=== PATIENT | female | born 1950 | race Caucasian/White ===

== ENCOUNTER → 2018-08-02 13:04 | Outpatient (BNVA) | payer MEDICARE, MEDICAID, SELFPAY | PROVIDERS: Visit Provider Urology | DX: N39.41 Urge incontinence (principal); I10 Essential (primary) hypertension | CPT/HCPCS: 99213 ==

== ENCOUNTER 2018-12-21 00:23 | Outpatient (CLI) | payer MEDICARE, MEDICAID, SELFPAY ==
--- NOTE | 2018-12-21 10:11 | DI.RAD_ITS ---
SYMPTOM/DIAGNOSIS: CHRONIC COUGH PA AND LATERAL CHEST: Comparison is made with 03/03/17. The heart is normal in size. The lungs are clear. The mediastinal structures and pleura appear intact. CONCLUSION: Normal chest.
== END 2018-12-21 00:43 ==
PROVIDERS: PCP Nurse Practitioner Family; Visit Provider Nurse Practitioner Family
DX: R05 Cough (principal)
CPT/HCPCS: 71046

== ENCOUNTER 2019-02-01 00:39 | Outpatient (CLI) | payer MEDICARE, MEDICAID, SELFPAY ==
[2019-02-01 09:50] LABS: CREATININE 1.79 mg/dL (0.55-1.02); Estimated GFR 28.25 (mL/min/1.73m2)
--- NOTE | 2019-02-01 10:03 | DI.MRI_ITS ---
SYMPTOMS/DIAGNOSIS: RIGHT RENAL MASS, F/U ABNORMAL MRI, N28.89, R93.5 RENAL MRI: Routine noncontrast MRI of the kidneys was performed. Contrast was not administered due to the patient's impaired renal function. Comparison examination is 05/10/18. There is again seen a well-circumscribed mass in the upper pole of the right kidney. It measures 3.8 cm transverse x 4 cm AP x 3.3 cm craniocaudally. Using similar techniques on the prior examination, it measured 3.9 cm transverse x 3.9 cm AP x 3.3 cm craniocaudad on 05/10/18. There are again seen thin internal septations and a question of nodularity along the wall posteriorly. The findings and size of this cystic lesion are unchanged compared to 05/10/18. No new renal masses are appreciated. There is again seen mild renal cortical atrophy bilaterally. No abdominal adenopathy is seen on the images provided. The visualized portions of the liver, spleen, pancreas and adrenal glands are unremarkable. The patient is status post cholecystectomy. IMPRESSION: Stable right renal mass since 05/10/18.
== END 2019-02-01 00:59 ==
PROVIDERS: PCP Nurse Practitioner Family; Visit Provider Urology
DX: N28.89 Other specified disorders of kidney and ureter (principal); N26.1 Atrophy of kidney (terminal); R93.5 Abnormal findings on diagnostic imaging of other abdominal regions, including retroperitoneum
CPT/HCPCS: 74181; 82565

== ENCOUNTER → 2019-02-06 14:06 | Outpatient (BNVA) | payer MEDICARE, MEDICAID, SELFPAY | PROVIDERS: PCP Nurse Practitioner Family; Visit Provider Urology | DX: N28.89 Other specified disorders of kidney and ureter (principal); I10 Essential (primary) hypertension; N39.41 Urge incontinence | CPT/HCPCS: 99213 ==

== ENCOUNTER 2019-02-14 01:08 | Outpatient (CLI) | payer MEDICARE, MEDICAID, SELFPAY ==
--- NOTE | 2019-02-14 08:48 | DI.MAMMO_ITS ---
SYMPTOM/DIAGNOSIS: SCREENING, Z12.31, [facility],Z00.00 MAMMOGRAMS: Mammograms were interpreted according to the usual protocol including computer analysis with CAD system, tomosynthesis and C view imaging. Comparison is made with exams from [id number]. The breasts are composed of scattered fibroglandular densities, breast density, Category B. No suspicious masses or suspicious microcalcifications are seen. There has been no significant change. IMPRESSION: Category 1, negative mammogram. Yearly screening mammography is recommended. [facility] ASSESSMENT OF FINDINGS: Negative. Category 1. Patient will receive a letter notifying them of these results. BI-RADS category B. There are scattered areas of fibroglandular density.
== END 2019-02-14 01:28 ==
PROVIDERS: PCP Nurse Practitioner Family; Visit Provider Nurse Practitioner Family
DX: Z12.31 Encounter for screening mammogram for malignant neoplasm of breast (principal)
CPT/HCPCS: 77063; 77067

== ENCOUNTER 2019-03-30 12:05 | Outpatient (REF) | payer MEDICARE, MEDICAID, SELFPAY ==
[2019-03-30 18:44] LABS: C-Reactive Protein 2.07 mg/dL (0.0-0.3)
[2019-03-30 19:08] LABS: ESR 45 MM/HR (0-30)
[2019-04-01 14:10] LABS: Myeloperoxidase Ab IgG 3.4 U; Proteinase 3 Ab (PR3) <0.2 U
== END 2019-03-30 12:25 ==
LOC: NCHCN 12:05
PROVIDERS: PCP Nurse Practitioner Family; Visit Provider Nurse Practitioner Family
DX: I77.6 Arteritis, unspecified (principal)
CPT/HCPCS: 85652; 83516; 86140

== ENCOUNTER 2019-04-07 14:57 | Outpatient (CLI) | payer MEDICARE, MEDICAID, SELFPAY ==
--- NOTE | 2019-04-07 15:18 | DI.CT_ITS ---
SYMPTOMS/DIAGNOSIS: UMBILICAL MASS X 3 WEEKS, R19.05, RED AND SWOLLEN AT SITE OF UMBILICUS, S/P HERNIA REPAIR YEARS AGO CT SCAN OF THE ABDOMEN: Noncontrast CT scan of the abdomen was performed. Comparison CT is 03/03/17. Comparison MRI is 05/10/18. The lack of contrast does limit evaluation of the abdominal organs. There is scarring in the lung bases bilaterally. The unenhanced liver appears grossly unremarkable. The patient is status post cholecystectomy. No biliary ductal dilatation is seen. The pancreas and peripancreatic soft tissues are unremarkable, as are the spleen and adrenal glands. There is renal cortical atrophy at the left kidney, which is otherwise unremarkable. There is again seen a 4.3 cm hypodense lesion in the right kidney superior pole. This has been evaluated on prior MRIs and CT scans. The most recent MRI examination was 02/01/19, which showed a complex, predominantly cystic renal mass that has been stable. The aorta is of normal caliber. No significant abdominal ascites, adenopathy or pneumoperitoneum is seen. There is diverticulosis of the colon, but no evidence of acute diverticulitis. The bowel is unremarkable. Since the prior examination, there has developed a lesion at the level of the umbilicus. It involves the anterior abdominal wall to the skin surface and measures 5.1 cm AP x 5.9 cm transverse x 5.3 cm craniocaudad. It appears of low density. There is some mild skin thickening in the region. It does not communicate with the underlying bowel. Degenerative changes are seen in the spine. There is resultant moderately severe central spinal canal stenosis at L3-4 and L4-L5. IMPRESSION: 1. A 5.3 x 5.9 x 5.1 cm hypodense soft tissue lesion involving the anterior abdominal wall at the level of the umbilicus. An abscess cannot be excluded. A soft tissue mass cannot be excluded. Aspiration or biopsy is recommended for further evaluation. The lesion does not appear consistent with a hernia. There is no bowel involved with the mass. 2. Stable right renal lesion on this noncontrast examination.
== END 2019-04-07 15:17 ==
PROVIDERS: PCP Nurse Practitioner Family; Visit Provider Nurse Practitioner Family
DX: R19.05 Periumbilic swelling, mass or lump (principal); N28.89 Other specified disorders of kidney and ureter
CPT/HCPCS: 74150

== ENCOUNTER 2019-05-02 14:26 | Outpatient (CLI) | payer MEDICARE, MEDICAID, SELFPAY ==
[2019-05-02 14:52] LABS: Abs Immature Grans 0.01 k/cumm (0.0-0.09); Absolute Basophil Count 0.05 k/cumm (0.0-0.2); Absolute Eosinophil Count 0.18 k/cumm (0.0-0.7); Absolute Neutrophil Count 5.06 k/cumm (1.2-6.7); Basophils % 0.6; Eosinophils % 2.3; HCT 30.6 % (36.0-46.0); HGB 9.9 g/dL (12.0-15.5); Immature Grans % 0.1; Lymphocytes % 28.8; Mean Corp. HGB Concentration 32.4 g/dL (32.0-36.0); Mean Corpuscular Hemoglobin 28.6 pg (27.0-33.0); Mean Corpuscular Volume 88.4 fL (80-95); Mean Platelet Volume 9.5 fL (8.0-11.0); Neutrophils % 63.2; Platelet Count 229 x1000/uL (130-400); RBC 3.46 m/cumm (4.00-5.20); Reticulocyte 1.4 % (0.5-2.4)
[2019-05-02 15:16] LABS: Anisocytosis 1+; Diff Comment RBC Morph Reviewed; Hypochromasia 1+
[2019-05-02 16:30] LABS: Iron 47 ug/dL (50-175); Total Iron Binding Capacity 259 ug/dL (250-450); Transferrin Sat 18 % (15-50)
[2019-05-02 17:02] LABS: ALT 26 U/L (12-78); AST 16 U/L (15-37); Albumin 3.7 g/dL (3.4-5.0); Alkaline Phosphatase 103 U/L (46-116); Anion Gap 12.1 mmol/L (3-11); BUN 49 mg/dL (7-18); Bilirubin, Total 0.2 mg/dL (0.2-1.0); CO2 20.9 mmol/L (21.0-32.0); Calcium 9.3 mg/dL (8.5-10.1); Chloride 108 mmol/L (98-107); Estimated GFR 26.37 (mL/min/1.73m2); Ferritin 337 ng/mL (8-388); Folate 11.8 ng/mL (8.6-20.0); Glucose 151 mg/dL (70-100); Potassium 4.9 mmol/L (3.5-5.1); Sodium 141 mmol/L (136-145); TSH 0.55 uIU/mL (0.358-3.74); Vitamin B12 433 pg/mL (193-986)
[2019-05-02 17:36] LABS: LDH 197 U/L (81-234)
[2019-05-04 09:28] LABS: Haptoglobin 189 mg/dL (32-197)
[2019-05-04 14:26] LABS: Erythropoietin 7.7 mIU/mL (2.6 - 18.5)
== END 2019-05-02 14:46 ==
PROVIDERS: PCP Nurse Practitioner Family; Visit Provider Internal Medicine Hematology & Oncology
DX: D64.9 Anemia, unspecified (principal); Z51.81 Encounter for therapeutic drug level monitoring
CPT/HCPCS: 36415; 80053; 82668; 82607; 82728; 82746; 83010; 83540; 83550; 83615; 84443; 85025; 85045

== ENCOUNTER 2019-07-14 12:25 | Outpatient (REF) | payer MEDICARE, MEDICAID, SELFPAY ==
[2019-07-14 15:18] LABS: ALT 22 U/L (14-59); AST 12 U/L (15-37); Albumin 3.7 g/dL (3.4-5.0); Alkaline Phosphatase 92 U/L (46-116); Anion Gap 9.9 mmol/L (3-11); BUN 45 mg/dL (7-18); Bilirubin, Total 0.2 mg/dL (0.2-1.0); CO2 23.1 mmol/L (21.0-32.0); CREATININE 1.97 mg/dL (0.55-1.02); Calcium 8.9 mg/dL (8.5-10.1); Calculated LDL 103 mg/dL; Chloride 108 mmol/L (98-107); Cholesterol 156 mg/dL (50-200); Estimated GFR 25.29 (mL/min/1.73m2); Glucose 148 mg/dL (70-100); HDL Cholesterol 39 mg/dL (40-60); Potassium 5.8 mmol/L (3.5-5.1); Sodium 141 mmol/L (136-145); Total Protein 7.5 g/dL (6.4-8.2); Triglyceride 71 mg/dL (30-150)
[2019-07-14 15:19] LABS: HCT 32.2 % (36.0-46.0); Mean Corp. HGB Concentration 31.1 g/dL (32.0-36.0); Mean Corpuscular Hemoglobin 28.2 pg (27.0-33.0); Mean Corpuscular Volume 90.7 fL (80-95); Mean Platelet Volume 10.2 fL (8.0-11.0); Platelet Count 272 x1000/uL (130-400); RBC 3.55 m/cumm (4.00-5.20); RBC Distribution Width 14.7 % (11.7-14.6); White Blood Cell Count 6.97 k/cumm (4.4-10.8)
== END 2019-07-14 12:45 ==
LOC: NCHCN 12:25
PROVIDERS: PCP Nurse Practitioner Family; Visit Provider Nurse Practitioner Family
DX: D63.8 Anemia in other chronic diseases classified elsewhere (principal); I10 Essential (primary) hypertension; N18.3 Chronic kidney disease, stage 3 (moderate)
CPT/HCPCS: 80053; 80061; 85027

== ENCOUNTER 2019-11-20 12:15 | Outpatient (CLI) | payer MEDICARE, MEDICAID, SELFPAY ==
[2019-11-20 12:36] LABS: Abs Immature Grans 0.02 k/cumm (0.0-0.09); Absolute Basophil Count 0.06 k/cumm (0.0-0.2); Absolute Eosinophil Count 0.19 k/cumm (0.0-0.7); Absolute Lymphocyte Count 1.96 k/cumm (1.2-3.4); Absolute Monocyte Count 0.49 k/cumm (0.11-0.7); Absolute Neutrophil Count 4.21 k/cumm (1.2-6.7); Basophils % 0.9; Eosinophils % 2.7; HCT 33.8 % (36.0-46.0); Immature Grans % 0.3 %; Lymphocytes % 28.3; Mean Corp. HGB Concentration 32.5 g/dL (32.0-36.0); Mean Corpuscular Hemoglobin 28.4 pg (27.0-33.0); Mean Corpuscular Volume 87.1 fL (80-95); Mean Platelet Volume 9.5 fL (8.0-11.0); Monocytes % 7.1; Neutrophils % 60.7; Platelet Count 250 x1000/uL (130-400); RBC 3.88 m/cumm (4.00-5.20); RBC Distribution Width 14.2 % (11.7-14.6); White Blood Cell Count 6.93 k/cumm (4.4-10.8)
[2019-11-20 12:49] LABS: ALT 20 U/L (14-59); AST 15 U/L (15-37); Albumin 3.8 g/dL (3.4-5.0); Alkaline Phosphatase 91 U/L (46-116); Anion Gap 9.1 mmol/L (3-11); BUN 38 mg/dL (7-18); Bilirubin, Total 0.3 mg/dL (0.2-1.0); CO2 24.9 mmol/L (21.0-32.0); CREATININE 1.85 mg/dL (0.55-1.02); Calcium 8.6 mg/dL (8.5-10.1); Chloride 106 mmol/L (98-107); Estimated GFR 27.11 (mL/min/1.73m2); Glucose 137 mg/dL (74-106); Potassium 4.9 mmol/L (3.5-5.1); Sodium 140 mmol/L (136-145); Total Protein 7.8 g/dL (6.4-8.2)
== END 2019-11-20 12:35 ==
PROVIDERS: PCP Nurse Practitioner Family; Visit Provider Internal Medicine Hematology & Oncology
DX: D64.9 Anemia, unspecified (principal)
CPT/HCPCS: 36415; 80053; 85025

== ENCOUNTER 2019-12-07 11:53 | Outpatient (REF) | payer MEDICARE, MEDICAID, SELFPAY ==
[2019-12-07 13:21] LABS: PROTEIN 10.3 mg/dL
[2019-12-07 13:22] LABS: COMMENT (LAB VIEW ONLY) 138.63 mg/dL; Prot/Crea Ur Ratio 0.07
[2019-12-07 13:23] LABS: COMMENT (LAB VIEW ONLY) 138.88 mg/dL; Microalb ug/mg Crea 5.1 ug/mg Cr
== END 2019-12-07 12:13 ==
LOC: NCHCO 11:53
PROVIDERS: PCP Nurse Practitioner Family; Visit Provider Nurse Practitioner Family
DX: E11.9 Type 2 diabetes mellitus without complications (principal); I10 Essential (primary) hypertension
CPT/HCPCS: 82043; 82565; 82570; 84156

== ENCOUNTER 2020-04-16 01:01 | Outpatient (CLI) | payer MEDICARE, MEDICAID, SELFPAY ==
[2020-04-16 11:31] LABS: Abs Immature Grans 0.02 k/cumm (0.0-0.09); Absolute Basophil Count 0.05 k/cumm (0.0-0.2); Absolute Eosinophil Count 0.23 k/cumm (0.0-0.7); Absolute Lymphocyte Count 2.44 k/cumm (1.2-3.4); Absolute Monocyte Count 0.61 k/cumm (0.11-0.7); Absolute Neutrophil Count 4.96 k/cumm (1.2-6.7); Basophils % 0.6; Eosinophils % 2.8; HGB 10.5 g/dL (12.0-15.5); Immature Grans % 0.2 %; Lymphocytes % 29.4; Mean Corp. HGB Concentration 32.8 g/dL (32.0-36.0); Mean Corpuscular Hemoglobin 28.6 pg (27.0-33.0); Mean Corpuscular Volume 87.2 fL (80-95); Mean Platelet Volume 9.6 fL (8.0-11.0); Monocytes % 7.3; Neutrophils % 59.7; Platelet Count 257 x1000/uL (130-400); RBC 3.67 m/cumm (4.00-5.20); RBC Distribution Width 14.9 % (11.7-14.6); White Blood Cell Count 8.31 k/cumm (4.4-10.8)
[2020-04-16 12:08] LABS: ALT 24 U/L (14-59); AST 16 U/L (15-37); Albumin 4.2 g/dL (3.4-5.0); Alkaline Phosphatase 86 U/L (46-116); Anion Gap 13.5 mmol/L (3-11); BUN 60 mg/dL (7-18); Bilirubin, Total 0.3 mg/dL (0.2-1.0); C-Reactive Protein 1.09 mg/dL (0.0-0.3); CO2 18.5 mmol/L (21.0-32.0); CREATININE 2.35 mg/dL (0.55-1.02); Calcium 9.5 mg/dL (8.5-10.1); Chloride 105 mmol/L (98-107); Estimated GFR 20.57 (mL/min/1.73m2); Glucose 135 mg/dL (74-106); Potassium 5.4 mmol/L (3.5-5.1); Sodium 137 mmol/L (136-145); Total Protein 7.7 g/dL (6.4-8.2)
[2020-04-16 12:17] LABS: ESR 36 mm/hr (0-30)
[2020-04-17 14:53] LABS: ANCA Interpretation Positive (Negative)
[2020-04-18 10:03] LABS: Myeloperoxidase Ab IgG 3.6 U; Proteinase 3 Ab (PR3) <0.2 U
== END 2020-04-16 01:21 ==
PROVIDERS: PCP Nurse Practitioner Family; Visit Provider Nurse Practitioner Family
DX: D64.9 Anemia, unspecified (principal); I77.6 Arteritis, unspecified
CPT/HCPCS: 36415; 80053; 85652; 86255; 83516; 85025; 86140

== ENCOUNTER 2020-07-16 01:34 | Outpatient (CLI) | payer MEDICARE, MEDICAID, SELFPAY ==
[2020-07-16 10:51] LABS: Abs Immature Grans 0.03 10^3/uL (0.0-0.06); Absolute Basophil Count 0.06 10^3/uL (0.0-0.2); Absolute Eosinophil Count 0.26 10^3/uL (0.0-0.7); Absolute Lymphocyte Count 2.61 10^3/uL (1.2-3.4); Absolute Monocyte Count 0.59 10^3/uL (0.1-0.8); Absolute Neutrophil Count 5.26 10^3/uL (1.2-6.7); Basophils % 0.7; HGB 10.4 g/dL (11.2-15.7); Immature Grans % 0.3; Lymphocytes % 29.6; MCH 28.3 pg (27.0-33.0); MCHC 31.5 % (32.0-36.0); MCV 89.7 fL (80-95); MPV 9.6 fL (8.0-11.0); Monocytes % 6.7; Neutrophils % 59.7; Nucleated RBC 0 %; Platelet Count 246 10^3/uL (130-400); RBC 3.68 10^6/uL (3.93-5.22); RDW 13.3 % (11.7-14.6); RDW-SD 44.1 fL; WBC 8.81 10^3/uL (4.4-10.8)
[2020-07-16 11:41] LABS: ESR 41 mm/hr (0-30)
[2020-07-16 11:53] LABS: ALT 21 U/L (14-59); AST 14 U/L (15-37); Alkaline Phosphatase 88 U/L (46-116); Anion Gap 9.6 mmol/L (3-11); BUN 51 mg/dL (7-18); Bilirubin, Total 0.3 mg/dL (0.2-1.0); CO2 23.4 mmol/L (21.0-32.0); CREATININE 2.13 mg/dL (0.55-1.02); Calcium 9.6 mg/dL (8.5-10.1); Chloride 104 mmol/L (98-107); Estimated GFR 23.04 (mL/min/1.73m2); Glucose 170 mg/dL (74-106); Potassium 5.9 mmol/L (3.5-5.1); Sodium 137 mmol/L (136-145); Total Protein 7.7 g/dL (6.4-8.2)
[2020-07-17 15:36] LABS: ANCA Interpretation Positive (Negative)
[2020-07-17 17:30] LABS: Myeloperoxidase Ab IgG 3.7 U; Proteinase 3 Ab (PR3) <0.2 U
== END 2020-07-16 01:54 ==
PROVIDERS: Nurse Practitioner Family; PCP Nurse Practitioner Family; Visit Provider Internal Medicine Nephrology
DX: I77.6 Arteritis, unspecified (principal)
CPT/HCPCS: 36415; 80053; 85652; 86255; 83516; 85025; 86140

== ENCOUNTER 2020-08-26 20:48 | Outpatient (REF) | payer MEDICARE, MEDICAID, SELFPAY ==
[2020-08-26 19:14] LABS: Iron 62 ug/dL (50-170); Total Iron Binding Capacity 306 ug/dL (250-450); Transferrin Sat 20 % (15-50)
[2020-08-26 19:26] LABS: Ferritin 361 ng/mL (8-252)
== END 2020-08-26 21:08 ==
LOC: NCHCN 20:48
PROVIDERS: PCP Nurse Practitioner Family; Visit Provider Nurse Practitioner Family
DX: D63.8 Anemia in other chronic diseases classified elsewhere (principal)
CPT/HCPCS: 82728; 83540; 83550

== ENCOUNTER 2020-08-29 13:25 | Outpatient (REF) | payer MEDICARE, MEDICAID, SELFPAY ==
[2020-08-29 18:07] LABS: HGB 10.7 g/dL (11.2-15.7); MCH 28.1 pg (27.0-33.0); MCHC 31.5 % (32.0-36.0); MCV 89.2 fL (80-95); MPV 10.4 fL (8.0-11.0); Platelet Count 245 10^3/uL (130-400); RBC 3.81 10^6/uL (3.93-5.22); RDW 13.6 % (11.7-14.6); RDW-SD 44.4 fL; WBC 7.84 10^3/uL (4.4-10.8)
[2020-08-29 18:33] LABS: ALT 20 U/L (14-59); AST 15 U/L (15-37); Albumin 4.2 g/dL (3.4-5.0); Alkaline Phosphatase 86 U/L (46-116); Anion Gap 10.3 mmol/L (3-11); BUN 54 mg/dL (7-18); Bilirubin, Total 0.3 mg/dL (0.2-1.0); CO2 21.7 mmol/L (21.0-32.0); CREATININE 2.15 mg/dL (0.55-1.02); Calcium 9.6 mg/dL (8.5-10.1); Chloride 106 mmol/L (98-107); Estimated GFR 22.79 (mL/min/1.73m2); Glucose 172 mg/dL (74-106); Potassium 5.4 mmol/L (3.5-5.1); Sodium 138 mmol/L (136-145); Total Protein 7.8 g/dL (6.4-8.2)
== END 2020-08-29 13:45 ==
LOC: NCHCN 13:25
PROVIDERS: PCP Nurse Practitioner Family; Visit Provider Nurse Practitioner Family
DX: N18.4 Chronic kidney disease, stage 4 (severe) (principal)
CPT/HCPCS: 80053; 85027

== ENCOUNTER 2021-03-14 03:15 | Outpatient (CLI) | payer MEDICARE, MEDICAID, SELFPAY ==
[2021-03-14 10:40] LABS: Source Nasal/Nares
[2021-03-14 15:04] LABS: COVID-19 PCR Negative (Negative)
== END 2021-03-14 03:16 | disposition home or self-care (01) ==
LOC: LBO 03:15
PROVIDERS: PCP Nurse Practitioner Family; Visit Provider Surgery
DX: Z20.822 Contact with and (suspected) exposure to COVID-19 (principal); Z01.818 Encounter for other preprocedural examination
CPT/HCPCS: 87635

== ENCOUNTER 2021-03-17 02:19 | Outpatient (CLI) | payer MEDICARE, MEDICAID, SELFPAY ==
[2021-03-17 11:48] LABS: Anion Gap 13.7 mmol/L (3-11); CO2 19.3 mmol/L (21.0-32.0); Chloride 106 mmol/L (98-107); Potassium 5.6 mmol/L (3.5-5.1); Sodium 139 mmol/L (136-145)
== END 2021-03-17 02:20 | disposition home or self-care (01) ==
PROVIDERS: PCP Nurse Practitioner Family; Visit Provider Surgery
DX: Z01.818 Encounter for other preprocedural examination (principal)
CPT/HCPCS: 36415; 80051

== ENCOUNTER → 2021-04-01 15:40 | Outpatient (BNVA) | payer MEDICARE, MEDICAID, SELFPAY | PROVIDERS: PCP Nurse Practitioner Family; Referring Provider Nurse Practitioner Family; Visit Provider Nurse Practitioner Gerontology | DX: N28.89 Other specified disorders of kidney and ureter (principal); N39.46 Mixed incontinence | CPT/HCPCS: 99214 ==

== ENCOUNTER 2021-05-12 01:30 | Outpatient (CLI) | payer MEDICARE, MEDICAID, SELFPAY ==
--- NOTE | 2021-05-12 07:00 | DI.US_ITS ---
Exam(s) US RENAL EXAM: US RENAL CLINICAL HISTORY: monitoring mass to right kidney,URINARY INCONTINENCE,MIXED INCONTINENCE TECHNIQUE: Ultrasound of both kidneys performed using standard protocol. COMPARISON: No exams were available for comparison FINDINGS: RIGHT KIDNEY: Measures 10.6 cm in length. In superior pole there is a cystic mass measuring 3.9 x 3.6 x 4 cm. This is predominantly cystic but with thick internal septae therein. Also decreased cortical thickness i n the right kidney noted and decreased corticomedullary differentiation. No intrarenal calculi nor hydronephrosis. LEFT KIDNEY: Measures 8.9 cm in length. No cysts evident. Also decreased cortical thickness and corticomedullary differentiation. No intrarenal calculi nor hydonephrosis. URINARY BLADDER: Prevoid volume is 127 cc Postvoid volume is 117 cc No evidence of bladder mass nor diverticuli. Ureterovesical jets: Not visualized IMPRESSION: 1. Both kidneys exhibit decreased cortical thickness and corticomedullary differentiation consistent with chronic medical renal disease. 2. In addition, there is a 3.9 x 3.6 x 4 cm septated lesion in the superior pole region of the right kidney. This is not a simple cyst but contains solid septated therein. Recommend follow-up CT scan . Patient is apparently incontinent was not able voluntarily empty her urinary bladder DATA REPOSITORY:
== END 2021-05-12 01:50 ==
PROVIDERS: PCP Nurse Practitioner Family; Visit Provider Nurse Practitioner Gerontology
DX: N28.89 Other specified disorders of kidney and ureter (principal); N39.41 Urge incontinence; N39.46 Mixed incontinence
CPT/HCPCS: 76770

== ENCOUNTER → 2021-05-14 10:31 | Outpatient (BNVA) | payer MEDICARE, MEDICAID, SELFPAY | PROVIDERS: PCP Nurse Practitioner Family; Referring Provider Nurse Practitioner Family; Visit Provider Nurse Practitioner Gerontology | DX: N28.89 Other specified disorders of kidney and ureter (principal); N39.46 Mixed incontinence | CPT/HCPCS: 99213 ==

== ENCOUNTER 2021-05-20 16:58 | Outpatient (REF) | payer MEDICARE, MEDICAID, SELFPAY ==
[2021-05-20 21:32] LABS: Anion Gap 10.9 mmol/L (3-11); BUN 41 mg/dL (7-18); CO2 23.1 mmol/L (21.0-32.0); CREATININE 1.9 mg/dL (0.55-1.02); Calcium 9.3 mg/dL (8.5-10.1); Chloride 108 mmol/L (98-107); Estimated GFR 26.21 (mL/min/1.73m2); Glucose 138 mg/dL (74-106); Magnesium 1.9 mg/dL (1.8-2.4); Potassium 4.9 mmol/L (3.5-5.1); Sodium 142 mmol/L (136-145)
[2021-05-20 22:48] LABS: Vitamin D 25 Total 32.5 ng/mL (30-100)
[2021-05-22 10:42] LABS: Parathyroid Hormone,Intact 26 pg/mL (19-88)
== END 2021-05-20 16:59 | disposition home or self-care (01) ==
LOC: NCHCN 16:58
PROVIDERS: Physician Assistant; PCP Nurse Practitioner Family; Visit Provider Nurse Practitioner Family
DX: E11.22 Type 2 diabetes mellitus with diabetic chronic kidney disease (principal); N18.4 Chronic kidney disease, stage 4 (severe)
CPT/HCPCS: 80048; 82306; 85027; 83735; 83970

== ENCOUNTER 2021-06-04 13:14 | Outpatient (REF) | payer MEDICARE, MEDICAID, SELFPAY ==
[2021-06-04 14:01] LABS: HCT 33.9 % (36.0-46.0); HGB 10.6 g/dL (11.2-15.7); MCH 27.3 pg (27.0-33.0); MCHC 31.3 % (32.0-36.0); MCV 87.4 fL (80-95); MPV 10.1 fL (8.0-11.0); Platelet Count 242 10^3/uL (130-400); RBC 3.88 10^6/uL (3.93-5.22); RDW 13.9 % (11.7-14.6); RDW-SD 43.9 fL
== END 2021-06-04 13:15 | disposition home or self-care (01) ==
LOC: NCHCN 13:14
PROVIDERS: PCP Nurse Practitioner Family; Visit Provider Physician Assistant
DX: N18.4 Chronic kidney disease, stage 4 (severe) (principal); E11.9 Type 2 diabetes mellitus without complications
CPT/HCPCS: 85027

== ENCOUNTER 2021-07-09 03:03 | Outpatient (CLI) | payer MEDICARE, MEDICAID, SELFPAY ==
[2021-07-09 10:25] LABS: Abs Immature Grans 0.03 10^3/uL (0.0-0.06); Absolute Basophil Count 0.08 10^3/uL (0.0-0.2); Absolute Eosinophil Count 0.21 10^3/uL (0.0-0.7); Absolute Lymphocyte Count 2.26 10^3/uL (1.2-3.4); Absolute Monocyte Count 0.57 10^3/uL (0.1-0.8); Eosinophils % 2.7; HCT 33.4 % (36.0-46.0); HGB 10.5 g/dL (11.2-15.7); Immature Grans % 0.4; Lymphocytes % 28.8; MCH 27.6 pg (27.0-33.0); MCHC 31.4 % (32.0-36.0); MCV 87.9 fL (80-95); MPV 9.5 fL (8.0-11.0); Monocytes % 7.3; Neutrophils % 59.8; Nucleated RBC 0 %; Platelet Count 230 10^3/uL (130-400); RDW 13.8 % (11.7-14.6); RDW-SD 44.4 fL; WBC 7.85 10^3/uL (4.4-10.8)
[2021-07-09 10:45] LABS: Iron 55 ug/dL (50-170); Total Iron Binding Capacity 301 ug/dL (250-450); Transferrin Sat 18 % (15-50)
[2021-07-09 10:59] LABS: ALT 24 U/L (14-59); AST 14 U/L (15-37); Albumin 3.8 g/dL (3.4-5.0); Alkaline Phosphatase 98 U/L (46-116); Anion Gap 9.3 mmol/L (3-11); BUN 45 mg/dL (7-18); Bilirubin, Total 0.3 mg/dL (0.2-1.0); CO2 22.7 mmol/L (21.0-32.0); CREATININE 2.2 mg/dL (0.55-1.02); Calcium 9.4 mg/dL (8.5-10.1); Chloride 107 mmol/L (98-107); Estimated GFR 22.13 (mL/min/1.73m2); Ferritin 337 ng/mL (8-252); Glucose 265 mg/dL (74-106); Potassium 5.1 mmol/L (3.5-5.1); Sodium 139 mmol/L (136-145); Total Protein 8.1 g/dL (6.4-8.2)
== END 2021-07-09 03:04 | disposition home or self-care (01) ==
LOC: LBO 03:03
PROVIDERS: PCP Nurse Practitioner Family; Visit Provider Internal Medicine Hematology & Oncology
DX: D64.9 Anemia, unspecified (principal)
CPT/HCPCS: 36415; 80053; 82728; 83540; 83550; 85025

== ENCOUNTER 2021-10-09 01:38 | Outpatient (CLI) | payer MEDICARE, MEDICAID, SELFPAY ==
--- NOTE | 2021-10-09 11:47 | DI.MAMMO_ITS ---
Exam(s) MAMMO SCREENING EXAM: MAMMO SCREENING CLINICAL HISTORY: SCREENING, Z12.31. TECHNIQUE: Bilateral full field digital CC and MLO mammographic images were obtained with 3D tomosyn thesis and utilizing computer aided detection (CAD). COMPARISON: Prior mammograms dating back to 2011, the most recent being January 2019.. FINDINGS: There has been no significant change in the appearance and distribution of the fibroglandular tissue. Asymmetric tissue in the anterior right breast is unchanged from prior studies. There are no new spiculated masses nor malignant appearing microcalcification groups. There is no significant architectural distortion nor skin thickening-retraction. IMPRESSION: No radiographic evidence of malignancy. BI-RADS Category 1 - Negative Breast Density - Category B - Scattered areas of fibroglandular density Breast density Category C or D implies that the patient has dense breast tissue. Dense breast tissue can make it harder to find cancer on a mammogram. Dense breast tissue is also associated with an incr eased risk of breast cancer. This information about the result of the mammogram report was provided to the patient to raise their awareness. Use this report when you speak with the patient about their risks for breast cancer, which includes their family history. At that time, you may recommend additional screening tests (Ultrasoun d or MRI) as these tests may add significant information. A negative radiographic report should not delay biopsy if a dominant or clinically suspicious mass is present. Up to ten percent of cancers are not identified on mammography. A negative report may reinforce clinical impression. Adenosis and dense breasts may obscure an underlying neoplasm. False positive reports average 6 to 10%. Patient will receive a letter notifying them of these results.
== END 2021-10-09 01:58 ==
PROVIDERS: PCP Nurse Practitioner Family; Visit Provider Physician Assistant
DX: Z12.31 Encounter for screening mammogram for malignant neoplasm of breast (principal)
CPT/HCPCS: 77063; 77067

== ENCOUNTER 2021-12-12 00:21 | Outpatient (CLI) | payer OTHER, MEDICAID, SELFPAY ==
--- NOTE | 2021-12-12 | DI.DEXA_ITS ---
Exam(s) XR DEXA BONE DENSITY W/WO DEBORAH EXAM: XR DEXA BONE DENSITY W/WO DEBORAH CLINICAL HISTORY: POSTMENOPAUSAL Z78.0 TECHNIQUE: COMPARISON: Comparison 10/29/2014. FINDINGS: Lateral Spine Image: Unremarkable. No compression deformities identified. Left hip: Total T-Score: 0.2. This compares to -0.1 on the prior examination. Total Z-Score: 1.7 T- and Z-scores: Within normal limits. Lumbar Spine: Total T-Score: 1.0. This compares to 0.6 on the prior examination. Total Z-Score: 3.1 T- and Z-scores: Within normal limits. IMPRESSION: No evidence of osteoporosis.
== END 2021-12-12 00:41 ==
PROVIDERS: PCP Nurse Practitioner Family; Visit Provider Physician Assistant
DX: Z78.0 Asymptomatic menopausal state (principal); Z13.820 Encounter for screening for osteoporosis
CPT/HCPCS: 77080

== ENCOUNTER → 2022-05-07 01:32 | Outpatient (CLI) | payer OTHER, MEDICAID, SELFPAY ==
--- NOTE | 2022-05-07 07:45 | DI.US_ITS ---
Exam(s) US RENAL EXAM: US RENAL CLINICAL HISTORY: monitoring right renal mass/cyst,N28.89. TECHNIQUE: Waller scale, color and spectral Doppler were used. COMPARISON: US US RENAL from 05/12/2021 FINDINGS: Renal size in cm: Right: 10.4. Left: 11.1. Echogenicity: There is loss of the cortical medullary differentiation in both kidneys. Both renal co rtices appear thin. Hydronephrosis: No. Cyst or mass: The complex mass in the upper pole of the right kidney measures 4.2 x 3.9 x 4.4 cm. Us ing similar measuring techniques on the prior examination from 05/12/2021, there has been no significa nt change. Nephrolithiasis: No. Other findings: None. Bladder:The urinary bladder cannot be adequately evaluated due to decreased volume. Ureteral jets: Right: The right ureteral jet was not visualized on this examination. Left: The left ureteral jet was not visualized on this examination. Prevoid vol:The left cc Renal color flow: Symmetric and within normal limits. IMPRESSION: 1. No significant change in size of the right complex septated renal mass since 05/12/2021. 2. Stable bilateral medical renal disease. DATA REPOSITORY:
== END ==
PROVIDERS: PCP Nurse Practitioner Family; Visit Provider Nurse Practitioner Gerontology
DX: N28.89 Other specified disorders of kidney and ureter (principal); N39.46 Mixed incontinence
CPT/HCPCS: 76770

== ENCOUNTER → 2022-05-13 10:37 | Outpatient (BNVA) | payer OTHER, MEDICAID, SELFPAY | PROVIDERS: PCP Physician Assistant; Referring Provider Physician Assistant; Visit Provider Nurse Practitioner Gerontology | DX: N28.89 Other specified disorders of kidney and ureter (principal); N39.46 Mixed incontinence | CPT/HCPCS: 99214 ==

== ENCOUNTER 2022-06-16 09:08 | Outpatient (REF) | payer OTHER, MEDICAID, SELFPAY ==
[2022-06-16 16:48] LABS: HCT 34.9 % (36.0-46.0); HGB 11.3 g/dL (11.2-15.7); MCH 27.7 pg (27.0-33.0); MCHC 32.4 % (32.0-36.0); MCV 86 fL (80-95); MPV 10.5 fL (8.0-11.0); Platelet Count 248 10^3/uL (130-400); RBC 4.08 10^6/uL (3.93-5.22); RDW 14.1 % (11.7-14.6); RDW-SD 43.7 fL
[2022-06-16 16:58] LABS: ALT 25 U/L (14-59); AST 18 U/L (15-37); Albumin 3.7 g/dL (3.4-5.0); Alkaline Phosphatase 80 U/L (46-116); Anion Gap 11.4 mmol/L (3-11); BUN 44 mg/dL (7-18); Bilirubin, Total 0.3 mg/dL (0.2-1.0); CO2 23.6 mmol/L (21.0-32.0); CREATININE 2.1 mg/dL (0.55-1.02); Calcium 9.5 mg/dL (8.5-10.1); Calculated LDL 105 mg/dL (<100); Chloride 102 mmol/L (98-107); Cholesterol 177 mg/dL (<200); Estimated GFR 23.28 (mL/min/1.73m2); Glucose 182 mg/dL (74-106); HDL Cholesterol 41 mg/dL (40-60); Potassium 5.2 mmol/L (3.5-5.1); Sodium 137 mmol/L (136-145); Triglyceride 156 mg/dL (<150)
[2022-06-16 17:19] LABS: Hemoglobin A1C 7.5 % (<5.7)
[2022-06-18 09:43] LABS: Parathyroid Hormone,Intact 23 pg/mL (19-88)
== END 2022-06-16 09:09 | disposition home or self-care (01) ==
LOC: NCHCN 09:08
PROVIDERS: PCP Physician Assistant; Visit Provider Physician Assistant
DX: E11.9 Type 2 diabetes mellitus without complications (principal); N18.4 Chronic kidney disease, stage 4 (severe); D63.8 Anemia in other chronic diseases classified elsewhere
CPT/HCPCS: 80053; 80061; 85027; 83036; 83970

== ENCOUNTER 2022-06-24 15:20 | Outpatient (CLI) | payer OTHER, MEDICAID, SELFPAY ==
[2022-06-24 15:47] LABS: Abs Immature Grans 0.03 10^3/uL (0.0-0.06); Absolute Basophil Count 0.05 10^3/uL (0.0-0.2); Absolute Eosinophil Count 0.19 10^3/uL (0.0-0.7); Absolute Lymphocyte Count 2.73 10^3/uL (1.2-3.4); Absolute Monocyte Count 0.57 10^3/uL (0.1-0.8); Absolute Neutrophil Count 4.75 10^3/uL (1.2-6.7); Basophils % 0.6; Eosinophils % 2.3; HCT 33.4 % (36.0-46.0); Immature Grans % 0.4; Lymphocytes % 32.8; MCH 28.1 pg (27.0-33.0); MCHC 32.9 % (32.0-36.0); MCV 85 fL (80-95); MPV 9.6 fL (8.0-11.0); Monocytes % 6.9; Platelet Count 255 10^3/uL (130-400); RBC 3.91 10^6/uL (3.93-5.22); RDW-SD 43.4 fL; WBC 8.32 10^3/uL (4.4-10.8)
[2022-06-24 15:51] LABS: ALT 26 U/L (14-59); AST 17 U/L (15-37); Albumin 3.5 g/dL (3.4-5.0); Alkaline Phosphatase 86 U/L (46-116); Anion Gap 8.6 mmol/L (3-11); BUN 32 mg/dL (7-18); Bilirubin, Total 0.2 mg/dL (0.2-1.0); CO2 21.4 mmol/L (21.0-32.0); CREATININE 2.1 mg/dL (0.55-1.02); Calcium 9.1 mg/dL (8.5-10.1); Chloride 104 mmol/L (98-107); Estimated GFR 24.88 (mL/min/1.73m2); Glucose 265 mg/dL (74-106); Sodium 134 mmol/L (136-145); Total Protein 7.6 g/dL (6.4-8.2)
== END 2022-06-24 15:21 | disposition home or self-care (01) ==
LOC: LBO 15:21
PROVIDERS: PCP Physician Assistant; Visit Provider Nurse Practitioner Adult Health
DX: D64.9 Anemia, unspecified (principal)
CPT/HCPCS: 36415; 80053; 85025

== ENCOUNTER 2022-06-26 18:46 | Outpatient (REF) | payer OTHER, MEDICAID, SELFPAY ==
[2022-06-29 09:30] LABS: Hepatitis C Ab w Rflx HCV PCR Negative (Negative)
[2022-06-29 09:45] LABS: HIV-1/2 Ag & Ab Screen Negative (Negative)
== END 2022-06-26 18:47 | disposition home or self-care (01) ==
LOC: NCHCN 18:46
PROVIDERS: PCP Physician Assistant; Visit Provider Physician Assistant
DX: Z11.4 Encounter for screening for human immunodeficiency virus [HIV] (principal); Z11.59 Encounter for screening for other viral diseases
CPT/HCPCS: 86803; 87389

== ENCOUNTER → 2022-10-12 01:28 | Outpatient (CLI) | payer OTHER, MEDICAID, SELFPAY ==
--- NOTE | 2022-10-12 11:12 | DI.MAMMO_ITS ---
Exam(s) MAMMO SCREENING EXAM: MAMMO SCREENING CLINICAL HISTORY: SCREENING FOR BREAST CANCER Z12.39 TECHNIQUE: Mammograms were interpreted according to the usual protocol including computer analysis w [employer] CAD system, tomosynthesis and C-view imaging. COMPARISON: 2012 through 2020 FINDINGS: The breasts are composed of scattered fibroglandular densities, Breast Density category B. No suspicious masses or suspicious microcalcifications are seen. No skin thickening or abnormal axillary lymph nodes are seen. There has been no significant change from prior exams. IMPRESSION: BI-RADS Category 1, Negative mammogram Yearly screening mammography is recommended. Breast Density - Category B, scattered fibroglandular densities. A negative radiographic report should not delay biopsy if a dominant or clinically suspicious mass is present. Up to ten percent of cancers are not identified on mammography. A negative report may reinforce clinical impression. Adenosis and dense breasts may obscure an underlying neoplasm. False positive reports average 6 to 10%. Patient will receive a letter notifying them of these results.
== END ==
PROVIDERS: PCP Physician Assistant; Visit Provider Physician Assistant
DX: Z12.31 Encounter for screening mammogram for malignant neoplasm of breast (principal)
CPT/HCPCS: 77063; 77067

== ENCOUNTER 2023-01-25 11:39 | Outpatient (REF) | payer OTHER, MEDICAID, SELFPAY ==
[2023-01-25 15:22] LABS: HCT 34.8 % (36.0-46.0); HGB 11.3 g/dL (11.2-15.7); MCH 27.8 pg (27.0-33.0); MCHC 32.5 % (32.0-36.0); MCV 86 fL (80-95); Platelet Count 260 10^3/uL (130-400); RBC 4.06 10^6/uL (3.93-5.22); RDW 13.9 % (11.7-14.6); RDW-SD 43.5 fL; WBC 8.06 10^3/uL (4.4-10.8)
[2023-01-25 15:37] LABS: Anion Gap 10.8 mmol/L (3-11); BUN 47 mg/dL (7-18); CO2 24.2 mmol/L (21.0-32.0); Calcium 9.9 mg/dL (8.5-10.1); Chloride 105 mmol/L (98-107); Estimated GFR 26.22 (mL/min/1.73m2); Glucose 235 mg/dL (74-106); Potassium 5.3 mmol/L (3.5-5.1); Sodium 140 mmol/L (136-145)
[2023-01-25 16:01] LABS: Hemoglobin A1C 7.8 % (<5.7)
== END 2023-01-25 11:40 | disposition home or self-care (01) ==
LOC: NCHCN 11:39
PROVIDERS: PCP Physician Assistant; Visit Provider Physician Assistant
DX: E11.9 Type 2 diabetes mellitus without complications (principal); N18.4 Chronic kidney disease, stage 4 (severe)
CPT/HCPCS: 80048; 85027; 83036

== ENCOUNTER 2023-05-07 00:05 | Outpatient (CLI) | payer OTHER, MEDICAID, SELFPAY ==
--- NOTE | 2023-05-07 07:40 | DI.US_ITS ---
Exam(s) US RENAL EXAM: US RENAL CLINICAL HISTORY: monitoring size change to right renal mass,n28.89 TECHNIQUE: Ultrasound of both kidneys performed using standard protocol. COMPARISON: MR MR ABDOMEN WO/W from 02/01/[address] ABDOMEN WO from 04/07/2019 US US RENAL from 05/07/2022 FINDINGS: RIGHT KIDNEY: Measures 10.8 cm in length. Again noted is a previously described partially solid partially cystic n oncalcified mass in the superior pole region of the right kidney, measuring approximately 4.1 x 3.8 c m, stable size. No additional masses in the right kidney noted. Cortical thickness is approximately 1 cm and there is slightly decreased corticomedullary differentiation again noted. LEFT KIDNEY: Measures 10.9 cm in length. No focal lesions but there is significant cortical thinning and decrease d corticomedullary differentiation again noted. No calculi nor hydronephrosis. URINARY BLADDER: Prevoid volume is 85 cc Postvoid volume is cc No evidence of obvious bladder mass on these images. IMPRESSION: 1. Relatively stable appearance of the partially solid partially cystic 4 cm mass in the superior po le the right kidney, as evident on prior imaging studies dating back to at least 2018. No additional renal masses noted. No calculi nor hydronephrosis. 2. Bilateral medical renal disease, again noted be more prominent on the left side. DATA REPOSITORY:
== END 2023-05-07 00:25 ==
LOC: DI 00:06
PROVIDERS: PCP Physician Assistant; Visit Provider Nurse Practitioner Gerontology
DX: N28.89 Other specified disorders of kidney and ureter (principal)
CPT/HCPCS: 76770

== ENCOUNTER → 2023-05-12 10:47 | Outpatient (BNVA) | payer OTHER, MEDICAID, SELFPAY | PROVIDERS: PCP Physician Assistant; Visit Provider Nurse Practitioner Gerontology | DX: N28.89 Other specified disorders of kidney and ureter (principal); N39.46 Mixed incontinence; N18.9 Chronic kidney disease, unspecified | CPT/HCPCS: 99213 ==

== ENCOUNTER 2023-05-16 10:52 | Emergency (ER) | payer OTHER, MEDICAID, SELFPAY ==
[2023-05-16 11:04] VITALS: BP 136/88; PULSE 90; RESP 18; TEMP 36.8
--- NOTE | 2023-05-16 13:26 | W.ED.GENAD ---
Discharge Plan Disposition Patient Disposition: Home Condition: Stable Discharge Details Clinical Impression: Acute pain of right foot Primary Care Provider: Shiraz Dotson ED Provider: David Carty Home Meds and New Rx's Prescriptions: New prednisone 20 mg tablet 60 mg PO DAILY 6 Days Qty: 18 0RF Continued Trulicity 0.75 mg/0.5 mL pen injector 0.75 mg subcut QWEEK rosuvastatin 5 mg tablet 5 mg PO DAILY pioglitazone 15 mg tablet 15 mg PO DAILY triamterene-hydrochlorothiazid 1 EACH tablet 1 tab-cap PO DAILY Iron 325 mg PO DAILY multivitamin [Daily Value] 1 EACH tablet 1 ea PO DAILY allopurinol 100 MG tablet 100 mg PO DAILY docusate sodium [DOK] 100 MG capsule 100 mg PO DAILY PRN albuterol sulfate [ProAir HFA] 8.5 GM HFA aerosol inhaler 1 - 2 puff Inhalation Q4H PRN (DME) Poise Pads Pad 1 ea Miscellaneous eight times daily Qty: 240 3RF Rx Instructions: change pad as directed lisinopril 10 MG tablet 10 mg PO DAILY citalopram [Celexa] 20 mg tablet 30 mg PO DAILY Discharge Instructions Instructions: Gout (ED) Additional Instructions: follow up as scheduled with your primary care provider within a week if you develop fevers, chills, or severe worsening pain return to the emergency department Medical Decision Making 72 yo male with hx of gout that usually effects her feet when she has a flare comes in with chief complaint of right foot pain similar to her prior gout flares. She denies falls or trauma, no fevers, no chills, no rashes. Her localizes the pain to the medial right foot, no swelling or erythema or warmth noted, full rom of the ankle, normal senasation and pulses. Given lack of trauma do not feel xrays indicated. No findings to suggest infectious etiology. Will start on prednisone for likely gout flare, advised to f/u with her pcp and return precautions given Differential Diagnosis Differential Diagnosis: gout, strain HPI General Date/Time Provider Initiated Documentation: 05/16/23 13:13. Limitations to Documentation: no limitations. Information obtained by: patient. History of Present Illness 72 year old F presents to the emergency department with the chief complaint of right foot pain, described as moderate, and it has been constant. No relieving factors improve symptom(s), No exacerbating factors reported . Patient notes no other symptoms.; denies chest pain and fever/chills. Patient did receive the following treatments prior to arrival, NSAID Related Data Home Medications Medication Instructions Recorded Confirmed lisinopril 10 mg tablet 10 mg PO DAILY 07/28/13 05/16/23 Iron 325 mg PO DAILY 02/11/15 05/16/23 triamterene 37.5 1 tab-cap PO DAILY 02/11/15 05/16/23 mg-hydrochlorothiazide 25 mg tablet albuterol sulfate 90 mcg/actuation 1 - 2 puff inhalation Q4H PRN 02/10/16 05/16/23 aerosol inhaler (ProAir HFA) allopurinol 100 mg tablet 100 mg PO DAILY 02/10/16 05/16/23 docusate sodium 100 mg capsule 100 mg PO DAILY PRN 02/10/16 05/16/23 (DOK) multivitamin (Daily Value tablet) 1 ea PO DAILY 02/10/16 05/16/23 citalopram 20 mg tablet (Celexa) 30 mg PO DAILY 08/02/18 05/16/23 incontinence pad, liner, disp #240 ea 11/17/21 05/16/23 (Poise Pads) dulaglutide 0.75 mg/0.5 mL 0.75 mg subcut QWEEK 05/13/22 05/16/23 subcutaneous pen injector (Trulicity) pioglitazone 15 mg tablet 15 mg PO DAILY 05/12/23 05/16/23 rosuvastatin 5 mg tablet 5 mg PO DAILY 05/12/23 05/16/23 prednisone 20 mg tablet 60 mg PO DAILY 6 days #18 tabs 05/16/23 Previous Rx's Medication Instructions Recorded incontinence pad, liner, disp #240 ea 11/17/21 (Poise Pads) prednisone 20 mg tablet 60 mg PO DAILY 6 days #18 tabs 05/16/23 Allergies Allergy/AdvReac Type Severity Reaction Status Date / Time indomethacin Allergy Intermediate hives, SOB Unverified 05/14/21 10:37 diphenhydramine HCl Allergy Mild Hives Unverified 05/14/21 10:37 [From Benadryl] Penicillins Allergy Mild Hives Unverified 05/14/21 10:37 Sulfa (Sulfonamide Allergy Mild Hives Unverified 05/14/21 10:37 Antibiotics) nifedipine [From Procardia] AdvReac Severe chest pain Unverified 05/14/21 10:37 codeine AdvReac Intermediate Nausea, Unverified 05/14/21 10:37 heart palpitations morphine AdvReac Intermediate Nausea, Unverified 05/14/21 10:37 heart palpitations oxybutynin AdvReac Intermediate blurred Unverified 05/14/21 10:37 vision General Stated Complaint: Orthopedic LASHAUN: 4 Review of Systems All systems reviewed & are unremarkable except as noted in HPI and below Constitutional Constitutional: Denies chills, Denies fever(s) and Denies weakness Cardiovascular Cardiovascular: Denies chest pain and Denies dyspnea Respiratory Respiratory: Denies cough and Denies dyspnea Gastrointestinal Gastrointestinal: Denies abdominal pain, Denies nausea and Denies vomiting Integumentary/Breasts Skin/Breast: Denies rash Neurologic Neurologic: Denies weakness Psychiatric Psychiatric: Denies depression PFSH All Active Problems (Updated 05/16/23 @ 13:30 by David Carty MD) Acute pain of right foot (Acute) Chronic kidney disease, unspecified (Acute 10/09/16) elevated BUN/Cr; no NSAIDs Cystocele with uterine prolapse (Acute 03/27/14) Mixed incontinence (Acute 08/28/16) Right renal mass (Acute 03/25/18) Urgency incontinence (Acute 06/22/17) Urgency incontinence (Acute) Medical History (Updated 05/16/23 @ 13:30 by David Craty MD) Anemia of chronic disease Chronic renal insufficiency Constipation Depression Fatigue Hyperkalemia Hypertension Surgical History (Updated 08/10/18 @ 14:33 by [facility]) Cholecystectomy (03/03/17) Social History Smoking/Tobacco Use Status: Never Smoking risk assessment performed?: Yes Alcohol Intake: current Alcohol Intake frequency: holidays/special occasions only Drug use: Never Substance use type: does not use Housing: house Do you feel safe in your relationship?: Yes Exam Const General: no acute distress Orientation: alert [facility] Head: normal to inspection Ears: external ears normal General nose exam: external nose normal Mouth: moist mucous membranes Eyes General: appearance normal, both eyes and all related structures Neck Neck: normal visual inspection Resp Effort & Inspection: normal respiratory effort and able to speak in complete sentences Cardio Rate: regular rate Skin General skin exam: no rashes or lesions noted Neuro General: patient alert and patient oriented x3 Extrem General: normal to inspection, full ROM and capillary refill normal Psych Mental Status: mental status grossly normal Course Vital Signs Vital signs: Vital Signs Temperature 36.8 C 05/16/23 11:04 Pulse 90 05/16/23 11:04 Respiratory Rate 18 05/16/23 11:04 Blood Pressure 136/88 05/16/23 11:04 Temperature 36.8 C 05/16/23 11:04 Pulse 90 05/16/23 11:04 Respiratory Rate 18 05/16/23 11:04 Respiratory Effort Normal, Non-Labored 05/16/23 12:38 Blood Pressure 136/88 05/16/23 11:04 Blood Pressure Position Sitting 05/16/23 11:04
[2023-05-16] MEDS: predniSONE 20 MG TAB 60 MG PO (13:30)
== END 2023-05-16 14:49 | disposition home or self-care (01) ==
PROVIDERS: Emergency Provider Emergency Medicine; PCP Physician Assistant
DX: M10.9 Gout, unspecified (principal); I12.9 Hypertensive chronic kidney disease with stage 1 through stage 4 chronic kidney disease, or unspecified chronic kidney disease; N18.9 Chronic kidney disease, unspecified
CPT/HCPCS: 99283; J7512

== ENCOUNTER 2023-05-24 12:30 | Outpatient (REF) | payer OTHER, MEDICAID, SELFPAY ==
[2023-05-24 16:58] LABS: COMMENT (LAB VIEW ONLY) 165.99 mg/dL; Microalb ug/mg Crea 7.7 ug/mg Cr
== END 2023-05-24 12:31 | disposition home or self-care (01) ==
LOC: NCHCN 12:30
PROVIDERS: PCP Physician Assistant; Visit Provider Physician Assistant
DX: E11.9 Type 2 diabetes mellitus without complications (principal)
CPT/HCPCS: 82043; 82570

== ENCOUNTER 2023-07-07 15:19 | Outpatient (CLI) | payer OTHER, MEDICAID, SELFPAY ==
[2023-07-07 13:10] LABS: Abs Immature Grans 0.02 10^3/uL (0.0-0.06); Absolute Basophil Count 0.06 10^3/uL (0.0-0.2); Absolute Eosinophil Count 0.18 10^3/uL (0.0-0.7); Absolute Lymphocyte Count 2.24 10^3/uL (1.2-3.4); Absolute Neutrophil Count 3.93 10^3/uL (1.2-6.7); Basophils % 0.9; Eosinophils % 2.6; HCT 33.3 % (36.0-46.0); Immature Grans % 0.3; Lymphocytes % 32.3; MCH 28.9 pg (27.0-33.0); MCV 88 fL (80-95); MPV 9.5 fL (8.0-11.0); Monocytes % 7.2; Neutrophils % 56.7; Platelet Count 201 10^3/uL (130-400); RDW 14.6 % (11.7-14.6); RDW-SD 46.5 fL; WBC 6.93 10^3/uL (4.4-10.8)
[2023-07-07 13:54] LABS: ALT 19 U/L (14-59); AST 16 U/L (15-37); Albumin 3.8 g/dL (3.4-5.0); Alkaline Phosphatase 75 U/L (46-116); Anion Gap 10.3 mmol/L (3-11); BUN 42 mg/dL (7-18); Bilirubin, Total 0.4 mg/dL (0.2-1.0); CO2 22.7 mmol/L (21.0-32.0); CREATININE 2.9 mg/dL (0.55-1.02); Calcium 9.8 mg/dL (8.5-10.1); Chloride 105 mmol/L (98-107); Estimated GFR 16.79 (mL/min/1.73m2); Glucose 150 mg/dL (74-106); Potassium 5.1 mmol/L (3.5-5.1); Sodium 138 mmol/L (136-145); Total Protein 7.6 g/dL (6.4-8.2)
== END 2023-07-07 15:20 | disposition home or self-care (01) ==
LOC: LBO 15:19
PROVIDERS: PCP Physician Assistant; Visit Provider Nurse Practitioner Adult Health
DX: D63.8 Anemia in other chronic diseases classified elsewhere (principal)
CPT/HCPCS: 36415; 80053; 85025

== ENCOUNTER 2023-09-21 16:06 | Outpatient (REF) | payer OTHER, MEDICAID, SELFPAY ==
[2023-09-21 15:17] LABS: Anion Gap 10.7 mmol/L (3-11); BUN 32 mg/dL (7-18); CO2 24.3 mmol/L (21.0-32.0); Calcium 9.7 mg/dL (8.5-10.1); Chloride 107 mmol/L (98-107); Estimated GFR 26.05 (mL/min/1.73m2); Glucose 180 mg/dL (74-106); Potassium 4.7 mmol/L (3.5-5.1); Sodium 142 mmol/L (136-145)
[2023-09-21 15:22] LABS: Hemoglobin A1C 6.1 % (<5.7)
== END 2023-09-21 16:07 | disposition home or self-care (01) ==
LOC: NCHCN 16:06
PROVIDERS: PCP Physician Assistant; Visit Provider Physician Assistant
DX: E11.9 Type 2 diabetes mellitus without complications (principal)
CPT/HCPCS: 80048; 83036

== ENCOUNTER 2024-01-04 17:53 | Outpatient (REF) | payer OTHER, MEDICAID, SELFPAY ==
[2024-01-04 15:31] LABS: Abs Immature Grans 0.04 10^3/uL (0.0-0.06); Absolute Basophil Count 0.07 10^3/uL (0.0-0.2); Absolute Eosinophil Count 0.23 10^3/uL (0.0-0.7); Absolute Lymphocyte Count 2.14 10^3/uL (1.2-3.4); Absolute Monocyte Count 0.46 10^3/uL (0.1-0.8); Absolute Neutrophil Count 4.45 10^3/uL (1.2-6.7); Basophils % 0.9; Eosinophils % 3.1; HCT 34.7 % (36.0-46.0); HGB 11.1 g/dL (11.2-15.7); Immature Grans % 0.5; MCH 28.1 pg (27.0-33.0); MCV 88 fL (80-95); MPV 9.9 fL (8.0-11.0); Monocytes % 6.2; Neutrophils % 60.3; Platelet Count 268 10^3/uL (130-400); RBC 3.95 10^6/uL (3.93-5.22); RDW 14.2 % (11.7-14.6); RDW-SD 44.7 fL; WBC 7.39 10^3/uL (4.4-10.8)
[2024-01-04 16:01] LABS: Iron 54 ug/dL (50-170); Total Iron Binding Capacity 351 ug/dL (250-450); Transferrin Sat 15 % (15-50)
[2024-01-04 16:25] LABS: ALT 22 U/L (14-59); AST 19 U/L (15-37); Alkaline Phosphatase 91 U/L (46-116); Anion Gap 12.5 mmol/L (3-11); BUN 48 mg/dL (7-18); Bilirubin, Total 0.3 mg/dL (0.2-1.0); CO2 20.5 mmol/L (21.0-32.0); CREATININE 2.2 mg/dL (0.55-1.02); Calcium 9.9 mg/dL (8.5-10.1); Calculated LDL 120 mg/dL (<100); Chloride 108 mmol/L (98-107); Cholesterol 186 mg/dL (<200); Estimated GFR 23.24 (mL/min/1.73m2); Ferritin 408 ng/mL (8-252); Glucose 129 mg/dL (74-106); HDL Cholesterol 49 mg/dL (40-60); Potassium 5.3 mmol/L (3.5-5.1); Sodium 141 mmol/L (136-145); Total Protein 7.4 g/dL (6.4-8.2); Triglyceride 86 mg/dL (<150)
[2024-01-04 17:02] LABS: Hemoglobin A1C 6.1 % (<5.7)
== END 2024-01-04 17:54 | disposition home or self-care (01) ==
LOC: NCHCN 17:53
PROVIDERS: PCP Physician Assistant; Visit Provider Physician Assistant
DX: D63.8 Anemia in other chronic diseases classified elsewhere (principal); E11.9 Type 2 diabetes mellitus without complications
CPT/HCPCS: 80053; 80061; 82728; 83036; 83540; 83550; 85025

== ENCOUNTER → 2024-01-10 03:34 | Outpatient (CLI) | payer OTHER, MEDICAID, SELFPAY ==
--- NOTE | 2024-01-10 | DI.MAMMO_ITS ---
Exam(s) MAMMO SCREENING EXAM: MAMMO SCREENING CLINICAL HISTORY: SCREENING,Z12.31,FAMILY H/O BREAST CA. TECHNIQUE: Bilateral full field digital CC and MLO mammographic images were obtained with 3D tomosyn thesis and utilizing computer aided detection (CAD). COMPARISON: Prior mammograms were reviewed. FINDINGS: There has been no significant change in the appearance and distribution of the fibroglandular tissue. There are no new spiculated masses nor malignant appearing microcalcification groups. There is no significant architectural distortion nor skin thickening-retraction. IMPRESSION: No radiographic evidence of malignancy. BI-RADS Category 1 - Negative Breast Density - Category B - Scattered areas of fibroglandular density Breast density Category C or D implies that the patient has dense breast tissue. Dense breast tissue can make it harder to find cancer on a mammogram. Dense breast tissue is also associated with an incr eased risk of breast cancer. This information about the result of the mammogram report was provided to the patient to raise their awareness. Use this report when you speak with the patient about their risks for breast cancer, which includes their family history. At that time, you may recommend additional screening tests (Ultrasoun d or MRI) as these tests may add significant information. A negative radiographic report should not delay biopsy if a dominant or clinically suspicious mass is present. Up to ten percent of cancers are not identified on mammography. A negative report may reinforce clinical impression. Adenosis and dense breasts may obscure an underlying neoplasm. False positive reports average 6 to 10%. Patient will receive a letter notifying them of these results.
== END ==
PROVIDERS: PCP Physician Assistant; Visit Provider Physician Assistant
DX: Z12.31 Encounter for screening mammogram for malignant neoplasm of breast (principal)
CPT/HCPCS: 77063; 77067

== ENCOUNTER → 2024-05-01 02:38 | Outpatient (CLI) | payer OTHER, MEDICAID, SELFPAY ==
--- NOTE | 2024-05-01 06:15 | DI.US_ITS ---
Exam(s) US RENAL EXAM: US RENAL CLINICAL HISTORY: monitoring RT renal mass,MIXED INCONTINENCE. TECHNIQUE: Waller scale, color and spectral Doppler were used. COMPARISON: CT ABD PELVIS WO CONTRAST from 03/03/[address] ABDOMEN WO from 04/07/2019 US US RENAL from 05/07/2023 FINDINGS: Right kidney: 10.7cm Echogenicity: Mildly increased echogenicity could indicate medical renal disease. Hydronephrosis: No Cyst or mass: Mixed solid cystic mass again noted at the upper pole of the right kidney, measuring 4. 3 cm maximal dimension. No appreciable vascularity. Nephrolithiasis: No Left kidney: 11.0cm Echogenicity: Mildly increased echogenicity could indicate medical renal disease. Hydronephrosis: No Cyst or mass: No Nephrolithiasis: No Bladder:Normal. Prevoid vol:63 cc Postvoid vol:0 cc IMPRESSION: Stable right renal mass. DATA REPOSITORY:
== END ==
PROVIDERS: PCP Physician Assistant; Visit Provider Nurse Practitioner Gerontology
DX: N28.89 Other specified disorders of kidney and ureter (principal); N39.46 Mixed incontinence
CPT/HCPCS: 76770

== ENCOUNTER → 2024-05-10 10:01 | Outpatient (BNVA) | payer OTHER, MEDICAID, SELFPAY | PROVIDERS: PCP Physician Assistant; Visit Provider Nurse Practitioner Gerontology | DX: N39.41 Urge incontinence (principal); N28.89 Other specified disorders of kidney and ureter | CPT/HCPCS: 99213 ==

== ENCOUNTER 2024-11-27 14:09 | Outpatient (REF) | payer MEDICARE, MEDICAID, SELFPAY ==
--- OUTSIDE RECORDS SUMMARY | 2024-11-27 14:12 | XMS_ITS | Encounter Summary ---
Author Organization [facility]ha [facility] [place] [address] Care Team Providers Care Senior Linux Systems Administrator Name Role Phone Shiraz Dotson Primary Care Provider [phone] Encounter Details Date Type Department Care Team (Late st Contact Info) Description 05/02/2024 4:00 PM EDT Office Visit [place] [address] Candy Ross APRN [facility] [place] [address] CKD (chronic kidney disease), stage IV; Type 2 diabetes mellitus with stage 4 chronic kidney disease, with long-term current use of insulin; Hypertension, unspecified type; Anemia due to stage 4 chronic kidney disease; Metabolic acidosis Social History Tobacco Use Types Packs/Day Years Used Date Smoking Tobacco: Never Smokeless Tobacco: Never Alcohol Use Standard Drinks/Week Comments Yes 0 (1 standard drink = 0.6 oz pur e alcohol) rare Sex and Gender Information Value Date Recorded Sex Assigned at Not on file Gender Identity Not on file Sexual Orientation Not on file documented as of this encounter Last Filed Vital Signs Vital Sign Reading Time Taken Comments Blood Pressure 117/64 05/02/2024 3:34 PM EDT Pulse 87 05/02/2024 3:34 PM EDT Temperature - - Respiratory Rate - - Oxygen Saturation 97% 05/02/2024 3:34 PM EDT Inhaled Oxygen Concentration - - Weight 93.9 kg (207 lb) 05/02/2024 3:34 PM EDT Height 157.5 cm (5' 2) 05/02/2024 3:34 PM EDT Body Mass Index 37.86 05/02/2024 3:34 PM EDT documented in this encounter Progress Notes * Laura Rossberly Carol, [employer] - 05/02/2024 4:00 PM EDTSummary: CKD progress note Images from the original note were not included. Nephrology/Hypertension Clinic Follow-up Note [id number] ID: 73 y.o.year-old female being seen for follow up of CKD 3B. S: Interim history - Patient was last seen by nephrology on 02/22/[address] Hawk with an eGFR of 26. No hospitalizations, surgeries, or new diagnoses since last visit. Gout flare R foot in the spring- resolved. Lamar reports: Energy level- tired. Sleep- not sleeping well-. Napping-not usually. Lightheadednessor dizziness-has hx of vertigo. Headaches-not really. SOB-no, but CURRIE with stairs and walking. Chest pain/pressure- no. Appetite- too good. Hydration- tries to drink plenty. N/V/D-nausea on Trulicity. No changes in urination. Voiding several times a day- . Nocturia- every couple of hours with urinary incontinence. Bloody or foamy urine- no. Dysuria- in the morning, it is sometimes painful. Able to empty bladder- yes, no recent UTIs- extensive urology procedures including botox. Muscle/joint pain- everywhere- chronic OP, RA, OA, and vasculitis. Muscle cramps or restless legs- sometimes cramps in the legs. Unusual bleeding or bruising- no. Swelling- legs swell and wrists at times- better since restarting Trulicity. Mood and memory- nothing unusual. Thinking clearly. Use of NSAIDs- uses rarely, if needed. Tylenol not helpful. Home BP- varies- usually around 120s SBP. 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 Trulicity 3 mg/0.5 mL Pen Injector INJECT 3MG UNDER THE SKIN ONCE A WEEK lisinopriL (Zestril) 5 mg tablet Take 1 tablet by mouth Daily at Noon. bisacodyl EC (Dulcolax) 5 mg Tablet, Delayed Release (E.C.) Every 12 hours. Calcium 500 With D 500 mg-10 mcg (400 unit) Tablet TAKE 2 TABLET BY MOUTH ONCE A DAY hydrocortisone 2.5 % Cream hydrocortisone 2.5 % topical cream APPLY A THIN LAYER TO THE AFFECTED AREA(S) BY TOPICAL ROUTE 2 TIMES PER DAY nystatin (MYCOSTATIN) 100,000 unit/gram Powder nystatin 100,000 unit/gram topical powder APPLY TO THE AFFECTED AREA(S) BY TOPICAL ROUTE 3 TIMES PER DAY pioglitazone (Actos) 15 mg tablet Take 15 mg by mouth daily. polyethylene glycoL (Miralax) 17 gram oral powder packet Miralax 17 gram/dose oral powder Take as directed per prep directions rosuvastatin (Crestor) 5 mg tablet Take 5 mg by mouth daily. atorvastatin (Lipitor) 20 mg Tablet Take 20 mg by mouth daily. ibuprofen (Advil;Motrin) 200 mg Tablet Take 200 mg by mouth every 6 hours as needed for Pain. RARELY USES vit A/vit C/vit E/zinc/copper (PRESERVISION AREDS ORAL) Take 1 capsule by mouth daily. albuterol 90 mcg/actuation HFA Aerosol Inhaler Inhale 2 puffs into the lungs every 4 hours as needed for Wheezing. Use with spacer propylene glycoL 0.6 % Drops Apply to eye 3 times daily as needed. ketoconazole (NIZORAL) 2 % Cream Apply topically as needed. meclizine (ANTIVERT) 25 mg Tablet Take 25 mg by mouth 3 times daily as needed. allopurinol (ZYLOPRIM) 100 mg Tablet 2 times daily. citalopram (CELEXA) 20 mg tablet Take 30 mg by mouth daily. sodium bicarbonate 650 mg tablet Take 1 tablet by mouth 2 times daily. 180 tablet 3 [DISCONTINUED] Trulicity 1.5 mg/0.5 mL Pen Injector Inject 3 mg subcutaneously once a week. [DISCONTINUED] ferrous gluconate 324 mg (37.5 mg iron) Tablet Take 324 mg by mouth daily. [DISCONTINUED] triamterene-hydrochlorothiazide (MAXZIDE-25) 37.5-25 mg Tablet Take 1 tablet by mouth daily. [DISCONTINUED] lisinopril (PRINIVIL;ZESTRIL) 10 mg tablet Take 5 mg by mouth daily. No facility-administered encounter medications on file as of 05/02/2024. Allergies Allergen Reactions Codeine Phosphate CIS - N/V, palpitations Diphenhydramine Hcl CIS - Hives Sulfa (Sulfonamide Antibiotics) CIS - hives, SOB Procardia [Nifedipine] Palpitations Bacitracin Penicillins CIS - Unknown O: Vitals: 05/02/24 1534 BP: 117/64 Pulse: 87 SpO2: 97% Weight: 93.9 kg (207 lb) Height: 157.5 cm (5' 2) General: Arrived ambulatory. Alert, comfortable. Cooperative with exam. HEENT: Sclera white. Mucous membranes moist. CV: S1 and S2. HR regular. JVP not elevated. Resp: Lungs clear with no crackles or wheezes. Respirations non labored. Abd: Soft. + BS. No bruit. Non tender. : No CVA tenderness. Ext: Warm. No cyanosis. Trace edema. Skin: No rash. Neuro: Intact. Psych: Mood appropriate. Pleasant. Labs: Recent Results (from the past 72 hour(s)) U Albumin/Cre Ratio Result Value Ref Range Alb/Cr Ratio, Random 4 0 - 29 mcg/mg Cr U Albumin Conc, Random 6.7 mg/L U Creatinine 156 mg/dL Protein/Creatinine Ratio, urine Result Value Ref Range U Creatinine 156 mg/dL U Protein Ran <6 0 - 12 mg/dL Prot/Cre Ratio <0.1 ratio Urinalysis with reflex Culture Specimen: Clean Catch Urine Result Value Ref Range Glucose UA Negative Negative mg/dL Protein UA Negative Negative mg/dL Bilirubin UA Negative Negative mg/dL Urobilinogen UA 0.2 Normal mg/dL pH UA 5.0 5.0 - 8.0 Blood UA Negative Negative mg/dL Ketones UA Negative Negative mg/dL Nitrite UA Positive (A) Negative Leukocytes UA Moderate (A) Negative mcL Appearance UA Clear Clear Spec Marshall UA 1.016 1.005 - 1.030 Color UA Yellow Culture Reflexed Yes Urinalysis Microscopic Exam Result Value Ref Range RBC UA 1 0 - 4 /HPF WBC UA 48 (H) 0 - 5 /HPF Bacteria UA Moderate (A) None /HPF Squam Epith UA 4 <=4 /HPF Hyaline Cast UA 6 (H) 0 - 2 /LPF Urine culture Specimen: Clean Catch Urine Result Value Ref Range Urine Culture Greater than 100,000 cfu/ml Escherichia coli (A) Organism Escherichia coli (A) Susceptibility Escherichia coli - VITEK 2 METHOD Amikacin Sensitive Ampicillin Sensitive Ampicillin + Sulbactam Sensitive Cefazolin (Urine) Sensitive Cefepime Sensitive Ceftriaxone Sensitive Ciprofloxacin Sensitive Ertapenem Sensitive Gentamicin Sensitive Levofloxacin* Sensitive * Levofloxacin and Ciprofloxacin may not adequately treat infections in critically ill patients even when isolates test susceptible in the laboratory. Contact Infectious Disease before using in critically ill patients. Meropenem Sensitive Nitrofurantoin Sensitive Piperacillin/Tazobactam Sensitive Trimethoprim/Sulfa Sensitive A/P: 73 y.o.year-old female seen for follow up for CKD4. CKD Stage 4. eGFR of 22 today with a slow but stable decline. Risk factors for worsening renal function reviewed. Discussed importance of good blood pressure control, good blood sugar control, adequate hydration, and avoidance of NSAIDs. No clinical indication for RECYCLING MANAGER. Pt has no clinical symptoms of UTI at this time. HTN - BP appears to be adequately controlled based on both clinic and home readings. Continue current management. Diabetes - Pt reports recent A1C was < 6. DM appears to be well-controlled at this time. Will defer management to PCP. Anemia - HGB 10.9 with anemia related to chronic disease. Iron stores adequate. No MANISH is indicatedat this time. KDIGO Hgb goal in CKD is 10.0-11.5g/dL. Ferritin >100ng/dl, TSAT >20% Bone and mineral - Calcium, phosphorus and PTH are within goal. Vit D levels insufficient. Currently taking Calcium/Vit D supplements. No changes today. KDIGO PTH goals in CKD: PTH < 150pg/ml Acid-base - CO2 of 19. Will start sodium bicarb 650mg BID at this time. Electrolytes - Potassium and sodium are in range. Nutrition - Normal albumin suggests adequate protein intake. Transplant/access referral - Not indicated at this time. Return to clinic - Will return in approximately 1 year for follow-up. Patient encouraged to reach out with any questions or concerns. >the total time spent [id number] AND total time the provider spent counseling was 30 minutes. Candy Ross APRN Nephrology-Hypertension [phone] Pager # [phone] CC: JUAN Herzog [email or web address] documented in this encounter Plan of Treatment Upcoming Encounters Date Type Department Care Team (Late st Contact Info) Description 07/18/2025 1:00 PM EDT Office Visit Hematology/Oncology at [address] [phone] Ronna Green MD [facility] DR HEMATOLOGY [place] [address] Melissa Dahl APRN [facility] [place]ATOLOGY [place] [address] documented as of this encounter Results * U Albumin/Cre Ratio (05/02/2024 4:19 PM EDT) Albumin / Creatinin Ratio, Urine 4 0 - 29 mcg/mg Cr [facility] Comment: Reference Ranges: <30 mcg/mg: Normal 30-300 mcg/mg: Moderately increased albuminuria.* >300 mcg/mg: Severely increased albuminuria. * ACEI or ARB recommended if diabetic; suggested if BP>130/80 without diabetes ACEI or ARB strongly recommended if diabetic; recommended if BP>130/80 without diabetes Two of three specimens collected within a 3 to 6 month period should be abnormal before considering a patient to have albuminuria. Transient causes: exercise, fever, infection, CHF, marked hyperglycemia or hypertension. Persistent albuminuria indicates CKD and is an independent risk factor for ASCVD. ADA Standards of Medical Care in Diabetes-2016; KDIGO: Kidney International Supplements (2012) 2, 357? 362 Albumin, Urine 6.7 mg/L [facility] Creatinine, Urine 156 mg/dL [facility] Urine 05/02/2024 4:19 PM EDT 05/02/2024 4:19 PM EDT Narrative Resulting Agency Comment Spec In Lab Candy Ross APRN URINE ORDERABLE S Performing Organization Address City/[facility]/ZIP Co de Phone Number [facility] [place] [address] * Protein/Creatinine Ratio, urine (05/02/2024 4:19 PM EDT) Creatinine, Urine 156 mg/dL [facility] Protein, Urine <6 0 - 12 mg/dL [facility] Protein / Creatinine Ratio, Urine <0.1 ratio [facility] Urine 05/02/2024 4:19 PM EDT 05/02/2024 4:19 PM EDT Narrative Resulting Agency Comment Spec In Lab Candy Ross APRN URINE ORDERABLE S [facility] [place] [address] * Vitamin D, 25-Hydroxy (05/02/2024 2:13 PM EDT) Vitamin D Total 25 OH 26 21 - 100 ng/mL [facility] Vit D Interp Insufficient [facility] Blood 05/02/2024 2:13 PM EDT 05/02/2024 2:51 PM EDT Narrative Resulting Agency Comment Spec In Lab Candy Leazella [employer] [place] [address] * Uric acid (05/02/2024 2:13 PM EDT) Uric Acid 6.5 2.5 - 6.5 mg/dL [facility] Blood 05/02/2024 2:13 PM EDT 05/02/2024 2:51 PM EDT Narrative Resulting Agency Comment Spec In Lab Candy Leazella [employer] CHEMISTRY ORDER DORI Performing Organization Address City/[facility]/[place] [address] * PTH (05/02/2024 2:13 PM EDT) Parathyroid Hormone 50 15 - 65 pg/mL [facility] Blood 05/02/2024 2:13 PM EDT 05/02/2024 2:51 PM EDT Narrative Resulting Agency Comment Spec In Lab Candy J Vandana ROJASN CHEMISTRY ORDER DORI [facility] [place] [place] [address] * Phosphorus (05/02/2024 2:13 PM EDT) Phosphorus 3.5 2.5 - 4.5 mg/dL [facility] Blood 05/02/2024 2:13 PM EDT 05/02/2024 2:51 PM EDT Narrative Resulting Agency Comment Spec In Lab Candy Medina Vandana ROJASN CHEMISTRY ORDER DORI [facility] [place] [place] [address] * Magnesium (05/02/2024 2:13 PM EDT) Magnesium 0.79 0.69 - 1.07 mmol/L [facility] Blood 05/02/2024 2:13 PM EDT 05/02/2024 2:51 PM EDT Narrative Resulting Agency Comment Spec In Lab Candy Ross APRN CHEMISTRY ORDER DORI [facility] [place] [address] * Iron and TIBC (05/02/2024 2:13 PM EDT) Iron 71 30 - 150 mcg/dL [facility] TIBC 313 250 - 450 mcg/dL [facility] Iron Saturation 23 20 - 50 % [facility] Blood 05/02/2024 2:13 PM EDT 05/02/2024 2:51 PM EDT Narrative Resulting Agency Comment Spec In Lab Candy Ross APRN CHEMISTRY ORDER DORI [facility] [place] [place] [address] * (ABNORMAL) Ferritin (05/02/2024 2:13 PM EDT) Pathologist [facility] Ferritin 509(H) 11 - 328 ng/mL [facility] Comment: Please note that as of 09/29/2023, the reference intervals for Ferritin have been updated. Blood 05/02/2024 2:13 PM EDT 05/02/2024 2:51 PM EDT Narrative Resulting Agency Comment Spec In Lab Candy Ross APRN CHEMISTRY ORDER DORI [facility] [place] [place] [address] * (ABNORMAL) Basic Metabolic Panel (non-fasting) (05/02/2024 2:13 PM EDT) Glucose 84 65 - 199 mg/dL [facility] Comment:Diabetes: >=200 mg/d L plus symptoms Blood Urea Nitrogen 52(H) 8 - 18 mg/dL [facility] Creatinine 2.31(H) 0.70 - 1.20 mg/dL [facility] Sodium 140 135 - 145 mmol/L [facility] Potassium 4.9 3.5 - 5.0 mmol/L [facility] Comment: Please note: ??Patients with WBC >100,000 may have falsely elevated Potassium levels. ??For accurate Potassium quantification in these patients send serum separator tube (gold top) for subsequent determinations. ??Contact the Clinical Chemistry Laboratory if there are any questions. Chloride 107 98 - 107 mmol/L [facility] Carbon Dioxide 19(L) 22 - 31 mmol/L [facility] Anion Gap 14 5 - 15 mmol/L [facility] Calcium 10.2 8.5 - 10.5 mg/dL [facility] Est Glomerular Filtration Rate 22(L) >=60 mL/min/1. 73 m?? [facility] Comment: This patient's estimated GFR was calculated using the 2020 CKD-EPI equation. The estimated GFR can vary from the measured GFR by up to 30% in the absence of rapidly changing kidney function. Assessment of the estimated GFR is not appropriate when creatinine concentrations are rapidly changing. For clinical situations in which a more precise estimate of GFR is necessary, consider alternative methods of GFR estimation such as a 24-hour urine creatinine clearance. Assignment of CKD stage 1-5 for patients with an eGFR near the transition point between stages may be based on clinical assessment of muscle mass and symptoms in addition to eGFR. Blood 05/02/2024 2:13 PM EDT 05/02/2024 2:51 PM EDT Narrative Resulting Agency Comment Spec In Lab Candy Ross APRN CHEMISTRY ORDER DORI Performing Organization Address City/[facility]/ZIP Co de Phone Number [facility] [place] [address] * Albumin Level (05/02/2024 2:13 PM EDT) Albumin 4.3 3.2 - 5.2 g/dL [facility] Blood 05/02/2024 2:13 PM EDT 05/02/2024 2:51 PM EDT Narrative Resulting Agency Comment Spec In Lab Candy Ross [employer] CHEMISTRY ORDER DORI Performing Organization Address City/[facility] Co de Phone Number [facility] [place] [place] [address] documented in this encounter Visit Diagnoses Diagnosis CKD (chronic kidney disease), stage IV Chronic kidney disease, Stage IV (severe) Type 2 diabetes mellitus with stage 4 chronic kidney disease, with long-term current use of insulin Hypertension, unspecified type Anemia due to stage 4 chronic kidney disease Metabolic acidosis Acidosis documented in this encounter Care Teams Senior Linux Systems Administrator Relationship Specialty Start Date End Date Shiraz Dotson PA [address] [place] [address] PCP - General Internal Medicine 07/09/21 documented as of this encounter
--- OUTSIDE RECORDS SUMMARY | 2024-11-27 14:12 | XMS_ITS | Encounter Summary ---
Author Organization [facility] Address [facility] [place] [address] Care Team Providers Care Portable Power Tool Repairer Name Role Phone Shiraz Dotson Primary Care Provider Encounter Details Date Type Department Care Team (Latest Contact Info) Description 02/22/2023 Travel Social History Tobacco Use Types Packs/Day Years Used Date Smoking Tobacco: Never Smokeless Tobacco: Never Alcohol Use Standard Drinks/Week Comments Yes 0 (1 standard drink = 0.6 oz pur e alcohol) rare Sex and Gender Information Value Date Recorded Sex Assigned at Not on file Gender Identity Not on file Sexual Orientation Not on file documented as of this encounter Plan of Treatment Upcoming Encounters Date Type Department Care Team (Late st Contact Info) Description 07/18/2025 1:00 PM EDT Office Visit Hematology/Oncology at [address] [phone] Ronna Green MD [facility] [place] [address] Melissa Dahl APRN [facility] [place] [address] documented as of this encounter Visit Diagnoses Not on filedocumented in this encounter Care Teams Portable Power Tool Repairer Relationship Specialty Start Date End Date Shiraz Dotson PA Carm[address] YU [address] [place] [phone] PCP - General Internal Medicine 07/09/21 documented as of this encounter
--- OUTSIDE RECORDS SUMMARY | 2024-11-27 14:12 | XMS_ITS | Encounter Summary ---
Author Organization [facility] Address [facility] [place] [address] Care Team Providers Care Greeting Card Maker Name Role Phone Shiraz Dotson Primary Care Provider [phone] Encounter Details Date Type Department Care Team (Late st Contact Info) Description 06/29/2024 Orders Only [place]ph[place] [address] Aide Galvez, RN Social History Tobacco Use Types Packs/Day Years [...] 1:00 PM EDT Office Visit Hematology/Oncology at [address] [phone] [facility] [address] HEMATOLOGY [place] [address] [facility] [place]EMATOLOGY [place] [address] documented as of this encounter Visit Diagnoses Not on filedocumented in this encounter Care Teams Greeting Card Maker Relationship Specialty Start Date End Date Shiraz Dotson PA Carmelo YU [address] [place] [phone] PCP - General Internal Medicine 07/09/21 documented as of this encounter
--- OUTSIDE RECORDS SUMMARY | 2024-11-27 14:12 | XMS_ITS | Encounter Summary ---
Author Organization [facility] [place] [address] Care Team Providers Care Drug Abuse Resistance Education Officer Name Role Phone Shiraz Dotson Primary Care Provider [phone] Encounter Details Date Type Department Care Team (Late Contact Info) Description 05/28/2023 Orders Only Hematology [place] [address] Melissa Dahl [facility] [place] [address] Social History Tobacco Use Types Packs/Day Years [...] 1:00 PM EDT Office Visit Hematology/Oncology at [address] [phone] Ronna Green MD [facility] [place] [address] Melissa Dahl ENAMEL BUFFER [facility] [place] [address] documented as of this encounter Visit Diagnoses Not on filedocumented in this encounter Care Teams Drug Abuse Resistance Education Officer Relationship Specialty Start Date End Date Shiraz Dotson PA [address] [place] [address] PCP - General Internal Medicine 07/09/21 documented as of this encounter
--- OUTSIDE RECORDS SUMMARY | 2024-11-27 14:12 | XMS_ITS | Encounter Summary ---
Author Organization [facility] Address [facility] [place] [address] Care Team Providers Care Ladle Puller Name Role Phone Shiraz Dotson Primary Care Provider Encounter Details Date Type Department Care Team (Late st Contact Info) Description 07/21/2023 12:00 PM EDT Office Visit Hematology/Oncology at [address] [phone] Ronna Green MD [facility] [address] [place] [address] Melissa Dahl APRN [facility] [address] [place] [address] Anemia of chronic disease Social History Tobacco Use Types Packs/Day Years [...] Sign Reading Time Taken Comments Blood Pressure 146/64 07/21/2023 12:10 PM EDT Pulse 89 07/21/2023 12:10 PM EDT Temperature 36.2 ??C (97.1 ??F) 07/21/2023 1 2:10 PM EDT Respiratory Rate 18 07/21/2023 12:1 0 PM EDT Oxygen Saturation 99% 07/21/2023 12: 10 PM EDT Inhaled Oxygen Concentration - - Weight 93.8 kg (206 lb 12.8 oz) 023 12:10 PM EDT Height 157.5 cm (5' 2.01) 07/21/2023 1 2:10 PM EDT Body Mass Index 37.81 07/21/2023 12:10 PM EDT documented in this encounter Progress Notes * Melissa Dahl, [employer] - 07/21/2023 12:00 PM EDT Subjective: Patient ID: Lamar Hinds is a 72 y.o. female here for f/u of multifactorial anemia Patient Active Problem List Diagnosis Abdominal hernia Bilateral hearing loss Chronic progressive renal failure Constipation Fatigue History of osteopenia Osteoarthrosis Seborrheic dermatitis Hypertensive disorder Transient ischemic attack Type 2 diabetes mellitus Urinary incontinence Vertigo CKD (chronic kidney disease), stage IV P-ANCA and MPO antibodies positive S/P total knee arthroplasty Aftercare following knee joint replacement surgery Depression Anemia - - ?chronic disease. - oral iron replacement --04/03 - neg SPEP, Neg Donald, Haptoglobin 226 (H), Flow cytometry for PNH is negative. R/O - multiple myeloma, PNH, hemolysis. -- 06/2012 - hgb 10.3. Normo/normo. Iron % sat 14%. Ferritin 148. Epo 12. CIS - Osteoarthritis Left TKR April 2010 Right TKR April 2012. Vasculitis Vasculitis - w/tissue damage - attributed to Brown Recluse Spider bite - 16 yrs ago - wound healing complications, involving bone on left leg and tissue damage on R JUSTIN as well. Interim HPI Lamar returns to clinic today in routine follow-up. It has been ~ 1 year since her last visit. Since last seen, Lamar reports feeling well and denies changes to her baseline health. No fevers, chills, recurrent infections or intercurrent illnesses. No drenching sweats, unintentional weight loss, abnormal bleeding or excessive bruising. No black tarry stool. Her energy is reasonable and she remains active and independent in ADLs. She was started on trulicity for glucose control which she is tolerating well with the exception of gaseousness and intermittent diarrhea. Also started on Actos and crestor as well. No new health- related concerns. Review of Systems Constitutional: Positive for fatigue. HENT: Negative. Eyes: Negative. Respiratory: Positive for shortness of breath. Negative for cough. CURRIE especially with elevation [unchanged] Cardiovascular: Negative. Negative for chest pain, palpitations and leg swelling. Gastrointestinal: Negative. Negative for constipation, diarrhea, nausea and vomiting. Occasional GERD at night which she relates to overeating or eating too late in the evening Genitourinary: Negative. Chronic urinary incontinence [unchanged] Musculoskeletal: Positive for chronic arthralgias and myalgias [neck, back, left shoulder] Skin: Negative. Neurological: Negative. Negative for weakness and numbness. Vertigo in the morning- moves slowly and uses Meclizine as needed. PN bilateral feet [numbness without pain] Hematological: Negative. Psychiatric/Behavioral: Negative. Objective: Vitals: BP 146/64 (Patient Position: Sitting) Pulse 89 Temp 36.2 ??C (97.1 ??F) (Temporal) Resp 18 Ht 157.5 cm (5' 2.01) Wt 93.8 kg (206 lb 12.8 oz) SpO2 99% BMI 37.81 kg/m?? Physical Exam Constitutional: General: She is not in acute distress. Appearance: She is well-developed, well-nourished, well-appearing HENT: Mouth/Throat: Pharynx: No oropharyngeal exudate. Eyes: Conjunctiva/sclera: Conjunctivae normal. Pupils: Pupils are equal, round, and reactive to light. Cardiovascular: Rate and Rhythm: RRR without S3,S4 Heart sounds: Normal heart sounds. No murmur heard. Pulmonary: Effort: Pulmonary effort is normal. Breath sounds: Normal breath sounds. No wheezing or rales. Abdominal: General: Bowel sounds are normal. Palpations: Abdomen is soft. There is no palpable mass or HSM Tenderness: There is no guarding or rebound. Musculoskeletal: General: Normal range of motion. Cervical back: Normal range of motion and neck supple. Comments: Trace bilateral LE edema [baseline] Lymphadenopathy: Cervical: No cervical adenopathy. Upper Body: Right upper body: No supraclavicular adenopathy. Left upper body: No supraclavicular adenopathy. Skin: General: Skin is warm and dry. No suspicious rashes or lesions on exposed skin. Full skin exam not perfromed Neurological: Mental Status: She is alert and oriented to person, place, and time. Laboratory: Obtained at [facility] on 07/07/23 in anticipation of today's visit. WBC: 6.93 ANC: 3930 Hgb: 11.0 MCV: 88 plt count: 201,000 Lytes: normal BUN/creatinine: 42/2.9 LFTs: normal Radiology: No new images reviewed today Assessment and Plan: Very pleasant 72 y.o. with numerous co-morbidities and anemia of chronic disease with a component of chronic renal insufficiency. Her hemoglobin has actually been quite stable for the past 8 years inthe 10+ range. Should her Hgb drop consistently below 10, then she would be a candidate to start erythropoietin supplementation. Erythropoietin cannot be initiated until the hemoglobin is less than 10, once initiated it is given on a regular basis but held for hemoglobin over 10 (new medicare guidelines). She continues to be followed by Nephrology. --Continue prospective monitoring --Lamar will return to clinic in 1 year with labs and a visit though was reminded that we remain available in the interim should questions/concerns arise. --General medical care and age appropriate health screening remains under the direction of JUAN Herzog. She was encouraged to maximize glucose control to minimize end organ damage including renal. Melissa Dahl, MSN, [employer] Nurse Practitioner Section of Hematology [facility] Cc: JUAN Herzog documented in this encounter Plan of Treatment Upcoming Encounters Date Type Department Care Team (Late st Contact Info) Description 07/18/2025 1:00 PM EDT Office Visit Hematology/Oncology at [address] [phone] Ronna Green MD [facility] [address] [place] [address] Melissa Dahl APRN [facility] [place] [address] Scheduled Orders Name Type Priority Associated Diagnoses Orde r Schedule CBC (with Diff) Lab STAT Anemia of chronic disease Expected: 07/23/2024 (Approximate), Expires: 01/22/2025 Comprehensive metabolic panel (non-fasting) Lab STAT Anemia of chronic disease Expected: 07/23/2024 (Approximate), Expires: 01/22/2025 Ferritin Lab STAT Anemia of chronic disease Expected: 07/23/2024 (Approximate), Expires: 01/22/2025 Iron and TIBC Lab STAT Anemia of chronic disease Expected: 07/23/2024 (Approximate), Expires: 01/22/2025 documented as of this encounter Procedures Procedure Name Priority Date/Time Associated Diagnosis Comments CBC (WITH DIFF) Routine 07/07/2023 COMPREHENSIVE METABOLIC PANEL Routine 07/07/2023 documented in this encounter Results * (ABNORMAL) CBC (with Diff) (07/07/2023) White Blood Cell 6.93 Red Blood Cell 3.80(L) Hemoglobin 11.0(L) Hematocrit 33.3(L) Platelet 201 Neutrophil Absolute (ANC) - Automated 3.93 Blood 07/07/2023 Historical Provider HEMATOLOGY ORDERA BLES * (ABNORMAL) Comprehensive metabolic panel (non-fasting) (07/07/2023) Glucose 150(H) Blood Urea Nitrogen 42(H) Creatinine 2.9(H) Sodium 138 Potassium 5.1 Calcium 9.8 Protein, Total 7.6 Albumin 3.8 Bilirubin, Total 0.4 Alkaline Phosphatase 75 Aspartate Aminotransferase 16 Alanine Aminotransferase 19 Blood 07/07/2023 Historical Provider CHEMISTRY ORDERAB LES documented in this encounter Visit Diagnoses Diagnosis Anemia of chronic disease Anemia of other chronic disease documented in this encounter Care Teams Ladle Puller Relationship Specialty Start Date End Date Shiraz Dotson PA [address] [place] [address] PCP - General Internal Medicine 07/09/21 documented as of this encounter
--- OUTSIDE RECORDS SUMMARY | 2024-11-27 14:12 | XMS_ITS | Encounter Summary ---
Author Organization [facility] Address [facility] [place] [address] Care Team Providers Care Endoscopy Specialty Technician Name Role Phone Mauri Shiraz MARTINEZ Primary Care Provider [phone] Reason for Visit * Reason Onset Date Comments Follow-up 07/19/2024 Encounter Details Date Type Department Care Team (Late Contact Info) Description 07/19/2024 Telephone Hematology/Oncology at [address] [phone] Lala Aguero RN Follow-up Social History Tobacco Use Types Packs/Day Years Used Date Smoking Tobacco: Never Smokeless Tobacco: Never Alcohol Use Standard Drinks/Week Comments Yes 0 (1 standard drink = 0.6 oz pur e alcohol) rare Sex and Gender Information Value Date Recorded Sex Assigned at Not on file Gender Identity Not on file Sexual Orientation Not on file documented as of this encounter Miscellaneous Notes * Telephone Encounter - Lala Aguero RN - 07/19/2024 2:16 PM EDT Pt missed her appointment today. Called her she felt bad for missing it. Let her know Dr. Green reviewed her labs and was pleased with them and she stated she can see her in the spring, pt agrees with plan. Let her know we will mail her her next appointment. documented in this encounter Plan of Treatment Upcoming Encounters Date Type Department Care Team (Late Contact Info) Description 07/18/2025 1:00 PM EDT Office Visit Hematology/Oncology at [address] [phone] Ronna Green MD [facility] HEMATOLOGY [place] [address] Melissa Dahl APRN [facility] [place] [address] documented as of this encounter Visit Diagnoses Not on filedocumented in this encounter Care Teams Endoscopy Specialty Technician Relationship Specialty Start Date End Date Shiraz Dotson PA [address] [place] [address] PCP - General Internal Medicine 07/09/21 documented as of this encounter
--- OUTSIDE RECORDS SUMMARY | 2024-11-27 14:12 | XMS_ITS | Encounter Summary ---
Author Organization [facility] Address [facility] [place] [address] Care Team Providers Care Housecleaner Floor Name Role Phone Shiraz Dotson Primary Care Provider Encounter Details Date Type Department Care Team (Latest Contact Info) Description 07/21/2023 Travel Social History Tobacco Use Types Packs/Day [...] 1:00 PM EDT Office Visit Hematology/Oncology at [address] [phone] Ronna Green MD [facility] [address] [place] [address] Melissa Dahl APRN [facility] [address] [place] [address] documented as of this encounter Visit Diagnoses Not on filedocumented in this encounter Care Teams Housecleaner Floor Relationship Specialty Start Date End Date Shiraz Dotson PA [address] [place] [phone] PCP - General Internal Medicine 07/09/21 documented as of this encounter
--- OUTSIDE RECORDS SUMMARY | 2024-11-27 14:12 | XMS_ITS | Encounter Summary ---
Author Organization [facility] Address [facility] [place] [address] Care Team Providers Care J2Ee Consultant Name Role Phone Shiraz Dotson Primary Care Provider [phone] Encounter Details Date Type Department Care Team (Latest Contact Info) Description 05/02/2024 Travel Social History Tobacco Use Types Packs/Day [...] 1:00 PM EDT Office Visit Hematology/Oncology at [address] [phone] Ronna Green MD [facility] DR [place]ATOLOG[place] [address] Melissa Dahl APRN [facility] DR [place] [address] documented as of this encounter Visit Diagnoses Not on filedocumented in this encounter Care Teams J2Ee Consultant Relationship Specialty Start Date End Date Shiraz Dotson PA [address] [place] [phone] PCP - General Internal Medicine 07/09/21 documented as of this encounter
--- OUTSIDE RECORDS SUMMARY | 2024-11-27 14:12 | XMS_ITS | Clinical Summary ---
Author Organization [facility] [place] [address] Care Team Providers Care Electrical & Instrumentation Supervisor Name Role Phone Shiraz Dotson Primary Care Provider [phone] Allergies Active Allergy Reactions Criticality Noted Date Comments Bacitracin 10/01/2017 Codeine Phosphate High CIS - N/V, palpitations Diphenhydramine Hcl High CIS - Hives Penicillins CIS - Unknown Nifedipine Palpitations Medium 04/20/2016 Sulfa (Sulfonamide Antibiotics) High CIS - hives, SOB Medications Medication Sig Dispensed Refills Start Date End Date Status citalopram (CELEXA) 20 mg tablet Take 30 mg by mouth daily. Active allopurinol (ZYLOPRIM) 100 mg Tablet 2 times daily. 03/04/2016 Active ketoconazole (NIZORAL) 2 % CreamIndications: Vasculitis,CKD (chronic kidney disease) stage 3, GFR 30-59 ml/min,Anemia of chronic renal failure, stage 3 (moderate) Apply topically as needed. 08/30/2017 Active meclizine (ANTIVERT) 25 mg TabletIndications :Vasculitis,CKD (chronic kidney disease) stage 3, GFR 30-59 ml/min,Anemia of chronic renal failure, stage 3 (moderate) Take 25 mg by mouth 3 times daily as needed. 04/12/2017 Active albuterol 90 mcg/actuation HFA Aerosol Inhaler Inhale 2 puffs into the lungs every 4 hours as needed for Wheezing. Use with spacer Active propylene glycoL 0.6 % Drops Apply to eye 3 times daily as needed. Active vit A/vit C/vit E/zinc/copper (PRESERVISION AREDS ORAL) Take 1 capsule by mouth daily. Active ibuprofen (Advil;Motrin) 200 mg Tablet Take 200 mg by mouth every 6 hours as needed for Pain. RARELY USES Active atorvastatin (Lipitor) 20 mg Tablet Take 20 mg by mouth daily. 06/26/2022 Active bisacodyl EC (Dulcolax) 5 mg Tablet, Delayed Release (E.C.) Every 12 hours. Activ e Calcium 500 With D 500 mg-10 mcg (400 unit) Tablet TAKE 2 TABLET BY MOUTH ONCE A DAY 01/25/2023 Active hydrocortisone 2.5 % Cream hydrocortisone 2.5 % topical cream APPLY A THIN LAYER TO THE AFFECTED AREA(S) BY TOPICAL ROUTE 2 TIMES PER DAY Active nystatin (MYCOSTATIN) 100,000 unit/gram Powder nystatin 100,000 unit/gram topical powder APPLY TO THE AFFECTED AREA(S) BY TOPICAL ROUTE 3 TIMES PER DAY Active pioglitazone (Actos) 15 mg tablet Take 15 mg by mouth daily. 01/25/2023 Active polyethylene glycoL (Miralax) 17 gram oral powder packet Miralax 17 gram/dose oral powder Take as directed per prep directions Active rosuvastatin (Crestor) 5 mg tablet Take 5 mg by mouth daily. 02/02/2023 Active hydroCHLOROthiazi de (HydroDiuril) 25 mg tablet Take 25 mg by mouth daily. 05/01/2024 Active Trulicity 3 mg/0.5 mL Pen Injector INJECT 3MG UNDER THE SKIN ONCE A WEEK 04/25/2024 Active lisinopriL (Zestril) 5 mg tablet Take 1 tablet by mouth Daily at Noon. 04/02/2024 Active sodium bicarbonate 650 mg tablet Take 1 tablet by mouth 2 times daily. 180 tablet 3 06/29/2024 Active Active Problems Problem Noted Date Diagnosed Date Metabolic acidosis 05/05/2024 Abdominal hernia 02/22/2023 Bilateral hearing loss 02/22/2023 Chronic progressive renal failure 02/22/2023 Constipation 02/22/2023 Fatigue 02/22/2023 History of osteopenia 02/22/2023 Osteoarthrosis 02/22/2023 Seborrheic dermatitis 02/22/2023 Hypertensive disorder 02/22/2023 Transient ischemic attack 02/22/2023 Type 2 diabetes mellitus 02/22/2023 Urinary incontinence 02/22/2023 Vertigo 02/22/2023 CKD (chronic kidney disease), stage IV 0 P-ANCA and MPO antibodies positive 09/26/2020 S/P total knee arthroplasty 04/20/2016 Aftercare following knee joint replacement surge ry 04/20/2016 Depression 07/06/2012 Vasculitis 10/25/1993 Overview (07/24/2012): Vasculitis - w/tissue damage - attributed to Brown Recluse Spider bite - 16 yrs ago - wound healing complications, involving bone on left leg and tissue damage on R JUSTIN as well. Anemia Overview (07/06/2012): - - ?chronic disease. - oral iron replacement --04/03 - neg SPEP, Neg Donald, Haptoglobin 226 (H), Flow cytometry for PNH is negative. R/O - multiple myeloma, PNH, hemolysis. -- 06/2012 - hgb 10.3. Normo/normo. Iron % sat 14%. Ferritin 148. Epo 12. CIS - Osteoarthritis Overview (07/06/2012): Left TKR April 2010 Right TKR April 2012. Immunizations Name Administration Dates Next Due Influenza Quadrivalent (FluAd) Adjuvanted 2019 Influenza Quadrivalent with Preservative 017 Tdap (Adacel, Boostrix) 09/10/2016 Zoster Recombinant (ShingRix) 11/16/2019, 019 Family History Medical History Relation Comments Diabetes Brother Relation Status Comments Brother Social History Tobacco Use Types Packs/Day Years Used Date Smoking Tobacco: Never Smokeless Tobacco: Never Alcohol Use Standard Drinks/Week Comments Yes 0 (1 standard drink = 0.6 oz pur e alcohol) rare Sex and Gender Information Value Date Recorded Sex Assigned at Not on file Gender Identity Not on file Sexual Orientation Not on file Last Filed Vital Signs Vital Sign Reading Time Taken Comments Blood Pressure 117/64 05/02/2024 3:34 PM EDT Pulse 87 05/02/2024 3:34 PM EDT Temperature 36.2 ??C (97.1 ??F) 07/21/2023 12:10 PM E DT Respiratory Rate 18 07/21/2023 12:10 PM EDT Oxygen Saturation 97% 05/02/2024 3:34 PM EDT Inhaled Oxygen Concentration - - Weight 93.9 kg (207 lb) 05/02/2024 3:34 PM EDT Height 157.5 cm (5' 2) 05/02/2024 3:34 PM EDT Body Mass Index 37.86 05/02/2024 3:34 PM EDT Plan of Treatment Upcoming Encounters Date Type Department Care Team (Late st Contact Info) Description 07/18/2025 1:00 PM EDT Office Visit Hematology/Oncology at [address] [phone] Ronna Green MD [facility] DR HEMATOLOGY [place] [address] Melissa Dahl APRN [facility] HEMATOLOGY [place] [address] Health Maintenance Due Date Last Done Comments CT Colonography 1951 Colonoscopy 1951 Colorectal Cancer Screening 1951 FIT DNA 1951 FIT 1951 Sigmoidoscopy (10 year) with FIT yearly 1951 Sigmoidoscopy 1951 DM Hemoglobin A1c 1961 DM Opthalmology Exam 1961 Hepatitis C Screening 1969 Pneumoccocal Vaccine: 50+ (1 of 2 - PCV) 1970 Breast Cancer Share Decision Needed 1991 Breast Cancer screening 1991 Advance Directive 2006 Bone Density Scan 2016 Covid-19 Vaccine (1 - 2023-2 5 season) 2024 Influenza (Flu) vaccine (1 o f 1 - Influenza standard series) 06/25/2024 08/07/2020, 2017 DM Creatinine yearly 05/02/2025 05/02/2024, 07/07/2023, 02/22/2023, Additional history exists Tetanus/Diphtheria/Pertussis Vaccines (2 - Td or Tdap) 09/10/2026 09/10/2016 Zoster vaccine Completed 11/16/2019, 09/04/2019 Diabetes Screening (HgbA1C o r Glucose) Discontinued 05/02/2024, 07/07/2023, 02/22/2023, Additional history exists Procedures Procedure Name Priority Date/Time Associated Diagnosis Comments BASIC METABOLIC PANEL Routine 05/02/2024 2:13 PM EDT CKD (chronic kidney disease), stage IV from Last 3 Months or Most Recently Relevant to Health Maintenance Results * (ABNORMAL) Basic Metabolic Panel (non-fasting) (05/02/2024 2:13 PM EDT) Glucose 84 65 - 199 mg/dL [facility] Comment:Diabetes: >=200 mg/d L plus symptoms Blood Urea Nitrogen 52(H) 8 - 18 mg/dL [facility] Creatinine 2.31(H) 0.70 - 1.20 mg/dL [facility] Sodium 140 135 - 145 mmol/L [facility] Potassium 4.9 3.5 - 5.0 mmol/L [facility] Comment: Please note: ??Patients with WBC >100,000 may have falsely elevated Potassium levels. ??For accurate Potassium quantification in these patients send serum separator tube (gold top) for subsequent determinations. ??Contact the Clinical Chemistry Laboratory if there are any questions. Chloride 107 98 - 107 mmol/L [facility] Carbon Dioxide 19(L) 22 - 31 mmol/L [facility] Anion Gap 14 5 - 15 mmol/L [facility] Calcium 10.2 8.5 - 10.5 mg/dL [facility] Est Glomerular Filtration Rate 22(L) >=60 mL/min/1. 73 m?? [facility] Comment: This patient's estimated [...] Resulting Agency Comment Spec In Lab Candy Carol [facility] THERAPIST CHEMISTRY ORDER DORI [facility] [place] [address] from Last 3 Months or Most Recently Relevant to Health Maintenance Care Teams Electrical & Instrumentation Supervisor Relationship Specialty Start Date End Date Shiraz Dotson PA [address] [place], [place] [phone] PCP - General Internal Medicine 07/09/21
--- OUTSIDE RECORDS SUMMARY | 2024-11-27 14:12 | XMS_ITS | Encounter Summary ---
Author Organization [facility] [place] [address] Care Team Providers Care Clerk Supervisor Name Role Phone Shiraz Dotson Primary Care Provider [phone] Encounter Details Date Type Department Care Team (Latest Contact Info) Description 02/22/2023 1:00 PM EDT Laboratory Appointment Lab [address] [place] [id number] CKD (chronic kidney disease), stage IV; P-ANCA and MPO antibodies positive; Type 2 diabetes mellitus without complication, with long-term current use of insulin Social History Tobacco Use Types Packs/Day Years [...] 1:00 PM EDT Office Visit Hematology/Oncology at [address] [phone] Ronna Green MD [facility] [place] [address] [facility] [place] [address] documented as of this encounter Procedures Procedure Name Priority Date/Time Associated Diagnosis Comments HC PARATHYROID HORMONE(PTH INTACT Routine 02/22/2023 1:00 PM EDT CKD (chronic kidney disease), stage IV P-ANCA and MPO antibodies positive Type 2 diabetes mellitus without complication, with long-term current use of insulin HEMOGRAM Routine 02/22/2023 1:00 PM EDT CKD (chronic kidney disease), stage IV P-ANCA and MPO antibodies positive Type 2 diabetes mellitus without complication, with long-term current use of insulin DIFFERENTIAL, AUTOMATED Routine 02/22/2023 1:00 PM EDT CKD (chronic kidney disease), stage IV P-ANCA and MPO antibodies positive Type 2 diabetes mellitus without complication, with long-term current use of insulin HC CBC,PLT & AUTO DIFF Routine 02/22/2023 1:00 PM EDT CKD (chronic kidney disease), stage IV P-ANCA and MPO antibodies positive Type 2 diabetes mellitus without complication, with long-term current use of insulin HC URIC ACID, SERUM Routine 02/22/2023 1 :00 PM EDT CKD (chronic kidney disease), stage IV P-ANCA and MPO antibodies positive Type 2 diabetes mellitus without complication, with long-term current use of insulin HC PHOSPHORUS, SERUM Routine 02/22/2023 1:00 PM EDT CKD (chronic kidney disease), stage IV P-ANCA and MPO antibodies positive Type 2 diabetes mellitus without complication, with long-term current use of insulin ALBUMIN LEVEL Routine 02/22/2023 1:00 PM EDT CKD (chronic kidney disease), stage IV P-ANCA and MPO antibodies positive Type 2 diabetes mellitus without complication, with long-term current use of insulin BASIC METABOLIC PANEL Routine 02/22/2023 1:00 PM EDT CKD (chronic kidney disease), stage IV P-ANCA and MPO antibodies positive Type 2 diabetes mellitus without complication, with long-term current use of insulin URINE CULTURE Routine 02/22/2023 12:54 PM EDT CKD (chronic kidney disease), stage IV documented in this encounter Results * (ABNORMAL) Differential, Automated (02/22/2023 1:00 PM EDT) Pathologist [facility] Neutrophil % 56.5 % [facility] Neutrophil Absolute 5.37 1.70 - 6.10 x10(3)/[facility] Lymph % 34.3 % [facility] Lymphocytes Abs 3.3(H) 0.9 - 3.2 x10(3)/[facility] Monocyte % 6.3 % [facility] Monocyte Abs 0.6 0.3 - 0.9 x10(3)/[facility] Eos % 1.7 % [facility] Eosinophils Abs 0.2 0.0 - 0.4 x10(3)/[facility] Basophil % 0.9 % [facility] Baso Absolute 0.1 0.0 - 0.1 x10(3)/[facility] Immature Gran % 0.30 % [facility] Comment: Immature granulocytes(IG's)percentage and absolute count will include metamyelocytes, myelocytes, and promyelocytes. Blood smears from CBCs yielding IG's will be scanned manually for concordance. If this scan disagrees with the automated IG or if promyelocytes are noted, a manual differential will be performed. Immature Gran Absolute 0.03 0.00 - 0.04 x10(3)/[facility] Blood 02/22/2023 1:00 PM EDT 02/22/2023 1:10 PM EDT Narrative Resulting Agency Comment Spec In Lab Sara Hawk MD HEMATOLOGY ORDERABLE S [facility] [place] [address] * (ABNORMAL) Hemogram (02/22/2023 1:00 PM EDT) Pathologist [facility] White Blood Cell 9.5 4.0 - 9.5 x10(3)/[facility] Red Blood Cell 4.15 4.00 - 5.21 x10(6)/[facility] Hemoglobin 11.6(L) 11.7 - 15.5 g/dL [facility] Hematocrit 34.9(L) 35.7 - 45.8 % [facility] Mean Cell Volume 84.1 82.6 - 94.4 fL [facility] Mean Cell Hemoglobin 28.0 27.1 - 32.0 pg [facility] Mean Cell Hemoglobin Concentration 33.2 31.7 - 35.0 g/dL [facility] Platelet 268 145 - 357 x10(3)/mc L [facility] RDW Standard Deviation 41.8 37.0 - 46.0 fL [facility] RDW coefficient of variation 13.5 11.5 - 14.1 % [facility] Mean Platelet Volume 9.6 7.6 - 12.9 fL [facility] NRBC% auto 0.0 % [facility] NRBC Absolute 0.000 0.000 - 0.000 x10(3)/mc L [facility] Blood 02/22/2023 1:00 PM EDT 02/22/2023 1:10 PM EDT Narrative Resulting Agency Comment Spec In Lab Sara Hawk MD HEMATOLOGY ORDERABLE S [facility] [place] [address] * (ABNORMAL) Basic Metabolic Panel (non-fasting) (02/22/2023 1:00 PM EDT) Glucose 119 65 - 199 mg/dL [facility] Comment:Diabetes: >=200 mg/d L plus symptoms Blood Urea Nitrogen 39(H) 8 - 18 mg/dL [facility] Creatinine 1.99(H) 0.70 - 1.20 mg/dL [facility] Sodium 137 135 - 145 mmol/L [facility] Potassium 4.9 3.5 - 5.0 mmol/L [facility] Comment: Please note: ??Patients with WBC >100,000 may have falsely elevated Potassium levels. ??For accurate Potassium quantification in these patients send serum separator tube (gold top) for subsequent determinations. ??Contact the Clinical Chemistry Laboratory if there are any questions. Chloride 104 98 - 107 mmol/L [facility] Carbon Dioxide 20(L) 22 - 31 mmol/L [facility] Anion Gap 13 5 - 15 mmol/L [facility] Calcium 10.3 8.5 - 10.5 mg/dL [facility] Est Glomerular Filtration Rate 26(L) >=60 mL/min/1. 73 m?? [facility] Comment: This patient's estimated GFR was [...] and symptoms in addition to eGFR. Blood 02/22/2023 1:00 PM EDT 02/22/2023 1:10 PM EDT Narrative Resulting Agency Comment Spec In Lab aSra Hawk MD CHEMISTRY ORDERABLES Performing Organization Address City/[facility] Co de Phone Number [facility] [place] [address] * PTH (02/22/2023 1:00 PM EDT) Parathyroid Hormone 31 15 - 65 pg/mL [facility] Blood 02/22/2023 1:00 PM EDT 02/22/2023 1:10 PM EDT Narrative Resulting Agency Comment Spec In Lab Sara Hawk MD CHEMISTRY ORDERABLES Performing Organization Address [facility]/ZIP Co de Phone Number [facility] [place] [address] * Albumin Level (02/22/2023 1:00 PM EDT) Albumin 4.5 3.2 - 5.2 g/dL [facility] Blood 02/22/2023 1:00 PM EDT 02/22/2023 1:10 PM EDT Narrative Resulting Agency Comment Spec In Lab Sara Hawk MD CHEMISTRY ORDERABLES [facility] [place] [address] * (ABNORMAL) Uric acid (02/22/2023 1:00 PM EDT) Uric Acid 8.1(H) 2.5 - 6.5 mg/dL [facility] Blood 02/22/2023 1:00 PM EDT 02/22/2023 1:10 PM EDT Narrative Resulting Agency Comment Spec In Lab Sara Hawk MD CHEMISTRY ORDERABLES Performing Organization Address City/[facility]/ZIP Co de Phone Number [facility] [place] [address] * Phosphorus (02/22/2023 1:00 PM EDT) Phosphorus 2.8 2.5 - 4.5 mg/dL [facility] Blood 02/22/2023 1:00 PM EDT 02/22/2023 1:10 PM EDT Narrative Resulting Agency Comment Spec In Lab Sara Hawk MD CHEMISTRY ORDERABLES Performing Organization Address [facility] Co de Phone Number [facility] [place] [address] * (ABNORMAL) Urine culture Clean Catch Urine (02/22/2023 12:54 PM EDT) Urine Culture Greater than 100,000 cfu/ml Escherichia coli two morphologies(A) [facility] Organism Escherichia coli(A) [facility] Clean Catch Urine 02/22/2023 12:54 PM EDT 02/22/2023 3:05 PM EDT Narrative Resulting Agency Comment Spec In Lab Organism Antibiotic Method Susceptibility Escherichia coli Amikacin VITEK 2 METHOD Sensitive Escherichia coli Ampicillin + Sulbactam VITEK 2 METHOD Sensitive Escherichia coli Aztreonam VITEK 2 METHOD Sensitive Escherichia coli Cefazolin VITEK 2 METHOD Sensitive Escherichia coli Cefepime VITEK 2 METHOD <=1: Sensitive Escherichia coli Ceftazidime VITEK 2 METHOD <=1: Sensitive Escherichia coli Ceftriaxone VITEK 2 METHOD Sensitive Escherichia coli Ertapenem VITEK 2 METHOD Sensitive Escherichia coli Gentamicin VITEK 2 METHOD Sensitive Escherichia coli Levofloxacin VITEK 2 METHOD Sensitive Comment: Levofloxacin and Ciprofloxacin may not adequately treat infections in critically ill patients even when isolates test susceptible in the laboratory. Contact Infectious Disease before using in critically ill patients. Escherichia coli Meropenem VITEK 2 METHOD <=0.25: Sensitive Escherichia coli Nitrofurantoin VITEK 2 METHOD Sensitive Escherichia coli Piperacillin/Tazobactam VITEK 2 METHO D <=4: Sensitive Escherichia coli Tetracycline VITEK 2 METHOD Sensitive Escherichia coli Tobramycin VITEK 2 METHOD Sensitive Escherichia coli Trimethoprim/Sulfa VITEK 2 METHOD Sensitive Sara Hawk MD MICROBIOLOGY - [place] [address] documented in this encounter Visit Diagnoses Diagnosis CKD (chronic kidney disease), stage IV Chronic kidney disease, Stage IV (severe) P-ANCA and MPO antibodies positive Other and unspecified nonspecific immunological findings Type 2 diabetes mellitus without complication, with long-term current use of insulin documented in this encounter Care Teams Clerk Supervisor Relationship Specialty Start Date End Date Shiraz Dotson PA [address] [place] [address] PCP - General Internal Medicine 07/09/21 documented as of this encounter
--- OUTSIDE RECORDS SUMMARY | 2024-11-27 14:12 | XMS_ITS | Encounter Summary ---
Author Organization [facility] [place] [address] Care Team Providers Care Mechanic Marine Engine Name Role Phone Shiraz Dotson Primary Care Provider [phone] Encounter Details Date Type Department Care Team (Latest Contact Info) Description 05/02/2024 2:30 PM EDT Laboratory Appointment Lab [address] [place] [phone] CKD (chronic kidney disease), stage IV Social History Tobacco Use Types Packs/Day Years [...] PM EDT Office Visit Hematology/Oncology at [address] [phone] Ronna Green MD [facility] HEMATOLOGY [place] [address] Melissa Dahl APRN [facility] HEMATOLOGY [place] [address] documented as of this encounter Procedures Procedure Name Priority Date/Time Associated Diagnosis Comments URINALYSIS MICROSCOPIC EXAM Routine 05/02/2024 4:19 PM EDT PROTEIN/CREATININE RATIO, URINE Routine 05/02/2024 4:19 PM EDT CKD (chronic kidney disease), stage IV U ALBUMIN/CRE RATIO Routine 05/02/2024 4 :19 PM EDT CKD (chronic kidney disease), stage IV URINALYSIS WITH REFLEX CULTURE Routine 05/02/2024 4:19 PM EDT URINE CULTURE Routine 05/02/2024 4:19 PM EDT PTH Routine 05/02/2024 2:13 PM EDT CKD (chronic kidney disease), stage IV HEMOGRAM Routine 05/02/2024 2:13 PM EDT CKD (chronic kidney disease), stage IV DIFFERENTIAL, AUTOMATED Routine 05/02/2024 2:13 PM EDT CKD (chronic kidney disease), stage IV IRON AND TIBC Routine 05/02/2024 2:13 PM EDT CKD (chronic kidney disease), stage IV VITAMIN D, 25-HYDROXY Routine 05/02/2024 2:13 PM EDT CKD (chronic kidney disease), stage IV CBC (WITH DIFF) Routine 05/02/2024 2:13 PM EDT CKD (chronic kidney disease), stage IV URIC ACID Routine 05/02/2024 2:13 PM EDT CKD (chronic kidney disease), stage IV PHOSPHORUS Routine 05/02/2024 2:13 PM EDT CKD (chronic kidney disease), stage IV MAGNESIUM Routine 05/02/2024 2:13 PM EDT CKD (chronic kidney disease), stage IV FERRITIN Routine 05/02/2024 2:13 PM EDT CKD (chronic kidney disease), stage IV ALBUMIN LEVEL Routine 05/02/2024 2:13 PM EDT CKD (chronic kidney disease), stage IV BASIC METABOLIC PANEL Routine 05/02/2024 2:13 PM EDT CKD (chronic kidney disease), stage IV documented in this encounter Results * (ABNORMAL) Urine culture (05/02/2024 4:19 PM EDT) Urine Culture Greater than 100,000 cfu/ml Escherichia coli(A) [facility] Organism Escherichia coli(A) [facility] Clean Catch Urine 05/02/2024 4:19 PM EDT 05/02/2024 7:41 PM EDT Narrative Resulting Agency Comment Spec In Lab Organism Antibiotic Method Susceptibility Escherichia coli Amikacin VITEK 2 METHOD Sensitive Escherichia coli Ampicillin VITEK 2 METHOD Sensitive Escherichia coli Ampicillin + Sulbactam VITEK 2 METHOD Sensitive Escherichia coli Cefazolin (Urine) VITEK 2 METHOD Sensitive Escherichia coli Cefepime VITEK 2 METHOD <=0.12: Sensitive Escherichia coli Ceftriaxone VITEK 2 METHOD Sensitive Escherichia coli Ciprofloxacin VITEK 2 METHOD Sensitive Escherichia coli Ertapenem [...] 2 METHO D <=4: Sensitive Escherichia coli Trimethoprim/Sulfa VITEK 2 METHOD Sensitive Candy Ross APRN MICROBIOLOGY - GENERAL ORDERABLES [facility] [place] [address] * (ABNORMAL) Urinalysis Microscopic Exam (05/02/2024 4:19 PM EDT) RBC, Urine 1 0 - 4 /HPF [facility] WBC, Urine 48(H) 0 - 5 /HPF [facility] Bacteria, Urine Moderate(A ) None /HPF [facility] Squamous Epithelial Cells Raw Data, Urine 4 <=4 /HPF [facility] Hyaline Casts, Urine 6(H) 0 - 2 /LPF [facility] Comment:Confirmed on microsc opic. Clean Catch Urine Urine / Unknown 05/02/2024 4:19 PM EDT 05/02/2024 4:54 PM EDT Narrative Resulting Agency Comment Spec In Lab Candy Ross SUPPLY CHAIN COORDINATOR URINE ORDERABLE S [facility] [place] [address] * (ABNORMAL) Urinalysis with reflex Culture (05/02/2024 4:19 PM EDT) Glucose, Urine Dipstick Negative Negative mg/dL [facility] Protein, Urine Dipstick Negative Negative mg/dL [facility] Bilirubin, Urine Dipstick Negative Negative mg/dL [facility] Comment: Clinical correlation required for positive Urine Bilirubin results as false positive may occur with some drugs and drug related products. If a false positive is suspected a serum total bilirubin should be considered if clinically indicated. Urobilinogen, Urine Dipstick 0.2 Normal mg/dL [facility] pH, Urn (dipstick) 5.0 5.0 - 8.0 [facility] Blood, Urine Dipstick Negative Negative mg/dL [facility] Ketone, Urine Dipstick Negative Negative mg/dL [facility] Nitrite, Urine Dipstick Positive(A) Negative [facility] Leukocytes, Urine Dipstick Moderate(A) Negative [facility] Appearance, Urine Dipstick Clear Clear [facility] Specific Kelly Urine Automated 1.016 1.005 - 1.030 [facility] Color, Urine Dipstick Yellow [facility] Reflex to Culture Yes [facility] Clean Catch Urine Urine / Unknown 05/02/2024 4:19 PM EDT 05/02/2024 4:54 PM EDT Narrative Resulting Agency Comment Spec In Lab Candy Ross APRN URINE ORDERABLE S Performing Organization Address City/[facility]/ZIP Co de Phone Number [facility] [place] [address] * Protein/Creatinine Ratio, urine (05/02/2024 4:19 PM EDT) Creatinine, Urine 156 mg/dL [facility] Protein, Urine <6 0 - 12 mg/dL [facility] Protein / Creatinine Ratio, Urine <0.1 ratio [facility] Urine 05/02/2024 4:19 PM EDT 05/02/2024 4:19 PM EDT Narrative Resulting Agency Comment Spec In Lab Candy Ross APRN URINE ORDERABLE S Performing Organization Address City/[facility]/ZIP Co de Phone Number [facility] [place] [place] [address] * U Albumin/Cre Ratio (05/02/2024 4:19 PM EDT) Albumin / Creatinin Ratio, Urine 4 0 - 29 mcg/mg Cr [facility] Comment: Reference Ranges: <30 [...] 2, 357? 362 Albumin, Urine 6.7 mg/L [facility] Creatinine, Urine 156 mg/dL MA RY [facility] Urine 05/02/2024 4:19 PM EDT 05/02/2024 4:19 PM EDT Narrative Resulting Agency Comment Spec In Lab Candy Ross SUPPLY CHAIN COORDINATOR URINE ORDERABLE S [facility] [place] [address] * Differential, Automated (05/02/2024 2:13 PM EDT) Neutrophil % 54.0 % [facility] Neutrophil Absolute 4.24 1.70 - 6.10 x10(3)/[facility] Lymph % 33.3 % [facility] Lymphocytes Abs 2.6 0.9 - 3.2 x10(3)/[facility] Monocyte % 8.8 % [facility] Monocyte Abs 0.7 0.3 - 0.9 x10(3)/[facility] Eos % 2.6 % [facility] Eosinophils Abs 0.2 0.0 - 0.4 x10(3)/[facility] Basophil % 1.0 % [facility] Baso Absolute 0.1 0.0 - 0.1 x10(3)/[facility] Immature Gran % 0.30 % [facility] Comment: Immature granulocytes(IG's)percentage and absolute count will include metamyelocytes, myelocytes, and promyelocytes. Blood smears from CBCs yielding IG's will be scanned manually for concordance. If this scan disagrees with the automated IG or if promyelocytes are noted, a manual differential will be performed. Immature Gran Absolute 0.02 0.00 - 0.04 x10(3)/[facility] Blood 05/02/2024 2:13 PM EDT 05/02/2024 2:51 PM EDT Narrative Resulting Agency Comment Spec In Lab Candy Carol Vandana ANDERSON HEMATOLOGY ORDChidi TAYLOR [facility] [place] [address] * (ABNORMAL) Hemogram (05/02/2024 2:13 PM EDT) White Blood Cell 7.8 4.0 - 9.5 x10(3)/mc L [facility] Red Blood Cell 3.75(L) 4.00 - 5.21 x10(6)/mc L [facility] Hemoglobin 10.9(L) 11.7 - 15.5 g/dL [facility] Hematocrit 32.5(L) 35.7 - 45.8 % [facility] Mean Cell Volume 86.7 82.6 - 94.4 fL [facility] Mean Cell Hemoglobin 29.1 27.1 - 32.0 pg [facility] Mean Cell Hemoglobin Concentration 33.5 31.7 - 35.0 g/dL [facility] Platelet 247 145 - 357 x10(3)/mc L [facility] RDW Standard Deviation 43.3 37.0 - 46.0 [facility] RDW coefficient of variation 13.9 11.5 - 14.1 % [facility] Mean Platelet Volume 9.7 7.6 - 12.9 [facility] NRBC% auto 0.0 % [facility] NRBC Absolute 0.000 0.000 - 0.000 x10(3)/mc L [facility] Blood 05/02/2024 2:13 PM EDT 05/02/2024 2:51 PM EDT Narrative Resulting Agency Comment Spec In Lab Candy Ross APRN HEMATOLOGY AMAURIChidi BRANDON [facility] [place] [address] * Albumin Level (05/02/2024 2:13 PM EDT) Albumin 4.3 3.2 - 5.2 g/dL [facility] Blood 05/02/2024 2:13 PM EDT 05/02/2024 2:51 PM EDT Narrative Resulting Agency Comment Spec In Lab Candy Ross APRN CHEMISTRY ORDER DORI [facility] [place] [address] * (ABNORMAL) Basic Metabolic Panel (non-fasting) (05/02/2024 2:13 PM EDT) Glucose 84 65 - 199 mg/dL [facility] Comment:Diabetes: >=200 mg/d L plus symptoms Blood Urea Nitrogen 52(H) 8 - 18 mg/dL [facility] Creatinine 2.31(H) 0.70 - 1.20 mg/dL [facility] Sodium 140 135 - 145 mmol/L [facility] Potassium 4.9 3.5 - 5.0 mmol/L [facility] Comment: Please note: ??Patients with WBC >100,000 may have falsely elevated Potassium levels. ??For accurate Potassium quantification in these patients send serum separator tube (gold top) for subsequent determinations. ??Contact the Clinical Chemistry Laboratory if there are any questions. Chloride 107 98 - 107 mmol/L [facility] Carbon Dioxide 19(L) 22 - 31 mmol/L [facility] Anion Gap 14 5 - 15 mmol/L [facility] Calcium 10.2 8.5 - 10.5 mg/dL [facility] Est Glomerular Filtration Rate 22(L) >=60 mL/min/1. 73 m?? [facility] Comment: This patient's estimated [...] Agency Comment Spec In Lab Candy J Vandanashukri ANDERSON CHEMISTRY ORDER DORI Performing Organization Address [facility]/ZIP Co de Phone Number [facility] [place] [address] * (ABNORMAL) Ferritin (05/02/2024 2:13 PM EDT) Ferritin 509(H) 11 - 328 ng/mL [facility] Comment: Please note that as of 09/29/2023, the reference intervals for Ferritin have been updated. Blood 05/02/2024 2:13 PM EDT 05/02/2024 2:51 PM EDT Narrative Resulting Agency Comment Spec In Lab Candy J Vandanashukri ANDERSON CHEMISTRY ORDER DORI Performing Organization Address [facility]/ZIP Co de Phone Number [facility] [place] [address] * Iron and TIBC (05/02/2024 2:13 PM EDT) Iron 71 30 - 150 mcg/dL [facility] TIBC 313 250 - 450 mcg/dL [facility] Iron Saturation 23 20 - 50 % [facility] Blood 05/02/2024 2:13 PM EDT 05/02/2024 2:51 PM EDT Narrative Resulting Agency Comment Spec In Lab Candy Carol Vandanashukri ANDERSON CHEMISTRY ORDER DORI [facility] [place] [place] [address] * Magnesium (05/02/2024 2:13 PM EDT) Magnesium 0.79 0.69 - 1.07 mmol/L [facility] Blood 05/02/2024 2:13 PM EDT 05/02/2024 2:51 PM EDT Narrative Resulting Agency Comment Spec In Lab Candy Leashukri ANDERSON CHEMISTRY ORDER DORI [facility] [place] [address] * Phosphorus (05/02/2024 2:13 PM EDT) Phosphorus 3.5 2.5 - 4.5 mg/dL [facility] Blood 05/02/2024 2:13 PM EDT 05/02/2024 2:51 PM EDT Narrative Resulting Agency Comment Spec In Lab Candy J Vandanashukri ANDERSON CHEMISTRY ORDER DORI [facility] [place] [address] * PTH (05/02/2024 2:13 PM EDT) Parathyroid Hormone 50 15 - 65 pg/mL [facility] Blood 05/02/2024 2:13 PM EDT 05/02/2024 2:51 PM EDT Narrative Resulting Agency Comment Spec In Lab Candy Leashukri ANDERSON CHEMISTRY ORDER DORI [facility] [place] [address] * Uric acid (05/02/2024 2:13 PM EDT) Uric Acid 6.5 2.5 - 6.5 mg/dL [facility] Blood 05/02/2024 2:13 PM EDT 05/02/2024 2:51 PM EDT Narrative Resulting Agency Comment Spec In Lab Candy J Vandanashukri ANDERSON CHEMISTRY ORDER DORI [facility] [place] [place] [address] * Vitamin D, 25-Hydroxy (05/02/2024 2:13 PM EDT) Vitamin D Total 25 OH 26 21 - 100 ng/mL [facility] Vit D Interp Insufficient [facility] Blood 05/02/2024 2:13 PM EDT 05/02/2024 2:51 PM EDT Narrative Resulting Agency Comment Spec In Lab Candy J Vandanashukri ANDERSON CHEMISTRY ORDER DORI Performing Organization Address City/[facility]/ZIP Co de Phone Number [facility] [place] [address] documented in this encounter Visit Diagnoses Diagnosis CKD (chronic kidney disease), stage IV Chronic kidney disease, Stage IV (severe) documented in this encounter Care Teams Mechanic Marine Engine Relationship Specialty Start Date End Date Shiraz Dotson PA [address] [place] [address] PCP - General Internal Medicine 07/09/21 documented as of this encounter
--- OUTSIDE RECORDS SUMMARY | 2024-11-27 14:13 | XMS_ITS | Encounter Summary ---
Author Organization [facility] Address [facility] [address] Care Team Providers Care Sugar Reprocess Operator Head Name Role Phone Long Castaneda DNP Primary Care Provider [phone] Encounter Details Date Type Department Care Team (Late Contact Info) Description 07/16/2020 Telephone [place] [phone] Peter Bowser Social History Tobacco Use Types Packs/Day Years [...] encounter Miscellaneous Notes * Telephone Encounter - Peter Bowser - 07/16/2020 3:51 PM EDT Lamar calls saying that she has returned a call from [phone] (number was left on her VM). I have queried all the rheum secretaries and no one has called her. Will continue to attempt to figure out who called as our number was left. documented in this encounter Plan of Treatment Upcoming Encounters Date Type Department Care Team (Late Contact Info) Description 07/18/2025 1:00 PM EDT Office Visit Hematology/Oncology at [address] [phone] Ronna Green MD [facility] HEMATOLOGY [place] [address] Melissa Dahl, [facility] HEMATOLOGY [place] [address] documented as of this encounter Visit Diagnoses Not on filedocumented in this encounter Care Teams Sugar Reprocess Operator Head Relationship Specialty Start Date End Date Long Castaneda DNP [facility] [address] [facility] [address] [place] [address] PCP - General Family Medicine 02/21/19 06/15/21 documented as of this encounter
--- OUTSIDE RECORDS SUMMARY | 2024-11-27 14:13 | XMS_ITS | Encounter Summary ---
Author Organization [facility] Address [facility] [place] [address] Care Team Providers Care Patient Access Manager Name Role Phone Long Castaneda DNP Primary Care Provider [phone] Encounter Details Date Type Department Care Team (Late st Contact Info) Description 11/29/2019 10:30 AM EST Office Visit Hematology/Oncology at [address] [phone] Ronna Green MD [facility] DR HEMATOLOGY [place] [address] Karin Eid, CHILD CARE NURSE Anemia, unspecified type Social History Tobacco Use Types Packs/Day Years [...] Sign Reading Time Taken Comments Blood Pressure 158/67 11/29/2019 10:34 AM EST Pulse 97 11/29/2019 10:34 AM EST Temperature 36.7 ??C (98 ??F) 11/29/2019 10:34 AM EST Respiratory Rate 16 11/29/2019 10:34 AM EST Oxygen Saturation 98% 11/29/2019 10:34 AM EST Inhaled Oxygen Concentration - - Weight 96.2 kg (212 lb) 11/29/2019 10:34 AM EST Height 158.8 cm (5' 2.52) 11/29/2019 10:[address] Body Mass Index 38.13 11/29/2019 10:34 AM EST documented in this encounter Progress Notes * Ronna Green MD - 11/29/2019 10:30 AM EST Hematology Clinic [facility] [place] [address] HEMATOLOGY PATIENT EVALUATION Patient Active Problem List Diagnosis ??? S/P total knee arthroplasty ??? Aftercare following knee joint replacement surgery ??? Depression ??? Anemia - - ?chronic disease. - oral iron replacement --04/03 - neg SPEP, Neg Donald, Haptoglobin 226 (H), Flow cytometry for PNH is negative. R/O - multiple myeloma, PNH, hemolysis. -- 06/2012 - hgb 10.3. Normo/normo. Iron % sat 14%. Ferritin 148. Epo 12. ??? CIS - Osteoarthritis Left TKR April 2010 Right TKR April 2012. ??? Vasculitis Vasculitis - w/tissue damage - attributed to Brown Recluse Spider bite - 16 yrs ago - wound healing complications, involving bone on left leg and tissue damage on R JUSTIN as well. HISTORY OF PRESENT ILLNESS: Patient prefers to be called: Lamar Support person(s) : daughters X 2 Bell and Eileen. Lamar Hinds is a 69 y.o. year old female being seen for evaluation of anemia. she is referred in consultaion from her primary care physician. She is followed by urology, Dr. Lino, at [facility] for a right renal mass. She was seen in January and this was stable. She is now being followed with imaging every 6 months. I had followed Lamar several years ago. She was seen in the early [id number] range. At that time I thought she most likely had anemia of chronic disease combined with renal insufficiency. She was referred back in April 2019 by her primary care physician. Her repeat labs done after her last appt confirm ACD and low erythropoietin levels related to her CKD. She reports feeling more tired which she attributes to her weight. She is diabetic now and her PCP has referred her for nutrition education. I am depressed Financial issues, lost her furnace in August. Had bronchitis, and symptoms have persisted for a month. She still does not feel like her energy isback yet. After a year, she developed a reaction to her mesh that was put in for her abdominal hernia. Dr. Kinney had to remove it. She is seen today for 6 month f/u. PMHX: Anemia of chronic disease Chronic renal insufficiency -CKD stage III (GFR 30-59). Followed by nephrology Constipation Depression Fatigue Hyperkalemia Hypertension Right renal mass followed by urology, Dr. Lino. Stable. presently followed with imaging every 6 months. History of ANCA positive vasculitis. Followed both by Dr. Hawk of nephrology and also evaluated in rheumatology as well. Pre-diabetic Hypertension arthritis PSHX: Cholecystectomy Partial hysterectomy Hernia repair with mesh Bladder suspension Laser surgery for tear ducts. ROS Energy level: tired Pain: No Appetite:good Fevers/chills/sweats: occasional NS; but she thinks it is her covers. Bruising/bleeding/melena:No Recent infections:No Headaches:neg Vision:neg Hearing:neg Sinus: neg Seasonal Allergies: neg Mouth sores:neg Dentition: Good Swallowing: neg GERD : neg Nausea/vomiting: neg Diarrhea/constipation: occ constipation SOB/CURRIE/pulmonary sx: no chest pain:No sx: urinary incontinence/ nocturis q 2 hours Change in adenopathy or other masses: she notes some parotid fullness Unexpected weight loss or gain: gained weight; pt reports poor eating habits. Skin rashes or petechiae:No Musculoskeletal complaints:No Extremities: Negative upper and lower bilaterally Neurologic symptoms:No Mental Status changes: neg Mood: Normal Sleep: + difficulty sleeping MEDS: Outpatient Medications Marked as Taking for the 11/29/19 encounter (Office Visit) with Ronna Green MD Medication Sig Dispense Refill ??? vit A/vit C/vit E/zinc/copper (PRESERVISION AREDS ORAL) Take 1 capsule by mouth daily. ??? ferrous gluconate 324 mg (37.5 mg iron) Tablet Take 324 mg by mouth daily. ??? propylene glycol (SYSTANE COMPLETE) 0.6 % Drops Apply to eye 3 times daily as needed. ??? CALCIUM CARBONATE (CALCIUM 600 ORAL) Take by mouth daily. ??? hydrocortisone 2.5 % Cream Apply topically 2 times daily. ??? allopurinol (ZYLOPRIM) 100 mg Tablet 2 times daily. ??? triamterene-hydrochlorothiazide (MAXZIDE-25) 37.5-25 mg Tablet Take 1 tablet by mouth daily. ??? multivitamin with minerals Tablet Take 1 tablet by mouth daily. ??? citalopram (CELEXA) 20 mg tablet Take 30 mg by mouth daily. ??? lisinopril (PRINIVIL;ZESTRIL) 10 mg tablet Take 10 mg by mouth daily. Allergies: Allergies Allergen Reactions ??? Codeine Phosphate CIS - N/V, palpitations ??? Diphenhydramine Hcl CIS - Hives ??? Sulfa (Sulfonamide Antibiotics) CIS - hives, SOB ??? Procardia [Nifedipine] Palpitations ??? Bacitracin ??? Penicillins CIS - Unknown FAMILY HISTORY: Mother: Multiple med problems (DC, CVA), Father: COPD,parkinson, Sibs: diabetes, DC, Children: 2 daughters thyroidectomy Other: negative SOCIAL HISTORY Personal: ; 2 daughters ; No partner at this time; and recent partner both were unfaithful which is still painful for her. Work history: retired from a [employer] company ETOH: less than one drink per week Smoking: never Marijuana or illicit drug use: never HIPPA Contact Permission: Daughter Bell Pena OK to leave message on home or cell phone: cell OK to leave medical information on home or cell phone: cell PHYSICAL EXAM BP 158/67 (Patient Position: Sitting) Pulse 97 Temp 36.7 ??C (98 ??F) (Oral) Resp 16 Ht 158.8 cm (5' 2.52) Wt 96.2 kg (212 lb) SpO2 98% BMI 38.13 kg/m?? Body surface area is 2.06 meters squared. GENERAL: Lamar Hinds appears well and is in no acute distress. ENT: Oral pharynx clear. EYES: KALI NECK: Supple without adenopathy. AXILLARY: no adenopathy INGUINAL LN: no adenopathy OTHER LYMPH: no adenopathy CARDIAC: Regular rate and rhythm without S3,S4 or murmurs. LUNGS: Clear to auscultation./percussion ABDOMEN: Soft and non-tender without hepatosplenomegaly or masses. EXTREMITIES: No cyanosis, clubbing, edema or calf tenderness. SKIN: No bruises or petechiae. NEUROLOGICAL: Alert and oriented to person, place and time. MUSCULOSKELETAL: No spinal or chest wall tenderness. LABORATORY STUDIES No results found for this or any previous visit (from the past 72 hour(s)). Labs at [facility] [place]. Patient has normal white count and platelet count. She does have normochromic normocytic anemia, consistent with anemia of chronic disease. No iron studies are noted. Chronic renal insufficiency with baseline creatinine between 1.8 and 2.2 at baseline. Date 02/19/1106/2012 ??06/2018 ??01/2019 ??05/02/19 ??11/20/19 ? WBC 6.66 7 6.3 ??8.2 8.1 ??8 ??6.9 ? ANC ? 3.7 ??4.6 4.7 ??5 ??4.2 ? Hgb 11.3 10.3 11.6 ??10.5 10.6 ??9.9 ??11 ? MCV ?? 84.7 86.3 ??89.8 ??92.6 ??88 ??87 ? HCT ?32.7 34.8 ? PLT 244k 228 258 ??243 242 ??229 ??250 ? Creat 1.3 ?? 1.5 ??1.6 1.7 ??1.9 ??1.85 ? LFT ? LDH ?none ? ferritin 146 149 220 ?337 ? iron 59 50 61 ??47 ?47 ? tibc 341 346 313 ??278 ?259 ? %sat 17% 14% 19% ??17% ?18% ? epo 12 ?? 8.3 ?7.7 ?+P-ANCA ?? LDH 197 B12 433 Folate 11.8 TSH 0.55 ? Labs copied from CIS: 06/201208/11/10 06/24/1004/03 WBC: 7.0 7.37 7.53 9.5 HGB: 10.3 9.9 9.5 11.0 MCV: 84.7 82.7 85 82.5 PLT: 228 266k 292k 269 ANC: 4.3 3.99 4.84 EPO: 12.0 9.0 1 1 RETIC: 1.3 Ferritin: 149 188 340 209 Iron 50 42 41 (40) TIBC 346 314 346 (312) TF Sat: 14 13 12 13 Lytes: nml nml BUN/Crea: 39/1.7 35/1.9 1.4 AP 124 137 AST/ALT 10/22 ?? RADIOLOGY STUDIES REVIEWED: None ASSESSMENT/PLAN: Very pleasant 69 y.o. female who is referred in consultation for evaluation of anemia. The patient has several medical problems which are listed above. The most significant of these is her chronic renal insufficiency. Looking at her notes, she initially had a grade 3 CKD, but more recently qualifies for grade 4. She has a normochromic normocytic anemia most likely secondary to decreased erythropoietin production. I had [place] her [place] until [place] [facility] At that time I thought she most likely had acombination of anemia of chronic disease and renal insufficiency. Her anemia has progressed mildly since that time. She is referred back at this time for re-evaluation. Just to be complete, and be sure we are not missing any other causes of anemia, these are listed above. I repeated an anemia w/u which is consistent with ACD and possibly renal insuff. If her Hgb remains below 10 then she would be a candidate to start erythropoietin supplementation. Erythropoietin cannot be initiated until the hemoglobin is less than 10, once initiated it is given on a regular basis but held for hemoglobin over 10 (new medicare guidelines). Given that Lamar's hemoglobin has been in the 10 range for the last year, and just recently droppedto 9.9, I do not think she is quite ready to start the erythropoietin injections. I explained Medicare is change the guidelines to only authorize it for hemoglobin less than 10. Therefore she is likely to get an injection, and then followed by multiple blood counts until she qualifies for another injection. It is likely that it will be much more hassle for her, than benefit. If her hemoglobin drops to be in the steady 9.5 or lower range, then I think erythropoietin supplementation would benefither more. We will plan to see her back in October 2019 and recheck labs. If at that time, her hemoglobin is dropped further we can revisit the erythropoietin supplementation. Plan: ?? Hold erythropoietin supplementation at this time ?? Return to clinic in July 2020 with CBC and CMP I discussed all of the above with the patient and all of her questions were answered. Support and counseling given as appropriate. This note was written or modified using [employer] MD voice recognition software. The final note was screened for mistakes. Please excuse any remaining errors. total time: time in counselling: Copy Long Castaneda APRN . documented in this encounter Plan of Treatment Upcoming Encounters Date Type Department Care Team (Late st Contact Info) Description 07/18/2025 1:00 PM EDT Office Visit Hematology/Oncology at [address] [phone] Ronna Green MD [facility] DR HEMATOLOGY [place] [address] Melissa Dahl APRN [facility] DR HEMATOLOGY [place] [address] documented as of this encounter Procedures Procedure Name Priority Date/Time Associated Diagnosis Comments CBC (WITH DIFF) Routine 11/20/2019 documented in this encounter Results * CBC (with Diff) (11/20/2019) White Blood Cell 6.93 Hemoglobin 11.0 Hematocrit 33.8 Platelet 250 Neutrophil Absolute (ANC) - Automated 4.21 Creatinine 1.85 Blood Urea Nitrogen 38 Blood specimen (specimen) 11/20/2019 Historical Provider HEMATOLOGY ORDERA BLES documented in this encounter Visit Diagnoses Diagnosis Anemia, unspecified type documented in this encounter Care Teams Patient Access Manager Relationship Specialty Start Date End Date Long Castaneda DNP [address] [place] [address] PCP - General Family Medicine 02/21/19 06/15/21 documented as of this encounter
--- OUTSIDE RECORDS SUMMARY | 2024-11-27 14:13 | XMS_ITS | Encounter Summary ---
Author Organization [facility] Address [facility] [place] [address] Care Team Providers Care Dockworker Name Role Phone Mauri Shiraz JUAN Primary Care Provider [phone] Encounter Details Date Type Department Care Team (Late st Contact Info) Description 07/09/2021 11:00 AM EDT Office Visit Hematology/Oncology at [address] [phone] Ronna Green MD [facility] DR HEMATOLOGY [place] [address] Karin Eid, STEELSCOPE OPERATOR Anemia, unspecified type Social History Tobacco Use [...] Sign Reading Time Taken Comments Blood Pressure 124/92 07/09/2021 11:14 AM EDT Pulse 72 07/09/2021 11:14 AM EDT Temperature 36.5 ??C (97.7 ??F) 07/09/2021 11:14 AM E DT Respiratory Rate 20 07/09/2021 11:14 AM EDT Oxygen Saturation 97% 07/09/2021 11:14 AM EDT Inhaled Oxygen Concentration - - Weight 100.2 kg (221 lb) 07/09/2021 11:14 AM EDT Height 157.2 cm (5' 1.89) 07/09/2021 11:14 AM E DT Body Mass Index 40.57 07/09/2021 11:14 AM EDT documented in this encounter Progress Notes * Karin Eid, STEELSCOPE OPERATOR - 07/09/2021 11:00 AM EDT Subjective: Patient ID: Lamar Hinds is a 70 y.o. female here for f/u of multifactorial anemia Patient Active Problem List Diagnosis ??? CKD (chronic kidney disease), stage IV ??? P-ANCA and MPO antibodies positive ??? S/P total knee arthroplasty ??? Aftercare [...] tissue damage on R JUSTIN as well. HPI Lamar is doing OK - she is in her usual state of health - she gets tired. She has not been out walking as much as she would like. Her incontinence is a limiting factor in how much she can walk. She denies any bleeding or unusual bruising. She denies any blood or black tarry stools. She has her usual aches and pains - left shoulder more bothersome recently - it did improve when she was doing PT but has not been doing her exercises recently. Review of Systems Constitutional: Positive for fatigue. HENT: Negative. Eyes: Negative. Respiratory: Positive for shortness of breath. Negative for cough. CURRIE especially with elevation Cardiovascular: Negative. Negative for chest pain, palpitations and leg swelling. Gastrointestinal: Negative. Negative for constipation, diarrhea, nausea and vomiting. Genitourinary: Negative. Chronic incontinence Musculoskeletal: Positive for arthralgias and myalgias. Skin: Negative. Neurological: Negative. Negative for weakness and numbness. Hematological: Negative. Psychiatric/Behavioral: Negative. Objective: Physical Exam Constitutional: General: She is not in acute distress. Appearance: She is well-developed. HENT: Mouth/Throat: Pharynx: No oropharyngeal exudate. Eyes: Conjunctiva/sclera: Conjunctivae normal. Pupils: Pupils are equal, round, and reactive to light. Cardiovascular: Rate and Rhythm: Normal rate and regular rhythm. Heart sounds: Normal heart sounds. No murmur heard. Pulmonary: Effort: Pulmonary effort is normal. Breath sounds: Normal breath sounds. No wheezing or rales. Abdominal: General: Bowel sounds are normal. Palpations: Abdomen is soft. There is no mass. Tenderness: There is no guarding or rebound. Musculoskeletal: General: Swelling present. Normal range of motion. Cervical back: Normal range of motion and neck supple. Comments: Trace bilat LE edema Lymphadenopathy: Cervical: No cervical adenopathy. Upper Body: Right upper body: No supraclavicular adenopathy. Left upper body: No supraclavicular adenopathy. Skin: General: Skin is warm and dry. Neurological: Mental Status: She is alert and oriented to person, place, and time. Recent Results (from the past 72 hour(s)) CBC (with Diff) Result Value Ref Range WBC 7.85 Hemoglobin 10.5 Hematocrit 33.4 Platelets 230 Neutr Abs (ANC) 4.7 Creatinine Result Value Ref Range Creatinine 2.5 Iron 55 TIBC 301 Transferrin 18 Ferritin 337 BUN 45 BP (!) 124/92 (Patient Position: Sitting) Pulse 72 Temp 36.5 ??C (97.7 ??F) (Temporal) Resp 20 Ht 157.2 cm (5' 1.89) Wt 100.2 kg (221 lb) SpO2 97% BMI 40.57 kg/m?? Assessment and Plan: Very pleasant 69 y.o. with numerous comorbidities and anemia of chronic disease with a componanat of chronic renal insufficiency. Her hemoglobin has actually been quite stable for the past 8 years in the 10+ range. Should her Hgb drop consistently below 10 then she would be a candidate to start erythropoietin supplementation. Erythropoietin cannot be initiated until the hemoglobin is less than 10, once initiated it is given on a regular basis but held for hemoglobin over 10 (new medicare guidelines). ?? We reviewed Medicare's change the guidelines to only authorize it for hemoglobin less than 10. If her hemoglobin drops consistently to 9.5 or lower range, then we would consider erythropoietin supplementation. For now we will continue to monitor. I did encourage her to continue to work on her chronic diseases - manage her blood sugar and increase exercises, make good diet changes to minimize her comorbidiies that can contribute to her ACD. Lamar Hinds will return to clinic in 1 year. she will call before then if any concerns or changes in status. documented in this encounter Plan of Treatment Upcoming Encounters Date Type Department Care Team (Late st Contact Info) Description 07/18/2025 1:00 PM EDT Office Visit Hematology/Oncology at [address] [phone] Ronna Green MD [facility] HEMATOLOGY [place] [address] Melissa Dahl APRN [facility] HEMATOLOGY [place] [address] documented as of this encounter Procedures Procedure Name Priority Date/Time Associated Diagnosis Comments CREATININE Routine 07/09/2021 CBC (WITH DIFF) Routine 07/09/2021 documented in this encounter Results * Creatinine (07/09/2021) Pathologist [facility] Creatinine 2.5 Iron 55 TIBC 301 Transferrin 18 Ferritin 337 Blood Urea Nitrogen 45 Blood 07/09/2021 Historical Provider CHEMISTRY ORDERAB LES * CBC (with Diff) (07/09/2021) White Blood Cell 7.85 Hemoglobin 10.5 Hematocrit 33.4 Platelet 230 Neutrophil Absolute (ANC) - Automated 4.7 Blood 07/09/2021 Historical Provider HEMATOLOGY ORDERA BLES documented in this encounter Visit Diagnoses Diagnosis Anemia, unspecified type documented in this encounter Care Teams Dockworker Relationship Specialty Start Date End Date Shiraz Dotson PA [address] [place] [address] PCP - General Internal Medicine 07/09/21 documented as of this encounter
--- OUTSIDE RECORDS SUMMARY | 2024-11-27 14:13 | XMS_ITS | Encounter Summary ---
Author Organization [facility] Address [facility] [place] [address] Care Team Providers Care Custom Frame Assembler Name Role Phone Long Castaneda DNP Primary Care Provider [phone] Encounter Details Date Type Department Care Team (Late Contact Info) Description 11/15/2019 Telephone Hematology/Oncology at [address] [phone] Shakira Waller Social History Tobacco Use Types Packs/Day Years [...] encounter Miscellaneous Notes * Telephone Encounter - Shakira Waller - 11/15/2019 2:24 PM EST I called and left a message for Lamar to let her know that her appointment on November [address] Green has been rescheduled for the following WednesdayNovember 29 at 1030 am. I asked Lamar to please call and confirm the change when available. A reminder letter has been sent today with her new appt and lab slips. documented in this encounter Plan of Treatment Upcoming Encounters Date Type Department Care Team (Late Contact Info) Description 07/18/2025 1:00 PM EDT Office Visit Hematology/Oncology at [address] [phone] Ronna Green MD [facility] [place]ATOLOGY [place] [address] Melissa Dahl, [facility] [place]OLOGY [place] [address] documented as of this encounter Visit Diagnoses Not on filedocumented in this encounter Care Teams Custom Frame Assembler Relationship Specialty Start Date End Date Long Castaneda DNP [address] [place] [address] PCP - General Family Medicine 02/21/19 06/15/21 documented as of this encounter
--- OUTSIDE RECORDS SUMMARY | 2024-11-27 14:13 | XMS_ITS | Encounter Summary ---
Author Organization [facility] Address [facility] [place] [address] Care Team Providers Care Parking Manager Name Role Phone Long Castaneda DNP Primary Care Provider [phone] Reason for Visit * Consultation (Routine) - Closed Specialty Diagnoses / Procedures Referred By Mae king Referred To Contact Nephrology Diagnoses Second opinion for vasculitis per Procedures Eval and Treat Sara Hawk MD [facility] [address] [place] [phone] Ronna Winters MD [facility] [place] [address] Referral ID Status Reason Start Date Expiration Date Visits Re quested Visits Authorized [id number] Closed 08/05/2020 08/05/2021 1 1 Encounter Details Date Type Department Care Team (Late st Contact Info) Description 09/26/2020 9:30 AM EST Office Visit Nephrology Hypertension at [place] [phone] Ronna Winters MD [facility] [place] [address] Vasculitis; CKD (chronic kidney disease), stage IV; P-ANCA and MPO antibodies positive Social History Tobacco Use Types Packs/Day Years [...] Sign Reading Time Taken Comments Blood Pressure 137/70 09/26/2020 9:19 AM EST Pulse 82 09/26/2020 9:19 AM EST Temperature - - Respiratory Rate - - Oxygen Saturation - - Inhaled Oxygen Concentration - - Weight 98.9 kg (218 lb) 09/26/2020 9:19 AM EST Height 157.5 cm (5' 2) 09/26/2020 9:19 AM EST Body Mass Index 39.87 09/26/2020 9:19 AM EST documented in this encounter Progress Notes * Ronna Winters MD - 09/26/2020 9:30 AM EST [facility] 09/26/2020 PRIMARY CARE PROVIDER: Long Castaneda APRN TAPER/FINISHER/REFERRING PHYSICIAN: REASON FOR CONSULT: Second opinion regarding persistently positive ANCA titer. HISTORY OF PRESENT ILLNESS: Lamar Hinds is a 70 y.o. woman with a history of vasculitis in the setting of presumed spider bite (1993). She has had positive MPO ANCA titers. She is seen in consultation regarding persistently positive ANCA titer. To briefly review the remote history: Lamar thought she was bitten by a brown recluse spider (not confirmed), after which she developed painful, ulcerated lesions on her lower extremities (left first, then right). She was treated with ?antibiotics, but didn't improve. She ultimately had 16 very painfyul leg ulcers per her report. She followed with Dr. Starks, music cataloguer, for a long time. She was treated with multiple agents (thalidomide, azathioprine, ?cyclophosphamide). She was on prednisone for 10 years, which seemed to prevent the ulcerations from going deeper. However, they still took years to heal. The primary lesion on her left leg was almost to the bone. She now has very little feeling in that area of her leg. Only went to about mid-part of lower leg. Had lesion on ankle that was extremely painful. Was treated long-term with prednisone. Was treated with thalidomide, azathioprine, and cyclophosphamide. She was also seen by a Development Advisor, she thinks at [facility], but can't recall for sure. She has had no further problems with lesions once they finally resolved, even that took years. She thinks she may have evaluated for other organ involvement, but she can't recall for sure. As far as she can recall, the only issue was with her skin. It is not immediately clear when ANCA titers were first checked. The first documented in Epic/CIS are from 09/2017; the paper chart has been requested. Lamar reports that she is doing okay. She is tired, but attributes that to weight. She doesn't get everything done that she plans. She is seeing a counselor about a bad breakup 3 years ago. [place], she has been depressed and thinks that's why she can't get things done. Her appetite is way too good. She says she eats out of habit, not because she is hungry or particularly wants to eat. She is not on medication for diabetes, but is approaching that. No fevers, chills. She has night sweats once in a while, but she goes to bed with lots of blankets and wakes up hot during the night. If she gets up quickly in the morning she is dizzy, but she thinks it's vertigo; it doesn't last long. She denies headaches. She has to use drops for her eyes. She has cataracts, but she's been told it's too early for surgery. She talks about being treated for pressure in her eyes. This was attributed to prednisone; she was told it wasn't glaucoma. Her eyesight is getting worse. No sinus congestion, runny nose, nosebleeds, or nasal crusting. Her ears sometimes feel scratchy in the morning; she has had them flushed in the past. She has some tinnitus. No mouth sores. No chest pain. She has shortness of breath somewhat, but not every day. She reports a history of chronic bronchitis. She denies hemoptysis. She sometimes has abdominal pain. This may be related to history of abdominal hernia.A mesh was placed, but afterwards was draining and didn't heal properly. The mesh was removed aftera year because of persistent problems, so the hernia has recurred. She denies nausea or vomiting. She takes suppositories a lot for bowel movements. She is going to schedule a colonoscopy; she has an appointment with a provider ?next month to initiate that process. She has not had blood in her stools. Lamar also has a history of CKD III. More recently she appears to have progressed to CKD IV. She was first seen here by Dr. Hawk here in nephrology in 09/2017. She doesn't think she had ever seen anephrologist prior to that. Home BP: Checks sometimes. She doesn't recall the last reading, but thinks it was probably 130-something over 60, 70, something like that. NSAIDs: She takes ibuprofen for pain. Uses 1 tablet about once every 2 months. There was a period along time ago when she was taking a lot of ibuprofen. This was when she had the leg ulcers. Shewas also taking Aleve. 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 CKD III/IV HTN Anemia Obesity Benign positional vertigo Depression TIA Frequent UTIs, s/p bladder sling; urinary incontinence. 10-year prednisone exposure (~[id number]) Gallstones PAST SURGICAL HISTORY: Past Surgical History: Procedure Laterality Date ??? CREATED BY INTERFACE Entered not Verified Procedure Date: 08/26/2010 ??? CREATED BY INTERFACE TKR left Procedure Date: 05/21/2010 Hysterectomy Cholecystectomy MEDICATIONS: Current Outpatient Medications Medication Sig Dispense Refill ??? ibuprofen (Advil;Motrin) 200 mg Tablet Take 200 mg by mouth every 6 hours as needed for Pain. RARELY USES ??? vit A/vit C/vit E/zinc/copper (PRESERVISION AREDS ORAL) Take 1 capsule by mouth daily. ??? ferrous gluconate 324 mg (37.5 mg iron) Tablet Take 324 mg by mouth daily. ??? albuterol 90 mcg/actuation HFA Aerosol Inhaler Inhale 2 puffs into the lungs every 4 hours as needed for Wheezing. Use with spacer ??? propylene glycol (SYSTANE COMPLETE) 0.6 % Drops Apply to eye 3 times daily as needed. ??? ketoconazole (NIZORAL) 2 % Cream Apply topically as needed. ??? meclizine (ANTIVERT) 25 mg Tablet Take 25 mg by mouth 3 times daily as needed. ??? CALCIUM CARBONATE (CALCIUM 600 ORAL) Take by mouth daily. ??? allopurinol (ZYLOPRIM) 100 mg Tablet 2 times daily. ??? triamterene-hydrochlorothiazide (MAXZIDE-25) 37.5-25 mg Tablet Take 1 tablet by mouth daily. ??? multivitamin with minerals Tablet Take 1 tablet by mouth daily. ??? citalopram (CELEXA) 20 mg tablet Take 30 mg by mouth daily. ??? lisinopril (PRINIVIL;ZESTRIL) 10 mg tablet Take 10 mg by mouth daily. No current facility-administered medications for this visit. ALLERGIES/ADVERSE REACTIONS: Allergies Allergen Reactions ??? Codeine Phosphate CIS - N/V, palpitations ??? Diphenhydramine Hcl CIS - Hives ??? Sulfa (Sulfonamide Antibiotics) CIS - hives, SOB ??? Procardia [Nifedipine] Palpitations ??? Bacitracin ??? Penicillins CIS - Unknown FAMILY HISTORY: Family History Relation Problem Age of Onset ??? Brother Diabetes Mother - at 81yo, [place], stroke, Parkinson, colon cancer, thyroid cancer. Father - at 72yo, Parkinson disease. Sister - at . Sister - Hyperthyroidism. MGM - Thyroidectomy, unclear reason. 4 brothers - 2 w/atherosclerotic CV disease, stroke. Daughter - PE post-surgery. 2 brothers had Guillain-[place]. One brother's symptoms lasted about a week, the other about 6 months. Brother - Follicular lymphoma; is one of the brothers who had Guillain-[place]. All 4 brothers have/had hypertension. Brother - of alcoholism. 3 brothers (except one with alcoholism) - Diabetes. SOCIAL HISTORY: Retired. Lives alone. No tobacco. Rare EtOH. No recreational drugs. REVIEW OF SYSTEMS: Ten systems reviewed and negative except as noted in the HPI and PMHx. PHYSICAL EXAMINATION: Vitals: 09/26/20 0919 BP: 137/70 Pulse: 82 Weight: 98.9 kg (218 lb) Height: 157.5 cm (5' 2) Body mass index is 39.87 kg/m??. General - Obese but otherwise well-appearing woman. Appears her stated age. Neatly and appropriately groomed. Very pleasant and cooperative. Seated comfortably in a chair. HEENT - No icterus or conjunctival injection. Moist mucous membranes. No oropharyngeal lesions or exudates. Upper dentures; edentulous on the bottom. Neck - Supple. No lymphadenopathy. Respiratory - Lungs are clear to auscultation bilaterally. Cardiovascular - S1 and S2 are present. Regular rate and rhythm. No murmurs, rubs, or gallops. Abdomen - Benign. Skin/Integument - Scarring on left leg from below mid-calf to ankle. Significant tissue loss in that area. Right lower extremity has similar scarring, but smaller area. Small, circular hyperpigmentedlesions on both legs, ?scarring from prior ulcerations. Scattered 1-2mm erythematous, raised, slightly scaled lesions on lower extremities. Extremities - Mild edema of RLE above the area of scarring. Musculoskeletal - No gross joint deformities. Psychiatric - Appropriate mood and affect. Neurological - No focal deficits. LABORATORY STUDIES: Urine sediment - Innumerable squamous epithelial cells, moderate WBCs; poor specimen. Urinalysis - SG 1.020, pH 5, 1+ leukocytes, otherwise negative. No results found for this or any previous visit (from the past 170 hour(s)). ANCA MPO Ab (unit(s)) Date Value 07/16/2020 3.7 (pos. >/= 1) 07/07/2018 10.7 (neg. </= 20) 10/01/2017 26.1 (H) (neg. </= 20) PR3 Ab (unit(s)) Date Value 07/07/2018 3.3 10/01/2017 5.7 Creatinine Date Value 08/29/2020 2.15 07/16/2020 2.13 04/16/2020 2.35 11/20/2019 1.85 02/21/2019 1.72 mg/dL (H) 07/07/2018 1.61 mg/dL (H) 10/01/2017 1.72 mg/dL (H) 04/10/2010 1.45 10/07/2006 1.0 ASSESSMENT AND PLAN: 70 y.o. woman positive MPO ANCA titers presenting for evaluation. 1) Positive MPO ANCA titers - She has no evidence of clinically active vasculitis. Therefore, treatment is not warranted at this time. Note that different assays have been used to check the titers, so results are hard to compare. There is significant discordance between different assays. Related to this, literature review revealed that there are many case reports/series of patients developing vasculitis after spider bite, particularly brown recluse spider. This can range from the type of deep ulcerative skin lesions this patient experienced, to full-blown systemic vasculitis with diffuse alveolar hemorrhage. I don't know that there are any data suggesting the risk of relapse of vasculitis in this setting, but I would think it is low, much like drug- induced vasculitis. Additionally, both small-vessel vasculitis (e.g., ANCA- associated) and medium-vessel vasculitis (HASSAN) have been described. This may explain the skin biopsy having features of both. I suspect the CKD is unrelated to vasculitis, as her creatinine was 1.0 (eGFR 61) as recently as 2005, long after the acute episode of vasculitis. The next creatinine isn't for another 4 years and is elevated at that time. She does have a history of significant NSAID use, and she also has HTN, so these may be implicated. Additionally, she has a long history of urological issues, which may be the culprit. She has no evidence of vasculitis-related kidney disease on today's examination. 2) Return to clinic - We did not schedule a follow-up appointment, but I am happy to see her again any time if helpful. Ronna Winters MD [facility] [place] [address] E-mail: [email or web address] documented in this encounter Plan of Treatment Upcoming Encounters Date Type Department Care Team (Late st Contact Info) Description 07/18/2025 1:00 PM EDT Office Visit Hematology/Oncology at [address] [phone] Ronna Green MD [facility] [place] [address] Melissa Dahl APRN [facility] [place] [address] documented as of this encounter Visit Diagnoses Diagnosis Vasculitis Arteritis, unspecified CKD (chronic kidney disease), stage IV Chronic kidney disease, Stage IV (severe) P-ANCA and MPO antibodies positive Other and unspecified nonspecific immunological findings documented in this encounter Care Teams Parking Manager Relationship Specialty Start Date End Date Long Castaneda DNP [address] [place] [address] PCP - General Family Medicine 02/21/19 06/15/21 documented as of this encounter
--- OUTSIDE RECORDS SUMMARY | 2024-11-27 14:13 | XMS_ITS | Encounter Summary ---
Author Organization [facility] [place] [address] Care Team Providers Care Production Hardener Name Role Phone Mauri Shiraz MARTINEZ Primary Care Provider [phone] Encounter Details Date Type Department Care Team (Latest Contact Info) Description 01/12/2022 2:00 PM EDT Office Visit [place] [address] Sara Hawk MD CKD (chronic kidney disease), stage IV; P-ANCA [...] Sign Reading Time Taken Comments Blood Pressure 130/71 01/12/2022 1:58 PM EDT Pulse 99 01/12/2022 1:58 PM EDT Temperature - - Respiratory Rate - - Oxygen Saturation - - Inhaled Oxygen Concentration - - Weight 100 kg (220 lb 6.4 oz) 01/12/2022 1:58 PM EDT Height 157.5 cm (5' 2) 01/12/2022 1:58 PM EDT Body Mass Index 40.31 01/12/2022 1:58 PM EDT documented in this encounter Progress Notes * Sara Hawk MD - 01/12/2022 2:00 PM EDT Images from the original note were not included. Renal and Hypertension Visit 01/12/2022 71 y.o. year old female referred by JUAN Herzog Ms Hinds reports that she has been generally well. She has a recent diagnosis of type II diabetes and has started dulaglutide with improving diabetic control. She has noted some change in her vision consistent with changes in the shape of the lens as blood glucose decreases. NO current rash, a rthropathy, hematuria, fever, unexplained weight loss.. Gout no recent episode, continues allopurinol. Mrs. Hinds has longstanding bladder issues, followed by urologist Dr Earl Lino at [facility]. Underwent bladder sling and hysterectomy, and botox injections without improvement in incontinence to date. She currently does not measure her blood pressure at home Reports recent vertigo improved with physical therapy PMH ?? Stable CKD stage IIIB without proteinuria likely secondary to prior ANCA vasculitis ?? 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 Treated with PO and IV prednisone, Cytoxan, and briefly with azathioprine (Dr Starks, [facility]) Persistent pANCA MPO positive serology without evidence of systemic disease ?? Type II diabetes on dulaglutide ?? Hypertension for the past 20 years. Well controlled ?? Anemia, iron deficiency/anemia of chronic disease. Followed by hematology, Dr. Acevedo ?? Truncal obesity ?? Bilateral total knee replacements 2001, 2004 ?? Abdominal hernia with mesh 2020 - mesh removed for infection ?? 3 para 2 T1. First complicated by hypertension at term, possible toxemia/preeclampsia Additional Past Medical History ?? Benign positional vertigo ?? Depression ?? 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 Use with spacer ??? propylene glycoL 0.6 % Drops Apply to eye 3 times daily as needed. ??? ketoconazole (NIZORAL) 2 % Cream Apply topically as needed. ??? meclizine (ANTIVERT) 25 mg Tablet Take 25 mg by mouth 3 times daily as needed. ??? CALCIUM CARBONATE (CALCIUM 600 ORAL) Take by mouth as needed. ??? allopurinol (ZYLOPRIM) 100 mg Tablet 2 times daily. ??? triamterene-hydrochlorothiazide (MAXZIDE-25) 37.5-25 mg Tablet Take 1 tablet by mouth daily. ??? multivitamin with minerals Tablet Take 1 tablet by mouth daily. ??? citalopram (CELEXA) 20 mg tablet Take 30 mg by mouth daily. ??? lisinopril (PRINIVIL;ZESTRIL) 10 mg tablet Take 10 mg by mouth daily. No current facility-administered medications for this visit. Patient reports that she takes ibuprofen occasionally for headache and occasional naproxen.. No additional OTCs or supplements Review of Systems Main complaint is urinary incontinence as above. Patient denies current edema/rash, arthropathy. Denies hematuria, foamy urine. Complete review of systems is negative apart from relevant positives and negatives listed above On examination Well-appearing 71 y.o. female in no acute distress Blood pressure 130/71, pulse 99, height 157.5 cm (5' 2), weight 100 kg (220 lb 6.4 oz). Body mass index is 40.31 kg/m??. There is no uremic fetor and no asterixis The head is normal There is no conjunctival pallor The hands and nails are unremarkable There is no jugular venous distention There is no peripheral edema and no sacral edema The heart sounds are S1 + S2 with no rubs, murmurs or gallops The Breath sounds are vesicular throughout with no added sounds The abdomen is obese, soft and nontender. There is no costovertebral angle tenderness. No masses ororgans are palpated Lower legs remarkable for patchy superficial tissue loss with scarring Skin of trunk, limbs and head is intact Gait is normal. Facies symmetrical. LAURENT, Mentation and speech are normal Labs: Serum creatinine Latest Reference Range & Units 08/29/20 00:00 07/09/21 00:00 01/12/22 13:09 Sodium 135 - 145 mmol/L 139 Potassium 3.5 - 5.0 mmol/L 5.4 (E) 5.4 (H) [1] Chloride 98 - 107 mmol/L 105 CO2 22 - 31 mmol/L 21 (L) Anion Gap 5 - 15 mmol/L 13 BUN 8 - 18 mg/dL 54 (E) 45 (E) 36 (H) Creatinine 0.70 - 1.20 mg/dL 2.15 (E) 2.5 (E) 1.90 (H) Estimated GFR >=60 mL/min/1.73 m?? 26 (L) [2] Calcium 8.5 - 10.5 mg/dL 10.0 08/29/20 00:00 07/09/21 00:00 WBC 7.84 (E) 7.85 (E) Hemoglobin 10.7 (E) 10.5 (E) Hematocrit 34.0 (E) 33.4 (E) Platelets 245 (E) 230 (E) Neutr Abs (ANC) 4.7 (E) (E): External lab result Urinalysis and microscopy: Renal clinic laboratory - no sample today, prior visit Urine dipstick: negative for blood, trace protein, trace leucocytes Urine microscopy: Low and High power monique Negative for cells,casts, crystals Imaging Bilateral cortical thinning - my read Assessment and Recommendations ?? 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 Bilateral cortical thinning on ultrasound. History of ANCA-positive vasculitis. Persistent pANCA MPO-positive serology without evidence of systemic disease. ?? Recent onset DMII with possible hyperfiltration. ?? Hypertension for the past 20 years, well controlled. Recommend she monitor this at home. Recommend increase lisinopril to 15 - 30 mg daily if systolic blood pressure is consistently greater than 130 mmHg. No renal contraindication to ACEI or ARB ?? Renal clinic follow up 1 year with labs. ordered Thank you for referring this interesting patient documented in this encounter Plan of Treatment Upcoming Encounters Date Type Department Care Team (Late st Contact Info) Description 07/18/2025 1:00 PM EDT Office Visit Hematology/Oncology at [address] [phone] Ronna Green MD [facility] [address] [place] [address] Melissa Dahl APRN [facility] [place] [address] documented as of this encounter Procedures Procedure Name Priority Date/Time Associated Diagnosis Comments URINE CULTURE Routine 01/12/2022 3:30 PM EDT documented in this encounter Results * Phosphorus (02/22/2023 1:00 PM EDT) Phosphorus 2.8 2.5 - 4.5 mg/dL [facility] Blood 02/22/2023 1:00 PM EDT 02/22/2023 1:10 PM EDT Narrative Resulting Agency Comment Spec In Lab Sara Hawk MD CHEMISTRY ORDERABLES Performing Organization Address City/[facility]/ZIP Co de Phone Number [facility] [place] [address] * (ABNORMAL) Uric acid (02/22/2023 1:00 PM EDT) Uric Acid 8.1(H) 2.5 - 6.5 mg/dL [facility] Blood 02/22/2023 1:00 PM EDT 02/22/2023 1:10 PM EDT Narrative Resulting Agency Comment Spec In Lab Sara Hawk MD CHEMISTRY ORDERABLES Performing Organization Address City/[facility]/ZIP Co de Phone Number [facility] [place] [address] * Albumin Level (02/22/2023 1:00 PM EDT) Albumin 4.5 3.2 - 5.2 g/dL [facility] Blood 02/22/2023 1:00 PM EDT 02/22/2023 1:10 PM EDT Narrative Resulting Agency Comment Spec In Lab Sara Hawk MD CHEMISTRY ORDERABLES Performing Organization Address [facility] Co de Phone Number [facility] [place] [address] * PTH (02/22/2023 1:00 PM EDT) Parathyroid Hormone 31 15 - 65 pg/mL [facility] Blood 02/22/2023 1:00 PM EDT 02/22/2023 1:10 PM EDT Narrative Resulting Agency Comment Spec In Lab Sara Hawk MD CHEMISTRY ORDERABLES Performing Organization Address [facility] de Phone Number [facility] [place] [address] * (ABNORMAL) Basic Metabolic Panel (non-fasting) (02/22/2023 1:00 PM EDT) Glucose 119 65 - 199 mg/dL [facility] Comment:Diabetes: >=200 mg/d L plus symptoms Blood Urea Nitrogen 39(H) 8 - 18 mg/dL [facility] Creatinine 1.99(H) 0.70 - 1.20 mg/dL [facility] Sodium 137 135 - 145 mmol/L [facility] Potassium 4.9 3.5 - 5.0 mmol/L [facility] Comment: Please note: ??Patients with WBC >100,000 may have falsely elevated Potassium levels. ??For accurate Potassium quantification in these patients send serum separator tube (gold top) for subsequent determinations. ??Contact the Clinical Chemistry Laboratory if there are any questions. Chloride 104 98 - 107 mmol/L [facility] Carbon Dioxide 20(L) 22 - 31 mmol/L [facility] Anion Gap 13 5 - 15 mmol/L [facility] Calcium 10.3 8.5 - 10.5 mg/dL [facility] Est Glomerular Filtration Rate 26(L) >=60 mL/min/1. 73 m?? [facility] Comment: This patient's estimated GFR [...] In Lab Sara Hawk MD CHEMISTRY ORDERABLES [facility] [place] [address] * (ABNORMAL) Urine culture Clean Catch Urine (02/22/2023 12:54 PM EDT) Urine Culture Greater than 100,000 cfu/ml Escherichia coli two morphologies(A) [facility] Organism Escherichia coli(A) [facility] Clean Catch Urine 02/22/2023 [...] Hawk MD MICROBIOLOGY - GENER AL ORDERABLES Performing Organization Address [facility] Co de Phone Number [facility] [place] [address] * (ABNORMAL) Urine culture (01/12/2022 3:30 PM EDT) Urine Culture 50,000-99,000 cfu/ml Escherichia coli(A) [facility] Organism Escherichia coli(A) [facility] Clean Catch Urine 01/12/2022 3:30 PM EDT 01/12/2022 6:48 PM EDT Narrative Resulting Agency Comment Spec In Lab Organism Antibiotic Method Susceptibility Escherichia coli Amikacin VITEK 2 METHOD Sensitive Escherichia coli Ampicillin + Sulbactam VITEK 2 METHOD Sensitive Escherichia coli Aztreonam VITEK 2 METHOD Sensitive Escherichia coli Cefazolin VITEK 2 METHOD Sensitive Escherichia coli Ceftazidime VITEK 2 METHOD [...] Hawk MD MICROBIOLOGY - GENER AL ORDERABLES Performing Organization Address [facility]/ZIP Co de Phone Number [facility] [place] [address] documented in this encounter Visit Diagnoses Diagnosis CKD (chronic kidney disease), stage IV Chronic kidney disease, Stage IV (severe) P-ANCA and MPO antibodies positive Other and unspecified nonspecific immunological findings Type 2 diabetes mellitus without complication, with long-term current use of insulin documented in this encounter Care Teams Production Hardener Relationship Specialty Start Date End Date Shiraz Dotson PA [address] [place] [address] PCP - General Internal Medicine 07/09/21 documented as of this encounter
--- OUTSIDE RECORDS SUMMARY | 2024-11-27 14:13 | XMS_ITS | Encounter Summary ---
Author Organization [facility] [place] [address] Care Team Providers Care Claims Attorney Name Role Phone MauriShiraz JUAN Primary Care Provider [phone] Encounter Details Date Type Department Care Team (Late Contact Info) Description 10/23/2021 Telephone Neph[place] [phone] Radha Reyes Social History Tobacco Use Types Packs/Day Years [...] encounter Miscellaneous Notes * Telephone Encounter - Radha Reyes - 10/23/2021 10:02 AM EST LM for patient to call and schedule follow up appointment with documented in this encounter Plan of Treatment Upcoming Encounters Date Type Department Care Team (Late Contact Info) Description 07/18/2025 1:00 PM EDT Office Visit Hematology/Oncology at [address] [phone] Ronna Green MD [facility] [place] [address] Melissa Dahl, LEATHER CRAFTER [facility] [place] [address] documented as of this encounter Visit Diagnoses Not on filedocumented in this encounter Care Teams Claims Attorney Relationship Specialty Start Date End Date Shiraz Dotson PA [address] [place] [address] PCP - General Internal Medicine 07/09/21 documented as of this encounter
--- OUTSIDE RECORDS SUMMARY | 2024-11-27 14:13 | XMS_ITS | Encounter Summary ---
Author Organization [facility] [place] [address] Care Team Providers Care Automatic Serging Machine Operator Name Role Phone Tonya, Long Rodriguez DNP Primary Care Provider [phone] Encounter Details Date Type Department Care Team (Late Contact Info) Description 06/24/2020 Orders Only Nephrology [place] [address] Sara Hawk MD Chronic kidney disease, unspecified CKD stage; ANCA-associated vasculitis Social History Tobacco Use Types Packs/Day Years [...] 1:00 PM EDT Office Visit Hematology/Oncology at [address] [phone] Ronna Green MD [facility] [address] HEMATOLOGY [place] [address] Melissa Dahl APRN [facility] [address] HEMATOLOGY [place] [address] documented as of this encounter Visit Diagnoses Diagnosis Chronic kidney disease, unspecified CKD stage ANCA-associated vasculitis Other specified disorders of arteries and arterioles documented in this encounter Care Teams Automatic Serging Machine Operator Relationship Specialty Start Date End Date Long Castaneda DNP [address] [place] [address] PCP - General Family Medicine 02/21/19 06/15/21 documented as of this encounter
--- OUTSIDE RECORDS SUMMARY | 2024-11-27 14:13 | XMS_ITS | Encounter Summary ---
Author Organization [facility] Address [facility] [place] [address] Care Team Providers Care Brick Paver Name Role Phone Tonya, Long Jennifer ANJALI Primary Care Provider Encounter Details Date Type Department Care Team (Late st Contact Info) Description 11/16/2019 Telephone Radiation Oncology at [address] [phone] Fredy Huber Social History Tobacco Use Types Packs/Day Years [...] PM EDT Office Visit Hematology/Oncology at [address] [phone] Ronna Green MD [facility] [address] HEMATOLOGY [place] [address] Melissa Dahl APRN [facility] HEMATOLOGY [place] [address] documented as of this encounter Visit Diagnoses Not on filedocumented in this encounter Care Teams Brick Paver Relationship Specialty Start Date End Date Long Castaneda DNP [address] [place] [address] PCP - General Family Medicine 02/21/19 06/15/21 documented as of this encounter
--- OUTSIDE RECORDS SUMMARY | 2024-11-27 14:13 | XMS_ITS | Encounter Summary ---
Author Organization [facility] [place] [address] Care Team Providers Care Clinical Mental Health Counselor Name Role Phone MauriShiraz JUAN Primary Care Provider [phone] Encounter Details Date Type Department Care Team (Late Contact Info) Description 12/21/2022 Telephone [place] [phone] Radha Reyes Social History Tobacco Use Types [...] * Telephone Encounter - Radha Reyes - 12/21/2022 2:14 PM EST LM for patient to call and schedule a follow up appointment with documented in this encounter Plan of Treatment Upcoming Encounters Date Type Department Care Team (Late Contact Info) Description 07/18/2025 1:00 PM EDT Office Visit Hematology/Oncology at [address] [phone] Ronna Green MD [facility] [place] [address] Melissa Dahl, CUSTOMER MANAGER [facility] [place] [address] documented as of this encounter Visit Diagnoses Not on filedocumented in this encounter Care Teams Clinical Mental Health Counselor Relationship Specialty Start Date End Date Shiraz Dotson PA [address] [place] [address] PCP - General Internal Medicine 07/09/21 documented as of this encounter
--- OUTSIDE RECORDS SUMMARY | 2024-11-27 14:13 | XMS_ITS | Encounter Summary ---
Author Organization [facility] Address [facility] [place] [address] Care Team Providers Care Cargo Worker Name Role Phone Long Castaneda DNP Primary Care Provider [phone] Encounter Details Date Type Department Care Team (Latest Contact Info) Description 01/24/2020 4:00 PM EDT TH Visit (TeleHealth) [place] [address] Lyly Elaine, ELECTRONICS HARDWARE DESIGN ENGINEER [facility] [place] [address] ANCA-positive vasculitis Social History Tobacco Use Types Packs/Day Years Used Date Smoking Tobacco: Never Smokeless Tobacco: Never Alcohol Use Standard Drinks/Week Comments Yes 0 (1 standard drink = 0.6 oz pur e alcohol) rare Sex and Gender Information Value Date Recorded Sex Assigned at Not on file Gender Identity Not on file Sexual Orientation Not on file documented as of this encounter Progress Notes * Lyly Elaine APRN - 01/24/2020 4:00 PM EDT Outpatient Rheumatology Consult CC: Asked by Long Castaneda /PCP to evaluate this patient with ANCA vasculitis. HPI: Reports had a cold that started 3 wls ago, now with residual bronchitis Bronchitis-using albuterol. Has not been evaluted. Granddaughter had a cold, and now she is better 102 fever with cold, after 3 days went back down. Now afebrile. She feels short of breath but she is at baseline and has gained more weight. She took pred 5mg daily for the past 3 days, not sure if that helped Coughing phlegm up, mucousy, clear, nose is stuffed up in the am Had infected hernia mesh, which was removed last year; has been out of energy since then Reports dult acne, oval on leg Ibu as needed bc apap doesn't work for her Hasn't had gout in 20 years Vasculitis is okay, Dr. Starks 04/09; oval on leg is couple inches long and an inch wide Sometimes brighter red than others, it's weird she's had it for a year or so It's tender if you push on it Thinks it has gotten a little bigger When she pushes on it, it blanches A purplish red Underneath her chin and 2 creases at rib will break out; once a month will break out in clear fluid. Was told adult acne They're sore Then she puts cream on it, but that doesn't help She has never had shingles that she is aware of Tick bite 2 yrs ago Was tested for stis after broke up with last bf Has to go to classes for her sugars Will get labs Last OV 03/23/19 Ms. 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 Chronic kidney disease without proteinuria likely secondary to prior vasculitis and/or reflux nephropathy, Follows with nephrology. Treated with p.o. and IV prednisone, Cytoxan and briefly with azathioprine (Dr. Starks, [facility]), referred by PCP to establish care at . Main complaint is urinary incontinence. Denies any rash, arthralgias, paresthesias Initially thought to have spider bite. She woke up with small red lesions in LLE. Was started on antibiotics, hadreaction to PCN, sulfa. Started on prednisone. Had been on steroids for at least 10 years. Last took prednisone in 2003. Renal function stable. Follows with Nephrology. B/l shoulder pain on lifting for years, unchanged. No significant stiffness in joints. For 1 week noticed rash in the umbilical area, right nipple soreness. Has bunny at home wondering if it scartched. Recent mammogram WNL. Thinks the soreness is improving in the right nipple. Plans evaluation by PCP next week. Follows with hematology for anemia. 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 CKD Hypertension Anemia iron deficiency/anemia of chronic disease follows with hematology, BPV Depression TIA Bilateral total knee replacements 2001, 2004 Status post his hysterectomy, bladder sling, Botox injections for urinary incontinence with no relief Medications, reviewed Social Hx: per patient history form Never smoker. On disability since 2010. Never smoker. Rarely alcohol. 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 Family Hx: per patient history form No known autoimmune disease in the family Twin brother and older brother had GBS. ROS: Gen: per HPI Skin: Per HPI Mouth: denies dry mouth, no oral ulcers Eyes: no erythema or pain. No dry eyes Vascular: per HPI Heart: no chest pain, palpitations Lungs: Per HPI Abd: no pain, GERD, diarrhea, constipation : no dysuria, no flank pain Musculoskeletal: no arthralgia Physical Exam: Gen: Patient is awake, alert and oriented x 3, in no distress Resp: Cough heard over phone, no increased work of breathing Labs/studies: 02/01/2019 Creatinine 1.79 GFR 28.25 04/12/2018 CBC H/H 10.8/33.3, RBC 3.75, WBC 7.83 Platelets 289, normal differential 03/30/2018 HSV 1/2, RPR, HIV, chlamydia, GC negative Hepatitis B surface antibody (quantitative less than 3.1 mIU/mL), hepatitis C antibody, hepatitis Be antigen, hepatitis A IgM negative 03/23/2018 BUN 38/creatinine 2.11, GFR 23.43, albumin 4, alkaline phosphatase 102, AST 24, ALT 26 02/22/2019 WBC 8.1, H/H 10.6/34.8, platelets 342 07/07/2018 uric acid 6.7, BUN 35/creatinine 1.61 p-ANCA positive, normal MPO 02/21/2019 BUN 43/creatinine 1.72 02/20/2019 MRI abdomen wo contrast of the kidneys compared to 05/10/2018 given right renal mass, follow-up abnormal MRI Impression: Stable right renal mass since 05/10/2018. No abdominal adenopathy seen on the images provided. Status post cholecystectomy. Well-circumscribed mass in the upper pole of the right kidney. It measures 3.8 cm transversely to 4 cm AP and 2 3.3 cm craniocaudally. Assessment and Plan: Ms. 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 CKD without proteinuria likely secondary to prior vasculitis and/or reflux nephropathy, Follows with nephrology. Treated with p.o. and IV prednisone, Cytoxan and briefly with azathioprine (Dr. Starks, [facility]), referred by PCP to establish care at . ANCA vasculitis (p-ANCA MPO), possibly after spider bite, Diagnosed in 1993. Off prednisone since 2003 with no recurrence in symptoms. However, today reports to me that she has had an ovoid violaceous lesion on LE for about a year that is slightly tender to touch and perhaps growing. I asked her to press on the lesion and it sounds like it does ramirez. She is seeing Dr. Starks at [facility] in March for this, as suggested by her PCP. For gout on allopurinol 200mg daily without flare. Continue. Get med and disease monitoring labs at [place] on day of visit with Dr. Starks. I will send now. Check ANCA panel, ESR, CRP, CMP, CBC Her suspected viral illness seems to be on the upswing, but I told her to closely monitor sxs and if any worsening seek immediate medical attention. I asked her to let PCP know she has acute illness.Recommended humidifier and frequent hydration to help with chest congestion. Sent labs to [place] in 4 months Patient verbally consents to this telephone visit and understands that this visit may be billed, similar to a clinic office visit. I provided care to the patient today via telephone call, 23 minutes telephone visit was spent in discussion with patient on above. documented in this encounter Plan of Treatment Upcoming Encounters Date Type Department Care Team (Late st Contact Info) Description 07/18/2025 1:00 PM EDT Office Visit Hematology/Oncology at [address] [phone] Ronna Green MD [facility] HEMATOLOGY AND [place] [address] Melissa Dahl APRN [facility] DR HEMATOLOGY [place] [address] documented as of this encounter Visit Diagnoses Diagnosis ANCA-positive vasculitis Other specified disorders of arteries and arterioles documented in this encounter Care Teams Cargo Worker Relationship Specialty Start Date End Date Long Castaneda DNP [facility] [address] [place] [address] PCP - General Family Medicine 02/21/19 06/15/21 documented as of this encounter
--- OUTSIDE RECORDS SUMMARY | 2024-11-27 14:13 | XMS_ITS | Encounter Summary ---
[place] [address] Care Team Providers Care Customer Accounts Advisor Name Role Phone Mauri Shiraz MARTINEZ Primary Care Provider [phone] Encounter Details Date Type Department Care Team (Latest Contact Info) Description 02/22/2023 2:00 PM EDT Office Visit [place] [address] Sara Hawk MD Type 2 diabetes mellitus without complication, with long-term current use of insulin; CKD (chronic kidney disease), stage IV; Hypertension secondary to other renal disorders Social History Tobacco Use Types Packs/Day Years [...] Sign Reading Time Taken Comments Blood Pressure 121/66 02/22/2023 1:40 PM EDT Pulse 88 02/22/2023 1:40 PM EDT Temperature - - Respiratory Rate - - Oxygen Saturation 98% 02/22/2023 1:40 PM EDT Inhaled Oxygen Concentration - - Weight 95.6 kg (210 lb 12.8 oz) 02/22/2023 1:40 PM EDT Height - - Body Mass Index 38.55 07/01/2022 12:02 PM EDT documented in this encounter Progress Notes * Sara Hawk MD - 02/22/2023 2:00 PM EDT Images from the original note were not included. Renal and Hypertension Visit 02/22/2023 72 y.o. year old female with stable stage IIIb chronic kidney disease without proteinuria secondaryto ANCA positive vasculitis in 1993. Referred by JUAN Herzog Lamar reports that she has been generally well. She has a recent diagnosis of type II diabetes. Diabetic control is suboptimal. She reports random blood sugar 225 mg/dl with some higher readings at home.. Home systolic blood pressures are in the range 120 mmHg. Lamar has stable urinary incontinence. She has had several urologic interventions including surgery and Botox without improvement. She denies current rash, arthropathy, hematuria, fever, unexplained weight loss.. Gout no recent episode, continues allopurinol. PMH ?? Stable CKD stage IIIB without proteinuria likely secondary to prior ANCA vasculitis ?? 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 bisacodyl EC (Dulcolax) 5 mg Tablet, Delayed Release (E.C.) Every 12 hours. ??? Calcium 500 With D 500 mg-10 mcg (400 unit) Tablet TAKE 2 TABLET BY MOUTH ONCE A DAY ??? hydrocortisone 2.5 % Cream hydrocortisone 2.5 % topical cream APPLY A THIN LAYER TO THE AFFECTED AREA(S) BY TOPICAL ROUTE 2 TIMES PER DAY ??? nystatin (MYCOSTATIN) 100,000 unit/gram Powder nystatin 100,000 unit/gram topical powder APPLY TO THE AFFECTED AREA(S) BY TOPICAL ROUTE 3 TIMES PER DAY ??? pioglitazone (Actos) 15 mg tablet Take 15 mg by mouth daily. ??? polyethylene glycoL (Miralax) 17 gram oral powder packet Miralax 17 gram/dose oral powder Take as directed per prep directions ??? rosuvastatin (Crestor) 5 mg tablet Take 5 mg by mouth daily. ??? Trulicity 1.5 mg/0.5 mL Pen Injector Inject 1.5 mg subcutaneously once a week. ??? atorvastatin (Lipitor) 20 mg Tablet Take 20 mg by mouth daily. ??? ibuprofen (Advil;Motrin) 200 mg Tablet Take 200 mg by mouth every 6 hours as needed for Pain. RARELY USES ??? ferrous gluconate 324 mg (37.5 mg [...] mouth 3 times daily as needed. ??? allopurinol (ZYLOPRIM) 100 mg Tablet 2 times daily. ??? triamterene-hydrochlorothiazide (MAXZIDE-25) 37.5-25 mg Tablet Take 1 tablet by mouth daily. ??? citalopram (CELEXA) 20 mg tablet Take 30 mg by mouth daily. ??? lisinopril (PRINIVIL;ZESTRIL) 10 mg tablet Take 5 mg by mouth daily. ??? vit A/vit C/vit E/zinc/copper (PRESERVISION AREDS ORAL) Take 1 capsule by mouth daily. No current facility-administered medications for this visit. Patient reports that she takes ibuprofen occasionally for headache and occasional naproxen.. No additional OTCs or supplements On examination Well-appearing 72 y.o. female in no acute distress Blood pressure 121/66, pulse 88, weight 95.6 kg (210 lb 12.8 oz), SpO2 98 %. Body mass index is 38.55 kg/m??. There is no uremic fetor and no asterixis The head is normal There is no conjunctival pallor The hands and nails are unremarkable There is no jugular venous distention There is very trace peripheral edema at the ankles and no sacral edema The heart sounds are S1 + S2 with no rubs, murmurs or gallops The Breath sounds are vesicular throughout with no added sounds The abdomen is obese, soft and nontender. There is no costovertebral angle tenderness. No masses ororgans are palpated Lower legs remarkable for patchy superficial tissue loss with scarring secondary to spider bite/vasculitis Skin of trunk, limbs and head is intact Gait is normal. Facies symmetrical. LAURENT, Mentation and speech are normal Labs: Serum creatinine Latest Reference Range & Units Most Recent 07/09/21 00:00 01/12/22 13:09 02/22/23 13:00 Sodium 135 - 145 mmol/L 137 02/22/23 13:00 139 137 Potassium 3.5 - 5.0 mmol/L 4.9 02/22/23 13:00 5.4 (H) 4.9 Chloride 98 - 107 mmol/L 104 02/22/23 13:00 105 104 CO2 22 - 31 mmol/L 20 (L) 02/22/23 13:00 21 (L) 20 (L) Anion Gap 5 - 15 mmol/L 13 02/22/23 13:00 13 13 BUN 8 - 18 mg/dL 39 (H) 02/22/23 13:00 45 (E) 36 (H) 39 (H) Creatinine 0.70 - 1.20 mg/dL 1.99 (H) 02/22/23 13:00 2.5 (E) 1.90 (H) 1.99 (H) Estimated GFR >=60 mL/min/1.73 m?? 26 (L) 02/22/23 13:00 26 (L) 26 (L) eGFR >=60 mL/min/1.73 m?? 35 (L) 02/21/19 11:03 Calcium 8.5 - 10.5 mg/dL 10.3 02/22/23 13:00 10.0 10.3 Phosphorus 2.5 - 4.5 mg/dL 2.8 02/22/23 13:00 2.8 Uric Acid 2.5 - 6.5 mg/dL 8.1 (H) 02/22/23 13:00 8.1 (H) Glucose Lvl 65 - 199 mg/dL 119 02/22/23 13:00 136 119 Total Protein 6.1 - 8.0 g/dL 8.0 01/12/22 13:09 8.0 Albumin 3.2 - 5.2 g/dL 4.5 02/22/23 13:00 4.7 4.5 Total Bilirubin 0.2 - 1.3 mg/dL 0.2 01/12/22 13:09 0.2 Alk Phos 35 - 105 unit/L 100 01/12/22 13:09 100 AST 0 - 30 Not Perf 01/12/22 13:09 Not Perf ALT 0 - 30 unit/L 18 01/12/22 13:09 18 U Protein Ran 0 - 12 mg/dL <6 07/07/18 13:30 Iron 55 (E) 07/09/21 00:00 55 (E) TIBC 301 (E) 07/09/21 00:00 301 (E) Iron Saturation 20 - 50 % 17 (L) 07/07/18 12:26 Ferritin 337 (E) 07/09/21 00:00 337 (E) Transferrin 18 (E) 07/09/21 00:00 18 (E) (H): Data is abnormally high (L): Data is abnormally low (E): External lab result Latest Reference Range & Units Most Recent 07/07/18 13:30 02/21/19 13:30 02/22/23 15:29 Alb/Cr Ratio, Random 0 - 29 mcg/mg Cr 7 02/22/23 15:29 Not Calculated 7 Prot/Cre Ratio ratio <0.1 07/07/18 13:30 <0.1 U Albumin Conc, Random mg/L 7.0 02/22/23 15:29 <3.0 7.0 U Protein Ran 0 - 12 mg/dL <6 07/07/18 13:30 <6 U Creatinine mg/dL 99 02/22/23 15:29 85 104 99 Latest Reference Range & Units Most Recent 02/22/23 13:00 WBC 4.0 - 9.5 x10(3)/mcL 9.5 02/22/23 13:00 9.5 RBC 4.00 - 5.21 x10(6)/mcL 4.15 02/22/23 13:00 4.15 Hemoglobin 11.7 - 15.5 g/dL 11.6 (L) 02/22/23 13:00 11.6 (L) Hematocrit 35.7 - 45.8 % 34.9 (L) 02/22/23 13:00 34.9 (L) MCV 82.6 - 94.4 fL 84.1 02/22/23 13:00 84.1 MCH 27.1 - 32.0 pg 28.0 02/22/23 13:00 28.0 MCHC 31.7 - 35.0 g/dL 33.2 02/22/23 13:00 33.2 RDWSD 37.0 - 46.0 fL 41.8 02/22/23 13:00 41.8 RDWCV 11.5 - 14.1 % 13.5 02/22/23 13:00 13.5 Platelets 145 - 357 x10(3)/mcL 268 02/22/23 13:00 268 (L): Data is abnormally low Latest Reference Range & Units 08/29/20 00:00 [...] Urine microscopy: Low and High power monique negative for cells,casts, crystals Imaging Bilateral cortical thinning - my read Assessment and Recommendations ?? Stable chronic kidney disease stage IIIB without proteinuria likely secondary to prior ANCA vasculitis . Bilateral cortical thinning on ultrasound. History of ANCA-positive vasculitis. Persistent pANCA MPO-positive serology without evidence of systemic disease. ?? Recent onset DMII. Glycemic control suboptimal with dulaglutide and pioglitizone. Recommend consider addition of glipizide ?? Hypertension for the past 20 years, well controlled on current medications. ?? Renal clinic follow up 1 year with labs. ordered Thank you for referring this interesting patient documented in this encounter Plan of Treatment Upcoming Encounters Date Type Department Care Team (Late st Contact Info) Description 07/18/2025 1:00 PM EDT Office Visit Hematology/Oncology at [address] [phone] Ronna Green MD [facility] DR [place] [address] Melissa Dahl APRN [facility] [address] [place]EM[place]Y [place] [address] documented as of this encounter Procedures Procedure Name Priority Date/Time Associated Diagnosis Comments U ALBUMIN/CRE RATIO Routine 02/22/2023 3 :29 PM EDT Type 2 diabetes mellitus without complication, with long-term current use of insulin CKD (chronic kidney disease), stage IV documented in this encounter Results * U Albumin/Cre Ratio (02/22/2023 3:29 PM EDT) Albumin / Creatinin Ratio, Urine 7 0 - 29 mcg/mg Cr [facility] Comment: Reference Ranges: <30 mcg/mg: Normal [...] Supplements (2012) 2, 357? 362 Albumin, Urine 7.0 mg/L [facility] Creatinine, Urine 99 mg/dL [facility] Urine 02/22/2023 3:29 PM EDT 02/22/2023 3:29 PM EDT Narrative Resulting Agency Comment Spec In Lab Sara Hawk MD URINE ORDERABLES [facility] [place] [address] documented in this encounter Visit Diagnoses Diagnosis Type 2 diabetes mellitus without complication, with long-term current use of insulin CKD (chronic kidney disease), stage IV Chronic kidney disease, Stage IV (severe) Hypertension secondary to other renal disorders documented in this encounter Care Teams Customer Accounts Advisor Relationship Specialty Start Date End Date Shiraz Dotson PA [address] [place] [address] PCP - General Internal Medicine 07/09/21 documented as of this encounter
--- OUTSIDE RECORDS SUMMARY | 2024-11-27 14:13 | XMS_ITS | Encounter Summary ---
Author Organization [facility] [place] [address] Care Team Providers Care Pulverizer Tender Name Role Phone Long Castaneda DNP Primary Care Provider [phone] Reason for Visit * Reason Comments Follow-up Encounter Details Date Type Department Care Team (Late st Contact Info) Description 04/09/2020 1:30 PM EDT Office Visit Dermatology at [address] [phone] Jefferson Starks MD [address] [facility] [place] [address] Granuloma annulare; Tinea unguium Social History Tobacco Use Types Packs/Day Years Used Date Smoking Tobacco: Never Smokeless Tobacco: Never Alcohol Use Standard Drinks/Week Comments Yes 0 (1 standard drink = 0.6 oz pur e alcohol) rare Sex and Gender Information Value Date Recorded Sex Assigned at Not on file Gender Identity Not on file Sexual Orientation Not on file documented as of this encounter Progress Notes * Jefferson Starks MD - 04/09/2020 1:30 PM EDT Problem: 1. Bilateral angle of mouth irritation 2. Rash left upper inner thigh 3. History of polyarteritis nodosa Lamar follows up today after last being seen some 14 years ago in my practice. While she has no further vasculitis she has for the last year been having problems with inflammation that extends down and away from the angle of either mouth. She now has lower dentures to wear but unfortunately the feet is poor and they keep popping up so she does not wear them. Also for the last 2 years she has had a spreading rash on the left upper inner thigh. It is essentially asymptomatic. She is noted some tinea unguium also her right hallux. Physical examination reveals a pleasant 69-year-old woman who has today no activity of angular chelitis, but points exactly to the fissure extending down from the end of her mouth out laterally bilaterally as the site where this rash seems to come and go on a regular basis. This fissure is pronounced because of her lower jaw being edentulous, and she not being able to wear her lower dentures. On the left upper inner thigh she has an erythematous serpiginous raised marginated patch with central clearing. 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 She has tinea unguium of the right subungual nail plate. Assessment and plan: Angular chelitis 1. Discussed the use of Clortrimazole 1% cream on a daily twice daily basis as needed to control and prevent this. Obtain [id number] 2. Discussed etiology. 3. Patient reassured by its benign nature Granuloma annulare 1. Discussed diagnosis 2. Discussed the option of corticosteroid treatment, but the results from this are usually only partial 3. As it is asymptomatic the patient, she is simply reassured to know that it is not skin cancer, and opts not for treatment Tinea unguium right hallux 1. Discussed the option of thymol 3% in ethyl alcohol which we have used before, but patient defersfor the moment History of polyarteritis nodosa of bilateral lower extremities 1. Fortunately today this is quiescent and has been for many years. CC: Long Castaneda APRN documented in this encounter Plan of Treatment Upcoming Encounters Date Type Department Care Team (Late st Contact Info) Description 07/18/2025 1:00 PM EDT Office Visit Hematology/Oncology at [address] [phone] Ronna Green MD [facility] [address] [place] [address] Melissa Dahl APRN [facility] [place] [address] documented as of this encounter Visit Diagnoses Diagnosis Granuloma annulare Other specified erythematous condition Tinea unguium Dermatophytosis of nail documented in this encounter Care Teams Pulverizer Tender Relationship Specialty Start Date End Date Long Castaneda DNP [address] [place] [address] PCP - General Family Medicine 02/21/19 06/15/21 documented as of this encounter
--- OUTSIDE RECORDS SUMMARY | 2024-11-27 14:13 | XMS_ITS | Encounter Summary ---
Author Organization [facility] Address [facility] [place] [address] Care Team Providers Care Nursing Technician Name Role Phone MauriShiraz JUAN Primary Care Provider [phone] Encounter Details Date Type Department Care Team (Late st Contact Info) Description 11/17/2022 Telephone [place] [phone] Radha Reyes Social History Tobacco Use Types [...] * Telephone Encounter - Radha Reyes - 11/17/2022 3:40 PM EST Called patient to schedule a follow up appointment, offered Nov but patient would like to wait until December. Did let pt know our December calendar isn't out yet and if she didn't hear from us the middle to end of next week to call our office to schedule an appointment. documented in this encounter Plan of Treatment Upcoming Encounters Date Type Department Care Team (Late st Contact Info) Description 07/18/2025 1:00 PM EDT Office Visit Hematology/Oncology at [address] [phone] Ronna Green MD [facility] DR HEMATOLOGY [place] [address] Melissa Dahl APRN [facility] DR HEMATOLOGY [place] [address] documented as of this encounter Visit Diagnoses Not on filedocumented in this encounter Care Teams Nursing Technician Relationship Specialty Start Date End Date Shiraz Dotson PA [address] [facility] [address] [place] [address] PCP - General Internal Medicine 07/09/21 documented as of this encounter
--- OUTSIDE RECORDS SUMMARY | 2024-11-27 14:13 | XMS_ITS | Encounter Summary ---
Author Organization Formerly [facility] Address [facility] [place] [address] Care Team Providers Care Health Services Administrator Name Role Phone Shiraz Dotson Primary Care Provider [phone] Reason for Visit * Reason Comments Follow-up Encounter Details Date Type Department Care Team (Late st Contact Info) Description 07/01/2022 12:00 PM EDT Office Visit Hematology/Oncology at [address] [phone] Melissa Dahl APRN [facility] [address] HEMATOLOGY [place] [address] Anemia, unspecified type; Anemia of chronic disease Social History Tobacco [...] Sign Reading Time Taken Comments Blood Pressure 132/78 07/01/2022 12:02 PM EDT Pulse 110 07/01/2022 12:02 PM EDT Temperature 36.4 ??C (97.5 ??F) 07/01/2022 12:02 PM E DT Respiratory Rate 18 07/01/2022 12:02 PM EDT Oxygen Saturation 98% 07/01/2022 12:02 PM EDT Inhaled Oxygen Concentration - - Weight 97.3 kg (214 lb 9.6 oz) 07/01/2022 12:02 PM EDT Height 157.5 cm (5' 2.01) 07/01/2022 12:02 PM E DT Body Mass Index 39.24 07/01/2022 12:02 PM EDT documented in this encounter Progress Notes * Melissa Dahl, AREA CLEANER - 07/01/2022 12:00 PM EDT Subjective: Patient ID: Lamar Hinds is a 71 y.o. female here for f/u of multifactorial [...] last seen, Lamar reports feeling well and in her usual state of health. She denies fevers, chills,recurrent infections. She shares that she developed COVID in which felt like a cold. She was in bed x 1 day. She still has some fatigue. No drenching sweats, unintentional weight loss, abnormal bleeding or excessive bruising. No black tarry stool. Review of Systems Constitutional: Positive for fatigue. HENT: Negative. Eyes: Negative. Respiratory: Positive for shortness of breath. Negative for cough. CURRIE especially with elevation [unchanged] Cardiovascular: Negative. Negative for chest pain, palpitations and leg swelling. Gastrointestinal: Negative. Negative for constipation, diarrhea, nausea and vomiting. Genitourinary: Negative. Chronic incontinence Musculoskeletal: Positive for arthralgias and myalgias. neck, back, left shoulder Skin: Negative. Neurological: Negative. Negative for weakness and numbness. Vertigo in the morning- uses Meclizine Hematological: Negative. Psychiatric/Behavioral: Negative. Objective: Vitals: BP 132/78 (Patient Position: Sitting) Pulse (!) 110 Temp 36.4 ??C (97.5 ??F) (Temporal) Resp 18 Ht 157.5 cm (5' 2.01) Wt 97.3 kg (214 lb 9.6 oz) SpO2 98% BMI 39.24 kg/m?? Physical Exam Constitutional: General: She is not in acute distress. Appearance: She is well-developed. HENT: Mouth/Throat: Pharynx: No oropharyngeal exudate. Eyes: Conjunctiva/sclera: Conjunctivae normal. Pupils: Pupils are equal, round, and reactive to light. Cardiovascular: Rate and Rhythm: Sinus tachycardia without S3,S4 Heart sounds: Normal heart sounds. [...] neck supple. Comments: Trace bilateral LE edema [unchanged] Lymphadenopathy: Cervical: No cervical adenopathy. Upper Body: Right upper body: No supraclavicular adenopathy. Left upper body: No supraclavicular adenopathy. Skin: General: Skin is warm and dry. No suspicious rashes or lesions on exposed skin. Full skin exam not perfromed Neurological: Mental Status: She is alert and oriented to person, place, and time. Laboratory: Obtained at [facility] on 06/24/22 in anticipation of today's visit. WBC: 8.3 ANC: 4750 Hgb: 11.0 MCV: 85 plt count: 255,000 Lytes: normal BUN/creatinine: 32/2.1 LFTs: normal Radiology: No new images reviewed today Assessment and Plan: Very pleasant 71 y.o. with numerous co-morbidities and anemia of [...] for hemoglobin over 10 (new medicare guidelines). --Continue prospective monitoring --Lamar will return to clinic in 1 year with labs and a visit though was reminded that we remain available in the interim should questions/concerns arise. --General medical care and age appropriate health screening remains under the direction of JUAN Herzog, MSN, AREA CLEANER Nurse Practitioner Section of Hematology [facility] Cc: JUAN Herzog documented in this encounter Plan of Treatment Upcoming Encounters Date Type Department Care Team (Late st Contact Info) Description 07/18/2025 1:00 PM EDT Office Visit Hematology/Oncology at [address] [phone] Ronna Green MD [facility] [address] HEMATOLOGY [place] [address] Melissa Dahl APRN [facility] HEMATOLOGY [place] [address] documented as of this encounter Visit Diagnoses Diagnosis Anemia, unspecified type Anemia of chronic disease Anemia of other chronic disease documented in this encounter Care Teams Health Services Administrator Relationship Specialty Start Date End Date Shiraz Dotson PA [address] [place] [address] PCP - General Internal Medicine 07/09/21 documented as of this encounter
--- OUTSIDE RECORDS SUMMARY | 2024-11-27 14:13 | XMS_ITS | Encounter Summary ---
Author Organization [facility] [place] [address] Care Team Providers Care Interline Clerk Name Role Phone Shiraz Dotson Primary Care Provider [phone] Encounter Details Date Type Department Care Team (Latest Contact Info) Description 01/12/2022 1:30 PM EDT Laboratory Appointment Lab [address] [place] [address] Chronic kidney disease, unspecified CKD stage; ANCA-associated [...] 1:00 PM EDT Office Visit Hematology/Oncology at [address] [phone] Ronna Green MD [facility] [address] [place] [address] Melissa Dahl APRN [facility] [place] [address] documented as of this encounter Procedures Procedure Name Priority Date/Time Associated Diagnosis Comments HC VENIPUNCTURE Routine 01/12/2022 1:09 PM EDT Chronic kidney disease, unspecified CKD stage ANCA-associated vasculitis documented in this encounter Results * (ABNORMAL) Comprehensive metabolic panel (non-fasting) (01/12/2022 1:09 PM EDT) Glucose 136 65 - 199 mg/dL [facility] Comment:Diabetes: >=200 mg/d L plus symptoms Blood Urea Nitrogen 36(H) 8 - 18 mg/dL [facility] Creatinine 1.90(H) 0.70 - 1.20 mg/dL [facility] Sodium 139 135 - 145 mmol/L [facility] Potassium 5.4(H) 3.5 - 5.0 mmol/L [facility] Comment: Please note: ??Patients with WBC >100,000 may have falsely elevated Potassium levels. ??For accurate Potassium quantification in these patients send serum separator tube (gold top) for subsequent determinations. ??Contact the Clinical Chemistry Laboratory if there are any questions. Chloride 105 98 - 107 mmol/L [facility] Carbon Dioxide 21(L) 22 - 31 mmol/L [facility] Anion Gap 13 5 - 15 mmol/L [facility] Calcium 10.0 8.5 - 10.5 mg/dL [facility] Protein, Total 8.0 6.1 - 8.0 g/dL [facility] Albumin 4.7 3.2 - 5.2 g/dL [facility] Aspartate Aminotransferase Not Perf 0 - 30 [facility] Comment:Unable to quantitate due to sample hemolysis. Sample redraw suggested. Alanine Aminotransferase 18 0 - 30 unit/L [facility] Alkaline Phosphatase 100 35 - 105 unit/L [facility] Bilirubin, Total 0.2 0.2 - 1.3 mg/dL [facility] Est Glomerular Filtration Rate 26(L) >=60 mL/min/1. 73 m?? [facility] Comment: This patient? s estimated glomerular filtration rate (eGFR) is between 26 mL/min/1.73 m2 (patients with less muscle mass) and 30 mL/min/1.73 m2 (patients with more muscle mass) as determined by the CKD-EPI equation. Assessment of eGFR is not appropriate when creatinine concentrations are rapidly changing. For clinical decisions where creatinine clearance will affect therapy, a 24-hour urine creatinine clearance may be advised. Assignment of CKD stage 1 - 5 for patients with an eGFR near the transition point between stages may be based on clinical assessment of muscle mass and symptoms in addition to eGFR. Blood 01/12/2022 1:09 PM EDT 01/12/2022 1:43 PM EDT Narrative Resulting Agency Comment Spec In Lab Sara Hawk MD CHEMISTRY ORDERABLES [facility] [place] [address] documented in this encounter Visit Diagnoses Diagnosis Chronic kidney disease, unspecified CKD stage ANCA-associated vasculitis Other specified disorders of arteries and arterioles documented in this encounter Care Teams Interline Clerk Relationship Specialty Start Date End Date Shiraz Dotson PA [address] [place] [address] PCP - General Internal Medicine 07/09/21 documented as of this encounter
--- OUTSIDE RECORDS SUMMARY | 2024-11-27 14:13 | XMS_ITS | Encounter Summary ---
Author Organization [facility] Address [facility] [place] [address] Care Team Providers Care Enamel Applier Name Role Phone Long Castaneda DNP Primary Care Provider [phone] Encounter Details Date Type Department Care Team (Late st Contact Info) Description 09/04/2020 10:30 AM EST Office Visit Hematology/Oncology at [address] [phone] Ronna Green MD [facility] [address] [place] [address] Karin Eid, OIL AND GAS EXPLORATION TECHNICIAN Anemia, unspecified type Social History Tobacco Use [...] Sign Reading Time Taken Comments Blood Pressure 142/64 09/04/2020 10:44 AM EST Pulse 91 09/04/2020 10:44 AM EST Temperature 36.3 ??C (97.4 ??F) 09/04/2020 10:[address] Respiratory Rate 16 09/04/2020 10:44 AM EST Oxygen Saturation 98% 09/04/2020 10:44 AM EST Inhaled Oxygen Concentration - - Weight 99.8 kg (220 lb) 09/04/2020 10:44 AM EST Height 157.5 cm (5' 2.01) 09/04/2020 10:[address] Body Mass Index 40.23 09/04/2020 10:44 AM EST documented in this encounter Progress Notes * Ronna Green MD - 09/04/2020 10:30 AM EST Hematology Clinic [facility] [place] [address] HEMATOLOGY PATIENT EVALUATION Patient Active Problem List [...] is followed by urology, Dr. Lino, at [facility] for a right renal mass. She was seen in January and this was stable. She is now being followed with imaging every 6 months. I had followed Lamar several years ago. She was seen in the early 6811-6720 range. At that time I thought she most likely had anemia of chronic disease combined with renal insufficiency. She was referred back in April 2019 by her primary care physician. Her repeat labs 2018 Confirmed ACD and low erythropoietin levels related to her CKD. She reports feeling more tired which she attributes to her weight. She is diabetic now and her PCP has referred her for nutrition education. I encouraged her in weight loss to avoid diabetic treatment. I am depressed Financial issues, lost her furnace in August. Had bronchitis, and symptoms have persisted for a month. She still does not feel like her energy isback yet. After a year, she developed a reaction to her mesh that was put in for her abdominal hernia. Dr. Kinney had to remove it. She is seen today for 6 month f/u. I reviewd her labs which have been drawn frequently and there islittle to no change. PMHX: Anemia of chronic disease Chronic renal insufficiency -CKD stage III (GFR 30-59). Followed by nephrology Constipation Depression Fatigue Hyperkalemia Hypertension Right renal mass followed by urology, Dr. Lino. Stable. presently followed with imaging every 6 months. History of ANCA positive vasculitis. Followed both by Dr. Hawk of nephrology and also evaluated in rheumatology as well. Pre-diabetic - hgb A1c = 7 Hypertension arthritis PSHX: Cholecystectomy Partial hysterectomy Hernia repair with mesh Bladder suspension Laser surgery for tear ducts. ROS Energy level: tired Pain: No Appetite:good Fevers/chills/sweats: occasional NS; but she thinks it is her covers. Bruising/bleeding/melena:No Recent infections:No Headaches:neg Vision:neg Hearing:neg Sinus: neg Seasonal Allergies: neg Mouth sores:neg Dentition: Good Swallowing: neg GERD : neg Nausea/vomiting: neg Diarrhea/constipation: occ constipation SOB/CURRIE/pulmonary sx: CURRIE presumably due to wt gain. chest pain:No sx: urinary incontinence/ nocturis q [...] Outpatient Medications Marked as Taking for the 09/04/20 encounter (Office Visit) with Ronna Green MD Medication Sig Dispense Refill ??? vit A/vit C/vit E/zinc/copper (PRESERVISION AREDS ORAL) Take 1 capsule by mouth daily. ??? ferrous gluconate 324 mg (37.5 mg iron) Tablet Take 324 mg by mouth daily. ??? propylene glycol (SYSTANE COMPLETE) 0.6 % Drops Apply to eye 3 times daily as needed. ??? meclizine (ANTIVERT) 25 mg [...] Unknown FAMILY HISTORY: Mother: Multiple med problems (ID, CVA), Father: COPD,parkinson, Sibs: diabetes, ID, Children: 2 daughters thyroidectomy Other: negative SOCIAL HISTORY Personal: ; 2 daughters ; No partner at this time; and recent partner both were unfaithful which is still painful for her. Work history: retired from a [employer] company ETOH: less than one drink per week Smoking: never Marijuana or illicit drug use: never HIPPA Contact Permission: Ryan Pena OK to leave message on home or cell phone: cell OK to leave medical information on home or cell phone: cell PHYSICAL EXAM BP 142/64 (Patient Position: Sitting) Pulse 91 Temp 36.3 ??C (97.4 ??F) (Temporal) Resp 16 Ht 157.5 cm (5' 2.01) Wt 99.8 kg (220 lb) SpO2 98% BMI 40.23 kg/m?? Body surface area is 2.09 meters squared. GENERAL: Lamar Hinds appears well [...] (from the past 72 hour(s)). Labs at [facility] and [facility] were reviewed. Patient has normal white count and platelet count. She does have normochromic normocytic anemia, consistent with anemia of chronic disease. No iron studies are noted. Chronic renal insufficiency with baseline creatinine between 1.8 and 2.2 at baseline. Date 02/19/1106/2012 ??06/2018 ??01/2019 ??05/02/19 ??11/20/19 ??08/29/20 ?? WBC 6.66 7 6.3 ??8.2 8.1 ??8 ??6.9 ??7.8 ?? ANC ? 3.7 ??4.6 4.7 ??5 ??4.2 ? Hgb 11.3 10.3 11.6 ??10.5 10.6 ??9.9 ??11 ??10.7 ?? MCV ?? 84.7 86.3 ??89.8 ??92.6 ??88 ??87 ? HCT ?32.7 34.8 ? PLT 244k 228 258 ??243 242 ??229 ??250 ??245 ?? Creat 1.3 ?? 1.5 ??1.6 1.7 ??1.9 ??1.85 ??2.15 ?? LFT ? LDH ?none ? ferritin 146 149 220 ?337 ? iron 59 50 61 ??47 ?47 ? tibc 341 346 313 ??278 ?259 ? %sat 17% 14% 19% ??17% ?18% ? epo 12 ?? 8.3 ?7.7 ?+P-ANCA ?? LDH 197 B12 433 Folate 11.8 TSH 0.55 ? RADIOLOGY STUDIES REVIEWED: None ASSESSMENT/PLAN: Very pleasant [...] had seen her up until 2013 at [facility]. At that time I thought she most likely had acombination of anemia of chronic disease and renal insufficiency. Her anemia has progressed mildly since that time. She is referred back at this time for re-evaluation. Just to be complete, and be sure we are not missing any other causes of anemia, I repeated an anemia w/u which is consistent with ACD and possiblyrenal insuff. If her Hgb remains below 10 then she would be a candidate to start erythropoietin supplementation. Erythropoietin cannot be initiated until the hemoglobin is less than 10, once initiated it is given on a regular basis but held for hemoglobin over 10 (new medicare guidelines). Given that Lamar's hemoglobin has been in the 10 range for the last year, and just once dropped to 9.9, I do not think she is quite ready to start the erythropoietin injections. I explained Medicare's change the guidelines to only authorize it for hemoglobin less than 10. Therefore she is likely toget an injection, and then followed by multiple blood counts until she qualifies for another injection. It is likely that it will be much more hassle for her, than benefit. If her hemoglobin drops alfred in the steady 9.5 or lower range, then I think erythropoietin supplementation would benefit her more. We will plan to see her back in 8 -10 months and recheck labs. If at that time, her hemoglobinis dropped further we can revisit the erythropoietin supplementation. Plan: ?? Hold erythropoietin supplementation at this time ?? Return to clinic in 8-10 months with CBC and CMP and iron studies I discussed all of the above with the patient and all of her questions were answered. Support and counseling given as appropriate. This note was written or modified using Nival voice recognition software. The final note was screened for mistakes. Please excuse any remaining errors. total time: time in counselling: Copy Long Castaneda APRN . documented in this encounter Plan of Treatment Upcoming Encounters Date Type Department Care Team (Late st Contact Info) Description 07/18/2025 1:00 PM EDT Office Visit Hematology/Oncology at [address] [phone] Ronna Green MD [facility] [place] [address] Melissa Dahl APRN [facility] [place] [address] documented as of this encounter Procedures Procedure Name Priority Date/Time Associated Diagnosis Comments CBC (WITH DIFF) Routine 08/29/2020 FERRITIN Routine 08/26/2020 SEDIMENTATION RATE Routine 07/16/2020 documented in this encounter Results * CBC (with Diff) (08/29/2020) Pathologist [facility] White Blood Cell 7.84 Hemoglobin 10.7 Hematocrit 34.0 Platelet 245 Potassium 5.4 Creatinine 2.15 Blood Urea Nitrogen 54 Blood specimen (specimen) 08/29/2020 Historical Provider HEMATOLOGY ORDERA BLES * Ferritin (08/26/2020) Pathologist [facility] Ferritin 361 Iron 62 TIBC 306 Transferrin 20 Blood specimen (specimen) 08/26/2020 Historical Provider CHEMISTRY ORDERAB LES * Sedimentation rate (07/16/2020) Pathologist [facility] Sedimentation Rate Automated 41 Blood specimen (specimen) 07/16/2020 Historical Provider HEMATOLOGY ORDERA BLES documented in this encounter Visit Diagnoses Diagnosis Anemia, unspecified type documented in this encounter Care Teams Enamel Applier Relationship Specialty Start Date End Date Long Castaneda DNP [address] [place] [address] PCP - General Family Medicine 02/21/19 06/15/21 documented as of this encounter
--- OUTSIDE RECORDS SUMMARY | 2024-11-27 14:13 | XMS_ITS | Encounter Summary ---
Author Organization [facility] [place] [address] Care Team Providers Care Manager Data Name Role Phone MauriShiraz JUAN Primary Care Provider [phone] Encounter Details Date Type Department Care Team (Late Contact Info) Description 04/10/2022 Orders Only Hematology [place] [address] Melissa Dahl [facility] HEMATOLOGY [place] [address] Anemia, unspecified type Social History Tobacco Use [...] Upcoming Encounters Date Type Department Care Team ([facility] Contact Info) Description 07/18/2025 1:00 PM EDT Office Visit Hematology/Oncology at [address] [phone] Ronna Green MD [facility] HEMATOLOGY [place] [address] Melissa Dahl DIRECTOR OF [facility] HEMATOLOGY [place] [address] documented as of this encounter Visit Diagnoses Diagnosis Anemia, unspecified type documented in this encounter Care Teams Manager Data Relationship Specialty Start Date End Date Shiraz Dotson PA [address] [place] [address] PCP - General Internal Medicine 07/09/21 documented as of this encounter
--- OUTSIDE RECORDS SUMMARY | 2024-11-27 14:13 | XMS_ITS | Encounter Summary ---
Author Organization Formerly [facility] [place] [address] Care Team Providers Care Awake Overnight Counselor Name Role Phone Long Castaneda DNP Primary Care Provider [phone] Encounter Details Date Type Department Care Team (Latest Contact Info) Description 07/24/2020 4:00 PM EDT Office Visit [place] [address] Sara Hawk MD Chronic kidney disease, unspecified [...] Sign Reading Time Taken Comments Blood Pressure 134/65 07/24/2020 3:29 PM EDT Pulse 78 07/24/2020 3:29 PM EDT Temperature - - Respiratory Rate - - Oxygen Saturation - - Inhaled Oxygen Concentration - - Weight 99.3 kg (219 lb) 07/24/2020 3:29 PM EDT Height 157.5 cm (5' 2) 07/24/2020 3:29 PM EDT Body Mass Index 40.06 07/24/2020 3:29 PM EDT documented in this encounter Progress Notes * Sara Hawk MD - 07/24/2020 4:00 PM EDT Images from the original note were not included. Renal and Hypertension Visit 07/24/2020 69 y.o. year old female referred by MONICA Mack Ms reports recent abdominal hernia repair with mesh at [facility] , mesh subsequently removed for infection. Persistent drainage from umbilicus. Surgery following. Generally well. Only current symptom is L ulnar pain. Denies rash, arthropathy, hematuria, fever, unexplained weight loss. Mrs. Koch has longstanding bladder issues, followed by urologist Dr Earl Lino at [facility]. Underwent bladder sling and hysterectomy, and botox injections without improvement in incontinence to date. Gout no recent episode, continues allopurinol. She reports her blood pressure at home with a wrist cuff is approximately 138/55 mmHg PMH ?? 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 Treated with PO and IV prednisone, Cytoxan, and briefly with azathioprine (Dr Starks, [facility]) Persistent pANCA MPO positive serology without evidence of systemic disease ?? Hypertension for the past 20 years. Well controlled ?? Anemia, iron deficiency/anemia of chronic disease. Followed by hematology, Dr. Acevedo ?? Truncal obesity ?? Bilateral total knee replacements 2001 2004 ?? 3 para 2 T1. 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 vit A/vit [...] positives and negatives listed above On examination This is a very pleasant obese 69 y.o. female in no acute distress Blood pressure 134/65, pulse 78, height 157.5 cm (5' 2), weight 99.3 kg (219 lb). Body mass index is 40.06 kg/m??. There is no uremic fetor and no asterixis The head is normal There is no conjunctival pallor The hands and nails are unremarkable The oropharynx appears normal. Dentition is fair There is no jugular venous distention There is no peripheral edema and no sacral edema The heart sounds are S1 + S2 with no rubs, murmurs or gallops The Breath sounds are vesicular throughout with no added sounds The thoracic and lumbar spine is non tender to percussion along its length The abdomen is obese, soft and nontender. There is no costovertebral angle tenderness. No masses ororgans are palpated The carotid, brachial, femoral popliteal, dorsalis pedis and posterior tibial pulses are present and equal without bruits. There are no abdominal bruits Lower legs remarkable for patchy superficial tissue loss with scarring Skin of trunk, limbs and head is intact Gait is normal. Facies symmetrical. LAURENT, Mentation and speech are normal Labs: Reviewed outside laboratory values and data available in [facility]. Notable for as above Results for LAMAR KOCH ( ) as of 08/03/2020 15:05 Ref. Range 10/01/2017 15:03 07/07/2018 12:26 C-ANCA Latest Ref Range: Negative Negative Negative P-ANCA Latest Ref Range: Negative Positive (A) Positive (A) MPO Ab Latest Ref Range: <=20.0 unit(s) 26.1 (H) 10.7 PR3 Ab Latest Ref Range: <=20.0 unit(s) 5.7 3.3 Results for LAMAR KOCH ( ) as of 08/03/2020 15:05 Ref. Range 07/07/2018 12:26 02/21/2019 11:03 11/20/2019 00:00 WBC Unknown 8.2 8.1 6.93 RBC Latest Ref Range: 4.00 - 5.21 x10(6)/mcL 3.64 (L) 3.76 (L) Hemoglobin Unknown 10.5 (L) 10.6 (L) 11.0 Hematocrit Unknown 32.7 (L) 34.8 (L) 33.8 MCV Latest Ref Range: 82.6 - 94.4 fL 89.8 92.6 MCH Latest Ref Range: 27.1 - 32.0 pg 28.8 28.2 MCHC Latest Ref Range: 31.7 - 35.0 gm/dL 32.1 30.5 (L) RDWSD Latest Ref Range: 37.0 - 46.0 fL 46.3 (H) 46.2 (H) RDWCV Latest Ref Range: 11.5 - 14.1 % 14.0 13.7 Platelets Unknown 243 242 250 Results for LAMAR KOCH ( ) as of 08/03/2020 15:05 Ref. Range 10/01/2017 15:03 07/07/2018 12:26 07/07/2018 13:30 02/21/2019 11:03 11/20/2019 00:00 Sodium Latest Ref Range: 135 - 145 mmol/L 143 140 138 Potassium Latest Ref Range: 3.5 - 5.0 mmol/L 4.7 5.7 (H) 5.3 (H) Chloride Latest Ref Range: 98 - 107 mmol/L 105 106 109 (H) CO2 Latest Ref Range: 22 - 31 mmol/L 23 23 20 (L) Anion Gap Latest Ref Range: 5 - 15 mmol/L 15 11 9 BUN Unknown 41 (H) 35 (H) 43 (H) 38 Creatinine Unknown 1.72 (H) 1.61 (H) 1.72 (H) 1.85 eGFR Latest Ref Range: >=60 mL/min/1.73 m?? 30 (L) 33 (L) 30 (L) eGFR Latest Ref Range: >=60 mL/min/1.73 m?? 38 (L) 35 (L) Calcium Latest Ref Range: 8.5 - 10.5 mg/dL 9.8 9.8 9.8 Phosphorus Latest Ref Range: 2.5 - 4.5 mg/dL 3.1 Uric Acid Latest Ref Range: 2.5 - 6.5 mg/dL 9.1 (H) 6.7 (H) Results for LAMAR KOCH Tiffanie ( ) as of 08/03/2020 15:05 Ref. Range 10/01/2017 14:30 07/07/2018 13:30 02/21/2019 13:30 Alb/Cr Ratio, Random Latest Ref Range: 0 - 29 mcg/mg Cr 17 Not Calculated Prot/Cre Ratio Latest Units: ratio <0.1 U Albumin Conc, Random Latest Units: mg/L 18.2 <3.0 U Protein Ran Latest Ref Range: 0 - 12 mg/dL <6 U Creatinine Latest Units: mg/dL 108 85 104 Urinalysis and microscopy: Renal clinic laboratory Urine dipstick: negative for blood, trace protein, trace leucocytes Urine microscopy: Low and High power monique Negative for cells,casts, crystals Imaging Bilateral cortical thinning - my read Assessment and Recommendations ?? 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 Bilateral cortical thinning on ultrasound. History of ANCA-positive Vasculitis following a Possible spider [id number] with tissue loss both LE. Treated with PO and IV prednisone, Cytoxan, and briefly with azathioprine (Dr Starks, [facility]). Persistent pANCA MPO-positive serology without evidence of systemic disease. Anemia, but no current evidence active renal vasculitis based on stable serum creatinine, lack of proteinuria, and negative urine microscopy I will refer to my colleague Dr Winters for a secondaopinion regarding the perisitently positive pANCA titer ?? Hypertension for the past 20 years, well controlled. Recommend she continue to monitor this at home. May need to increase lisinopril to 15 mg daily if systolic blood pressure is consistently greater than 130 mmHg ?? Renal clinic follow up 1 year with labs. ordered Thank you for referring this interesting patient documented in this encounter Plan of Treatment Upcoming Encounters Date Type Department Care Team (Late st Contact Info) Description 07/18/2025 1:00 PM EDT Office Visit Hematology/Oncology at [address] [phone] Ronna Green MD [facility] [place] [address] Melissa Dahl APRN [facility] [place] [address] documented as of this encounter Results * (ABNORMAL) Comprehensive metabolic panel (non-fasting) (01/12/2022 1:09 PM EDT) Glucose 136 65 - 199 mg/dL [facility] Comment:Diabetes: >=200 mg/d L plus symptoms Blood Urea Nitrogen 36(H) 8 - 18 mg/dL [facility] Creatinine 1.90(H) 0.70 - 1.20 mg/dL [facility] Sodium 139 135 - 145 mmol/L [facility] Potassium 5.4(H) 3.5 - 5.0 mmol/L [facility] Comment: Please note: ??Patients with WBC >100,000 may have falsely elevated Potassium levels. ??For accurate Potassium quantification in these patients send serum separator tube (gold top) for subsequent determinations. ??Contact the Clinical Chemistry Laboratory if there are any questions. Chloride 105 98 - 107 mmol/L [facility] Carbon Dioxide 21(L) 22 - 31 mmol/L [facility] Anion Gap 13 5 - 15 mmol/L [facility] Calcium 10.0 8.5 - 10.5 mg/dL [facility] Protein, Total 8.0 6.1 - 8.0 g/dL [facility] Albumin 4.7 3.2 - 5.2 g/dL [facility] Aspartate Aminotransferase Not Perf 0 - 30 [facility] Comment:Unable to quantitate due to sample hemolysis. Sample redraw suggested. Alanine Aminotransferase 18 0 - 30 unit/L [facility] Alkaline Phosphatase 100 35 - 105 unit/L [facility] Bilirubin, Total 0.2 0.2 - 1.3 mg/dL [facility] Est Glomerular Filtration Rate 26(L) >=60 mL/min/1. 73 m?? [facility] Comment: This patient? s estimated glomerular [...] In Lab Sara Hawk MD CHEMISTRY ORDERABLES [facility] [place] [address] documented in this encounter Visit Diagnoses Diagnosis Chronic kidney disease, unspecified CKD stage ANCA-associated vasculitis Other specified disorders of arteries and arterioles documented in this encounter Care Teams Awake Overnight Counselor Relationship Specialty Start Date End Date Long Castaneda DNP [address] [place] [address] PCP - General Family Medicine 02/21/19 06/15/21 documented as of this encounter
--- OUTSIDE RECORDS SUMMARY | 2024-11-27 14:13 | XMS_ITS | Encounter Summary ---
Author Organization Formerly [facility] Address [facility] [place] [address] Care Team Providers Care Assistant Professor Of Anthropology Name Role Phone Long Castaneda DNP Primary Care Provider [phone] Encounter Details Date Type Department Care Team (Latest Contact Info) Description 04/23/2020 2:30 PM EDT TH Visit (TeleHealth) [place] [address] Jamison Iglesias MD [facility] [address] [place] [id number] ANCA-positive vasculitis Social History Tobacco Use Types [...] as of this encounter Progress Notes * Jamison Iglesias MD - 04/23/2020 2:30 PM EDT This is a return rheumatology encounter for Ms. Hinds who is a 69-year-old woman with stage III CKD and a history of ANCA positive vasculitis (p-ANCA positive with previous positive MPO specificity more recently MPO specificity negative). Ms. Hinds presented in the mid 90s with bilateral lower extremity ulceration and systemic symptoms she was found to have vasculitis by skin biopsy and was treated with prednisone for period of about 10 years her course was complicated by wound healing problems. Since then she has had no recurrent skin ulcers or nodular skin lesions nor other systemic or constitutional symptoms suggestive ofsystemic vasculitis including joint pain, swelling, fever, weight change, or abdominal pain. Her past medical history is notable for chronic iron deficiency anemia status post bilateral total knee replacements depression benign positional vertigo, gout and a history of a TIA. Medications were reviewed. Physical examination: Deferred given the nature of this telephone encounter. I reviewed recent laboratory studies:These were notable for a CBC and ESR white blood count 8.31 hemoglobin 10.5 hematocrit 32 MCV 87.2 platelets of 257 ESR 36 calcium 9.5 glucose 135 BUN 60 creatinine 2.35 estimated GFR GFR 20.57 total protein 7.7 albumin 4.2 sodium 137 potassium 5.4 chloride 105 CO2 18.5 AST AST 16 ALT 24 C-reactive protein 1.09 myeloperoxidase antibody 3.6 and positive proteinase 3 antibody less than 0.2 ANCA pattern 1-80 perinuclear. Impression: The findings suggest inactive ANCA positive vasculitis based on the clinical history and above laboratory studies however the patient's CKD appears slightly worse. For the time being I would recommend follow-up with nephrology with a return encounter in rheumatology in approximately 12 weeks. ?? documented in this encounter Plan of Treatment Upcoming Encounters Date Type Department Care Team (Late st Contact Info) Description 07/18/2025 1:00 PM EDT Office Visit Hematology/Oncology at [address] [phone] Ronna Green MD [facility] DR [place] [address] Melissa Dahl APRN [facility] DR [place] [address] documented as of this encounter Visit Diagnoses Diagnosis ANCA-positive vasculitis Other specified disorders of arteries and arterioles documented in this encounter Care Teams Assistant Professor Of Anthropology Relationship Specialty Start Date End Date Long Castaneda DNP [address] [place] [address] PCP - General Family Medicine 02/21/19 06/15/21 documented as of this encounter
--- OUTSIDE RECORDS SUMMARY | 2024-11-27 14:14 | XMS_ITS | Encounter Summary ---
Author Organization Formerly [facility] [place] [address] Care Team Providers Care Rn Iv Therapy Name Role Phone Long Castaneda DNP Primary Care Provider [phone] Reason for Visit * Consultation (Routine) - Specialty Diagnoses / Procedures Referred By Mae king Referred To Contact Rheumatology Diagnoses vasculitis, ANCA positive Long Castaneda, NAJALI [address] [place] [address] [facility] [address] [place] [address] Referral ID Status Reason Start Date Expiration Date V isits Requested Visits Authorized [id number] Consult, Test & Treat [facility] 02/22/2019 02/22/2020 6 6 Encounter Details Date Type Department Care Team (Late st Contact Info) Description 03/23/2019 1:00 PM EDT Office [place] [address] Gayatri Conteh MD Vasculitis; History of vasculitis; ANCA-positive vasculitis Social History Tobacco Use Types [...] Sign Reading Time Taken Comments Blood Pressure 126/60 03/23/2019 1:02 PM EDT Pulse 84 03/23/2019 1:02 PM EDT Temperature 36.9 ??C (98.4 ??F) 03/23/2019 1:02 PM ED T Respiratory Rate - - Oxygen Saturation 98% 03/23/2019 1:02 PM EDT Inhaled Oxygen Concentration - - Weight 95.7 kg (211 lb) 03/23/2019 1:02 PM EDT Height 157.5 cm (5' 2) 03/23/2019 1:02 PM EDT Body Mass Index 38.59 03/23/2019 1:02 PM EDT documented in this encounter Progress Notes * Gayatri Conteh MD - 03/23/2019 1:00 PM EDT Outpatient Rheumatology Consult CC: Asked by Long Castaneda /PCP to evaluate this patient with ANCA vasculitis. HPI: Ms. 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 Chronic kidney disease without proteinuria likely secondary to prior vasculitis and/or reflux nephropathy, Follows with nephrology. Treated with p.o. and IV prednisone, Cytoxan and briefly with azathioprine (Dr. Starks, [facility]), referred by PCP to establish care at [...] Rarely alcohol. Retired. 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 Family Hx: per patient history form No known autoimmune disease in the family Twin brother and older brother had GBS. ROS: per patient history form Gen: no night sweats, fatigue or fevers Skin: no rashes, no hair loss Mouth: denies dry mouth, no oral ulcers Eyes: no erythema or pain. No dry eyes Lymph: no adenopathy Vascular: no Raynaud's, no digital ischemia Heart: no chest pain, palpitations Lungs: no dyspnea, cough, wheezing Abd: no pain, GERD, diarrhea, constipation : no dysuria, no flank pain Musculoskeletal: per HPI Physical Exam: Gen: Patient is awake, alert and oriented x 3, in no distress Skin: warm and dry, no rheumatologic rashes Lymph: no cervical or submandibular adenopathy Thyroid: no nodules or thyromegaly Mouth: moist mucous membranes, no oral ulcers Eyes: normal sclerae Heart: regular rate, no murmurs, rubs or gallops Lungs: clear to auscultation b/l Spine: normal ROM and no tenderness Joints: No active synovitis. 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 Shoulders: FROM Hips: Almost FROM Knees: S/P b/l TKR. Limited ROM Ankles: FROM, s/p grafting on R ankle. Feet: FROM Rash in the umbilical area, erythematous, improving. Minimal erythema and soreness R nipple for oneweek. Labs/studies: 02/01/2019 Creatinine 1.79 GFR 28.25 04/12/2018 [...] Cytoxan and briefly with azathioprine (Dr. Starks, [facility]), referred by PCP to establish care at . ANCA vasculitis (p-ANCA MPO), possibly after spider bite, Diagnosed in 1993. Off prednisone since 2003 with no recurrence in symptoms. History of gout on allopurinol 200 mg daily. Continue Check ANCA panel, ESR, CRP. Rash in the umbilical area , suspect related to contact dermatitis, improving Tender R nipple with minimal, sore with minimal redness only on the nipple. plans to schedule PCP appointment. Encouraged to loose weight. Eat healthy and establish exercise routine. Tried pool therapy and it helped. Encouraged to pursue pool therapy. RTC in 6 months documented in this encounter Plan of Treatment Upcoming Encounters Date Type Department Care Team (Late st Contact Info) Description 07/18/2025 1:00 PM EDT Office Visit Hematology/Oncology at [address] [phone] Ronna Green MD [facility] DR [place] [address] Melissa Dahl, PHARMACY SALES ASSISTANT [facility] [place] [address] documented as of this encounter Visit Diagnoses Diagnosis Vasculitis Arteritis, unspecified History of vasculitis Personal history of other diseases of circulatory system ANCA-positive vasculitis Other specified disorders of arteries and arterioles documented in this encounter Care Teams Rn Iv Therapy Relationship Specialty Start Date End Date Long Castaneda DNP [address] [place] [address] PCP - General Family Medicine 02/21/19 06/15/21 documented as of this encounter
--- OUTSIDE RECORDS SUMMARY | 2024-11-27 14:14 | XMS_ITS | Encounter Summary ---
Author Organization Formerly [facility] Address [facility] [place] [address] Care Team Providers Care Board Mill Supervisor Name Role Phone Long Castaneda DNP Primary Care Provider [phone] Encounter Details Date Type Department Care Team (Late st Contact Info) Description 06/07/2019 1:30 PM EDT Office Visit Hematology/Oncology at [address] [phone] Ronna Green MD [facility] DR HEMATOLOGY [place] [address] Anemia, unspecified type Social History Tobacco Use [...] Sign Reading Time Taken Comments Blood Pressure 133/62 06/07/2019 1:44 PM EDT Pulse 74 06/07/2019 1:44 PM EDT Temperature 36.9 ??C (98.4 ??F) 06/07/2019 1:44 PM ED T Respiratory Rate 16 06/07/2019 1:44 PM EDT Oxygen Saturation 100% 06/07/2019 1:44 PM EDT Inhaled Oxygen Concentration - - Weight 95.7 kg (211 lb) 06/07/2019 1:44 PM EDT Height 158.8 cm (5' 2.52) 06/07/2019 1:44 PM ED T Body Mass Index 37.95 06/07/2019 1:44 PM EDT documented in this encounter Progress Notes * Ronna Green MD - 06/07/2019 1:30 PM EDT Hematology Clinic [facility] [place] [address] HEMATOLOGY PATIENT EVALUATION Patient Active Problem List [...] : daughters X 2 Bell and Eileen. It was my pleasure to meet Lamar Hinds today. Lamar Hinds is a 68 y.o. year old female being seen for evaluation of anemia. she is referred in consultaion from her primary care physician. She is followed by urology, Dr. Lino, at [facility] for a right renal mass. She was seen in January and this was stable. She is now being followed with imaging every 6 months. I had followed Lamar several years ago. She was seen in the early [id number] range. At that time I thought she most likely had anemia of chronic disease combined with renal insufficiency. She was referred back in April 2019 by her primary care physician. Since I saw her she has had hysterectomy, hernia repair and brie. Her repeat labs done after her last appt confirm ACD and low erythropoietin levels related to her CKD. She reports feeling more tired which she attributes to her weight. She is pre-diabetic and her PCP has referred her for nutrition education. PMHX: Anemia of chronic disease Chronic renal [...] hysterectomy Hernia repair with mesh Bladder suspension ROS Energy level: tired Pain: No Appetite:good Fevers/chills/sweats:No Bruising/bleeding/melena:No Recent infections:No Headaches:neg Vision:neg Hearing:neg Sinus: neg Seasonal Allergies: neg Mouth sores:neg Dentition: Good Swallowing: neg GERD : neg Nausea/vomiting: neg Diarrhea/constipation: occ constipation SOB/CURRIE/pulmonary sx: no chest pain:No sx: urinary incontinence/ nocturis q 2 hours Change in adenopathy or other masses:No Unexpected weight loss or gain: gained weight; pt reports poor eating habits. Skin rashes or petechiae:No Musculoskeletal complaints:No Extremities: Negative upper and lower bilaterally Neurologic symptoms:No Mental Status changes: neg Mood: Normal Sleep: + difficulty sleeping MEDS: Outpatient Medications Marked as Taking for the 06/07/19 encounter (Office Visit) with Ronna Green MD [...] tablet Take 10 mg by mouth daily. ??? docusate sodium (COLACE) 100 mg capsule Take 100 mg by mouth 2 times daily. Allergies: Allergies Allergen Reactions ??? Codeine Phosphate CIS - N/V, palpitations ??? Diphenhydramine Hcl CIS - Hives ??? Sulfa (Sulfonamide Antibiotics) CIS - hives, SOB ??? Procardia [Nifedipine] Palpitations ??? Bacitracin ??? Penicillins CIS - Unknown FAMILY HISTORY: Mother: Multiple med problems ([place], CVA), Father: COPD,parkinson, Sibs: diabetes, [place], Children: 2 daughters thyroidectomy Other: negative SOCIAL HISTORY Personal: ; 2 daughters ; No partner at this time; and recent partner both were unfaithful which is still painful for her. Work history: retired from a [employer] company ETOH: less than one drink per week Smoking: never Marijuana or illicit drug use: never HIPPA Contact Permission: Daughter Bell Pena OK to leave message on home or cell phone: cell OK to leave medical information on home or cell phone: cell PHYSICAL EXAM BP 133/62 (Patient Position: Sitting) Pulse 74 Temp 36.9 ??C (98.4 ??F) (Oral) Resp 16 Ht 158.8 cm (5' 2.52) Wt 95.7 kg (211 lb) SpO2 100% BMI 37.95 kg/m?? Body surface area is 2.05 meters squared. GENERAL: Lamar Hinds appears well [...] (from the past 72 hour(s)). Labs at [facility] and [facility] were reviewed. Patient has normal white count and platelet count. She does have normochromic normocytic anemia, consistent with anemia of chronic disease. No iron studies are noted. Chronic renal insufficiency with baseline creatinine between 1.8 and 2.2 at baseline. Date 02/19/1106/2012 ??06/2018 ??01/2019 ??05/02/19 ? WBC 6.66 7 6.3 ??8.2 8.1 ??8 ? ANC ? 3.7 ??4.6 4.7 ??5 ? Hgb 11.3 10.3 11.6 ??10.5 10.6 ??9.9 ? MCV ?? 84.7 86.3 ??89.8 ??92.6 ??88 ? HCT ?32.7 34.8 ? PLT 244k 228 258 ??243 242 ??229 ? Creat 1.3 ?? 1.5 ??1.6 1.7 ??1.9 ? LFT ? LDH ? ferritin 146 149 220 ?337 ? iron 59 50 61 ??47 ?47 ? tibc 341 346 313 ??278 ?259 ? %sat 17% 14% 19% ??17% ?18% ? epo 12 ?? 8.3 ?7.7 ?+P-ANCA ?? LDH 197 B12 433 Folate 11.8 TSH 0.55 ? Labs copied from [facility]: 06/201208/11/10 06/24/1010 WBC: 7.0 7.37 7.53 9.5 HGB: 10.3 [...] 10/22 ?? RADIOLOGY STUDIES REVIEWED: None ASSESSMENT/PLAN: It was my pleasure to meet this very pleasant 68-year-old female who is referred in consultation for [...] had seen her up until 2013 at [facility]. At that time I thought she most likely had a combination of anemia of chronic disease and renal [...] this time ?? Return to clinic in October 2019 with CBC and CMP I discussed all of the above with the patient and all of her questions were answered. Support and counseling given as appropriate. This note was written or modified using [employer] voice recognition software. The final note was screened for mistakes. Please excuse any remaining errors. total time: time in counselling: Copy Long Castaneda APRN . documented in this encounter Plan of Treatment Upcoming Encounters Date Type Department Care Team (Late st Contact Info) Description 07/18/2025 1:00 PM EDT Office Visit Hematology/Oncology at [address] [phone] Ronna Green MD [facility] DR HEMATOLOGY [place] [address] Melissa Dahl APRN [facility] HEMATOLOGY [place] [address] documented as of this encounter Visit Diagnoses Diagnosis Anemia, unspecified type documented in this encounter Care Teams Board Mill Supervisor Relationship Specialty Start Date End Date Long Castaneda DNP [address] [place] [address] [address] [place] [address] PCP - General Family Medicine 02/21/19 06/15/21 documented as of this encounter
--- OUTSIDE RECORDS SUMMARY | 2024-11-27 14:14 | XMS_ITS | Encounter Summary ---
Author Organization [facility] Address [facility] [place] [address] Care Team Providers Care Paleology Teacher Name Role Phone Brisa Betancourt MONICA Primary Care Provider [phone] Encounter Details Date Type Department Care Team (Latest Contact Info) Description 05/10/2018 - 05/10/2018 11:59 PM EDT Hospital Encounter Radiology Library at [facility] [place] [phone] Sara Hawk MD Discharge Disposition: Home Social History Tobacco Use Types Packs/Day Years Used Date Smoking Tobacco: Never Smokeless Tobacco: Never Alcohol Use Standard Drinks/Week Comments Yes 0 (1 standard drink = 0.6 oz pur e alcohol) rare Sex and Gender Information Value Date Recorded Sex Assigned at Not on file Gender Identity Not on file Sexual Orientation Not on file documented as of this encounter Medications at Time of Discharge Medication Sig Dispensed Refills Start Date End Date ketoconazole (NIZORAL) 2 % CreamIndications:Vascul itis,CKD (chronic kidney disease) stage 3, GFR 30-59 ml/min,Anemia of chronic renal failure, stage 3 (moderate) Apply topically as needed. 08/30/2017 meclizine (ANTIVERT) 25 mg TabletIndications:Vascu litis,CKD (chronic kidney disease) stage 3, GFR 30-59 ml/min,Anemia of chronic renal failure, stage 3 (moderate) Take 25 mg by mouth 3 times daily as needed. 04/12/2017 allopurinol (ZYLOPRIM) 100 mg Tablet 2 times daily. 03/04/2016 citalopram (CELEXA) 20 mg tablet Take 30 mg by mouth daily. MYRBETRIQ 50 mg Tablet Sustained Release 24 hrIndications:Vasculiti s,CKD (chronic kidney disease) stage 3, GFR 30-59 ml/min,Anemia of chronic renal failure, stage 3 (moderate) 09/11/2017 8 CALCIUM CARBONATE (CALCIUM 600 ORAL)Indications:Vascul itis,CKD (chronic kidney disease) stage 3, GFR 30-59 ml/min,Anemia of chronic renal failure, stage 3 (moderate) Take by mouth as needed. 02/22/2023 nystatin (MYCOSTATIN) PowderIndications:Vascu litis,CKD (chronic kidney disease) stage 3, GFR 30-59 ml/min,Anemia of chronic renal failure, stage 3 (moderate) Apply topically 4 times daily. 02/21/2019 hydrocortisone 2.5 % CreamIndications:Vascul itis,CKD (chronic kidney disease) stage 3, GFR 30-59 ml/min,Anemia of chronic renal failure, stage 3 (moderate) Apply topically 2 times daily. 09/04/2020 traMADol (ULTRAM) 50 mg Tablet Take 50 mg by mouth every 6 hours as needed. 01/10/2016 11/29/2019 triamterene-hydrochloro thiazide (MAXZIDE-25) 37.5-25 mg Tablet Take 1 tablet by mouth daily. 03/27/2016 05/02/2024 multivitamin with minerals Tablet Take 1 tablet by mouth daily. 02/22/2023 ALBUTEROL INHL Inhale into the lungs. ferrous sulfate (FEROSUL) 325 mg (65 mg iron) tabletIndications:Anemi a Take 325 mg by mouth daily (with breakfast). 02/21/2019 lisinopril (PRINIVIL;ZESTRIL) 10 mg tablet Take 5 mg by mouth daily. 05/02/2024 docusate sodium (COLACE) 100 mg capsule Take 100 mg by mouth 2 times daily. 11/29/2019 documented as of this encounter Plan of Treatment Upcoming Encounters Date Type Department Care Team (Late st Contact Info) Description 07/18/2025 1:00 PM EDT Office Visit Hematology/Oncology at [address] [phone] Ronna Green MD [facility] HEMATOLOGY [place] [address] Melissa Dahl APRN [facility] [place] [address] documented as of this encounter Procedures Procedure Name Priority Date/Time Associated Diagnosis Comments FILM LIBRARY STORAGE ONLY MR ABDOMEN Routine 05/10/2018 12:00 AM EDT documented in this encounter Results * Film Library- Storage Only MR Abdomen (05/10/2018 12:00 AM EDT) Narrative [facility] - 06/08/2018 3:27 PM EDT This exam is for storage only and is auto-finalizing. Sara Hawk MD IMG FILM LIBRARY ORD ERABLES [place], [place] documented in this encounter Visit Diagnoses Not on filedocumented in this encounter Care Teams Paleology Teacher Relationship Specialty Start Date End Date Brisa Betancourt APRN PCP - General Family Medicine 08/18/17 02/20/19 documented as of this encounter
--- OUTSIDE RECORDS SUMMARY | 2024-11-27 14:14 | XMS_ITS | Encounter Summary ---
Author Organization [place] [address] Care Team Providers Care Customer Support Specialist Name Role Phone Brisa Betancourt APRN Primary Care Provider [phone] Reason for Visit * Consultation (Routine) - Closed Specialty Diagnoses / Procedures Referred By Mae king Referred To Contact Nephrology Diagnoses chronic progressive renal insufficiency Brisa Betancourt APRN [address] [place] [id number] [facility] [address] [place] [phone] Referral ID Status Reason Start Date Expiration Date V isits Requested Visits Authorized [id number] Closed Consult, Test & [facility] 08/18/2017 08/18/2018 1 1 Encounter Details Date Type Department Care Team (Latest Contact Info) Description 10/01/2017 2:30 PM EST Office Visit [place] [phone] Savannah Hawk MD Vasculitis; CKD (chronic kidney disease) stage 3, GFR 30-59 ml/min; Anemia of chronic renal failure, stage 3 (moderate) Social History Tobacco Use Types Packs/Day Years [...] Sign Reading Time Taken Comments Blood Pressure 107/56 10/01/2017 2:02 PM EST Pulse 97 10/01/2017 2:02 PM EST Temperature - - Respiratory Rate - - Oxygen Saturation 95% 10/01/2017 2:02 PM EST Inhaled Oxygen Concentration - - Weight 93.4 kg (206 lb) 10/01/2017 2:02 PM EST Height 154.9 cm (5' 1) 10/01/2017 2:02 PM EST Body Mass Index 38.92 10/01/2017 2:02 PM EST documented in this encounter Progress Notes * Savannah Hawk MD - 10/01/2017 2:30 PM EST Renal and Hypertension New Patient Visit 10/03/2017 History of Presenting Complaint including relevant review of systems This is a new patient visit to the Renal and Hypertension clinic for this 67 y.o. 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 The referring documents were reviewed. Additional data were obtained from the [facility] records ([facility] andS) and the referring physician's office. Current serum creatinine 1.72 mg/dL, estimated GFR 30 mils per minute. Prior renal function: Serum creatinine 2009 1.45 mg/dL, December 2014 1.5 mg/dL, November 12, 2014 1.9 mg/dL, July 26, 2017 1.7 mg/dL Mohamud Koch has a history of ?? Bladder and urinary tract infection since childhood. She recently underwent a bladder sling procedure with hysterectomy. Following that she has had sustained incontinence for which she is followedby her urologist. ?? Hypertension for the past 20 years. Well controlled ?? 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 She was evaluated by rheumatology at that time. 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 Patient believes that vasculitis was attributed to bite of a recluse spider. She was treated with prednisone for period of 10 years. Course was complicated by wound healing difficulties. ?? Anemia, iron deficiency/anemia of chronic disease. Followed by hematology, Dr. Acevedo ?? Bilateral total knee replacements 2001 2004 ?? 3 para 2 T1. First complicated by hypertension at term, possible toxemia/preeclampsia There is no previous history of diabetes,identified primary renal disease, nephrolithiasis,gout, Additional Past Medical History Patient Active Problem List Diagnosis Code ??? Anemia D64.9 ??? CIS - Osteoarthritis ??? Vasculitis I77.6 ??? Depression F32.9 ??? S/P total knee arthroplasty Z96.659 ??? Aftercare following knee joint replacement surgery Z47.1, Z96.659 ?? Benign positional vertigo ?? Depression ?? 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 MYRBETRIQ 50 mg Tablet Sustained Release 24 hr ??? meclizine (ANTIVERT) 25 mg Tablet ??? CALCIUM CARBONATE (CALCIUM 600 ORAL) Take by mouth. ??? nystatin (MYCOSTATIN) Powder Apply topically 4 times daily. ??? hydrocortisone 2.5 % Cream Apply topically 2 times daily. ??? allopurinol (ZYLOPRIM) 100 mg Tablet 2 times daily. ??? triamterene-hydrochlorothiazide (MAXZIDE-25) 37.5-25 mg Tablet ??? multivitamin with minerals Tablet Take 1 tablet by mouth daily. ??? ferrous sulfate (FEROSUL) 325 mg (65 mg iron) tablet Take 325 mg by mouth daily (with breakfast). ??? citalopram (CELEXA) 20 mg tablet Take 20 mg by mouth daily. ??? lisinopril (PRINIVIL;ZESTRIL) 10 mg tablet Take 10 mg by mouth daily. ??? ketoconazole (NIZORAL) 2 % Cream ??? traMADol (ULTRAM) 50 mg Tablet ??? ALBUTEROL INHL Inhale into the lungs. ??? docusate sodium (COLACE) 100 mg capsule Take 100 mg by mouth 2 times daily. No current facility-administered medications for this visit. Patient reports that she takes ibuprofen occasionally for headache and occasional naproxen.. No additional OTCs or supplements Review of Systems Main complaint is urinary incontinence as above. Patient denies current edema/rash, arthropathy. Denies hematuria, foamy urine. Complete review of systems is negative apart from relevant positives and negatives listed above On examination This is a 67 y.o. female in no acute distress Blood pressure 107/56, pulse 97, height 154.9 cm (5' 1), weight 93.4 kg (206 lb), SpO2 95 %. Body mass index is 38.92 kg/(m^2). There is no uremic fetor and no [...] without bruits. There are no abdominal bruits Gait is normal. Facies symmetrical. LAURENT, Mentation and speech are normal Labs: Reviewed outside laboratory values and data available in eDH. Notable for as above Lab Results Component Value Date/Time CREATININE 1.72 (H) 10/01/2017 03:03 PM Results for MOHAMUD KOCH ( ) as of 10/03/2017 12:20 Ref. Range 10/01/2017 15:03 Sodium Latest Ref Range: 135 - 145 mmol/L 143 Potassium Latest Ref Range: 3.5 - 5.0 mmol/L 4.7 Chloride Latest Ref Range: 98 - 107 mmol/L 105 CO2 Latest Ref Range: 22 - 31 mmol/L 23 Anion Gap Latest Ref Range: 5 - 15 mmol/L 15 BUN Latest Ref Range: 8 - 18 mg/dL 41 (H) Creatinine Latest Ref Range: 0.70 - 1.20 mg/dL 1.72 (H) Estimated GFR Latest Ref Range: >=60 30 (L) Glucose Lvl Latest Ref Range: 65 - 199 mg/dL 120 Calcium Latest Ref Range: 8.5 - 10.5 mg/dL 9.8 Uric Acid Latest Ref Range: 2.5 - 6.5 mg/dL 9.1 (H) Iron Latest Ref Range: 30 - 150 mcg/dL 65 TIBC Latest Ref Range: 250 - 450 mcg/dL 284 Iron Saturation Latest Ref Range: 20 - 50 % 23 Results for MOHAMUD KOCH ( ) as of 10/03/2017 12:20 Ref. Range 10/01/2017 15:03 WBC Latest Ref Range: 4.0 - 9.5 x10(3)/mcL 6.6 RBC Latest Ref Range: 4.00 - 5.21 x10(6)/mcL 3.58 (L) Hemoglobin Latest Ref Range: 11.7 - 15.5 gm/dL 10.4 (L) Hematocrit Latest Ref Range: 35.7 - 45.8 % 31.3 (L) MCV Latest Ref Range: 82.6 - 94.4 fL 87.4 MCH Latest Ref Range: 27.1 - 32.0 pg 29.1 MCHC Latest Ref Range: 31.7 - 35.0 gm/dL 33.2 RDWSD Latest Ref Range: 37.0 - 46.0 fL 44.5 RDWCV Latest Ref Range: 11.5 - 14.1 % 13.9 Platelets Latest Ref Range: 145 - 357 x10(3)/mcL 251 MPV Latest Ref Range: 7.6 - 12.9 fL 9.6 nRBC % Auto Latest Units: % 0.0 nRBC Abs Auto Latest Ref Range: 0.000 - 0.000 x10(3)/mcL 0.000 Neutr Abs (ANC) Latest Ref Range: 1.70 - 6.10 x10(3)/mcL 4.05 Results for MOHAMUD KOCH ( ) as of 10/03/2017 12:20 Ref. Range 10/01/2017 14:30 Alb/Cr Ratio, Random Latest Ref Range: 0 - 29 mcg/mg Cr 17 U Albumin Conc, Random Latest Units: mg/L 18.2 U Creatinine Latest Units: mg/dL 108 Radiology studies: Reports: Outside provider CT scan of the abdomen revealed normal kidneys with right upper pole cyst.. No hydronephrosis I personally reviewed the following images: No renal imaging Urinalysis and microscopy: Renal clinic laboratory Urine dipstick: negative for blood, trace protein, trace leucocytes Urine microscopy: Low and High power monique Negative for cells,casts, crystals Assessment and Recommendations 1. 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 We will schedule renal ultrasound at the next visit. 2. It is possible that the vasculitis in 1993 may have been related to antineutrophil cytoplasmic antibodies or antiglomerular basement membrane antibodies. In which case chronic kidney disease may have resulted from vasculitis. There is currently no proteinuria and the sediment is not active. 3. Hypertension is well controlled. 4. Urinary incontinence: Followed by urology. 5. I have asked the patient to have medications renewed by your office as needed 6. 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 No current evidence active renal disease based on stable creatinine, lack of proteinuria, benign sediment, but this finding does suggest that the original vasculitis episode in 1993 was ANCA positive. Will be seeing this pt in 3 months and Will repeat ANCE titer and discuss renal biopsy at that time documented in this encounter Plan of Treatment Upcoming Encounters Date Type Department Care Team (Late st Contact Info) Description 07/18/2025 1:00 PM EDT Office Visit Hematology/Oncology at [address] [phone] Ronna Green MD [facility] [address] [place] [address] Melissa Dahl APRN [facility] [address] [place] [address] documented as of this encounter Procedures Procedure Name Priority Date/Time Associated Diagnosis Comments CYTOPLASMIC NEUTROPHILIC AB Routine 10/01/2017 3:03 PM EST Vasculitis CKD (chronic kidney disease) stage 3, GFR 30-59 ml/min Anemia of chronic renal failure, stage 3 (moderate) PROTEINASE-3 ANTIBODY Routine 10/01/2017 3:03 PM EST Vasculitis CKD (chronic kidney disease) stage 3, GFR 30-59 ml/min Anemia of chronic renal failure, stage 3 (moderate) MYELOPEROXIDASE AB Routine 10/01/2017 3: 03 PM EST Vasculitis CKD (chronic kidney disease) stage 3, GFR 30-59 ml/min Anemia of chronic renal failure, stage 3 (moderate) HEMOGRAM Routine 10/01/2017 3:03 PM EST Vasculitis CKD (chronic kidney disease) stage 3, GFR 30-59 ml/min Anemia of chronic renal failure, stage 3 (moderate) DIFFERENTIAL, AUTOMATED Routine 10/01/20 17 3:03 PM EST Vasculitis CKD (chronic kidney disease) stage 3, GFR 30-59 ml/min Anemia of chronic renal failure, stage 3 (moderate) IRON AND TIBC Routine 10/01/2017 3:03 PM EST Vasculitis CKD (chronic kidney disease) stage 3, GFR 30-59 ml/min Anemia of chronic renal failure, stage 3 (moderate) CBC (WITH DIFF) Routine 10/01/2017 3:03 PM EST Vasculitis CKD (chronic kidney disease) stage 3, GFR 30-59 ml/min Anemia of chronic renal failure, stage 3 (moderate) URIC ACID Routine 10/01/2017 3:03 PM EST Vasculitis CKD (chronic kidney disease) stage 3, GFR 30-59 ml/min Anemia of chronic renal failure, stage 3 (moderate) BASIC METABOLIC PANEL Routine 10/01/2017 3:03 PM EST Vasculitis CKD (chronic kidney disease) stage 3, GFR 30-59 ml/min Anemia of chronic renal failure, stage 3 (moderate) U ALBUMIN/CRE RATIO Routine 10/01/2017 2 :30 PM EST Vasculitis CKD (chronic kidney disease) stage 3, GFR 30-59 ml/min Anemia of chronic renal failure, stage 3 (moderate) documented in this encounter Results * (ABNORMAL) Iron and TIBC (07/07/2018 12:26 PM EDT) Iron 47 30 - 150 mcg/dL [facility] TIBC 278 250 - 450 mcg/dL [facility] Iron Saturation 17(L) 20 - 50 % [facility] Blood specimen (specimen) 07/07/2018 12:26 PM EDT 07/07/2018 12:37 PM EDT Narrative Resulting Agency Comment Spec In Lab Savannah Hawk MD CHEMISTRY ORDERABLES [facility] [place] [address] * Albumin Level (07/07/2018 12:26 PM EDT) Albumin 4.3 3.2 - 5.2 gm/dL [facility] Blood specimen (specimen) 07/07/2018 12:26 PM EDT 07/07/2018 12:37 PM EDT Narrative Resulting Agency Comment Spec In Lab Savannah Hawk MD CHEMISTRY ORDERABLES Performing Organization Address City/[facility]/ZIP Co de Phone Number [facility] [place] [address] * Phosphorus (07/07/2018 12:26 PM EDT) Phosphorus 3.1 2.5 - 4.5 mg/dL [facility] Blood specimen (specimen) 07/07/2018 12:26 PM EDT 07/07/2018 12:37 PM EDT Narrative Resulting Agency Comment Spec In Lab Savannah Hawk MD CHEMISTRY ORDERABLES Performing Organization Address City/[facility]/ZIP Co de Phone Number [facility] [place] [address] * (ABNORMAL) Uric acid (07/07/2018 12:26 PM EDT) Uric Acid 6.7(H) 2.5 - 6.5 mg/dL [facility] Blood specimen (specimen) 07/07/2018 12:26 PM EDT 07/07/2018 12:37 PM EDT Narrative Resulting Agency Comment Spec In Lab Savannah Hawk MD CHEMISTRY ORDERABLES [facility] [place] [address] * PTH (07/07/2018 12:26 PM EDT) Parathyroid Hormone 37 15 - 65 pg/mL [facility] Blood specimen (specimen) 07/07/2018 12:26 PM EDT 07/07/2018 12:37 PM EDT Narrative Resulting Agency Comment Spec In Lab Savannah Hawk MD CHEMISTRY ORDERABLES Performing Organization Address [facility] Co de Phone Number [facility] [place] [address] * US Retroperitoneal Complete (07/07/2018 11:46 AM EDT) Anatomical Region Laterality Modality Abdomen Ultrasound 07/07/2018 11:3 3 AM EDT Impressions 07/07/2018 12:30 PM EDT 1. ??3.7 cm complex cyst within the superior aspect of the kidney, containing multiple vascular and nonvascular septations. Differences in measurements from prior studies may be due to variability in bridal sales consultant technique. Multiphase contrast-enhanced renal mass protocol CT is recommended for further characterization. 2. ??Bilateral renal cortical thinning with normal echogenicity. No hydronephrosis nor nephrolithiasis. I have personally reviewed the image(s) and the residents interpretation and agree with the findings, Michael Moreland at 07/07/2018 12:21 PM ? Michael Moreland MD Electronically Signed Final Report ?? 07/07/2018 12:29 pm Narrative 07/07/2018 12:30 PM EDT Renal ?(Signed Final 07/07/2018 12:29 pm) PATIENT INFO: ID #: ? [id number] ?: ??[birth year] (67 yrs) Name: ? MOHAMUD Tiffanie ?Visit Date: 07/07/2018 11:33 am ? AUGUST PERFORMED BY: Performed By: ? Babar , ??Clarissa Attending: ?Aniceto RAMIREZ, Michael Bal Resident: ? Ted RAMIREZ, Marcelo Hernandez Referred By: ?SAVANNAH HAWK Location: ? [place] SERVICE(S) PROVIDED: ??URETRO - Retroperitoneal Complete - [id number] ? [id number] INDICATIONS: ??CKD COMPARISON: Ultrasound: 03/03/18 MR:05/10/18 RIGHT KIDNEY: Size (cm) ?L: ??10.9 Cortical Thickness: ?Cortical thinning Cortical Echogenicity: ?? Normal Hydronephrosis: ?No sonographic evidence Comment: ?Septated cyst with vascularity superior pole ? measuring 3.7 x 3.1 x 3.4 cm. LEFT KIDNEY: Size (cm) ?L: ??11.1 Cortical Thickness: ?Cortical thinning Cortical Echogenicity: ?? Normal Hydronephrosis: ?No sonographic evidence URINARY BLADDER: Pre-void (cm) ? L: ??10.0 ?AP: ??6.5 ? TV: ??6.7 Vol (ml): ?228.0 Post-void (cm) ?L: ??8.7 ? AP: ??4.7 ? TV: ??6.8 Vol (ml): ?145.6 Comment: ?Partially distended, normal contour Procedure Note Michael Moreland MD - 07/07/2018 Renal (Signed Final 07/07/2018 12:29 pm) PATIENT INFO: ID #: [id number] : [birth year] (67 yrs) Name: MOHAMUD Moreno Visit Date: 07/07/2018 11:33 am AUGUST PERFORMED BY: Performed By: Clarissa Eckert RDMS Attending: Michael Moreland MD Resident: Marcelo Jean MD Referred By: SAVANNAH HAWK Location: [place] SERVICE(S) PROVIDED: URETRO - Retroperitoneal Complete - [id number] INDICATIONS: CKD COMPARISON: Ultrasound: 03/03/18 MR:05/10/18 RIGHT KIDNEY: Size (cm) L: 10.9 Cortical Thickness: Cortical thinning Cortical Echogenicity: Normal Hydronephrosis: No sonographic evidence Comment: Septated cyst with vascularity superior pole measuring 3.7 x 3.1 x 3.4 cm. LEFT KIDNEY: Size (cm) L: 11.1 Cortical Thickness: Cortical thinning Cortical Echogenicity: Normal Hydronephrosis: No sonographic evidence URINARY BLADDER: Pre-void (cm) L: 10.0 AP: 6.5 TV: 6.7 Vol (ml): 228.0 Post-void (cm) L: 8.7 AP: 4.7 TV: 6.8 Vol (ml): 145.6 Comment: Partially distended, normal contour IMPRESSION 1. 3.7 cm complex cyst within the superior aspect of the kidney, containing multiple vascular and nonvascular septations. Differences in measurements from prior studies may be due to variability in bridal sales consultant technique. Multiphase contrast-enhanced renal mass protocol CT is recommended for further characterization. 2. Bilateral renal cortical thinning with normal echogenicity. No hydronephrosis nor nephrolithiasis. I have personally reviewed the image(s) and the residents interpretation and agree with the findings, Michael Moreland at 07/07/2018 12:21 PM Michael Moreland MD Electronically Signed Final Report 07/07/2018 12:29 pm Savannah Hawk MD IM US GEN ORDERABLE S * Differential, Automated (10/01/2017 3:03 PM EST) Neutrophil % 61.5 % [facility] Neutrophil Absolute 4.05 1.70 - 6.10 x10(3)/[facility] Lymph % 27.4 % [facility] Lymphocytes Abs 1.8 0.9 - 3.2 x10(3)/[facility] Monocyte % 7.1 % [facility] Monocyte Abs 0.5 0.3 - 0.9 x10(3)/[facility] Eos % 3.0 % [facility] Eosinophils Abs 0.2 0.0 - 0.4 x10(3)/[facility] Basophil % 0.8 % [facility] Baso Absolute 0.0 0.0 - 0.1 x10(3)/[facility] Immature Gran % 0.20 % [facility] Comment: Immature granulocytes(IG's)percentage and absolute count will include metamyelocytes, myelocytes, and promyelocytes. Blood smears from CBCs yielding IG's will be scanned manually for concordance. If this scan disagrees with the automated IG or if promyelocytes are noted, a manual differential will be performed. Immature Gran Absolute 0.01 0.00 - 0.04 x10(3)/[facility] Blood specimen (specimen) 10/01/2017 3:03 PM EST 10/01/2017 3:11 PM EST Narrative Resulting Agency Comment Spec In Lab Savannah Hawk MD HEMATOLOGY ORDERABLE S [facility] [place] [address] * (ABNORMAL) Hemogram (10/01/2017 3:03 PM EST) White Blood Cell 6.6 4.0 - 9.5 x10(3)/[facility] Red Blood Cell 3.58(L) 4.00 - 5.21 x10(6)/[facility] Hemoglobin 10.4(L) 11.7 - 15.5 gm/dL [facility] Hematocrit 31.3(L) 35.7 - 45.8 % [facility] Mean Cell Volume 87.4 82.6 - 94.4 fL [facility] Mean Cell Hemoglobin 29.1 27.1 - 32.0 pg [facility] Mean Cell Hemoglobin Concentration 33.2 31.7 - 35.0 gm/dL [facility] Platelet 251 145 - 357 x10(3)/[facility] RDW Standard Deviation 44.5 37.0 - 46.0 fL [facility] RDW coefficient of variation 13.9 11.5 - 14.1 % [facility] Mean Platelet Volume 9.6 7.6 - 12.9 fL [facility] NRBC% auto 0.0 % [facility] NRBC Absolute 0.000 0.000 - 0.000 x10(3)/[facility] Blood specimen (specimen) 10/01/2017 3:03 PM EST 10/01/2017 3:11 PM EST Narrative Resulting Agency Comment Spec In Lab Savannah Hawk MD HEMATOLOGY ORDERABLE S [facility] [place] [address] * (ABNORMAL) Uric acid (10/01/2017 3:03 PM EST) Uric Acid 9.1(H) 2.5 - 6.5 mg/dL [facility] Blood specimen (specimen) 10/01/2017 3:03 PM EST 10/01/2017 3:11 PM EST Narrative Resulting Agency Comment Spec In Lab Savannah Hawk MD CHEMISTRY ORDERABLES Performing Organization Address [facility] Co de Phone Number [facility] [place] [address] * Proteinase-3 Antibody (10/01/2017 3:03 PM EST) Proteinase 3 Antibody 5.7 <=20.0 unit(s) [facility] Blood specimen (specimen) 10/01/2017 3:03 PM EST 10/04/2017 7:33 AM EST Narrative Resulting Agency Comment Spec In Lab Savannah Hawk MD IMMUNOLOGY ORDERABLE S Performing Organization Address [facility] Co de Phone Number [facility] [place] [address] * (ABNORMAL) Myeloperoxidase Ab (10/01/2017 3:03 PM EST) Myeloperoxidase Antibody 26.1(H) <=20.0 unit(s) [facility] Blood specimen (specimen) 10/01/2017 3:03 PM EST 10/04/2017 7:33 AM EST Narrative Resulting Agency Comment Spec In Lab Savannah Hawk MD IMMUNOLOGY ORDERABLE S Performing Organization Address City/[facility] Co de Phone Number [facility] [place] [address] * (ABNORMAL) Cytoplasmic Neutrophilic Ab (10/01/2017 3:03 PM EST) C-Anca (FEBRUARY) Negative Negative [facility] Comment: Test Performed by: [facility] - [address] [address] P-Anca (MAY) Positive(A) Negative [facility] Comment: Positive for pANCA pattern by immunofluorescence. Suggest further testing for anti-myeloperoxidase (anti-MPO) antibodies, if clinically indicated. ADDITIONAL INFORMATION This test was developed and its performance characteristics determined by [facility] in a manner consistent with CLIA requirements. This test has not been cleared or approved by the U.S. Food and Drug Administration. Test Performed by: [facility] - [address] [address] Blood specimen (specimen) 10/01/2017 3:03 PM EST 10/01/2017 4:08 PM EST Narrative Resulting Agency Comment Spec In Lab Savannah Hawk MD LAB SEND OUT ORDERAB LES Performing Organization Address [facility] Co de Phone Number [facility] [place] [address] * Iron and TIBC (10/01/2017 3:03 PM EST) Iron 65 30 - 150 mcg/dL [facility] TIBC 284 250 - 450 mcg/dL [facility] Iron Saturation 23 20 - 50 % [facility] Blood specimen (specimen) 10/01/2017 3:03 PM EST 10/01/2017 3:11 PM EST Narrative Resulting Agency Comment Spec In Lab Savannah Hawk MD CHEMISTRY ORDERABLES Performing Organization Address [facility] Co de Phone Number [facility] [place] [address] * (ABNORMAL) Basic Metabolic Panel (non-fasting) (10/01/2017 3:03 PM EST) Glucose 120 65 - 199 mg/dL [facility] Comment:Diabetes: >=200 mg/d L plus symptoms Blood Urea Nitrogen 41(H) 8 - 18 mg/dL [facility] Creatinine 1.72(H) 0.70 - 1.20 mg/dL [facility] Sodium 143 135 - 145 mmol/L [facility] Potassium 4.7 3.5 - 5.0 mmol/L [facility] Comment: Please note: ??Patients with WBC >100,000 may have falsely elevated Potassium levels. ??For accurate Potassium quantification in these patients send serum separator tube (gold top) for subsequent determinations. ??Contact the Clinical Chemistry Laboratory if there are any questions. Chloride 105 98 - 107 mmol/L [facility] Carbon Dioxide 23 22 - 31 mmol/L [facility] Anion Gap 15 5 - 15 mmol/L [facility] Calcium 9.8 8.5 - 10.5 mg/dL [facility] Est Glomerular Filtration Rate 30(L) >=60 [facility] Comment: The reported eGFR should be multiplied by 1.2 for patients. The MDRD is not an appropriate measure of renal function for patients with body mass extremes or in patients with acute kidney failure. [email or web address] Blood specimen (specimen) 10/01/2017 3:03 PM EST 10/01/2017 3:11 PM EST Narrative Resulting Agency Comment Spec In Lab Savannah Hawk MD CHEMISTRY ORDERABLES [facility] [place] [address] * U Albumin/Cre Ratio (10/01/2017 2:30 PM EST) Albumin / Creatinin Ratio, Urine 17 0 - 29 mcg/mg Cr [facility] Comment: Reference Ranges: <30 mcg/mg: [...] Supplements (2012) 2, 357? 362 Albumin, Urine 18.2 mg/L [facility] Creatinine, Urine 108 mg/dL RAFAELA SH[facility] Urine specimen (specimen) 10/01/2017 2:30 PM EST 10/01/2017 4:58 PM EST Narrative Resulting Agency Comment Spec In Lab Savannah Hawk MD URINE ORDERABLES [facility] [place] [address] documented in this encounter Visit Diagnoses Diagnosis Vasculitis Arteritis, unspecified CKD (chronic kidney disease) stage 3, GFR 30-59 ml/min Chronic kidney disease, Stage III (moderate) Anemia of chronic renal failure, stage 3 (moderate) Vasculitis Arteritis, unspecified CKD (chronic kidney disease) stage 3, GFR 30-59 ml/min Chronic kidney disease, Stage III (moderate) Anemia of chronic renal failure, stage 3 (moderate) documented in this encounter Care Teams Customer Support Specialist Relationship Specialty Start Date End Date Brisa Betancourt APRN PCP - General Family Medicine 08/18/17 02/20/19 documented as of this encounter
--- OUTSIDE RECORDS SUMMARY | 2024-11-27 14:14 | XMS_ITS | Encounter Summary ---
Author Organization [facility] Address [facility] [place]ha [place] [address] Care Team Providers Care Cloth Cutting Machine Operator Name Role Phone Brisa Betancourt MONICA Primary Care Provider [phone] [phone] Encounter Details Date Type Department Care Team (Latest Contact Info) Description 03/03/2018 - 03/03/2018 11:59 PM EDT Hospital Encounter Radiology Library at [facility] [place] [address] Sara Hawk MD Discharge Disposition: Home Social [...] PM EDT Office Visit Hematology/Oncology at [address] [phone] Ronna Green MD [facility] HEMATOLOGY [place] [address] Melissa Dahl APRN [facility] DR HEMATOLOGY [place] [address] documented as of this encounter Procedures Procedure Name Priority Date/Time Associated Diagnosis Comments FILM LIBRARY STORAGE ONLY ULTRASOUND STUDY Routine 03/03/2018 12:00 AM EDT documented in this encounter Results * Film Library- Storage Only Ultrasound Study (03/03/2018 12:00 AM EDT) Narrative [facility] - 06/08/2018 3:26 PM EDT This exam is for storage only and is auto-finalizing. Sara Hawk MD IMG FILM LIBRARY ORD ERABLES [place], [place] documented in this encounter Visit Diagnoses Not on filedocumented in this encounter Care Teams Cloth Cutting Machine Operator Relationship Specialty Start Date End Date Brisa Betancourt APRN PCP - General Family Medicine 08/18/17 02/20/19 documented as of this encounter
--- OUTSIDE RECORDS SUMMARY | 2024-11-27 14:14 | XMS_ITS | Encounter Summary ---
Author Organization [facility] Address [facility] [place] [address] Care Team Providers Care Promotions Firm Accounts Manager Name Role Phone Melissa Sandoval APRN Primary Care Provider [phone]- [phone] Encounter Details Date Type Department Care Team (Late st Contact Info) Description 04/23/2016 Telephone [place] [phone] Fausto Shrestha MD [facility] [place] [address] Social History Tobacco Use Types Packs/Day Years Used Date Smoking Tobacco: Never Alcohol Use Standard Drinks/Week Comments Yes 0 (1 standard drink = 0.6 oz pur e alcohol) rare Sex and Gender Information Value Date Recorded Sex Assigned at Not on file Gender Identity Not on file Sexual Orientation Not on file documented as of this encounter Miscellaneous Notes * Telephone Encounter - Fausto Shrestha MD - 04/23/2016 1:58 PM EDT Called patient to review alpha defensin results which were negative. Reviewed records from [facility] which had one + culture for staph epi and a second culture which was negative. My suspicion is that janeen is not infected. We discussed the pain she is having and poor ROM. We discussed revision as anoption but I offered her no guarantees especially with ROM and outlined the risk of a stiff knee post-op. At this point she would like to get through the summer and was happy that the knee doesn't look infected. She will call in the fall to update us. documented in this encounter Plan of Treatment Upcoming Encounters Date Type Department Care Team (Late st Contact Info) Description 07/18/2025 1:00 PM EDT Office Visit Hematology/Oncology at [address] [phone] Ronna Green MD [facility] DR [place] [address] Melissa Dahl APRN [facility] [place] [address] documented as of this encounter Visit Diagnoses Not on filedocumented in this encounter Care Teams Promotions Firm Accounts Manager Relationship Specialty Start Date End Date Melissa Sandoval APRN PCP - General 01/10/14 12/20/16 documented as of this encounter
--- OUTSIDE RECORDS SUMMARY | 2024-11-27 14:14 | XMS_ITS | Encounter Summary ---
Author Organization [facility] Address [facility] [place] [address] Care Team Providers Care Photographic Technician Name Role Phone Long Castaneda DNP Primary Care Provider [phone] Reason for Visit * Consultation (Routine) - Specialty Diagnoses / Procedures Referred By Mae king Referred To Contact Hematology and Oncology Diagnoses anemia Long Castaneda, ANJALI [address] [place] [address] Ronna Green MD [facility] DR [place] [address] Referral ID Status Reason Start Date Expiration Date V isits Requested Visits Authorized [id number] Consult, Test & Treat [facility] 02/22/2019 02/22/2020 6 6 Encounter Details Date Type Department Care Team (Late st Contact Info) Description 04/26/2019 3:00 PM EDT Office Visit Hematology/Oncology at [address] [phone] Ronna Green MD [facility] DR [place] [address] Anemia, unspecified type Social History Tobacco Use [...] Reading Time Taken Comments Blood Pressure 134/65 04/26/2019 2:53 PM EDT Pulse 97 04/26/2019 2:53 PM EDT Temperature 37 ??C (98.6 ??F) 04/26/2019 2:53 PM EDT Respiratory Rate 16 04/26/2019 2:53 PM EDT Oxygen Saturation 98% 04/26/2019 2:53 PM EDT Inhaled Oxygen Concentration - - Weight 94.3 kg (208 lb) 04/26/2019 2:53 PM EDT Height 158.8 cm (5' 2.5) 04/26/2019 2:53 PM EDT Body Mass Index 37.44 04/26/2019 2:53 PM EDT documented in this encounter Progress Notes * Ronna Green MD - 04/26/2019 3:00 PM EDT [place] [address] NEW PATIENT EVALUATION Patient Active Problem List Diagnosis [...] is followed by urology, Dr. Lino, at [facility] for a right renal mass. She was seen in January and this was stable. She is now being followed with imaging every 6 months. I had followed Lamar several years ago. She was seen in the early [id number] range. At that time I thought she most likely had anemia of chronic disease combined with renal insufficiency. She is referred back now by her primary care physician. Since I saw her she has had hysterectomy, hernia repair and brie. PMHX: Anemia of chronic disease Chronic renal [...] Outpatient Medications Marked as Taking for the 04/26/19 encounter (Office Visit) with Ronna Green MD Medication Sig Dispense Refill ??? vit A/vit C/vit E/zinc/copper (PRESERVISION AREDS ORAL) Take 1 capsule by mouth daily. ??? ferrous gluconate 324 mg (37.5 mg iron) Tablet Take 324 mg by mouth daily. ??? cholecalciferol, Vitamin D3, 1,000 unit Capsule Take 1,000 Units by mouth daily. ??? propylene glycol (SYSTANE [...] Unknown FAMILY HISTORY: Mother: Multiple med problems ([place], CVA), Father: COPD,[place], Sibs: diabetes, [place], Children: 2 daughters thyroidectomy Other: negative SOCIAL HISTORY Personal: ; 2 daughters ; No partner at this time; and recent partner both were unfaithful which is still painful for her. Work history: retired from a [employer] company ETOH: less than one drink per week Smoking: never Marijuana or illicit drug use: never HIPPA Contact Permission: Ryan Pena OK to leave message on home or cell phone: cell OK to leave medical information on home or cell phone: cell PHYSICAL EXAM BP 134/65 (Patient Position: Sitting) Pulse 97 Temp 37 ??C (98.6 ??F) (Oral) Resp 16 Ht 158.8 cm (5' 2.5) Wt 94.3 kg (208 lb) SpO2 98% BMI 37.44 kg/m?? Body surface area is 2.04 meters squared. GENERAL: Lamar Hinds appears well [...] (from the past 72 hour(s)). Labs at [facility] and [facility] were reviewed. Patient has normal white count and platelet count. She does have normochromic normocytic anemia, consistent with anemia of chronic disease. No iron studies are noted. Chronic renal insufficiency with baseline creatinine between 1.8 and 2.2 at baseline. Date 02/19/1106/2012 ??06/2018 ??01/2019 ? WBC 6.66 7 6.3 ??8.2 8.1 ? ANC ? 3.7 ??4.6 4.7 ? Hgb 11.3 10.3 11.6 ??10.5 10.6 ? MCV ?? 84.7 86.3 ??89.8 ??92.6 ? HCT ?32.7 34.8 ? PLT 244k 228 258 ??243 242 ? Creat 1.3 ?? 1.5 ??1.6 1.7 ? LFT ? LDH ? ferritin 146 149 220 ? iron 59 50 61 ??47 ? tibc 341 346 313 ??278 ? %sat 17% 14% 19% ??17% ? epo 12 ?? 8.3 ?+P-ANCA ? Labs copied from [facility]: 06/201208/11/10 06/24/10 6/10 WBC: 7.0 7.37 7.53 9.5 HGB: 10.3 [...] 35/1.9 1.4 AP 124 137 AST/ALT 10/22 ? RADIOLOGY STUDIES REVIEWED: None ASSESSMENT/PLAN: It was [...] had seen her up until 2013 at [facility]. At that time I thought she most likely had a combination of anemia of chronic disease and renal insufficiency. Her anemia has progressed mildly since that time. She is referred back at this time for re-evaluation. Just to be complete, and be sure we are not missing any other causes of anemia, I will repeat a full anemia work-up as it has been over 5 years since I saw her. If she turns out to only have anemia associated with chronic renal disease, then erythropoietin would be appropriate. Erythropoietin cannot be initiated until the hemoglobin is less than 10, once initiated it is given on a regular basis but held for hemoglobin over 12. At this point Ms. Hindsdoes not qualify for erythropoietin supplementation, but we will follow her intermittently, as she almost meets criteria. I will ask Ms. Hinds to get the following labs within the next 1 to 2 weeks. I will plan to see her back in follow-up once the results are back. Labs requested include: CBC, CMP, SPEP, reticulocyte count, LDH, haptoglobin, B12, folate, erythropoietin level, TSH, iron, tibc, ferritin. Plan: ?? Labs in next 1-2 weeks at [facility] - she would like to go on 05/02 ?? RTC 06/07/19 at [facility]. She is willing to come to [facility] only if necessary otherwise that is my next available at [facility]. I discussed all of the above with the patient and all of her questions were answered. Support and counseling given as appropriate. This note was written or modified using Dail[employer]ingle voice recognition software. The final note was screened for mistakes. Please excuse any remaining errors. total time: time in counselling: Copy Long Castaneda APRN . * Lala Aguero RN - 04/26/2019 3:00 PM EDT MEDICAL ONCOLOGY INITIAL NURSING ASSESSMENT ADVANCE DIRECTIVES: In EDH [ ] Has documents [ ] Will bring in [ ] IF NO: Advance Directive pamphlet provided : Referral to Care Management : PRESENTING SYSTEMS and PATHOLOGY: kidneys have been off REVIEW OF SYSTEMS: see Norma's Prior Radiotherapy: no[ x ] Yes[ ]Site Date Facility Prior Chemotherapy: no[ x ] Yes[ ] Drug: Oncologist- Balance difficulty: [x ]no [ ]yes At risk for fall: [ x ] no [ ] yes If yes, actions implemented to prevent fall. Patient/family instructed to avoid independent ambulation. Use wheelchair and ask for assistance of staff while in the clinic. ADL [ x ] no limits [ ] needs dressing assistance [ ] needs meal assistance Assistive device:[ ]none [ ]cane [ ]walker [ ]wheelchair [ ]other: explain PAIN ASSESSMENT: [0 ] out of 10 Location: Description: [ ] Dull [ ] Sharp [ ] Burning [ ] Throbbing [ ] Radiating [ ] Continuous [ ]Intermittent Aggravating Factors: [ ] Movement [ ] Position [ ]Immobility [ ]Other Alleviating Factors: [ ]Medication [ ] Positioning [ ] Other Current Pain Management Plan: [ ]Satisfied [ ] Not satisfied SOCIAL ASSESSMENT: See EDH social assessment information entered. Support Systems: lives alone, 2 daughters, twin brother next door transportation plan: [x ]private vehicle [ ] RCT needs Social Work referral [ ] Unknown at this time needs Social Work referral Barriers to treatment: none at this time Referrals/Interventions: LEARNING STYLE: Visual and verbal, wants written material and verbal discussion. TEACHING: __ NCI ???Chemotherapy and You?? and folder given __ Specific chemotherapy literature provided and reviewed with patient documented in this encounter Plan of Treatment Upcoming Encounters Date Type Department Care Team (Late st Contact Info) Description 07/18/2025 1:00 PM EDT Office Visit Hematology/Oncology at [address] [phone] Ronna Green MD [facility] DR [place] [address] Melissa Dahl, REGIONAL SALES MANAGER [facility] DR [place] [address] documented as of this encounter Visit Diagnoses Diagnosis Anemia, unspecified type documented in this encounter Care Teams Photographic Technician Relationship Specialty Start Date End Date Long Castaneda DNP [address] [place] [address] PCP - General Family Medicine 02/21/19 06/15/21 documented as of this encounter
--- OUTSIDE RECORDS SUMMARY | 2024-11-27 14:14 | XMS_ITS | Encounter Summary ---
Author Organization [facility] [place] [address] Care Team Providers Care Soda Dry House Operator Name Role Phone Melissa Sandoval APRN Primary Care Provider [phone]- [phone] Encounter Details Date Type Department Care Team (Late Contact Info) Description 04/23/2016 Orders Only [place] [address] Fausto Shrestha MD [facility] [place] [address] Status post total right knee replacement Social History Tobacco Use Types Packs/Day Years [...] 1:00 PM EDT Office Visit Hematology/Oncology at [address] [phone] Ronna Green MD [facility] HEMATOLOGY [place] [address] Melissa Dahl APRN [facility] HEMATOLOGY [place] [address] documented as of this encounter Visit Diagnoses Diagnosis Status post total right knee replacement documented in this encounter Care Teams Soda Dry House Operator Relationship Specialty Start Date End Date Melissa Sandoval APRN PCP - General 01/10/14 12/20/16 documented as of this encounter
--- OUTSIDE RECORDS SUMMARY | 2024-11-27 14:14 | XMS_ITS | Encounter Summary ---
Author Organization [facility] Address [facility] [place] [address] Care Team Providers Care Nail Artist Name Role Phone Long Castaneda DNP Primary Care Provider [phone] [phone] Encounter Details Date Type Department Care Team (Late st Contact Info) Description 05/10/2019 Notes Only Hematology [place] [address] Ronna Green MD [facility] DR HEMATOLOGY AND ONCOLOGY [place] [phone] Social History Tobacco Use Types Packs/Day Years Used Date Smoking Tobacco: Never Smokeless Tobacco: Never Alcohol Use Standard Drinks/Week Comments Yes 0 (1 standard drink = 0.6 oz pur e alcohol) rare Sex and Gender Information Value Date Recorded Sex Assigned at Not on file Gender Identity Not on file Sexual Orientation Not on file documented as of this encounter Progress Notes * Ronna Green MD - 05/10/2019 5:56 PM EDT Down his labs from 05/02/2019 are reviewed today. WBC 8.0 Hemoglobin 9.9 Platelets 229 MCV 88 RDW 14 ANC 5.0 Creatinine 1.9 Iron 47 TIBC 259 Percent saturation 18% Ferritin 337 Erythropoietin 7.7 LDH 197 B12 433 Folate 11.8 TSH 0.55 Labs are consistent with anemia of chronic disease and anemia secondary to chronic renal insufficiency. Given that the patient's baseline hemoglobin is below 10, she may qualify for erythropoietin supplementation. I will discuss this with her at her next appointment. documented in this encounter Plan of Treatment Upcoming Encounters Date Type Department Care Team (Late st Contact Info) Description 07/18/2025 1:00 PM EDT Office Visit Hematology/Oncology at [address] [phone] Ronna Green MD [facility] DR HEMATOLOGY [place] [address] Melissa Dahl APRN [facility] HEMATOLOGY [place] [address] documented as of this encounter Visit Diagnoses Not on filedocumented in this encounter Care Teams Nail Artist Relationship Specialty Start Date End Date Long Castaneda DNP [address] [place] [address] PCP - General Family Medicine 02/21/19 06/15/21 documented as of this encounter
--- OUTSIDE RECORDS SUMMARY | 2024-11-27 14:14 | XMS_ITS | Encounter Summary ---
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 Renal and Hypertension Visit 02/21/2019 68 y.o. year old female referred by Long Castaneda APRN Pt reports she has been well. She denies rash, arthropathy, hematuria, fever, unexplained weight loss. Mrs. Koch has longstanding bladder issues, followed by urologist Dr Earl Lino at [facility].Underwent bladder sling and hysterectomy without improvement in incontinence to date. Hernia repair. Gout no recent episode. On allopurinol. She reports her blood pressure at home with a wrist cuff is approximately 138/55 mmHg ?? 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 Treated with PO and IV prednisone, Cytoxan, and briefly with azathioprine (Dr Starks, [facility]). ?? 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 ferrous gluconate 324 mg (37.5 mg iron) Tablet Take 324 mg by mouth daily. ??? cholecalciferol, Vitamin D3, 1,000 unit Capsule Take 1,000 Units by mouth daily. ??? albuterol 90 mcg/actuation HFA Aerosol Inhaler Inhale 2 puffs into the lungs every 4 hours as needed for Wheezing. Use with spacer ??? fiydnmoo-hywilurtz-vyferxuxpwols (DEXACINE) 3.5 mg/g-10,000 unit/g-0.1 % Ointment Place into both eyes nightly. ??? propylene glycol (SYSTANE COMPLETE) 0.6 % Drops Apply to eye 3 times daily as needed. ??? ketoconazole (NIZORAL) 2 % Cream ??? meclizine (ANTIVERT) 25 mg Tablet Take 25 mg by mouth 3 times daily as needed. ??? CALCIUM CARBONATE (CALCIUM 600 ORAL) Take by mouth daily. ??? hydrocortisone 2.5 % Cream Apply topically 2 times daily. ??? allopurinol (ZYLOPRIM) 100 mg Tablet 2 times daily. ??? traMADol (ULTRAM) 50 mg Tablet ??? triamterene-hydrochlorothiazide (MAXZIDE-25) 37.5-25 mg Tablet ??? [...] On examination This is a very pleasant 68 y.o. female in no acute distress Blood pressure 138/55, pulse 76, height 157.5 cm (5' 2), weight 96.5 kg (212 lb 12.8 oz), SpO2 99 %. Body mass index is 38.92 kg/m??. There is no uremic fetor and [...] for patchy superficial tissue loss with scarring Gait is normal. Facies symmetrical. LAURENT, Mentation and speech are normal Labs: Reviewed outside laboratory values and data available in e[facility]. Notable for as above Results for LAMAR KOCH ( ) as of 02/22/2019 15:15 Ref. Range 07/07/2018 12:26 07/07/2018 13:30 02/21/2019 11:03 WBC Latest Ref Range: 4.0 - 9.5 x10(3)/mcL 8.2 8.1 RBC Latest Ref Range: 4.00 - 5.21 x10(6)/mcL 3.64 (L) 3.76 (L) Hemoglobin Latest Ref Range: 11.7 - 15.5 gm/dL 10.5 (L) 10.6 (L) Hematocrit Latest Ref Range: 35.7 - 45.8 % 32.7 (L) 34.8 (L) MCV Latest Ref Range: 82.6 - 94.4 fL 89.8 92.6 MCH Latest Ref Range: 27.1 - 32.0 pg 28.8 28.2 MCHC Latest Ref Range: 31.7 - 35.0 gm/dL 32.1 30.5 (L) RDWSD Latest Ref Range: 37.0 - 46.0 fL 46.3 (H) 46.2 (H) RDWCV Latest Ref Range: 11.5 - 14.1 % 14.0 13.7 Platelets Latest Ref Range: 145 - 357 x10(3)/mcL 243 242 MPV Latest Ref Range: 7.6 - 12.9 fL 9.9 9.7 nRBC % Auto Latest Units: % 0.0 0.0 nRBC Abs Auto Latest Ref Range: 0.000 - 0.000 x10(3)/mcL 0.000 0.000 Neutr Abs (ANC) Latest Ref Range: 1.70 - 6.10 x10(3)/mcL 4.65 4.70 Results for LAMAR KOCH ( ) as of 02/22/2019 15:15 Ref. Range 10/01/2017 15:03 07/07/2018 12:26 07/07/2018 13:30 02/21/2019 11:03 Sodium Latest Ref Range: 135 - 145 mmol/L 143 140 138 Potassium Latest Ref Range: 3.5 - 5.0 mmol/L 4.7 5.7 (H) 5.3 (H) Chloride Latest Ref Range: 98 - 107 mmol/L 105 106 109 (H) CO2 Latest Ref Range: 22 - 31 mmol/L 23 23 20 (L) Anion Gap Latest Ref Range: 5 - 15 mmol/L 15 11 9 BUN Latest Ref Range: 8 - 18 mg/dL 41 (H) 35 (H) 43 (H) Creatinine Latest Ref Range: 0.70 - 1.20 mg/dL 1.72 (H) 1.61 (H) 1.72 (H) eGFR Latest Ref Range: >=60 mL/min/1.73 m?? 30 (L) 33 (L) 30 (L) eGFR Latest Ref Range: >=60 mL/min/1.73 m?? 38 (L) 35 (L) Glucose Lvl Latest Ref Range: 65 - 199 mg/dL 120 103 122 Calcium Latest Ref Range: 8.5 - 10.5 mg/dL 9.8 9.8 9.8 Phosphorus Latest Ref Range: 2.5 - 4.5 mg/dL 3.1 Uric Acid Latest Ref Range: 2.5 - 6.5 mg/dL 9.1 (H) 6.7 (H) Albumin Latest Ref Range: 3.2 - 5.2 gm/dL 4.3 Iron Latest Ref Range: 30 - 150 mcg/dL 65 47 TIBC Latest Ref Range: 250 - 450 mcg/dL 284 278 Iron Saturation Latest Ref Range: 20 - 50 % 23 17 (L) U Protein Ran Latest Ref Range: 0 - 12 mg/dL <6 Results for LAMAR KOCH ( ) as of 02/22/2019 15:15 Ref. Range 10/01/2017 14:30 07/07/2018 13:30 02/21/2019 [...] my read Assessment and Recommendations ?? 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 Bilateral cortical thinning on ultrasound. No current evidence active renal vasculitis based on stable serum creatinine, lack of proteinuria, and negative urine microscopy ?? History of ANCA-positive Vasculitis following a spider [id number] with tissue loss both LE. Treated with PO and IV prednisone, Cytoxan, and briefly with azathioprine (Dr Starks, [facility]). ?? 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 She is awaiting local referral ?? Hypertension for the past 20 years. Recommend she continue to monitor this at home. May need to increase lisinopril to 15 mg daily if systolic blood pressure is consistently greater than 130 mmHg ?? Anemia, iron deficiency/anemia of chronic disease. Followed by hematology, Dr. Acevedo ?? Renal clinic follow up 1 year with labs. ordered Thank you for referring this interesting patient documented in this encounter Plan of Treatment Upcoming Encounters Date Type Department Care Team (Late st Contact Info) Description 07/18/2025 1:00 PM EDT Office Visit Hematology/Oncology at [address] [phone] Ronna Green MD [facility] [place] [address] Melissa Dahl APRN [facility] [place] [address] documented as of this encounter Procedures Procedure Name Priority Date/Time Associated Diagnosis Comments U ALBUMIN/CRE RATIO Routine 02/21/2019 1 :30 PM EDT Chronic kidney disease, unspecified CKD stage documented in this encounter Results * U Albumin/Cre Ratio (02/21/2019 1:30 PM EDT) Albumin / Creatinin Ratio, Urine Not Calculated 0 - 29 mcg/mg Cr [facility] Comment: Reference Ranges: <30 mcg/mg: [...] Supplements (2012) 2, 357? 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
--- OUTSIDE RECORDS SUMMARY | 2024-11-27 14:14 | XMS_ITS | Encounter Summary ---
Author Organization [facility] [place] [address] Care Team Providers Care Histotechnician Name Role Phone Brisa Betancourt MONICA Primary Care Provider [phone] Encounter Details Date Type Department Care Team (Latest Contact Info) Description 07/07/2018 12:30 PM EDT Laboratory Appointment Lab [address] [place] [id number] Vasculitis; CKD (chronic kidney disease) stage 3, [...] 1:00 PM EDT Office Visit Hematology/Oncology at [address] [phone] Ronna Green MD [facility] [address] [place] [address] Melissa Dahl APRN [facility] [place] [address] documented as of this encounter Procedures Procedure Name Priority Date/Time Associated Diagnosis Comments PTH Routine 07/07/2018 12:26 PM EDT Vasculitis CKD (chronic kidney disease) stage 3, GFR 30-59 ml/min Anemia of chronic renal failure, stage 3 (moderate) CYTOPLASMIC NEUTROPHILIC AB Routine 07/07/2018 12:26 PM EDT CKD (chronic kidney disease) stage 3, GFR 30-59 ml/min PROTEINASE-3 ANTIBODY Routine 07/07/2018 12:26 PM EDT CKD (chronic kidney disease) stage 3, GFR 30-59 ml/min MYELOPEROXIDASE AB Routine 07/07/2018 12 :26 PM EDT CKD (chronic kidney disease) stage 3, GFR 30-59 ml/min HEMOGRAM Routine 07/07/2018 12:26 PM EDT Vasculitis CKD (chronic kidney disease) stage 3, GFR 30-59 ml/min Anemia of chronic renal failure, stage 3 (moderate) DIFFERENTIAL, AUTOMATED Routine 07/07/20 18 12:26 PM EDT Vasculitis CKD (chronic kidney disease) stage 3, GFR 30-59 ml/min Anemia of chronic renal failure, stage 3 (moderate) IRON AND TIBC Routine 07/07/2018 12:26 PM EDT Vasculitis CKD (chronic kidney disease) stage 3, GFR 30-59 ml/min Anemia of chronic renal failure, stage 3 (moderate) CBC (WITH DIFF) Routine 07/07/2018 12:26 PM EDT Vasculitis CKD (chronic kidney disease) stage 3, GFR 30-59 ml/min Anemia of chronic renal failure, stage 3 (moderate) URIC ACID Routine 07/07/2018 12:26 PM EDT Vasculitis CKD (chronic kidney disease) stage 3, GFR 30-59 ml/min Anemia of chronic renal failure, stage 3 (moderate) PHOSPHORUS Routine 07/07/2018 12:26 PM EDT Vasculitis CKD (chronic kidney disease) stage 3, GFR 30-59 ml/min Anemia of chronic renal failure, stage 3 (moderate) ALBUMIN LEVEL Routine 07/07/2018 12:26 PM EDT Vasculitis CKD (chronic kidney disease) stage 3, GFR 30-59 ml/min Anemia of chronic renal failure, stage 3 (moderate) BASIC METABOLIC PANEL Routine 07/07/2018 12:26 PM EDT documented in this encounter Results * (ABNORMAL) Basic Metabolic Panel (non-fasting) (07/07/2018 12:26 PM EDT) Glucose 103 65 - 199 mg/dL [facility] Comment:Diabetes: >=200 mg/d L plus symptoms Blood Urea Nitrogen 35(H) 8 - 18 mg/dL [facility] Creatinine 1.61(H) 0.70 - 1.20 mg/dL [facility] Sodium 140 135 - 145 mmol/L [facility] Potassium 5.7(H) 3.5 - 5.0 mmol/L [facility] Comment: Please note: ??Patients with WBC >100,000 may have falsely elevated Potassium levels. ??For accurate Potassium quantification in these patients send serum separator tube (gold top) for subsequent determinations. ??Contact the Clinical Chemistry Laboratory if there are any questions. Chloride 106 98 - 107 mmol/L [facility] Carbon Dioxide 23 22 - 31 mmol/L [facility] Anion Gap 11 5 - 15 mmol/L [facility] Calcium 9.8 8.5 - 10.5 mg/dL [facility] Est Glomerular Filtration Rate 33(L) >=60 mL/min/1. 73 m?? [facility] Comment: The eGFR was calculated using the CKD-EPI equation. As with all creatinine based estimates of kidney function, eGFR values calculated with the CKD-EPI equation are not accurate in patients with acute kidney failure, extremes of body mass or the acutely ill. http://TalkLife/DHnkf eGFR 38(L) >=60 mL/min/1. 73 m?? [facility] Comment: The eGFR was calculated using the CKD-EPI equation. As with all creatinine based estimates of kidney function, eGFR values calculated with the CKD-EPI equation are not accurate in patients with acute kidney failure, extremes of body mass or the acutely ill. http://TalkLife/DHMCnkf Blood specimen (specimen) Venous Draw / Unknown 07/07/2018 12:26 PM EDT 07/07/2018 12:37 PM EDT Narrative Resulting Agency Comment Spec In Lab Sara Hawk MD CHEMISTRY ORDERABLES [facility] [place] [address] * Differential, Automated (07/07/2018 12:26 PM EDT) Neutrophil % 57.1 % [facility] Neutrophil Absolute 4.65 1.70 - 6.10 x10(3)/[facility] Lymph % 30.7 % [facility] Lymphocytes Abs 2.5 0.9 - 3.2 x10(3)/[facility] Monocyte % 8.1 % [facility] Monocyte Abs 0.7 0.3 - 0.9 x10(3)/[facility] Eos % 2.9 % [facility] Eosinophils Abs 0.2 0.0 - 0.4 x10(3)/[facility] Basophil % 1.0 % [facility] Baso Absolute 0.1 0.0 - 0.1 x10(3)/[facility] Immature Gran % 0.20 % [facility] Comment: Immature granulocytes(IG's)percentage and absolute count will include metamyelocytes, myelocytes, and promyelocytes. Blood smears from CBCs yielding IG's will be scanned manually for concordance. If this scan disagrees with the automated IG or if promyelocytes are noted, a manual differential will be performed. Immature Gran Absolute 0.02 0.00 - 0.04 x10(3)/[facility] Blood specimen (specimen) 07/07/2018 12:26 PM EDT 07/07/2018 12:37 PM EDT Narrative Resulting Agency Comment Spec In Lab Sara Hawk MD HEMATOLOGY ORDERABLE S [facility] [place] [address] * (ABNORMAL) Hemogram (07/07/2018 12:26 PM EDT) White Blood Cell 8.2 4.0 - 9.5 x10(3)/[facility] Red Blood Cell 3.64(L) 4.00 - 5.21 x10(6)/[facility] Hemoglobin 10.5(L) 11.7 - 15.5 gm/dL [facility] Hematocrit 32.7(L) 35.7 - 45.8 % [facility] Mean Cell Volume 89.8 82.6 - 94.4 [facility] Mean Cell Hemoglobin 28.8 27.1 - 32.0 pg [facility] Mean Cell Hemoglobin Concentration 32.1 31.7 - 35.0 gm/dL [facility] Platelet 243 145 - 357 x10(3)/[facility] RDW Standard Deviation 46.3(H) 37.0 - 46.0 [facility] RDW coefficient of variation 14.0 11.5 - 14.1 % [facility] Mean Platelet Volume 9.9 7.6 - 12.9 [facility] NRBC% auto 0.0 % [facility] NRBC Absolute 0.000 0.000 - 0.000 x10(3)/[facility] Blood specimen (specimen) 07/07/2018 12:26 PM EDT 07/07/2018 12:37 PM EDT Narrative Resulting Agency Comment Spec In Lab Sara Hawk MD HEMATOLOGY ORDERABLE S [facility] [place] [address] * Proteinase-3 Antibody (07/07/2018 12:26 PM EDT) Proteinase 3 Antibody 3.3 <=20.0 unit(s) [facility] Blood specimen (specimen) 07/07/2018 12:26 PM EDT 07/07/2018 1:48 PM EDT Narrative Resulting Agency Comment Spec In Lab Sara Hawk MD IMMUNOLOGY ORDERABLE S Performing Organization Address [facility]/ZIP Co de Phone Number [facility] [place] [address] * Myeloperoxidase Ab (07/07/2018 12:26 PM EDT) Myeloperoxidase Antibody 10.7 <=20.0 unit(s) [facility] Blood specimen (specimen) 07/07/2018 12:26 PM EDT 07/07/2018 1:48 PM EDT Narrative Resulting Agency Comment Spec In Lab Sara Hawk MD IMMUNOLOGY ORDERABLE S Performing Organization Address [facility] Co de Phone Number [facility] [place] [address] * (ABNORMAL) Cytoplasmic Neutrophilic Ab (07/07/2018 12:26 PM EDT) C-Anca (MAY) Negative Negative [facility] Comment: Test Performed by: [facility] - [address] [address] P-Anca (MAY) Positive(A) Negative [facility] Comment: Positive for pANCA pattern by immunofluorescence. Suggest further testing for anti-myeloperoxidase (anti-MPO) antibodies, if clinically indicated. ADDITIONAL INFORMATION This test was developed and its performance characteristics determined by [facility] in a manner consistent with CLIA requirements. This test has not been cleared or approved by the U.S. Food and Drug Administration. Test Performed by: [facility] - [address] [address] Blood specimen (specimen) 07/07/2018 12:26 PM EDT 07/07/2018 3:10 PM EDT Narrative Resulting Agency Comment Spec In Lab Sara Hawk MD LAB SEND OUT ORDERAB LES Performing Organization Address [facility] Co de Phone Number [facility] [place] [address] * (ABNORMAL) Iron and TIBC (07/07/2018 12:26 PM EDT) Iron 47 30 - 150 mcg/dL [facility] TIBC 278 250 - 450 mcg/dL [facility] Iron Saturation 17(L) 20 - 50 % [facility] Blood specimen (specimen) 07/07/2018 12:26 PM EDT 07/07/2018 12:37 PM EDT Narrative Resulting Agency Comment Spec In Lab Sara Hawk MD CHEMISTRY ORDERABLES Performing Organization Address [facility] Co de Phone Number [facility] [place] [address] * Albumin Level (07/07/2018 12:26 PM EDT) Albumin 4.3 3.2 - 5.2 gm/dL [facility] Blood specimen (specimen) 07/07/2018 12:26 PM EDT 07/07/2018 12:37 PM EDT Narrative Resulting Agency Comment Spec In Lab Sara Hawk MD CHEMISTRY ORDERABLES Performing Organization Address [facility] Co de Phone Number [facility] [place] [address] * Phosphorus (07/07/2018 12:26 PM EDT) Phosphorus 3.1 2.5 - 4.5 mg/dL [facility] Blood specimen (specimen) 07/07/2018 12:26 PM EDT 07/07/2018 12:37 PM EDT Narrative Resulting Agency Comment Spec In Lab Sara Hawk MD CHEMISTRY ORDERABLES Performing Organization Address City/[facility]/ZIP Co de Phone Number [facility] [place] [address] * (ABNORMAL) Uric acid (07/07/2018 12:26 PM EDT) Uric Acid 6.7(H) 2.5 - 6.5 mg/dL [facility] Blood specimen (specimen) 07/07/2018 12:26 PM EDT 07/07/2018 12:37 PM EDT Narrative Resulting Agency Comment Spec In Lab Sara Hawk MD CHEMISTRY ORDERABLES Performing Organization Address City/[facility]/ZIP Co de Phone Number [facility] [place] [address] * PTH (07/07/2018 12:26 PM EDT) Parathyroid Hormone 37 15 - 65 pg/mL [facility] Blood specimen (specimen) 07/07/2018 12:26 PM EDT 07/07/2018 12:37 PM EDT Narrative Resulting Agency Comment Spec In Lab Sara Hawk MD CHEMISTRY ORDERABLES Performing Organization Address City/[facility]/ZIP Co de Phone Number [facility] [place] [address] documented in this encounter Visit Diagnoses Diagnosis Vasculitis Arteritis, unspecified CKD (chronic kidney disease) stage 3, GFR 30-59 ml/min Chronic kidney disease, Stage III (moderate) Anemia of chronic renal failure, stage 3 (moderate) documented in this encounter Care Teams Histotechnician Relationship Specialty Start Date End Date Brisa Betancourt APRN PCP - General Family Medicine 10/25/17 4/29/19 documented as of this encounter
--- OUTSIDE RECORDS SUMMARY | 2024-11-27 14:14 | XMS_ITS | Encounter Summary ---
Author Organization Formerly [facility] [place] [address] Care Team Providers Care Production Clerk Name Role Phone Brisa Betancourt APRN Primary Care Provider [phone] Encounter Details Date Type Department Care Team (Latest Contact Info) Description 07/07/2018 1:30 PM EDT Office Visit Ne[place] [address] Sara Hawk MD Chronic kidney disease, unspecified CKD stage Social History Tobacco Use Types Packs/Day Years [...] Sign Reading Time Taken Comments Blood Pressure 104/58 07/07/2018 8:45 AM EDT Pulse 84 07/07/2018 8:45 AM EDT Temperature - - Respiratory Rate - - Oxygen Saturation - - Inhaled Oxygen Concentration - - Weight 95.7 kg (211 lb) 07/07/2018 8:45 AM EDT Height 157.5 cm (5' 2) 07/07/2018 8:45 AM EDT Body Mass Index 38.59 07/07/2018 8:45 AM EDT documented in this encounter Progress Notes * Sara Hawk MD - 07/07/2018 1:30 PM EDT Images from the original note were not included. Renal and Hypertension Visit 07/07/2018 67 y.o. year old female referred by Brisa Betancourt APRN Pt reports she has been well. Recent laparoscopic cholecystectomy for gallstones. Longstanding bladder issues, followed by urologist Dr Earl Lino at [facility]. Underwent bladder sling and hysterectomy without improvement in incontinence to date. Hernia repair. Gout well controlled with allopurinol. ?? 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 Treated with PO and IV prednisone, Cytoxan, and briefly with azathioprine (Dr Starks, [facility]). ?? Current Persistent pANCA MPO positive [...] and Habits Retired. 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 ketoconazole (NIZORAL) 2 % Cream ??? meclizine (ANTIVERT) 25 mg Tablet ??? CALCIUM CARBONATE (CALCIUM 600 ORAL) Take by mouth daily. ??? nystatin (MYCOSTATIN) Powder Apply topically 4 times daily. ??? hydrocortisone 2.5 % Cream Apply topically 2 times daily. ??? allopurinol (ZYLOPRIM) 100 mg Tablet 2 times daily. ??? traMADol (ULTRAM) 50 mg Tablet ??? triamterene-hydrochlorothiazide (MAXZIDE-25) 37.5-25 mg Tablet ??? multivitamin with minerals Tablet Take 1 tablet by mouth daily. ??? ALBUTEROL INHL Inhale into the lungs. ??? ferrous sulfate (FEROSUL) 325 mg (65 [...] On examination This is a very pleasant 67 y.o. female in no acute distress Blood pressure 104/58, pulse 84, height 157.5 cm (5' 2), weight 95.7 kg (211 lb). Body mass index is 38.59 kg/(m^2). There is no uremic fetor and [...] for LAMAR KOCH ( ) as of 07/19/2018 12:42 Ref. Range 10/01/2017 15:03 07/07/2018 12:26 C-ANCA Latest Ref Range: Negative Negative Negative P-ANCA Latest Ref Range: Negative Positive (A) Positive (A) MPO Ab Latest Ref Range: <=20.0 unit(s) 26.1 (H) 10.7 PR3 Ab Latest Ref Range: <=20.0 unit(s) 5.7 3.3 Results for LAMAR KOCH ( ) as of 07/19/2018 12:43 Ref. Range 10/01/2017 15:03 07/07/2018 12:26 07/07/2018 13:30 Sodium Latest Ref Range: 135 - 145 mmol/L 143 140 Potassium Latest Ref Range: 3.5 - 5.0 mmol/L 4.7 5.7 (H) Chloride Latest Ref Range: 98 - 107 mmol/L 105 106 CO2 Latest Ref Range: 22 - 31 mmol/L 23 23 Anion Gap Latest Ref Range: 5 - 15 mmol/L 15 11 BUN Latest Ref Range: 8 - 18 mg/dL 41 (H) 35 (H) Creatinine Latest Ref Range: 0.70 - 1.20 mg/dL 1.72 (H) 1.61 (H) eGFR Latest Ref Range: >=60 mL/min/1.73 m?? 30 (L) 33 (L) eGFR Latest Ref Range: >=60 mL/min/1.73 m?? 38 (L) Glucose Lvl Latest Ref Range: 65 - 199 mg/dL 120 103 Calcium Latest Ref Range: 8.5 - 10.5 mg/dL 9.8 9.8 Phosphorus Latest Ref Range: 2.5 [...] for LAMAR KOCH ( ) as of 07/19/2018 12:43 Ref. Range 07/07/2018 12:26 PTH Latest Ref Range: 15 - 65 pg/mL 37 Results for LAMAR KOCH ( ) as of 07/19/2018 12:43 Ref. Range 10/01/2017 15:03 07/07/2018 12:26 WBC Latest Ref Range: 4.0 - 9.5 x10(3)/mcL 6.6 8.2 RBC Latest Ref Range: 4.00 - 5.21 x10(6)/mcL 3.58 (L) 3.64 (L) Hemoglobin Latest Ref Range: 11.7 - 15.5 gm/dL 10.4 (L) 10.5 (L) Hematocrit Latest Ref Range: 35.7 - 45.8 % 31.3 (L) 32.7 (L) MCV Latest Ref Range: 82.6 - 94.4 fL 87.4 89.8 MCH Latest Ref Range: 27.1 - 32.0 pg 29.1 28.8 MCHC Latest Ref Range: 31.7 - 35.0 gm/dL 33.2 32.1 RDWSD Latest Ref Range: 37.0 - 46.0 fL 44.5 46.3 (H) RDWCV Latest Ref Range: 11.5 - 14.1 % 13.9 14.0 Platelets Latest Ref Range: 145 - 357 x10(3)/mcL 251 243 MPV Latest Ref Range: 7.6 - 12.9 fL 9.6 9.9 nRBC % Auto Latest Units: % 0.0 0.0 nRBC Abs Auto Latest Ref Range: 0.000 - 0.000 x10(3)/mcL 0.000 0.000 Neutr Abs (ANC) Latest Ref Range: 1.70 - 6.10 x10(3)/mcL 4.05 4.65 Neutrophils % Latest Units: % 61.5 57.1 Immature Gran % Latest Units: % 0.20 0.20 Urinalysis and microscopy: Renal clinic laboratory Urine [...] History of ANCA-positive Vasculitis following a spider [id number] with tissue loss both LE. Treated with PO and IV prednisone, Cytoxan, and briefly with azathioprine (Dr Starks, [facility]). ?? 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 Hypertension for the past 20 years. Well controlled on current medication ?? Anemia, iron deficiency/anemia of chronic disease. Followed by hematology, Dr. Acevedo ?? Renal clinic follow up 6 months with labs. ordered Thank you for referring this interesting patient documented in this encounter Plan of Treatment Upcoming Encounters Date Type Department Care Team (Late st Contact Info) Description 07/18/2025 1:00 PM EDT Office Visit Hematology/Oncology at [address] [address] Ronna Green MD [facility] DR HEMATOLOGY [place] [address] Melissa Dahl APRN [facility] [place]EMATOLOGY [place] [address] documented as of this encounter Procedures Procedure Name Priority Date/Time Associated Diagnosis Comments PROTEIN/CREATININE RATIO, URINE Routine 07/07/2018 1:30 PM EDT Chronic kidney disease, unspecified CKD stage documented in this encounter Results * (ABNORMAL) Basic Metabolic Panel (non-fasting) (02/21/2019 11:03 AM EDT) Glucose 122 65 - 199 mg/dL [facility] Comment:Diabetes: >=200 mg/d L plus symptoms Blood Urea Nitrogen 43(H) 8 - 18 mg/dL [facility] Creatinine 1.72(H) 0.70 - 1.20 mg/dL [facility] Sodium 138 135 - 145 mmol/L [facility] Potassium 5.3(H) 3.5 - 5.0 mmol/L [facility] Comment: Please note: ??Patients with WBC >100,000 may have falsely elevated Potassium levels. ??For accurate Potassium quantification in these patients send serum separator tube (gold top) for subsequent determinations. ??Contact the Clinical Chemistry Laboratory if there are any questions. Chloride 109(H) 98 - 107 mmol/L [facility] Carbon Dioxide 20(L) 22 - 31 mmol/L [facility] Anion Gap 9 5 - 15 mmol/L [facility] Calcium 9.8 8.5 - 10.5 mg/dL [facility] Est Glomerular Filtration Rate 30(L) >=60 mL/min/1. 73 m?? [facility] Comment: The eGFR was calculated using the CKD-EPI equation. As with all creatinine based estimates of kidney function, eGFR values calculated with the CKD-EPI equation are not accurate in patients with acute kidney failure, extremes of body mass or the acutely ill. [email or web address]/[email or web address] eGFR 35(L) >=60 mL/min/1. 73 m?? [facility] Comment: The eGFR was calculated using the CKD-EPI equation. As with all creatinine based estimates of kidney function, eGFR values calculated with the CKD-EPI equation are not accurate in patients with acute kidney failure, extremes of body mass or the acutely ill. [email or web address] Blood specimen (specimen) 02/21/2019 11:03 AM EDT 02/21/2019 11:15 AM EDT Narrative Resulting Agency Comment Spec In Lab Sara Hawk MD CHEMISTRY ORDERABLES [facility] [place] [address] * Protein/Creatinine Ratio, urine (07/07/2018 1:30 PM EDT) Creatinine, Urine 85 mg/dL [facility] Protein, Urine <6 0 - 12 mg/dL [facility] Protein / Creatinine Ratio, Urine <0.1 ratio [facility] Urine specimen (specimen) 07/07/2018 1:30 PM EDT 07/07/2018 5:20 PM EDT Narrative Resulting Agency Comment Spec In Lab Saar Hawk MD URINE ORDERABLES [facility] [place] [address] documented in this encounter Visit Diagnoses Diagnosis Chronic kidney disease, unspecified CKD stage documented in this encounter Care Teams Production Clerk Relationship Specialty Start Date End Date Brisa Betancourt APRN PCP - General Family Medicine 08/18/17 02/20/19 documented as of this encounter
--- OUTSIDE RECORDS SUMMARY | 2024-11-27 14:14 | XMS_ITS | Encounter Summary ---
Author Organization Formerly [facility] [place] [address] Care Team Providers Care Laborer Beam House Name Role Phone Brisa Betancourt MONICA Primary Care Provider [phone] Encounter Details Date Type Department Care Team (Late Contact Info) Description 10/06/2017 Orders Only [place] [address] Sara Hawk MD CKD (chronic kidney disease) stage 3, GFR 30-59 ml/min Social History Tobacco Use Types Packs/Day Years [...] 1:00 PM EDT Office Visit Hematology/Oncology at [address] [address] Ronna Green MD [facility] DR HEMATOLOGY [place] [address] Melissa Dahl APRN [facility] HEMATOLOGY [place] [address] documented as of this encounter Results * Proteinase-3 Antibody (07/07/2018 12:26 PM EDT) Proteinase 3 Antibody 3.3 <=20.0 unit(s) [facility] Blood specimen (specimen) 07/07/2018 12:26 PM EDT 07/07/2018 1:48 PM EDT Narrative Resulting Agency Comment Spec In Lab Sara Hawk MD IMMUNOLOGY ORDERABLE S Performing Organization Address City/[facility]/ZIP Co de Phone Number [facility] [place] [address] * Myeloperoxidase Ab (07/07/2018 12:26 PM EDT) Myeloperoxidase Antibody 10.7 <=20.0 unit(s) [facility] Blood specimen (specimen) 07/07/2018 12:26 PM EDT 07/07/2018 1:48 PM EDT Narrative Resulting Agency Comment Spec In Lab Sara Hawk MD IMMUNOLOGY ORDERABLE S Performing Organization Address [facility] Co de Phone Number [facility] [place] [address] * (ABNORMAL) Cytoplasmic Neutrophilic Ab (07/07/2018 12:26 PM EDT) C-Anca (FEBRUARY) Negative Negative [facility] Comment: Test Performed by: [facility] - [address] [address] P-Anca (FEBRUARY) Positive(A) Negative [facility] Comment: Positive for pANCA pattern by immunofluorescence. Suggest further testing for anti-myeloperoxidase (anti-MPO) antibodies, if clinically indicated. ADDITIONAL INFORMATION This test was developed and its performance characteristics determined by [facility] in a manner consistent with CLIA requirements. This test has not been cleared or approved by the U.S. Food and Drug Administration. Test Performed by: [address] [address] Blood specimen (specimen) 07/07/2018 12:26 PM EDT 07/07/2018 3:10 PM EDT Narrative Resulting Agency Comment Spec In Lab Sara Hawk MD LAB SEND OUT ORDERAB LES [facility] [place] [address] documented in this encounter Visit Diagnoses Diagnosis CKD (chronic kidney disease) stage 3, GFR 30-59 ml/min Chronic kidney disease, Stage III (moderate) documented in this encounter Care Teams Laborer Beam House Relationship Specialty Start Date End Date Brisa Betancourt APRN PCP - General Family Medicine 08/18/17 02/20/19 documented as of this encounter
--- OUTSIDE RECORDS SUMMARY | 2024-11-27 14:14 | XMS_ITS | Encounter Summary ---
Author Organization Formerly [facility] [place] [address] Care Team Providers Care Station Cashier Name Role Phone Long Castaneda DNP Primary Care Provider [phone] Encounter Details Date Type Department Care Team (Latest Contact Info) Description 07/31/2019 9:34 PM EDT - 07/31/2019 11:59 PM EDT Hospital En[place] [address] Discharge Disposition: Home Social History Tobacco Use [...] Sig Dispensed Refills Start Date End Date vit A/vit C/vit E/zinc/copper (PRESERVISION AREDS ORAL) Take 1 capsule by mouth daily. albuterol 90 mcg/actuation HFA Aerosol Inhaler Inhale 2 puffs into the lungs every 4 hours as needed for Wheezing. Use with spacer propylene glycoL 0.6 % Drops Apply to eye 3 times daily as needed. ketoconazole (NIZORAL) 2 % CreamIndications:Vascul itis,CKD (chronic [...] tablet Take 30 mg by mouth daily. ferrous gluconate 324 mg (37.5 mg iron) Tablet Take 324 mg by mouth daily. 05/02/2024 cholecalciferol, Vitamin D3, 1,000 unit Capsule Take 1,000 Units by mouth daily. 11/29/2019 CALCIUM CARBONATE (CALCIUM 600 ORAL)Indications:Vascul itis,CKD (chronic kidney disease) stage 3, GFR 30-59 ml/min,Anemia of chronic renal failure, stage 3 (moderate) Take by mouth as needed. 02/22/2023 hydrocortisone 2.5 % CreamIndications:Vascul itis,CKD (chronic kidney [...] Take 1 tablet by mouth daily. 02/22/2023 lisinopril (PRINIVIL;ZESTRIL) 10 mg tablet Take 5 mg by mouth daily. 05/02/2024 docusate sodium (COLACE) 100 mg capsule Take 100 mg by mouth 2 times daily. 11/29/2019 documented as of this encounter Plan of Treatment Upcoming Encounters Date Type Department Care Team (Late st Contact Info) Description 07/18/2025 1:00 PM EDT Office Visit Hematology/Oncology at [address] [address] Ronna Green MD [facility] [address] [place] [address] Melissa Dahl, PAPER REWINDER [facility] [place] [address] documented as of this encounter Procedures Procedure Name Priority Date/Time Associated Diagnosis Comments BACTERIAL IDENTIFICATION Routine 07/31/2019 1:30 PM EDT documented in this encounter Results * (ABNORMAL) Bacterial Identification (07/31/2019 1:30 PM EDT) Bacterial Identification Corynebacterium species isolated Susceptibilities performed by request only (A) [facility] Organism Corynebacterium species(A) [facility] Microbial isolate specimen (specimen) 07/31/2019 1:30 PM EDT 08/07/2019 9:55 PM EDT Narrative Resulting Agency Comment Spec In Lab Galdino Kinney DO MICROBIOLOGY - GENERAL ORDERABLES Performing Organization Address City/State/[facility] Co de Phone Number [facility] [place] [place] [address] documented in this encounter Visit Diagnoses Not on filedocumented in this encounter Care Teams Station Cashier Relationship Specialty Start Date End Date Long Castaneda DNP [facility] [address] [place] [address] PCP - General Family Medicine 02/21/19 06/15/21 documented as of this encounter
--- OUTSIDE RECORDS SUMMARY | 2024-11-27 14:14 | XMS_ITS | Encounter Summary ---
Author Organization [facility] Address [facility] [place] [address] Care Team Providers Care Core Assembly Supervisor Name Role Phone Melissa Sandoval APRN Primary Care Provider [phone] Encounter Details Date Type Department Care Team (Latest Contact Info) Description 02/18/2016 12:05 AM EDT - 02/18/2016 11:59 PM EDT Hospital Encounter Radiology Library at [facility] [place] [address] Fausto Shrestha MD [facility] [place] [address] Pain Discharge Disposition: Home Social History Tobacco Use Types Packs/Day Years Used Date Smoking Tobacco: Never Sex and Gender Information Value Date Recorded Sex Assigned at Not on file Gender Identity Not on file Sexual Orientation Not on file documented as of this encounter Medications at Time of Discharge Medication Sig Dispensed Refills Start Date End Date citalopram (CELEXA) 20 mg tablet Take 30 mg by mouth daily. traMADol (ULTRAM) 50 mg Tablet Take 50 mg by mouth every 6 hours as needed. 01/10/2016 11/29/2019 cyanocobalamin, vitamin B-12, 100 mcg tabletIndications:Anemia Take 100 mcg by mouth daily. 04/20/2016 ferrous sulfate (FEROSUL) 325 mg (65 mg iron) tabletIndications:Anemia Take 325 mg by mouth daily (with breakfast). 02/21/2019 lisinopril (PRINIVIL;ZESTRIL) 10 mg tablet Take 5 mg by mouth daily. 05/02/2024 hydrochlorothiazide (HYDRODIURIL) 25 mg tablet Take 25 mg by mouth daily. 04/20/2016 docusate sodium (COLACE) 100 mg capsule Take 100 mg by mouth 2 times daily. 11/29/2019 documented as of this encounter Plan of Treatment Upcoming Encounters Date Type Department Care Team (Late st Contact Info) Description 07/18/2025 1:00 PM EDT Office Visit Hematology/Oncology at [address] [address] Ronna Green MD [facility] DR [place] [address] Melissa Dahl APRN [facility] [place] [address] documented as of this encounter Procedures Procedure Name Priority Date/Time Associated Diagnosis Comments FILM LIBRARY STORAGE ONLY NUCLEAR MEDICINE Routine 02/18/2016 12:05 AM EDT Pain documented in this encounter Results * Film Library- Storage only nuclear medicine (02/18/2016 12:05 AM EDT) Narrative [facility] - 04/20/2016 2:35 PM EDT This exam is for storage only and is auto-finalizing. Fausto Shrestha MD IMG FILM LIBRARY OR DERABLES [place], [place] documented in this encounter Visit Diagnoses Diagnosis Pain Generalized pain documented in this encounter Care Teams Core Assembly Supervisor Relationship Specialty Start Date End Date Melissa Sandoval APRN PCP - General 01/10/14 12/20/16 documented as of this encounter
--- OUTSIDE RECORDS SUMMARY | 2024-11-27 14:14 | XMS_ITS | Encounter Summary ---
Author Organization [facility] [place] [address] Care Team Providers Care Dancing Teacher Name Role Phone Long Castaneda DNP Primary Care Provider [phone] Encounter Details Date Type Department Care Team (Latest Contact Info) Description 02/21/2019 12:25 PM EDT Laboratory Appointment Lab [address] [place] [address] Chronic kidney disease, unspecified CKD stage Social [...] PM EDT Office Visit Hematology/Oncology at [address] [phone] Ronna Green MD [facility] [address] HEMATOLOGY [place] [address] Melissa Dahl APRN [facility] [address] HEMATOLOGY [place] [address] documented as of this encounter Procedures Procedure Name Priority Date/Time Associated Diagnosis Comments HEMOGRAM Routine 02/21/2019 11:03 AM EDT Chronic kidney disease, unspecified CKD stage DIFFERENTIAL, AUTOMATED Routine 02/21/2019 11:03 AM EDT Chronic kidney disease, unspecified CKD stage CBC (WITH DIFF) Routine 02/21/2019 11:03 AM EDT Chronic kidney disease, unspecified CKD stage BASIC METABOLIC PANEL Routine 02/21/2019 11:03 AM EDT Chronic kidney disease, unspecified CKD stage documented in this encounter Results * Differential, Automated (02/21/2019 11:03 AM EDT) Neutrophil % 57.8 % [facility] Neutrophil Absolute 4.70 1.70 - 6.10 x10(3)/[facility] Lymph % 30.8 % [facility] Lymphocytes Abs 2.5 0.9 - 3.2 x10(3)/[facility] Monocyte % 7.1 % [facility] Monocyte Abs 0.6 0.3 - 0.9 x10(3)/[facility] Eos % 2.8 % [facility] Eosinophils Abs 0.2 0.0 - 0.4 x10(3)/[facility] Basophil % 1.1 % [facility] Baso Absolute 0.1 0.0 - 0.1 x10(3)/[facility] Immature Gran % 0.40 % [facility] Comment: Immature granulocytes(IG's)percentage and absolute count will include metamyelocytes, myelocytes, and promyelocytes. Blood smears from CBCs yielding IG's will be scanned manually for concordance. If this scan disagrees with the automated IG or if promyelocytes are noted, a manual differential will be performed. Immature Gran Absolute 0.03 0.00 - 0.04 x10(3)/[facility] LAB[facility] Blood specimen (specimen) 02/21/2019 11:03 AM EDT 02/21/2019 11:15 AM EDT Narrative Resulting Agency Comment Spec In Lab Sara Hawk MD HEMATOLOGY ORDERABLE S [facility] [place] [address] * (ABNORMAL) Hemogram (02/21/2019 11:03 AM EDT) White Blood Cell 8.1 4.0 - 9.5 x10(3)/mc L [facility] Red Blood Cell 3.76(L) 4.00 - 5.21 x10(6)/mc L [facility] Hemoglobin 10.6(L) 11.7 - 15.5 gm/dL [facility] Hematocrit 34.8(L) 35.7 - 45.8 % [facility] Mean Cell Volume 92.6 82.6 - 94.4 fL [facility] Mean Cell Hemoglobin 28.2 27.1 - 32.0 pg [facility] Mean Cell Hemoglobin Concentration 30.5(L) 31.7 - 35.0 gm/dL [facility] Platelet 242 145 - 357 x10(3)/mc L [facility] RDW Standard Deviation 46.2(H) 37.0 - 46.0 fL [facility] RDW coefficient of variation 13.7 11.5 - 14.1 % [facility] Mean Platelet Volume 9.7 7.6 - 12.9 fL [facility] NRBC% auto 0.0 % [facility] NRBC Absolute 0.000 0.000 - 0.000 x10(3)/mc L [facility] Blood specimen (specimen) 02/21/2019 11:03 AM EDT 02/21/2019 11:15 AM EDT Narrative Resulting Agency Comment Spec In Lab Sara Hawk MD HEMATOLOGY ORDERABLE S [facility] [place] [address] * (ABNORMAL) Basic Metabolic Panel (non-fasting) (02/21/2019 11:03 AM EDT) Glucose 122 65 - 199 mg/dL [facility] Comment:Diabetes: >=200 mg/d L plus symptoms Blood Urea Nitrogen 43(H) 8 - 18 mg/dL [facility] Creatinine 1.72(H) 0.70 - 1.20 mg/dL [facility] Sodium 138 135 - 145 mmol/L [facility] Potassium 5.3(H) 3.5 - 5.0 mmol/L [facility] Comment: Please note: ??Patients with WBC >100,000 may have falsely elevated Potassium levels. ??For accurate Potassium quantification in these patients send serum separator tube (gold top) for subsequent determinations. ??Contact the Clinical Chemistry Laboratory if there are any questions. Chloride 109(H) 98 - 107 mmol/L [facility] Carbon Dioxide 20(L) 22 - 31 mmol/L [facility] Anion Gap 9 5 - 15 mmol/L [facility] Calcium 9.8 8.5 - 10.5 mg/dL [facility] Est Glomerular Filtration Rate 30(L) >=60 mL/min/1. 73 m?? [facility] Comment: The eGFR was calculated using the CKD-EPI equation. As with all creatinine based estimates of kidney function, eGFR values calculated with the CKD-EPI equation are not accurate in patients with acute kidney failure, extremes of body mass or the acutely ill. [email or web address] eGFR 35(L) >=60 mL/min/1. 73 m?? [facility] Comment: The eGFR was calculated using the CKD-EPI equation. As with all creatinine based estimates of kidney function, eGFR values calculated with the CKD-EPI equation are not accurate in patients with acute kidney failure, extremes of body mass or the acutely ill. [email or web address] Blood specimen (specimen) 02/21/2019 11:03 AM EDT 02/21/2019 11:15 AM EDT Narrative Resulting Agency Comment Spec In Lab Sara Hawk MD CHEMISTRY ORDERABLES [facility] [place] [address] documented in this encounter Visit Diagnoses Diagnosis Chronic kidney disease, unspecified CKD stage documented in this encounter Care Teams Dancing Teacher Relationship Specialty Start Date End Date Long Castaneda DNP [address] [facility] [address] [place] [address] PCP - General Family Medicine 02/21/19 06/15/21 documented as of this encounter
--- OUTSIDE RECORDS SUMMARY | 2024-11-27 14:14 | XMS_ITS | Encounter Summary ---
Author Organization [facility] Address [facility] [place] [address] Care Team Providers Care Launch Commander [employer] Name Role Phone Jaime Melissabia Murillo APRN Primary Care Provider [phone] Reason for Referral * Surgical (Routine) - Specialty Diagnoses / Procedures Referred By Mae king Referred To Contact Diagnoses Status post total bilateral knee replacement Aftercare following bilateral knee joint replacement surgery Procedures Joint aspiration, knee Patrice Cohn PA [facility] [place] [address] Referral ID Status Reason Start Date Expiration Date V isits Requested Visits Authorized [id number] Consult, Test & Treat 04/20/2016 04/20/2017 1 1 Reason for Visit * Reason Comments Right Knee Pain R knee pain Second O malgorzata * Consultation (Routine) - Closed Specialty Diagnoses / Procedures Referred By Mae king Referred To Contact Orthopaedics Diagnoses RIGHT KNEE PAIN S/P RIGHT TKA / ?TIBIAL LOOSENING Procedures Marcelo Kemp MD [address] [place] [address] Fausto Shrestha MD [facility] [place] [address] Referral ID Status Reason Start Date Expiration Date V isits Requested Visits Authorized [id number] Closed Consult, Test & Treat PCP Updated and/or Approved 03/30/2016 03/30/2017 1 1 Encounter Details Date Type Department Care Team (Late st Contact Info) Description 04/20/2016 1:30 PM EDT Office Visit [place] [address] Fausto Shrestha MD [facility] ORTHOPAEDIC [place] [address] Aftercare following bilateral knee joint replacement surgery (Primary Dx); Status post total bilateral knee replacement Social History Tobacco Use Types [...] Sign Reading Time Taken Comments Blood Pressure 121/57 04/20/2016 1:27 PM EDT Pulse 73 04/20/2016 1:27 PM EDT Temperature - - Respiratory Rate - - Oxygen Saturation - - Inhaled Oxygen Concentration - - Weight 94.2 kg (207 lb 11.2 oz) 04/20/2016 1:27 PM EDT Fully clothed Height 158.8 cm (5' 2.5) 04/20/2016 1: 27 PM EDT with shoes Body Mass Index 37.38 04/20/2016 1:27 PM EDT documented in this encounter Progress Notes * Patrice Cohn PA - 04/20/2016 4:12 PM EDT Arthroplasty/Orthopaedic History: 1. Left TKA. 2011. [facility]. 2. Right TKA. 2013. [facility]. Chief complaint: Right knee pain and stiffness History of present illness: Lamar Hinds is a 65 y.o. year-old female who presents today forevaluation of continued right knee pain. She explains she has had both of her knees replaced at an outside institution, she has no difficulties or problems with her left total knee arthroplasty. She has noted problems from the start of her right total knee arthroplasty. She has had pain and stiffness all along, she has never been able to flex her knee past 90??. Patient denies any fevers, chills,night sweats, redness, swelling about the knee. Patient denies any sensation of instability, or audible clunking or clicking. Patient localizes the pain to her medial joint line and medial proximal tibia. Aggravating factors include stairs, extended and prolonged weightbearing and standing. She hasbeen seen and evaluated for her painful and stiff total joint with x-rays, CT scan, bone scan, and 2 times aspirations. She explains one of the aspiration was positive for infection. She notes that her second aspiration was normal. Past medical history: Patient Active Problem List Diagnosis Date Noted ??? S/P total knee arthroplasty 04/20/2016 ??? Aftercare following knee joint replacement surgery 04/20/2016 ??? Depression 07/06/2012 ??? Anemia ??? CIS - Osteoarthritis ??? Vasculitis 10/25/1993 History of blood clots or bleeding disorders: Denies Denies history of cardiac, lung, kidney, liver diease or diabetes Medications: ??? allopurinol (ZYLOPRIM) 100 mg Tablet ??? traMADol (ULTRAM) 50 mg Tablet ??? triamterene-hydrochlorothiazide (MAXZIDE-25) 37.5-25 mg Tablet ??? multivitamin with minerals Tablet ??? ALBUTEROL INHL ??? ferrous sulfate (FEROSUL) 325 mg (65 mg iron) tablet ??? citalopram (CELEXA) 20 mg tablet ??? lisinopril (PRINIVIL;ZESTRIL) 10 mg tablet ??? docusate sodium (COLACE) 100 mg capsule Allergies: Allergies Allergen Reactions ??? Codeine Phosphate CIS - N/V, palpitations ??? Diphenhydramine Hcl CIS - Hives ??? Sulfa (Sulfonamide Antibiotics) CIS - hives, SOB ??? Procardia [Nifedipine] Palpitations ??? Penicillins CIS - Unknown Social history: Social History Substance Use Topics ??? Smoking status: Never Smoker ??? Smokeless tobacco: Not on file ??? Alcohol use Yes Comment: rare Review of systems: No chest pain or shortness of breath at baseline No fevers, night sweats or chills Questionnaire Responses: myD-H Hip & Knee 04/20/2016 PROMIS-10 General Health Fair PROMIS-10 Quality of Life Fair PROMIS-10 Physical Health Fair PROMIS-10 Mental Health Fair PROMIS-10 Social Activity and Relationship Satisfaction Fair PROMIS-10 Social Roles at Home and Work Fair PROMIS-10 Everyday Physical Activities Moderately PROMIS-10 Anxious or Depressed last 7 days Sometimes PROMIS-10 Fatigue last 7 days Moderate PROMIS-10 Pain last 7 days 4 PROMIS PHYSICAL HEALTH SCORE (range 16-68) 37.4 PROMIS MENTAL HEALTH SCORE (range 21-68) 36.3 Physical Exam: No Apparent distress Right knee exam: Incision is well-healed, skin is intact without erythema, edema, ecchymosis, or open wound. There is no effusion or obvious deformity upon inspection. There is TTP in reproduction of pain over the medial joint line and over the proximal medial tibial plateau, as well as over the past bursa. There is no TTP or palpable defects of her quad or patellar tendon. There is no tenderness upon patellar mobilization. Patient is able to extend 0??, and flexed to 85??. She does no pain upon hyperflexion. There is slight laxity in varus and valgus stress in extension, as well as throughout flexion. 5/5 MMT in knee flexion and knee extension. Negative patellar clunk, A/P drawer. PT/DP pulses 2+. Superfici al peroneal, deep peroneal, sural, saphenous, and tibial nerves intact to touch. Imaging: Personal review of the patient's imaging reveals: X-rays reviewed which show possible interval subsidence of the tibial component, changing from mechanical axis of 91-98??. Otherwise, there is no evidence of periprosthetic fracture, loosening, or other competition. There is a slight lucency about the tibial plateau. We do have an uploaded scan docreport of the CT scan and bone scan. Bone scan report says the bilateral total knee arthroplasties are within normal limits. The CT scan has a slight lucency around the tibial component. Assessment: 65 y.o. 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 She has had a thorough workup with a CT scan, bone scan, x-ray, and 2 times aspirations. These scans of otherwise been reassuring other than a possible slight amount of subsidence of the tibial tray, and lucency around the tibial component on the CT scan. The bone scan is reassuring for minimal increased uptake, ruling out infection and potential for loosening. She reports a positive aspiration for infection. At this point in time, recommend obtaining the actual CT scan, bone scan, and labs from outside institution. At this point time, we think it is criticial to rule out infection with an alpha defensin test to consider single versus two stage if positive. If negative, consider revision surgery for painful arthro-fibrotic knee and downsizing components. Patient is receptive to this. This patient was seen in conjuncture with Dr. Shrestha. Follow up: Status post Alpha Defensin testing This plan was discussed with the patient and they are in agreement. All of the patient's questions were answered. The above dictation was made with voice recogonition software Right knee aspiration: Risks of the procedure were discussed, including infection, pain, bleeding, damage to nerves and vessels. Patient is receptive to the risks. A timeout was performed at the bedside. Patient confirmed name, , allergies, and site of aspiration. The site was marked over the super-lateral border of the patella, and prepared with Betadine. A sterile Steri-Drape was placed, then using sterile gloves,a local anesthetic injection was performed using 4 ccs of 1% lidocaine on a 27 gauge needle. Next, an 18 gauge needle on a 20 cc plunger was used to aspirate 1 ccs of straw colored, bloody tinged knee synovial fluid, without debris and otherwise benign looking. The procedure was well tolerated. The injection site was cleaned and covered with a sterile band-aid. We discussed monitoring for signs and symptoms of infection which includes fevers, chills, night sweats, injection side and knee redness, increased pain, and discharge. Patient is receptive to this and will call in the future with difficulties. The aspirate was placed in the alpha defensin test tube, labeled and marked appropriately.Unfortunately, not enough aspirate was obtained to complete a cell count, Gram stain, and culture. * Fausto Shrestha MD - 04/20/2016 2:12 PM EDT Images from the original note were not included. Department of Orthopaedics Division of Adult Joint Reconstructive Surgery April 20, 2016 I had the pleasure of evaluating Lamar Hinds in clinic in conjunction with one of my associate providers. In brief, this is a 65-year-old morbidly obese female who has had bilateral knee replacements in [facility] by Dr. Justin Bynum. Her left knee and right knee were done on different occasions. The left knee is doing okay. She does report occasional pain. The right knee she reports chronic pain which is worsening. She was recently seen by Dr. Braden lopez in [facility] in regards to the right knee. She underwent a workup, but unfortunately, I do not have access to all the information. It sounds like she has potentially elevated inflammatory markers and had the knee aspirated. The patient reports the first aspirature of the knee was infected, and she had her knee reaspirated. She is unsure of the second aspiration results. She has not had fevers, chills, or systemic symptoms. The knee is not painful, hot, or swollen. She only describes general diffuse pain in the knee and predominantly pain on the proximal tibia. I believe she also underwent a bone scan, but unfortunately I do not have those results to review. The report does state that the scan did not show any evidence of infection or loosening, but I cannot actually see the images. At this point, on reviewing the x-rays although the projection is different, there is some question of whether the tibial trace of silent to varus. It is hard to say due to the different projection on the x-rays which were a year apart, but there is a hint of this. The patient also has significant tenderness along the proximal tibia. I had a lengthy discussion with the patient and her daughter about her knee. She also lacks range of motion of Achilles flex to about 80, 85 degrees. I outlined that I think it is imperative first and foremost to rule out infection. We will aspirate her knee today and send it for alpha-defensin. If this is negative, we discussed 2 stage revision surgery with the first stage being an explant of the infected knee and the second stage being reimplantation once the infection is eradicated. Should the alpha-defensin test be negative, I did outline the options are to continue to manage with the knee as she is comfortable doing so, or we could consider revision surgery. At that point, I would consider potentially revising the tibia, but I would assess all component stability. She does have some instability on exam, specifically midflexion, and maybe we could improve her overall range of motion and stability with an extensive synovectomy and poly exchange. At this point though, I think it is imperative we rule out infection first. The patient was comfortable with this plan. We will try to obtain the records from [facility] to fully understand what the culture is showing from her prior aspirations as well as what the lab data suggested. All questions were answered. Fausto Shrestha MD, MS Chief, Division of Adult Reconstructive [employer] Assistant of Orthopaedics Department of [place]opaedics [facility] [place] [phone] [email or web address] Music documented in this encounter Plan of Treatment Upcoming Encounters Date Type Department Care Team (Late st Contact Info) Description 07/18/2025 1:00 PM EDT Office Visit Hematology/Oncology at [address] [address] Ronna Green MD [facility] [address] [place] [address] Melissa Dahl APRN [facility] HEMATOLOGY [place] [address] Scheduled Orders Name Type Priority Associated Diagnoses Orde r Schedule Joint aspiration, knee Procedures Routine Status post total bilateral knee replacement Aftercare following bilateral knee joint replacement surgery Ordered: 04/20/2016 documented as of this encounter Visit Diagnoses Diagnosis Aftercare following bilateral knee joint replacement surgery- Primary Status post total bilateral knee replacement documented in this encounter Administered Medications Inactive Administered Medications - up to 3 most recent administrations Medication Order MAR Action Action Date Dose Rate Site lidocaine (XYLOCAINE) 10 mg/mL (1 %) injection 40 mg 40 mg, Intra-articular, ONCE, 1 dose, On 04/20/16 at 1645, Routine Given 04/20/2016 4:25 PM EDT 40 mg documented in this encounter Care Teams Launch [employer] Relationship Specialty Start Date End Date Melissa Sandoval APRN PCP - General 01/10/14 12/20/16 documented as of this encounter
--- OUTSIDE RECORDS SUMMARY | 2024-11-27 14:14 | XMS_ITS | Encounter Summary ---
Author Organization [facility] [place] [address] Care Team Providers Care Activities Manager Name Role Phone Brisa Betancourt MONICA Primary Care Provider [phone] Encounter Details Date Type Department Care Team (Latest Contact Info) Description 07/07/2018 10:59 AM EDT - 07/07/2018 11:59 PM EDT Hospital [place] [phone] Savannah Hawk MD Vasculitis; CKD (chronic kidney disease) stage 3, GFR 30-59 ml/min; Anemia of chronic renal failure, stage 3 (moderate) Discharge Disposition: Home Social History Tobacco Use [...] tablet Take 30 mg by mouth daily. CALCIUM CARBONATE (CALCIUM 600 ORAL)Indications:Vascul itis,CKD (chronic [...] 1:00 PM EDT Office Visit Hematology/Oncology at [address] [phone] Ronna Green MD [facility] HEMATOLOGY [place] [address] Melissa Dahl, CHARGING MACHINE OPERATOR [facility] HEMATOLOGY [place] [address] documented as of this encounter Procedures Procedure Name Priority Date/Time Associated Diagnosis Comments US RETROPERITONEAL COMPLETE Routine 07/07/2018 11:46 AM EDT Vasculitis CKD (chronic kidney disease) stage 3, GFR 30-59 ml/min Anemia of chronic renal failure, stage 3 (moderate) documented in this encounter Results * US Retroperitoneal Complete (07/07/2018 11:46 AM EDT) Anatomical Region Laterality Modality Abdomen Ultrasound 07/07/2018 11:3 3 AM EDT Impressions 07/07/2018 12:30 PM EDT 1. ??3.7 cm complex cyst within the superior aspect of the kidney, containing multiple vascular and nonvascular septations. Differences in measurements from prior studies may be due to variability in right of way cutter technique. Multiphase contrast-enhanced renal mass protocol CT [...] 12:29 pm) PATIENT INFO: ID #: ? [id number] ?: ??[birth year] (67 yrs) Name: ? LAMAR L ?Visit Date: 07/07/2018 11:33 am ? AUGUST PERFORMED BY: Performed By: ? Babar RODRIGUEZ, ??Clarissa Attending: ?Aniceto RAMIREZ, Michael Bal Resident: ? Ted RAMIREZ, Marcelo Hernandez Referred By: ?SAVANNAH HAWK Location: ? [place] SERVICE(S) PROVIDED: ??URETRO - Retroperitoneal Complete - [id number] ? [id number] INDICATIONS: ??CKD COMPARISON: Ultrasound: 03/03/18 MR:05/10/18 RIGHT [...] 07/07/2018 12:29 pm) PATIENT INFO: ID #: [id number] : [birth year] (67 yrs) Name: LAMAR Moreno Visit Date: 07/07/2018 11:33 am [place] PERFORMED BY: Performed By: Clarissa Eckert RDMS Attending: Michael Moreland MD Resident: Marcelo Jean MD Referred By: SAVANNAH HAWK Location: [place] SERVICE(S) PROVIDED: URETRO - Retroperitoneal Complete - [id number] INDICATIONS: CKD COMPARISON: Ultrasound: 03/03/18 MR:05/10/18 RIGHT [...] studies may be due to variability in right of way cutter technique. Multiphase contrast-enhanced renal mass protocol CT is recommended for further characterization. 2. Bilateral renal cortical thinning with normal echogenicity. No hydronephrosis nor nephrolithiasis. I have personally reviewed the image(s) and the residents interpretation and agree with the findings, Michael Moreland at 07/07/2018 12:21 PM Michael Moreland MD Electronically Signed Final Report 07/07/2018 12:29 pm Savannah Hawk MD IMG US GEN ORDERABLE S documented in this encounter Visit Diagnoses Diagnosis Vasculitis Arteritis, unspecified CKD (chronic kidney disease) stage 3, GFR 30-59 ml/min Chronic kidney disease, Stage III (moderate) Anemia of chronic renal failure, stage 3 (moderate) documented in this encounter Care Teams Activities Manager Relationship Specialty Start Date End Date Brisa Betancourt APRN PCP - General Family Medicine 08/18/17 02/20/19 documented as of this encounter
--- OUTSIDE RECORDS SUMMARY | 2024-11-27 14:15 | XMS_ITS | Clinical Summary ---
Author Organization [facility] Address [address] [place] [address] Care Team Providers Care Vending Machine Host/Hostess Name Role Phone Unavailable Primary Care Provider Unavailabl e Social History Tobacco Use Types Packs/Day Years Used Date Smoking Tobacco: Never Assessed Comments Unknown Sex and Gender Information Value Date Recorded Sex Assigned at Not on file Legal Sex Female 17:40 EST Gender Identity Not on file Sexual Orientation Not on file Plan of Treatment Health Maintenance Due Date Last Done Comments Fall Risk Screening 2016 COVID-19 Vaccine ( season) 2024 RSV Immunization ( o r 60+ Years) (1 - 1-dose 75+ series) 2026 Hepatitis C Screen Completed 06/26/2022 Procedures Procedure Name Priority Date/Time Associated Diagnosis Comments HEPATITIS C AB W REFLEX TO HCV RNA BY PCR Routine 06/26/2022 12:22 EDT from Last 3 Months or Most Recently Relevant to Health Maintenance Results * HEPATITIS C AB W REFLEX TO HCV RNA BY PCR (06/26/2022 12:22 EDT) Hep C Antibody Negative Negative 06/29/2022 9:26 EDT [facility] Blood VENOUS BLOOD / Unknown 06/26/2022 12:22 EDT 06/28/2022 16:45 EDT us Provider Outr Resulting Lab CHEMISTRY & BLOOD GA S ORDERABLES Final Result [facility] [address] [place] [id number] from Last 3 Months or Most Recently Relevant to Health Maintenance
--- OUTSIDE RECORDS SUMMARY | 2024-11-27 14:15 | XMS_ITS | Encounter Summary ---
Author Organization [facility] Address [facility] [place] [address] Care Team Providers Care Zone Maintenance Technician Name Role Phone Unavailable Primary Care Provider Unavailabl e Encounter Details Date Type Department Care Team (Late st Contact Info) Description 08/27/2010 10:00 AM EDT Follow-[place] [address] Ronna Green MD [facility] [place] [address] Social History Tobacco Use Types Packs/Day Years Used Date Smoking Tobacco: Never Assessed Sex and Gender Information Value Date Recorded Sex Assigned at Not on file Gender Identity Not on file Sexual Orientation Not on file documented as of this encounter Plan of Treatment Upcoming Encounters Date Type Department Care Team (Late st Contact Info) Description 07/18/2025 1:00 PM EDT Office Visit Hematology/Oncology at [address] [phone] Ronna Green MD [facility] [place] [address] Melissa Dahl APRN [facility] [place] [address] documented as of this encounter Visit Diagnoses Not on filedocumented in this encounter
--- OUTSIDE RECORDS SUMMARY | 2024-11-27 14:15 | XMS_ITS | Encounter Summary ---
Author Organization [facility] Address [facility] [place] [address] Care Team Providers Care Licensed Mortgage Loan Officer Name Role Phone Joan Aguirre MD Primary Care Provider Unavaila ble Reason for Visit * Reason Comments Follow-up Encounter Details Date Type Department Care Team (Late st Contact Info) Description 07/06/2012 10:30 AM EDT Follow-Up Hematology Oncology at [address] [phone] [facility] [address] [place] [address] Anemia (Primary Dx) Discharge Disposition: Home Social History Tobacco Use Types Packs/Day Years Used Date Smoking Tobacco: Never Sex and Gender Information Value Date Recorded Sex Assigned at Not on file Gender Identity Not on file Sexual Orientation Not on file documented as of this encounter Last Filed Vital Signs Vital Sign Reading Time Taken Comments Blood Pressure 125/70 07/06/2012 10:24 AM EDT Pulse 81 07/06/2012 10:24 AM EDT Temperature 36.6 ??C (97.9 ??F) 07/06/2012 10:24 AM E DT Respiratory Rate 18 07/06/2012 10:24 AM EDT Oxygen Saturation 99% 07/06/2012 10:24 AM EDT Inhaled Oxygen Concentration - - Weight 89.4 kg (197 lb) 07/06/2012 10:24 AM EDT Height 155.5 cm (5' 1.22) 07/06/2012 10:24 AM E DT Body Mass Index 36.96 07/06/2012 10:24 AM EDT documented in this encounter Progress Notes * Ronna Green MD - 07/06/2012 11:10 AM EDT Hematology Clinic [facility] [place], [place] [phone] FOLLOW-UP PATIENT EVALUATION PROBLEM LIST: Patient Active Problem List Diagnoses ??? Anemia - - ?chronic disease. - [...] tissue damage on R JUSTIN as well. INTERIM HISTORY OF PRESENT ILLNESS: It was my pleasure to see Lamar Hinds back in clinic today. Lamar Hinds is a 61 y.o. year old female being seen for follow-up evaluation of Anemia. She feels greatly improved, not crying, since her depression is being treated w/medication and counseling. She has stable SOB with stair climbing, resolves /w rest. She has been recently treated for a UTI. In general, she feels well. ROS Energy level:stable Pain: No Appetite:good Fevers/chills/sweats:No Bruising/bleeding/melena:No Recent infections:No HEENT: negative Nausea/vomiting/diarrhea/constipation:No SOB/CURRIE/chest pain:No Change in adenopathy or other masses:No Unexpected weight loss or gain:No Skin rashes or petechiae:No Musculoskeletal complaints:No Extremities: Negative upper and lower bilaterally Neurologic symptoms:No Mood: Normal Sleep: Difficulty sleeping MEDS: Current outpatient prescriptions ordered prior to encounter Medication Sig Dispense Refill ??? citalopram (CELEXA) 20 mg tablet Take 20 mg by mouth daily. ??? lisinopril (PRINIVIL;ZESTRIL) 10 mg tablet Take 10 mg by mouth daily. ??? hydrochlorothiazide (HYDRODIURIL) 25 mg tablet Take 25 mg by mouth daily. ??? docusate sodium (COLACE) 100 mg capsule Take 100 mg by mouth 2 times daily. ??? ibuprofen (ADVIL;MOTRIN) 200 mg tablet Take 200 mg by mouth every 6 hours as needed. ??? DISCONTD: aspirin 81 mg EC tablet Take 81 mg by mouth daily. ??? DISCONTD: multivitamin (THERAGRAN) tablet Take 1 tablet by mouth daily. ??? DISCONTD: B Complex-Liver Extract Cap Take 1 tablet by mouth daily. With Iron Allergies: Allergies Allergen Reactions ??? Diphenhydramine Hcl CIS - Hives ??? Sulfa (Sulfonamide Antibiotics) CIS - hives, SOB ??? Codeine Phos CIS - N/V, palpitations ??? Penicillins CIS - Unknown INTERIM SOCIAL HISTORY Changes in job, home situation, tobacco or alcohol use: see HPI PHYSICAL EXAM BP 125/70 Pulse 81 Temp(Src) 36.6 ??C (97.9 ??F) (Oral) Resp 18 Ht 155.5 cm (5' 1.22) Wt89.359 kg (197 lb) BMI 36.96 kg/m2 SpO2 99% GENERAL: Lamar Hinds appears well and is in no acute distress. ENT: Oral pharynx clear. EYES: KALI NECK: Supple without adenopathy. AXILLARY: no adenopathy OTHER LYMPH: no adenopathy CARDIAC: Regular rate and rhythm without S3,S4 or murmurs. LUNGS: Clear to auscultation./percussion ABDOMEN: Soft and non-tender without hepatosplenomegaly or masses. EXTREMITIES: No cyanosis, clubbing, edema or calf tenderness. SKIN: No bruises or petechiae. NEUROLOGICAL: Alert and oriented to person, place and time. MUSCULOSKELETAL: No spinal or chest wall tenderness. LINE: nontender, no erythema LABORATORY STUDIES No results found for this or any previous visit (from the past 72 hour(s)). Date 02/19/1106/2012 WBC 6.66 7 ANC Hgb 11.3 10.3 MCV 84.7 HCT PLT 244k 228 Creat 1.3 LFT LDH ferritin 146 149 iron 59 50 tibc 341 346 %sat 17% 14% Labs copied from [facility]: 06/2012 10/18/10 8/31/10 6/10 WBC: 7.0 7.37 7.53 9.5 HGB: [...] 35/1.9 1.4 AP 124 137 AST/ALT 10/22 RADIOLOGY STUDIES REVIEWED: None ASSESSMENT/PLAN: 1. Anemia - renal failure is likely factor. Epo level is low at 12. Iron seems repleted but will keep her on supplements for now. Symptoms are stable. No dyspnea but she is tired. Meets criteria for EPO, but per guidelines we have to hold epo for hgb over 12. Therefore she would get only a marginalboost - probably not enough to make a symptomatic difference. At this point, will continue to monitor and if Hg drops lower or she is more symptomatic, consider EPO. Continue multivitamin w/ iron andB complex. Given her stability I will not see her for about 1.5 years but I remain available shouldshe need to be seen prior to that time. 2. Depression - follow up w/PCP, counseling RTC in January 2014 with cbc, cmp, iron, tibc, ferritin, epo level. total time:15 time in counsellin Copy JOAN AGUIRRE MD documented in this encounter Plan of Treatment Upcoming Encounters Date Type Department Care Team (Late st Contact Info) Description 07/18/2025 1:00 PM EDT Office Visit Hematology/Oncology at [address] [phone] [facility] [place] [address] [facility] [place] [address] documented as of this encounter Visit Diagnoses Diagnosis Anemia- Primary Anemia, unspecified documented in this encounter Care Teams Licensed Mortgage Loan Officer Relationship Specialty Start Date End Date Joan Aguirre MD PCP - General 09/16/10 01/09/14 documented as of this encounter
--- OUTSIDE RECORDS SUMMARY | 2024-11-27 14:15 | XMS_ITS | Encounter Summary ---
Author Organization [facility] Address [address] [place] [address] Care Team Providers Care Safety Sealer Name Role Phone Melissa Sandoval NP Primary Care Provider [phone] Encounter Details Date Type Department Care Team (Late st Contact Info) Description 07/16/2020 Lab Requisition [facility] Pathology & Laboratory Medicine - [address] [address] Outr Resulting Lab, Provider Social History Tobacco Use Types Packs/Day Years Used Date Smoking Tobacco: Never Assessed Comments Unknown Sex and Gender Information Value Date Recorded Sex Assigned at Not on file Legal Sex Female 17:40 EST Gender Identity Not on file Sexual Orientation Not on file documented as of this encounter Plan of Treatment Not on file documented as of this encounter Procedures Procedure Name Priority Date/Time Associated Diagnosis Comments ZZHN PROTEINASE 3 ANTIBODY Today 07/16/2020 10:38 EDT ZZHN MYELOPEROXIDASE ANTIBODY Today 07/16/2020 10:38 EDT ANCA, IFA Routine 07/16/2020 10:38 EDT documented in this encounter Results * PROTEINASE 3 ANTIBODY (07/16/2020 10:38 EDT) Proteinase 3 Ab (PR3), S <0.2 <0.4 (Negative ) U 07/25/2020 13:16 EDT [facility] Comment: Test Performed by: [facility] [address] [address] District Gauger: Deshawn Fernandez M.D. Ph.D.; CLIA# [id number] Blood VENOUS BLOOD / Unknown 07/16/2020 10:38 EDT 07/16/2020 16:46 EDT us Provider Outr Resulting Lab IMMUNOLOGY AND SEROL OGY ORDERABLES Final Result Performing Organization Address [facility] Co de Phone Number [facility] [address] [place] [address] * (ABNORMAL) MYELOPEROXIDASE ANTIBODY (07/16/2020 10:38 EDT) [facility] Myeloperoxidase Ab, S 3.3(H) <0.4 (Negative ) U 07/19/2020 9:09 EDT [facility] Comment: Interpretation: Positive (>=1.0) Test Performed by: [place] [address] District Gauger: Deshawn Fernandez M.D. Ph.D.; CLIA# [id number] Blood VENOUS BLOOD / Unknown 07/16/2020 10:38 EDT 07/16/2020 16:46 EDT us Provider Outr Resulting Lab IMMUNOLOGY AND SEROL OGY ORDERABLES Final Result Performing Organization Address [facility] de Phone Number [facility] [address] [place] [address] * (ABNORMAL) ANCA, IFA (07/16/2020 10:38 EDT) Pathologist [facility] Lab ANCA Interpretation Positive(A) Negative 07/17/2020 15:[address] [facility] Comment: Positive fluoresence alone is not specific for the diagnosis of granulomatosis with polyangitis (GPA) or microscopic polyangitis (MPA). Decision about treatment should not be based solely on the ANCA results. Confirmatory MYL and PR3AB specific solid phase assays have been reflexed. Results were obtained with the INOVA NOVA Lite ANCA kit by indirect immunofluorescence. ANCA Titer Pattern 1 1:160 Perinuclear Pattern 07/17/2020 15:[address] [facility] Blood VENOUS BLOOD / Unknown 07/16/2020 10:38 EDT 07/16/2020 16:46 EDT us Provider Outr Resulting Lab IMMUNOLOGY AND SEROL OGY ORDERABLES Final Result [facility] [address] [place] [address] documented in this encounter Visit Diagnoses Not on filedocumented in this encounter Care Teams Safety Sealer Relationship Specialty Start Date End Date Melissa Sandoval NP [address] [place] [phone] PCP - General 05/13/12 08/02/22 documented as of this encounter
--- OUTSIDE RECORDS SUMMARY | 2024-11-27 14:15 | XMS_ITS | Encounter Summary ---
Author Organization [facility] Address [facility] [place] [address] Care Team Providers Care Nat Instructor Name Role Phone Alexander Real APRN Primary Care Provider [phone] Reason for Visit * Reason Comments Follow-up Encounter Details Date Type Department Care Team (Late st Contact Info) Description 01/10/2014 9:30 AM EDT Follow-Up Hematology Oncology at [address] [phone] Ronna Green MD [facility] DR HEMATOLOGY [place] [address] Anemia (Primary Dx) Discharge Disposition: Home Social History Tobacco Use Types Packs/Day Years Used Date Smoking Tobacco: Never Sex and Gender Information Value Date Recorded Sex Assigned at Not on file Gender Identity Not on file Sexual Orientation Not on file documented as of this encounter Last Filed Vital Signs Vital Sign Reading Time Taken Comments Blood Pressure 124/67 01/10/2014 9:47 AM EDT Pulse 85 01/10/2014 9:47 AM EDT Temperature 36.7 ??C (98.1 ??F) 01/10/2014 9:47 AM ED T Respiratory Rate 18 01/10/2014 9:47 AM EDT Oxygen Saturation 97% 01/10/2014 9:47 AM EDT Inhaled Oxygen Concentration - - Weight 95.7 kg (211 lb) 01/10/2014 9:47 AM EDT Height 155.5 cm (5' 1.22) 01/10/2014 9:47 AM ED T copied Body Mass Index 39.58 01/10/2014 9:47 AM EDT documented in this encounter Progress Notes * Ronna Green MD - 01/10/2014 9:48 AM EDT Hematology Clinic [facility] [place] [address] FOLLOW-UP PATIENT EVALUATION PROBLEM LIST: Patient Active Problem List Diagnosis ??? Depression ??? Anemia - - ?chronic [...] in clinic today. Lamar Hinds is a 63 y.o. year old female being seen for follow-up evaluation of Anemia. I have not seen her in 18 mos b/c her anemia was so stable and had not changed significantly. I scheduled a long f/u to re-assess before potentially discharging her from heme f/u. We had determined that she might be a candidate for erythropoietin therapy should her hemoglobin falls below 10 and she had appropriate symptoms to suggestthe need for a post supplementation. He states that she has some shortness of breath when she exerts herself. She did start an exercise class at [employer] [facility] times per week. She complains of low back pain and her knees bother her as well. 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 Appetite:good Fevers/chills/sweats:No Bruising/bleeding/melena:No Recent infections: she had viral bronchitis with post viral cough - resolving. HEENT: negative Nausea/vomiting/diarrhea/constipation:No SOB/CURRIE/chest pain:No Change in adenopathy or other masses:No Unexpected weight loss or gain:No Skin rashes or petechiae:No Musculoskeletal complaints:No Extremities: Negative upper and lower bilaterally Neurologic symptoms:No Mood: Normal Sleep: Difficulty sleeping MEDS: No outpatient prescriptions have been marked as taking for the 01/10/14 encounter (Follow-Up) with Ronna Green MD. Allergies: Allergies Allergen Reactions ??? Codeine Phosphate CIS - N/V, palpitations ??? Diphenhydramine Hcl CIS - Hives ??? Sulfa (Sulfonamide Antibiotics) CIS - hives, SOB ??? Penicillins CIS - Unknown INTERIM SOCIAL HISTORY Changes in job, home situation, tobacco or alcohol use: see HPI PHYSICAL EXAM Wt 95.709 kg (211 lb) There is no height on file to calculate BSA. GENERAL: Lamar Hinds appears well and is [...] spinal or chest wall tenderness. LABORATORY STUDIES Date 02/19/1106/2012 WBC 6.66 7 6.3 ANC 3.7 Hgb 11.3 10.3 11.6 MCV 84.7 86.3 HCT PLT 244k 228 258 Creat 1.3 1.5 LFT LDH ferritin 146 149 220 iron 59 50 61 tibc 341 346 313 %sat 17% 14% 19% epo 12 8.3 Labs copied from [facility]: 06/201208/11/10 06/24/1004/03 WBC: [...] 124 137 AST/ALT 10/22 RADIOLOGY STUDIES REVIEWED: none ASSESSMENT/PLAN: It was a pleasure to see Ms. Hinds back in clinic today. I have now followed her for 3 years and although I have not been able to determine etiology of her anemia (I suspect is due to her renalinsufficiency and inadequate erythropoietin production), her anemia has not progressed over time. She has not dropped to hemoglobin below 10 which would be the insurance cut off for allowing erythropoietin supplementation. Her white count and platelets have remained normal. I think at this point she can return to the care for primary care nurse practitioner, Alexander Real. Should her hemoglobin dropped consistently below 10 and she wants to consider erythropoietin supplementation I am always happy to see her back. Of note, epo supplementation is usually administered every 2-3 weeks and must be given on an ongoing basis, otherwise the benefit is lost. Therefore, she would need to want to commit to coming in regularly for the injections. I would recommend annual CBC's with PCP. Please do not hesitate to refer her back to hematology for referral should her anemia change or worsen. total time:25 time in counsellin Copy ALEXANDER REAL APRN documented in this encounter Procedure Notes * Provider, Scanning - 01/29/2014 11:05 AM EDTAssociated Order(s): SCAN DOC: LAB documented in this encounter Miscellaneous Notes * Miscellaneous - Provider, Scanning - 01/10/2014 10:20 AM EDT documented in this encounter Plan of Treatment Upcoming Encounters Date Type Department Care Team (Late st Contact Info) Description 07/18/2025 1:00 PM EDT Office Visit Hematology/Oncology at [address] [phone] Ronna Green MD [facility] DR HEMATOLOGY [place] [address] Alexander Dahl APRN [facility] HEMATOLOGY [place] [address] documented as of this encounter Procedures Procedure Name Priority Date/Time Associated Diagnosis Comments LAB SCAN 01/29/2014 11:05 AM EDT documented in this encounter Results * SCAN DOC: LAB (01/29/2014 11:05 AM EDT) Narrative 01/29/2014 11:05 AM EDT Procedure Note Provider, Scanning - 01/29/2014 11:05 AM EDT Scanning Provider MEDIA MGR SCAN EXT O RDR/RSLT documented in this encounter Visit Diagnoses Diagnosis Anemia- Primary Anemia, unspecified documented in this encounter Care Teams Nat Instructor Relationship Specialty Start Date End Date Alexander Real APRN PCP - General 01/10/14 12/20/16 documented as of this encounter
--- OUTSIDE RECORDS SUMMARY | 2024-11-27 14:15 | XMS_ITS | Encounter Summary ---
Author Organization [facility] Address [facility] [place] [address] Care Team Providers Care Relief Man Name Role Phone Melissa Sandoval APRN Primary Care Provider [phone] Encounter Details Date Type Department Care Team (Latest Contact Info) Description 02/21/2015 - 02/21/2015 11:59 PM EDT Hospital Encounter Radiology Library at [facility] [place] [address] Fausto Shrestha MD [facility] [place] [address] Pain Discharge Disposition: Home Social History Tobacco [...] tablet Take 30 mg by mouth daily. cyanocobalamin, vitamin B-12, 100 mcg tabletIndications:Anemia Take [...] 1:00 PM EDT Office Visit Hematology/Oncology at [address] [address] Ronna Green MD [facility] [place] [address] Melissa Dahl APRN [facility] [place] [address] documented as of this encounter Procedures Procedure Name Priority Date/Time Associated Diagnosis Comments FILM LIBRARY STORAGE ONLY DX KNEE Routine 02/21/2015 12:00 AM EDT Pain documented in this encounter Results * Film Library- Storage only DX Knee (02/21/2015 12:00 AM EDT) Narrative [facility] - 04/20/2016 8:54 AM EDT This exam is for storage only and is auto-finalizing. Fausto Shrestha MD IMG FILM LIBRARY OR DERABLES Performing Organization Address City/State/[facility] Co de Phone Number [place], [place] documented in this encounter Visit Diagnoses Diagnosis Pain Generalized pain documented in this encounter Care Teams Relief Man Relationship Specialty Start Date End Date Melissa Sandoval APRN PCP - General 01/10/14 12/20/16 documented as of this encounter
--- OUTSIDE RECORDS SUMMARY | 2024-11-27 14:15 | XMS_ITS | Encounter Summary ---
Author Organization [facility] Address [address] [place] [address] Care Team Providers Care Wet Primer Powder Blender Name Role Phone Melissa Sandoval NP Primary Care Provider [phone] Encounter Details Date Type Department Care Team (Late st Contact Info) Description 06/27/2022 Lab Requisition [facility] Pathology & Laboratory Medicine - [address] [address] Outr Resulting Lab, Provider Social History Tobacco [...] RNA BY PCR Routine 06/26/2022 12:22 EDT documented in this encounter Results * HEPATITIS C AB W REFLEX TO HCV RNA BY PCR (06/26/2022 12:22 EDT) Hep C Antibody Negative Negative 06/29/2022 9:26 EDT [facility] Blood VENOUS BLOOD / Unknown 06/26/2022 12:22 EDT 06/28/2022 16:45 EDT us Provider Outr Resulting Lab CHEMISTRY & BLOOD GA S ORDERABLES Final Result [facility] [address] [place] [address] documented in this encounter Visit Diagnoses Not on filedocumented in this encounter Care Teams Wet Primer Powder Blender Relationship Specialty Start Date End Date Melissa Sandoval NP [address] [place] [phone] PCP - General 05/13/12 08/02/22 documented as of this encounter
--- OUTSIDE RECORDS SUMMARY | 2024-11-27 14:15 | XMS_ITS | Encounter Summary ---
Author Organization [facility] Address [facility] [place] [address] Care Team Providers Care Filenet P8 Developer Name Role Phone Melissa Sandoval APRN Primary Care Provider [phone] Encounter Details Date Type Department Care Team (Latest Contact Info) Description 02/18/2016 - 02/18/2016 12:04 AM EDT Hospital Encounter Radiology Library at [facility] [place] [address] Fausto Shrestha MD [facility] [place] [address] Pain Discharge Disposition: Home Social History Tobacco [...] 1:00 PM EDT Office Visit Hematology/Oncology at [address] [address] Ronna Green MD [facility] [place] [address] Melissa Dahl APRN [facility] [place] [address] documented as of this encounter Procedures Procedure Name Priority Date/Time Associated Diagnosis Comments FILM LIBRARY STORAGE ONLY CT LOWER EXTREMITY Routine 02/18/2016 12:00 AM EDT Pain documented in this encounter Results * Film Library- Storage Only CT Lower Extremity (02/18/2016 12:00 AM EDT) Narrative [facility] - 04/20/2016 2:34 PM EDT This exam is for storage only and is auto-finalizing. Fausto Shrestha MD IMG FILM LIBRARY OR DERABLES [place] documented in this encounter Visit Diagnoses Diagnosis Pain Generalized pain documented in this encounter Care Teams Filenet P8 Developer Relationship Specialty Start Date End Date Melissa Sandoval APRN PCP - General 01/10/14 12/20/16 documented as of this encounter
--- OUTSIDE RECORDS SUMMARY | 2024-11-27 14:15 | XMS_ITS | Encounter Summary ---
Author Organization [facility] Address [address] [place] [address] Care Team Providers Care Agricultural Plow Operator Name Role Phone Melissa Sandoval NP Primary Care Provider [phone] Encounter Details Date Type Department Care Team (Late st Contact Info) Description 06/17/2022 Lab Requisition [facility] Pathology & Laboratory Medicine - [address] [address] Outr Resulting Lab, Provider Social History Tobacco [...] Name Priority Date/Time Associated Diagnosis Comments PTH INTACT Routine 06/16/2022 7:50 EDT documented in this encounter Results * PTH INTACT (06/16/2022 7:50 EDT) Intact PTH 23 19 - 88 pg/mL 06/18/2022 9:38 EDT [facility] Blood VENOUS BLOOD / Unknown 06/16/2022 7:50 EDT 06/17/2022 16:31 EDT us Provider Outr Resulting Lab CHEMISTRY & BLOOD GA S ORDERABLES Final Result [facility] [address] [place] [address] documented in this encounter Visit Diagnoses Not on filedocumented in this encounter Care Teams Agricultural Plow Operator Relationship Specialty Start Date End Date Melissa Sandoval NP [address] [place] [phone] PCP - General 05/13/12 08/02/22 documented as of this encounter
--- OUTSIDE RECORDS SUMMARY | 2024-11-27 14:15 | XMS_ITS | Encounter Summary ---
Author Organization [facility] Address [address] [place] [address] Care Team Providers Care Ring Sewer Name Role Phone Melissa Sandoval NP Primary Care Provider [phone] Encounter Details Date Type Department Care Team (Late st Contact Info) Description 05/21/2021 Lab Requisition [facility] Pathology & Laboratory Medicine - [address] [address] Outr Resulting Lab, Provider Social History Tobacco [...] Date/Time Associated Diagnosis Comments PTH INTACT Routine 05/20/2021 15:55 EDT documented in this encounter Results * PTH INTACT (05/20/2021 15:55 EDT) Intact PTH 26 19 - 88 pg/mL 05/22/2021 10:37 EDT [facility] Blood VENOUS BLOOD / Unknown 05/20/2021 15:55 EDT 05/21/2021 15:50 EDT us Provider Outr Resulting Lab CHEMISTRY & BLOOD GA S ORDERABLES Final Result [facility] [address] [place] [address] documented in this encounter Visit Diagnoses Not on filedocumented in this encounter Care Teams Ring Sewer Relationship Specialty Start Date End Date Melissa Sandoval NP [address] [place] [phone] PCP - General 05/13/12 08/02/22 documented as of this encounter
--- OUTSIDE RECORDS SUMMARY | 2024-11-27 14:15 | XMS_ITS | Encounter Summary ---
Author Organization [facility] Address [address] [place] [address] Care Team Providers Care Historical Archeologist Name Role Phone Melissa Sandoval NP Primary Care Provider [phone] Encounter Details Date Type Department Care Team (Late st Contact Info) Description 04/16/2020 Lab Requisition [facility] Pathology & Laboratory Medicine - [facility] [address] [place] [address] Outr Resulting Lab, Provider Social History Tobacco [...] Diagnosis Comments [facility] PROTEINASE 3 ANTIBODY Today 04/16/2020 11:08 EDT [facility] MYELOPEROXIDASE ANTIBODY Today 04/16/2020 11:08 EDT ANCA, IFA Routine 04/16/2020 11:08 EDT documented in this encounter Results * PROTEINASE 3 ANTIBODY (04/16/2020 11:08 EDT) Proteinase 3 Ab (PR3), S <0.2 <0.4 (Negative ) U 04/18/2020 11:37 EDT [facility] Comment: Test Performed by: [facility] Social [address] [address] Shovel Handle Assembler: Deshawn Fernandez M.D. Ph.D.; CLIA# [id number] Blood VENOUS BLOOD / Unknown 04/16/2020 11:08 EDT 04/16/2020 16:05 EDT us Provider Outr Resulting Lab IMMUNOLOGY AND SEROL OGY ORDERABLES Final Result Performing Organization Address [facility] Co de Phone Number [facility] [address] [place] [address] * (ABNORMAL) MYELOPEROXIDASE ANTIBODY (04/16/2020 11:08 EDT) Pathologist [facility] Myeloperoxidase Ab, S 3.7(H) <0.4 (Negative ) U 04/18/2020 11:37 EDT [facility] Comment: Interpretation: Positive (>=1.0) Test Performed by: [facility] [place] [address] Shovel Handle Assembler: Deshawn Fernandez M.D. Ph.D.; CLIA# [id number] Blood VENOUS BLOOD / Unknown 04/16/2020 11:08 EDT 04/16/2020 16:05 EDT us Provider Outr Resulting Lab IMMUNOLOGY AND SEROL OGY ORDERABLES Final Result Performing Organization Address [facility] de Phone Number [facility] [address] [place] [address] * (ABNORMAL) ANCA, IFA (04/16/2020 11:08 EDT) Pathologist [facility] Lab ANCA Interpretation Positive(A) Negative 04/17/2020 14:47 EDT [facility] Comment: Positive fluoresence alone is not specific for the diagnosis of granulomatosis with polyangitis (GPA) or microscopic polyangitis (MPA). Decision about treatment should not be based solely on the ANCA results. Confirmatory MYL and PR3AB specific solid phase assays have been reflexed. Results were obtained with the INOVA NOVA Lite ANCA kit by indirect immunofluorescence. ANCA Titer Pattern 1 1:80 Perinuclear Pattern 04/17/2020 14:47 EDT [facility] Blood VENOUS BLOOD / Unknown 04/16/2020 11:08 EDT 04/16/2020 16:05 EDT us Provider Outr Resulting Lab IMMUNOLOGY AND SEROL OGY ORDERABLES Final Result [facility] [address] [place] [address] documented in this encounter Visit Diagnoses Not on filedocumented in this encounter Care Teams Historical Archeologist Relationship Specialty Start Date End Date Melissa Sandoval NP [address] [place] [phone] PCP - General 05/13/12 08/02/22 documented as of this encounter
--- OUTSIDE RECORDS SUMMARY | 2024-11-27 14:15 | XMS_ITS | Referral Summary ---
Author Organization [facility] Address [address] [place] [address] Care Team Providers Care Account Support Specialist Name Role Phone Unavailable Primary Care Provider Unavailabl e Social History Tobacco Use Types Packs/Day Years Used Date Smoking Tobacco: Never Assessed Comments Unknown Sex and Gender Information Value Date Recorded Sex Assigned at Not on file Legal Sex Female 17:40 EST Gender Identity Not on file Sexual Orientation Not on file Plan of Treatment Not on file Procedures Procedure Name Priority Date/Time Associated Diagnosis Comments HEPATITIS C AB W REFLEX TO HCV RNA BY PCR Routine 06/26/2022 12:22 EDT from Last 3 Months or Most Recently Relevant to Health Maintenance Results * HEPATITIS C AB W REFLEX TO HCV RNA BY PCR (06/26/2022 12:22 EDT) Hep C Antibody Negative Negative 06/29/2022 9:26 EDT [facility] Blood VENOUS BLOOD / Unknown 06/26/2022 12:22 EDT 06/28/2022 16:45 EDT us Provider Outr Resulting Lab CHEMISTRY & BLOOD GA S ORDERABLES Final Result [facility] [address] [place] [address] from Last 3 Months or Most Recently Relevant to Health Maintenance
--- OUTSIDE RECORDS SUMMARY | 2024-11-27 14:15 | XMS_ITS | Encounter Summary ---
Author Organization [facility] Address [address] [place] [address] Care Team Providers Care Raw Stock Machine Loader Name Role Phone Melissa Sandoval NP Primary Care Provider [phone] Encounter Details Date Type Department Care Team (Late st Contact Info) Description 06/27/2022 Lab Requisition [facility] Pathology & Laboratory Medicine - [address] [address] Outr Resulting Lab, Provider Social History Tobacco [...] Procedure Name Priority Date/Time Associated Diagnosis Comments HIV 1/2 ANTIGEN AND ANTIBODY, 4TH GENERATION Routine 06/26/2022 12:22 EDT documented in this encounter Results * HIV 1/2 ANTIGEN AND ANTIBODY, 4TH GENERATION (06/26/2022 12:22 EDT) HIV 1 and 2 Antibody/p24 Antigen, 4th Generation Negative Negative 06/29/2022 9:40 EDT [facility] Comment:If acute HIV-1 infec tion is suspected in a high risk patient, submit plasma specimen for HIV-1 RNA quantitation test. Blood VENOUS BLOOD / Unknown 06/26/2022 12:22 EDT 06/28/2022 16:45 EDT Narrative [facility] - 06/29/2022 9:40 EDT Fourth Generation assay performed on the Siemens Centaur XPT. us Provider Outr Resulting Lab IMMUNOLOGY AND SEROL OGY ORDERABLES Final Result [facility] [address] [place] [address] documented in this encounter Visit Diagnoses Not on filedocumented in this encounter Care Teams Raw Stock Machine Loader Relationship Specialty Start Date End Date Melissa Sandoval NP [address] [place] [phone] PCP - General 05/13/12 08/02/22 documented as of this encounter
--- OUTSIDE RECORDS SUMMARY | 2024-11-27 14:15 | XMS_ITS | Encounter Summary ---
Author Organization Replaced By [facility] Address [facility] [place] [address] Care Team Providers Care Family Dinner Service Specialist Name Role Phone Melissa Sandoval APRN Primary Care Provider [phone] Encounter Details Date Type Department Care Team (Latest Contact Info) Description 02/10/2016 - 02/10/2016 11:59 PM EDT Hospital Encounter Radiology Library at [facility] [place] [address] Fausto Shrestha MD [facility] [place] [address] Pain Discharge Disposition: Home Social History Tobacco [...] PM EDT Office Visit Hematology/Oncology at [address] [address] Ronna Green MD [facility] HEMATOLOGY [place] [address] Melissa Dahl APRN [facility] HEMATOLOGY [place] [address] documented as of this encounter Procedures Procedure Name Priority Date/Time Associated Diagnosis Comments FILM LIBRARY STORAGE ONLY DX KNEE Routine 02/10/2016 12:00 AM EDT Pain documented in this encounter Results * Film Library- Storage only DX Knee (02/10/2016 12:00 AM EDT) Narrative [facility] - 04/20/2016 8:55 AM EDT This exam is for storage only and is auto-finalizing. Fausto Shrestha MD IMG FILM LIBRARY OR DERABLES [place], [place] documented in this encounter Visit Diagnoses Diagnosis Pain Generalized pain documented in this encounter Care Teams Family Dinner Service Specialist Relationship Specialty Start Date End Date Melissa Sandoval APRN PCP - General 01/10/14 12/20/16 documented as of this encounter
--- OUTSIDE RECORDS SUMMARY | 2024-11-27 14:15 | XMS_ITS | Encounter Summary ---
Author Organization [facility] [place] [address] Care Team Providers Care Plycor Operator Name Role Phone Unavailable Primary Care Provider Unavailabl e Encounter Details Date Type Department Care Team (Late st Contact Info) Description 08/27/2010 10:00 AM EDT Follow-[place] [address] Kaylynn March, COMMODITY TRADER Social History Tobacco Use Types Packs/Day Years [...] 1:00 PM EDT Office Visit Hematology/Oncology at [address] [address] Ronna Green MD [facility] DR [place]AT[place] [address] Melissa Dahl APRN [facility] [place] [address] documented as of this encounter Visit Diagnoses Not on filedocumented in this encounter
--- OUTSIDE RECORDS SUMMARY | 2024-11-27 14:15 | XMS_ITS | Encounter Summary ---
Author Organization [facility] Address [facility] [place] [address] Care Team Providers Care Calendar Control Clerk Blood Bank Name Role Phone Joan Aguirre MD Primary Care Provider Unavaila ble Reason for Visit * Reason Comments Anemia Encounter Details Date Type Department Care Team (Late st Contact Info) Description 02/25/2011 2:30 PM EDT Follow-Up Hematology Oncology at [address] [address] Ronna Green MD [facility] DR HEMATOLOGY [place] [address] Anemia (Primary Dx) Discharge Disposition: Home Social History Tobacco Use Types Packs/Day Years Used Date Smoking Tobacco: Never Assessed Sex and Gender Information Value Date Recorded Sex Assigned at Not on file Gender Identity Not on file Sexual Orientation Not on file documented as of this encounter Last Filed Vital Signs Vital Sign Reading Time Taken Comments Blood Pressure 126/67 02/25/2011 2:34 PM EDT Pulse 67 02/25/2011 2:34 PM EDT Temperature 36.6 ??C (97.9 ??F) 02/25/2011 2:34 PM ED T Respiratory Rate 16 02/25/2011 2:34 PM EDT Oxygen Saturation 98% 02/25/2011 2:34 PM EDT Inhaled Oxygen Concentration - - Weight 87 kg (191 lb 12.8 oz) 02/25/2011 2:34 PM EDT Height 155.5 cm (5' 1.22) 02/25/2011 2:34 PM ED T Body Mass Index 35.98 02/25/2011 2:34 PM EDT documented in this encounter Progress Notes * Ronna Green MD - 02/25/2011 2:45 PM EDT Hematology Clinic [facility] [place] [place] [phone] FOLLOW-UP PATIENT EVALUATION PROBLEM LIST: Patient Active Problem List Diagnoses Code ??? Anemia 285.9AA ??? CIS - Osteoarthritis ??? Vasculitis 447.6K PROBLEM LIST: 1. Osteoarthritis [Onset: Unknown] TKR April 2010 2. Anemia [Onset: Unknown] - - ?chronic disease. - oral iron replacement --04/03 - neg SPEP, Neg Donald, Haptoglobin 226 (H), Flow cytometry for PNH is negative. R/O - multiple myeloma, PNH, hemolysis. 3. Vasculitis [Onset: 1993] Vasculitis - w/tissue damage - attributed to Brown Recluse Spider bite - 16 yrs ago - wound healingcomplications, involving bone on left leg and tissue damage on R JUSTIN as well. INTERIM HISTORY OF PRESENT ILLNESS: It was my pleasure to see Lamar Hinds back in clinic today. Lamar Hinds is a 60 y.o. year old female being seen for [...] to encounter Medication Sig Dispense Refill ??? hydrochlorothiazide (HYDRODIURIL) 25 mg tablet ??? lisinopril (PRINIVIL;ZESTRIL) 10 mg tablet ??? omeprazole (PRILOSEC OTC) 20 mg tablet ??? FE FUMARATE/VIT C/B12-IF/FA (FEROTRIN) 110-0.5 mg Cap ??? citalopram (CELEXA) 20 mg tablet ??? aspirin 81 mg EC tablet Allergies: Allergies Allergen Reactions ??? Diphenhydramine Hcl CIS - Hives ??? Sulfa (Sulfonamide Antibiotics) CIS - hives, SOB ??? Codeine Phos CIS - N/V, palpitations ??? Penicillins CIS - Unknown INTERIM SOCIAL HISTORY Changes in job, home situation, tobacco or alcohol use: see HPI PHYSICAL EXAM There were no vitals taken for this visit. GENERAL: Lamar Hinds appears well and is [...] visit (from the past 72 hour(s)). Date 02/19 WBC 6.66 ANC Hgb 11.3 HCT PLT 244k Creat 1.3 LFT LDH ferritin 146 iron 59 tibc 341 %sat 17% Labs copied from CIS: 08/11/10 06/24/1004/03 WBC: 7.37 7.53 9.5 HGB: 9.9 9.5 11.0 MCV: 82.7 85 82.5 PLT: 266k 292k 269 ANC: 3.99 4.84 EPO: 9.0 1 1 RETIC: 1.3 Ferritin: 188 340 209 Iron 42 41 (40) TIBC 314 346 (312) TF Sat: 13 12 13 Lytes: nml nml BUN/Crea: 39/1.7 35/1.9 1.4 AP 124 137 AST/ALT 10/22 RADIOLOGY STUDIES REVIEWED: None ASSESSMENT/PLAN: 1. Anemia of chronic disease - renal failure is likely factor. Generally feeling better, symptoms are stable. Meets criteria for EPO, but per guidelines we have to hold epo for hgb over 12. Thereforeshe would get only a marginal boost - probably not enough to make a symptomatic difference. At thispoint, will continue to monitor and if Hg drops lower or she is more symptomatic, consider EPO. Continue multivitamin w/ iron and B complex. 2. Depression - improving. f/u w/PCP, counseling RTC in Jun 2012 with cbc, iron, tibc, ferritin, epo level. total time:15 time in counsellin Copy JOAN AGUIRRE MD documented in this encounter Procedure Notes * Provider, Scanning - 07/05/2012 12:06 PM EDTAssociated Order(s): SCAN DOC: LAB documented in this encounter Plan of Treatment Upcoming Encounters Date Type Department Care Team (Late st Contact Info) Description 07/18/2025 1:00 PM EDT Office Visit Hematology/Oncology at [address] [phone] Ronna Green MD [facility] DR HEMATOLOGY [place] [address] Melissa Dahl APRN [facility] DR HEMATOLOGY [place] [address] documented as of this encounter Procedures Procedure Name Priority Date/Time Associated Diagnosis Comments LAB SCAN 07/05/2012 12:06 PM EDT documented in this encounter Results * SCAN DOC: LAB (07/05/2012 12:06 PM EDT) Narrative 07/05/2012 12:06 PM EDT Procedure Note Provider, Scanning - 07/05/2012 12:06 PM EDT Scanning Provider MEDIA MGR SCAN EXT O RDR/RSLT documented in this encounter Visit Diagnoses Diagnosis Anemia- Primary Anemia, unspecified documented in this encounter Care Teams Calendar Control Clerk Blood Bank Relationship Specialty Start Date End Date Joan Aguirre MD PCP - General 09/16/10 01/09/14 documented as of this encounter
--- OUTSIDE RECORDS SUMMARY | 2024-11-27 14:16 | XMS_ITS | Encounter Summary ---
Author Organization [facility] Address [address] [place] [address] Care Team Providers Care Leaf Stamper Name Role Phone Unknown, Provider Primary Care Provider Unava ilable Encounter Details Date Type Department Care Team (Late st Contact Info) Description 04/18/2004 Results Only [facility] - Maple conversion [address] [place] [address] Dominic Zavala MD [address] [place] [phone] Social History Tobacco Use Types Packs/Day Years [...] Procedure Name Priority Date/Time Associated Diagnosis Comments CYTOPATHOLOGY Routine 04/18/2004 0:00 EDT documented in this encounter Results * CYTOPATHOLOGY (04/18/2004 0:00 EDT) Pathology Report: CYTOPATHOLOGY REPORT Reports generated via electronic interface contain original data; however they are lacking the format of the original report. Caution should be taken when reading/interpreti ng unformatted reports. Name: ? LAMAR KOCH Tiffanie ? Accession #: ? [id number] : ? 1950 (Age: 53) ??F ?Collect Date: ? 04/18/2004 Location: ? [facility] ? Receive Date: ? 04/22/2004 Provider: ? DOMINIC ZAVALA MD Copy to: ?JOAN AGUIRRE MD ? CYTOLOGIC DIAGNOSIS: ? Urine, voided, pooled x3, cytologic evaluation: 1. ?No malignant cells identified. 2. ?Rare degenerative cells. Document reviewed and electronically signed by: ? KYLE COLIN MD Report Date: ??04/23/2004 14:51 By the signature above, the attending physician certifies that he/she has personally conducted a gross and/or microscopic examination of the described specimens and rendered or confirmed the above diagnosis. Specimen Type: ? Urine, Voided, Pooled x 3 Clinical History: ? Clinical diagnosis codes; 618.0, 625.6, and 788.41. ? Gross Description: ? 3 tubes of Cytolyt, each containing 50 cc of clear, yellow fluid were received, pooled x3, ??and processed by selective cellular enhancement technique. ? End of Report [facility] 04/18/2004 04/22/2004 8:2 6 EDT us Dominic Zavala MD PATHOLOGY ORDERABLES Final Re sult [facility] [address] [place] [address] documented in this encounter Visit Diagnoses Not on filedocumented in this encounter Care Teams Leaf Stamper Relationship Specialty Start Date End Date Unknown, Provider, PCP - General 01/27/10 05/12/12 documented as of this encounter
--- OUTSIDE RECORDS SUMMARY | 2024-11-27 14:16 | XMS_ITS | Encounter Summary ---
Author Organization [facility] Address [address] [place] [address] Care Team Providers Care Wheelabrator Operator Name Role Phone Melissa Sandoval SARAH Primary Care Provider [phone] Encounter Details Date Type Department Care Team (Late st Contact Info) Description 03/03/2017 Results Only [facility] [phone] Galdino Hammond, DO [address] [facility] [address] [place], [place] [phone] Social History Tobacco Use Types Packs/Day Years [...] Procedure Name Priority Date/Time Associated Diagnosis Comments SURGICAL PATHOLOGY Routine 03/03/2017 14 :54 EDT documented in this encounter Results * SURGICAL PATHOLOGY (03/03/2017 14:54 EDT) Pathology Report: SURGICAL PATHOLOGY REPORT Reports generated via electronic interface contain original data; however they are lacking the format of the original report. Caution should be taken when reading/interpret ing unformatted reports. Name: ? LAMAR KOCH ? Accession #: ? [id number] ? : ? 1950 (Age: 66) ??F ? Collect Date: ? 03/03/2017 ? Location: ? [facility] ? Receive Date: ? 03/04/2017 ? Provider: GALDINO HAMMOND DO Copy to: INDERJIT ALVAREZ BUN PANNER ? Final Pathologic Diagnosis: GALLBLADDER, CHOLECYSTECTOMY: - Denuded gallbladder with acute cholecystitis and cholelithiasis. Document reviewed and electronically signed by: COLTON CANDELARIA MD Report ??Date: 03/10/2017 18:01 By the signature above, the attending physician certifies that he/she has personally conducted a gross and/or microscopic examination of the described specimens and rendered or confirmed the above diagnosis. Specimen(s) Received: Gallbladder Clinical History: Acute cholecystitis Gross Description: ? Received in formalin labelled with proper patient identification (initials G, D) and gallbladder is a partially disrupted gallbladder (12.0 x 0.5 x 2.0 cm) with an attached segment of cystic duct (0.1 cm in length x 0.3 cm in diameter). ? The serosa is cervantes-brown and smooth, and the gallbladder wall is completely thinned where the stone presses against the mucosa. The mucosa is cervantes-brown and the wall is 0.2 cm in thickness. The cystic duct lumen is obstructed by a large stone. The cystic duct margin is inked black. Three brown-green choleliths are present, ranging from 1.0-5.0 cm in greatest dimension. ? Two inside outside sales representative sections and the inked en face cystic duct margin are submitted in 1. Dr. Alejo 03/04/2017 5:33 PM End of Report [facility] 03/03/2017 14:5 4 EDT 03/04/2017 14:54 EDT us Galdino Hammond DO PATHOLOGY ORDERABLES Fi nal Result [facility] [address] [place] [address] documented in this encounter Visit Diagnoses Not on filedocumented in this encounter Care Teams Wheelabrator Operator Relationship Specialty Start Date End Date Melissa Sandoval NP [address] [place] [phone] PCP - General 05/13/12 08/02/22 documented as of this encounter
--- OUTSIDE RECORDS SUMMARY | 2024-11-27 14:16 | XMS_ITS | Encounter Summary ---
Author Organization [facility] Address [address] [place] [address] Care Team Providers Care Sleeping Car Conductor Name Role Phone Alexander Real MELON PACKER Primary Care Provider [phone] Encounter Details Date Type Department Care Team (Late st Contact Info) Description 12/20/2013 Results Only [facility] Laboratory Services - [facility] ([facility]) [address] [place] [address] Alexander Real, SARAH [address] [place] [address] Social History Tobacco Use Types Packs/Day Years [...] Procedure Name Priority Date/Time Associated Diagnosis Comments PAP TEST- RESULT ONLY Routine 12/20/2013 0:00 EST documented in this encounter Results * PAP TEST- RESULT ONLY (12/20/2013 0:00 EST) Pathology Report: CYTOPATHOLOGY REPORT Reports generated via electronic interface contain original data; however they are lacking the format of the original report. Caution should be taken when reading/interpreti ng unformatted reports. Name: ? LAMAR KOCH Tiffanie ? Accession #: ? [id number] ? : ? 1950 (Age: 63) ??F ?Collect Date: ? 12/20/2013 ? Location: ? [facility] ? Receive Date: ? 12/22/2013 ? Provider: ALEXANDER REAL MELON PACKER Copy to: ? Final Report SPECIMEN ADEQUACY ? Satisfactory for Evaluation - transformation zone component present GENERAL CATEGORIZATION ? Negative for Intraepithelial Lesion or Malignancy ?? Menstrual/Pregnanc y Status: ??Menopausal Specimen/Source: ??Pap Test, Cervix/Endocervix, ThinPrep Imaging System with manual evaluation Document reviewed and electronically signed by: ? GEOVANNY Clayton(ASCP) ? Report ??Date: 01/01/2014 09:09 HPV with Pap Test ? Date Ordered: ? 01/01/2014 ? Status: ?? Signed Out ?Date Complete: ? 01/03/2014 ? By: ??System Interface ? Date Reported: ? 01/03/2014 ? Interpretation RESULT: Negative for HPV. No E6 or E7 mRNA is detected from HPV types 16,18,31,33,35, 39,45,51,52,56,58, 59,66, and 68 by chinchilla machine operator mediated amplification. Comments Document reviewed and electronically signed by: ? System Interface ? Report date: 01/03/2014 By the signature above, the attending physician certifies that he/she has personally conducted a gross and/or microscopic examination of the described specimens and rendered or confirmed the above diagnosis. End of Report [facility] 12/20/2013 12/22/2013 us Alexander Real NP PATHOLOGY ORDERABLES Final Res ult [facility] [address] [place] [address] documented in this encounter Visit Diagnoses Not on filedocumented in this encounter Care Teams Sleeping Car Conductor Relationship Specialty Start Date End Date Alexander Real NP [address] [place] [phone] PCP - General 05/13/12 08/02/22 documented as of this encounter
--- OUTSIDE RECORDS SUMMARY | 2024-11-27 14:16 | XMS_ITS | Encounter Summary ---
Author Organization [facility] Address [address] [place] [address] Care Team Providers Care Senior Boiler Operator Name Role Phone Unknown, Provider Primary Care Provider Unava ilable Encounter Details Date Type Department Care Team (Late st Contact Info) Description 02/27/2000 Results Only [facility] - Maple conversion [address] [place] [address] Mario Hammond, [address] [facility] [address] [place], [place] [phone] Social History Tobacco Use Types Packs/Day Years [...] Priority Date/Time Associated Diagnosis Comments CYTOPATHOLOGY Routine 02/27/2000 7:35 EDT CYTOPATHOLOGY Routine 02/27/2000 7:33 EDT CYTOPATHOLOGY Routine 02/27/2000 7:32 EDT CYTOPATHOLOGY Routine 02/27/2000 7:30 EDT CYTOPATHOLOGY Routine 02/27/2000 7:29 EDT CYTOPATHOLOGY Routine 02/27/2000 7:26 EDT documented in this encounter Results * CYTOPATHOLOGY (02/27/2000 7:35 EDT) Pathology Report: CYTOPATHOLOGY REPORT Reports generated via electronic interface contain original data; however they are lacking the format of the original report. Caution should be taken when reading/interpreti ng unformatted reports. Name: ? MOHAMUD KOCH ? Accession #: ? [id number] : ? 1950 (Age: 49) ??F ?Collect Date: ? 02/27/2000 Location: ?Receive Date: ? 02/27/2000 Provider: ? MARIO HAMMOND DO Copy to: ?MARIO HAMMOND DO JOAN AGUIRRE MD ? CYTOLOGIC DIAGNOSIS: CYTOLOGIC DIAGNOSIS ? Bronchial cytologic material, left lower lobe, brush: ? No malignant cells identified. ? [employer] Archived Tests - Final Diagnosis Text Field: Clinical History : ;Hemoptysis. ??H/O brown recluse spider bite. Gross Description : 1 tube of Cytolyt, [place] Document reviewed and electronically signed by: ? Conversion for KODAK TAFOYA Report Date: ??03/01/2000 00:00 By the signature above, the attending physician certifies that he/she has personally conducted a gross and/or microscopic examination of the described specimens and rendered or confirmed the above diagnosis. Specimen Type: ? Bronchial Cytologic Material, [place], Left Low Clinical History: ? Gross Description: ? End of Report [facility] 02/27/2000 7:35 EDT 02/27/2000 7:36 EDT us Mario Hammond DO PATHOLOGY ORDERABLES Fi nal Result [facility] [address] [place] [address] * CYTOPATHOLOGY (02/27/2000 7:33 EDT) Pathology Report: CYTOPATHOLOGY REPORT Reports generated via electronic interface contain original data; however they are lacking the format of the original report. Caution should be taken when reading/interpreti ng unformatted reports. Name: ? MOHAMUD KOCH ? Accession #: ? [id number] : ? 1950 (Age: 49) ??F ?Collect Date: ? 02/27/2000 Location: ?Receive Date: ? 02/27/2000 Provider: ? MARIO HAMMOND DO Copy to: ?MARIO HAMMOND DO JOAN AGUIRRE MD ? CYTOLOGIC DIAGNOSIS: CYTOLOGIC DIAGNOSIS ? Bronchial cytologic material, left upper lobe, brush: ? No malignant cells identified. ? [employer] Archived Tests - Final Diagnosis Text Field: Clinical History : ;Hemoptysis. ??H/O brown recluse spied bite. Gross Description : 1 tube of Cytolyt, [place] Document reviewed and electronically signed by: ? Conversion for KODAK TAFOYALouis Report Date: ??03/01/2000 00:00 By the signature above, the attending physician certifies that he/she has personally conducted a gross and/or microscopic examination of the described specimens and rendered or confirmed the above diagnosis. Specimen Type: ? Bronchial Cytologic Material, [place], Left Upp Clinical History: ? Gross Description: ? End of Report [facility] 02/27/2000 7:33 EDT 02/27/2000 7:34 EDT Mario Hammond DO PATHOLOGY ORDERABLES Fi nal Result Performing Organization Address [facility]/State/RUST Co de Phone Number [facility] [address] [place] [address] * CYTOPATHOLOGY (02/27/2000 7:32 EDT) Pathology Report: CYTOPATHOLOGY REPORT Reports generated via electronic interface contain original data; however they are lacking the format of the original report. Caution should be taken when reading/interpreti ng unformatted reports. Name: ? MOHAMUD KOCH ? Accession #: ? [id number] : ? 1950 (Age: 49) ??F ?Collect Date: ? 02/27/2000 Location: ?Receive Date: ? 02/27/2000 Provider: ? MARIO HAMMOND DO Copy to: ?MARIO HAMMOND DO JOAN AGUIRRE MD ? CYTOLOGIC DIAGNOSIS: CYTOLOGIC DIAGNOSIS ? Bronchial cytologic material, right lung, wash: ? No malignant cells identified. ??See comment. ? [employer] Archived Tests - Final Diagnosis Text Field: Clinical History : ;Hemoptysis. ??H/O brown recluse spider bite. Gross Description : 1 tube of Cytolyt ? COMMENT: COMMENT ? Foamy alveolar macrophages and reactive bronchial cells are ? present. Document reviewed and electronically signed by: ? Conversion for KODAK TAFOYA Report Date: ??03/01/2000 00:00 By the signature above, the attending physician certifies that he/she has personally conducted a gross and/or microscopic examination of the described specimens and rendered or confirmed the above diagnosis. Specimen Type: ? Bronchial Cytologic Material, Wash, Right, Leighann Clinical History: ? Gross Description: ? End of Report [facility] 02/27/2000 7:32 EDT 02/27/2000 7:33 EDT us Mario Hammond DO PATHOLOGY ORDERABLES Fi nal Result [facility] [address] [place] [address] * CYTOPATHOLOGY (02/27/2000 7:30 EDT) Pathology Report: CYTOPATHOLOGY REPORT Reports generated via electronic interface contain original data; however they are lacking the format of the original report. Caution should be taken when reading/interpreti ng unformatted reports. Name: ? DAKOTAHPETERMOHAMUD TERAN Tiffanie ? Accession #: ? [id number] : ? 1950 (Age: 49) ??F ?Collect Date: ? 02/27/2000 Location: ?Receive Date: ? 02/27/2000 Provider: ? MARIO HAMMOND DO Copy to: ?MARIO HAMMOND DO JOAN AGUIRRE MD ? CYTOLOGIC DIAGNOSIS: CYTOLOGIC DIAGNOSIS ? Bronchial cytologic material, right mid and lower lobes, brush: ? No malignant cells identified. ??See comment. ? [employer] Archived Tests - Final Diagnosis Text Field: Clinical History : ;Hemoptysis. ??H/O brown recluse spider bite Gross Description : 1 tube of Cytolyt, [place] ? COMMENT: COMMENT ? Reactive bronchial cells are present. Document reviewed and electronically signed by: ? Conversion for KODAK TAFOYA Report Date: ??03/01/2000 00:00 By the signature above, the attending physician certifies that he/she has personally conducted a gross and/or microscopic examination of the described specimens and rendered or confirmed the above diagnosis. Specimen Type: ? Bronchial Cytologic Material, [place], Right, Clinical History: ? Gross Description: ? End of Report [facility] 02/27/2000 7:30 EDT 02/27/2000 7:31 EDT us Mario Hammond DO PATHOLOGY ORDERABLES Fi nal Result [facility] [address] [place] [address] * CYTOPATHOLOGY (02/27/2000 7:29 EDT) Pathology Report: CYTOPATHOLOGY REPORT Reports generated via electronic interface contain original data; however they are lacking the format of the original report. Caution should be taken when reading/interpreti ng unformatted reports. Name: ? MOHAMUD KOCH ? Accession #: ? [id number] : ? 1950 (Age: 49) ??F ?Collect Date: ? 02/27/2000 Location: ?Receive Date: ? 02/27/2000 Provider: ? MARIO HAMMOND DO Copy to: ?MARIO HAMMOND DO JOAN AGUIRRE MD ? CYTOLOGIC DIAGNOSIS: CYTOLOGIC DIAGNOSIS ? Bronchial cytologic material, right upper lobe, brush: ? No malignant cells identified. ??See comment. ? [employer] Archived Tests - Final Diagnosis Text Field: Clinical History : ;Hemoptysis. ??H/O brown recluse spider bite. Gross Description : 1 tube of Cytolyt, [place] ? COMMENT: COMMENT ? Reactive bronchial cells are present. Document reviewed and electronically signed by: ? Conversion for KODAK TAFOYA Report Date: ??03/01/2000 00:00 By the signature above, the attending physician certifies that he/she has personally conducted a gross and/or microscopic examination of the described specimens and rendered or confirmed the above diagnosis. Specimen Type: ? Bronchial Cytologic Material, [place], Right Up Clinical History: ? Gross Description: ? End of Report [facility] 02/27/2000 7:29 EDT 02/27/2000 7:30 EDT Mario Hammond DO PATHOLOGY ORDERABLES Fi nal Result [facility] [address] [place] [address] * CYTOPATHOLOGY (02/27/2000 7:26 EDT) Pathology Report: CYTOPATHOLOGY REPORT Reports generated via electronic interface contain original data; however they are lacking the format of the original report. Caution should be taken when reading/interpreti ng unformatted reports. Name: ? AUGUST MOHAMUD L ? Accession #: ? [id number] : ? 1950 (Age: 49) ??F ?Collect Date: ? 02/27/2000 Location: ?Receive Date: ? 02/27/2000 Provider: ? MARIO HAMMOND DO Copy to: ?MARIO HAMMOND DO JOAN AGUIRRE MD ? CYTOLOGIC DIAGNOSIS: CYTOLOGIC DIAGNOSIS ? Bronchial cytologic material, left lung: ? No malignant cells identified. ??See comment. ? [employer] Archived Tests - Final Diagnosis Text Field: Clinical History : ;Hemoptysis. ??H/O brown recluse spider bite. Gross Description : 1 tube of Cytolyt ? COMMENT: COMMENT ? Foamy alveolar macrophages and bronchial cells are present. Document reviewed and electronically signed by: ? Conversion for KODAK TAFOYA Report Date: ??03/01/2000 00:00 By the signature above, the attending physician certifies that he/she has personally conducted a gross and/or microscopic examination of the described specimens and rendered or confirmed the above diagnosis. Specimen Type: ? Bronchial Cytologic Material, Wash, Left, Dequan Clinical History: ? Gross Description: ? End of Report [facility] 02/27/2000 7:26 EDT 02/27/2000 7:27 EDT us Mario Hammond DO PATHOLOGY ORDERABLES Fi nal Result Performing Organization Address City/State/RUST Co de Phone Number [facility] [address] [place] [address] documented in this encounter Visit Diagnoses Not on filedocumented in this encounter Care Teams Senior Boiler Operator Relationship Specialty Start Date End Date Unknown, Provider, PCP - General 01/27/10 05/12/12 documented as of this encounter
--- OUTSIDE RECORDS SUMMARY | 2024-11-27 14:16 | XMS_ITS | Encounter Summary ---
Author Organization [facility] Address [address] [place] [address] Care Team Providers Care Wire Preparation Worker Name Role Phone Unknown, Provider Primary Care Provider Unava ilable Encounter Details Date Type Department Care Team (Late st Contact Info) Description 12/23/2006 Results Only [facility] - Maple conversion [address] [place] [address] Joan Aguirre MD [address] [place] [phone] Social History Tobacco Use Types Packs/Day Years [...] Priority Date/Time Associated Diagnosis Comments CYTOPATHOLOGY Routine 12/23/2006 0:00 EST documented in this encounter Results * CYTOPATHOLOGY (12/23/2006 0:00 EST) Pathology Report: CYTOPATHOLOGY REPORT Reports generated via electronic interface contain original data; however they are lacking the format of the original report. Caution should be taken when reading/interpreti ng unformatted reports. Name: ? LAMAR KOCH ? Accession #: ? [id number] : ? 1950 (Age: 56) ??F ?Collect Date: ? 12/23/2006 Location: ? [facility] ? Receive Date: ? 12/27/2006 Provider: ?JOAN AGUIRRE MD Copy to: ? Specimen/Source: ?ThinPrep Pap Test, Cervix/Endocervix, processed on [employer] ThinPrep Imaging System, with manual evaluation Last Menstrual Period: ? 1996 Other: ? HPVA - HPV testing requested if ASC-US on the current ThinPrep Pap test. ? SPECIMEN ADEQUACY ? Satisfactory for Evaluation - transformation zone component present GENERAL CATEGORIZATION ? Negative for Intraepithelial Lesion or Malignancy ? Document reviewed and electronically signed by: ? GEOVANNY James(ASCP) ? Report Date: ??12/29/2006 08:30 End of Report [facility] 12/23/2006 12/27/2006 us Joan Aguirre MD PATHOLOGY ORDERABLES Final Resul t [facility] [address] [place] [address] documented in this encounter Visit Diagnoses Not on filedocumented in this encounter Care Teams Wire Preparation Worker Relationship Specialty Start Date End Date Unknown, Provider, PCP - General 01/27/10 05/12/12 documented as of this encounter
--- OUTSIDE RECORDS SUMMARY | 2024-11-27 14:16 | XMS_ITS | Encounter Summary ---
Author Organization [facility] Address [address] [place] [address] Care Team Providers Care Dependency Counselor Name Role Phone Unknown, Provider Primary Care Provider Unava ilable Encounter Details Date Type Department Care Team (Late st Contact Info) Description 05/11/2012 Results Only [facility] Laboratory Services - [facility] ([facility]) [address] [place], [place] [phone] Justin Branham MD [address] [place] [address] [place] [phone] Social History Tobacco Use Types Packs/Day Years [...] Date/Time Associated Diagnosis Comments SURGICAL PATHOLOGY Routine 05/11/2012 0:00 EDT documented in this encounter Results * SURGICAL PATHOLOGY (05/11/2012 0:00 EDT) Pathology Report: SURGICAL PATHOLOGY REPORT Reports generated via electronic interface contain original data; however they are lacking the format of the original report. Caution should be taken when reading/interpreti ng unformatted reports. Name: ? LAMAR KOCH ? Accession #: ? [id number] ? : ? 1950 (Age: 61) ??F ? Collect Date: ? 05/11/2012 ? Location: ? [facility] ? Receive Date: ? 05/11/2012 ? Provider: JUSTIN BRANHAM MD Copy to: ALEXANDER REAL SAMPLE CARD MAKER ? Final Pathologic Diagnosis: ? Bone, right knee, knee arthroplasty: 1. ?Erosion of perichondrium, focal fibrosis of marrow, and osteopenia, consistent with osteoarthritis. 2. ? Negative for morphologic features of rheumatoid arthritis. ?? Document reviewed and electronically signed by: JASMYNE CARRASCO [facility] Report ??Date: 05/17/2012 14:13 By the signature above, the attending physician certifies that he/she has personally conducted a gross and/or microscopic examination of the described specimens and rendered or confirmed the above diagnosis. Specimen(s) Received: ? Bone from Rt knee Clinical History: ? DJD Rt knee; rule out hx RA; history of rheumatoid arthritis via serology; no clinical evidence Gross Description: ? Received in formalin labelled Lamar Koch and right knee bone are eight fragments of bone which range from 2.0 x 1.4 x 0.6 cm to 8.0 x 5.0 x 2.5 cm. ??These fragments are flat on one surface and on the opposing surface, are round, white-cervantes, and focally nodular to granular. ??The cut surfaces consist of cervantes-yellow, trabecular bone. ??Olive Pitter sections are submitted as (A1) through (A4) following decalcification. ??(Dr. Adhikari)/marjan End of Report [facility] 05/11/2012 05/11/2012 16: 34 EDT us Justin Branham MD PATHOLOGY ORDERABLES Final Result [facility] [address] [place] [address] documented in this encounter Visit Diagnoses Not on filedocumented in this encounter Care Teams Dependency Counselor Relationship Specialty Start Date End Date Unknown, Provider, PCP - General 01/27/10 05/12/12 documented as of this encounter
--- OUTSIDE RECORDS SUMMARY | 2024-11-27 14:16 | XMS_ITS | Encounter Summary ---
Author Organization [facility] Address [address] [place] [address] Care Team Providers Care Fertilizer Supervisor Name Role Phone Melissa Sandoval AGRICULTURE SCIENCE TEACHER Primary Care Provider [phone] Encounter Details Date Type Department Care Team (Latest Contact Info) Description 03/03/2017 18:37 EDT - 03/03/2017 23:59 EDT Hospital Encounter [address] [address] Unknown, Provider, MD Discharge Disposition: Home or Self Care Social History Tobacco Use Types Packs/Day Years Used Date Smoking Tobacco: Never Assessed Comments Unknown Sex and Gender Information Value Date Recorded Sex Assigned at Not on file Legal Sex Female 17:40 EST Gender Identity Not on file Sexual Orientation Not on file documented as of this encounter Discharge Disposition Disposition Code Departure Means Destination Home or Self Fdc documented in this encounter Plan of Treatment Not on file documented as of this encounter Visit Diagnoses Not on filedocumented in this encounter Care Teams Fertilizer Supervisor Relationship Specialty Start Date End Date Melissa Sandoval NP [address] [place] [phone] PCP - General 05/13/12 08/02/22 documented as of this encounter
--- OUTSIDE RECORDS SUMMARY | 2024-11-27 14:16 | XMS_ITS | Encounter Summary ---
Author Organization [facility] Address [address] [place] [address] Care Team Providers Care Ground Water Contractor Name Role Phone Unknown, Provider Primary Care Provider Unava ilable Encounter Details Date Type Department Care Team (Late st Contact Info) Description 05/06/2010 Results Only [facility] Laboratory Services - [facility] [place] [address] [place] [address] Graciela Jarrett MD [address] [place] [address] [place] [address] Social History Tobacco Use Types Packs/Day Years [...] Priority Date/Time Associated Diagnosis Comments CYTOPATHOLOGY Routine 05/06/2010 0:00 EDT documented in this encounter Results * CYTOPATHOLOGY (05/06/2010 0:00 EDT) Pathology Report: CYTOPATHOLOGY REPORT ? Reports generated via electronic interface contain original data; ? however they are lacking the format of the original report. ? Caution should be taken when reading/interpreti ng unformatted reports. ? Name: ? LAMAR KOCH ? Accession #: ? [id number] ? : ? 1950 (Age: 59) ??F ?Collect Date: ? 05/06/2010 ? Location: ? [facility] ? Receive Date: ? 05/07/2010 ? Provider: ?GRAICELA JARRETT MD ? Copy to: ? Specimen/Source: ?Pap Test, Cervix/Endocervix, ThinPrep Imaging System ? with manual evaluation ? Last Menstrual Period: ? Other: ? HPVA - HPV testing requested if ASC-US on the current ThinPrep Pap test. ? SPECIMEN ADEQUACY ? Satisfactory for Evaluation ? - transformation zone component present ? GENERAL CATEGORIZATION ? Negative for Intraepithelial Lesion or Malignancy ? Document reviewed and electronically signed by: ? Selin V[place](ASCP) ? Report Date: ??05/09/2010 11:11 ? End of Report ? [facility] 05/06/2010 05/07/2010 us Graciela Jarrett MD PATHOLOGY ORDERABLES Final Resu lt [facility] [address] [place] [address] documented in this encounter Visit Diagnoses Not on filedocumented in this encounter Care Teams Ground Water Contractor Relationship Specialty Start Date End Date Unknown, Provider, PCP - General 01/27/10 05/12/12 documented as of this encounter
--- OUTSIDE RECORDS SUMMARY | 2024-11-27 14:16 | XMS_ITS | Encounter Summary ---
Author Organization [facility] Address [address] [place] [address] Care Team Providers Care Mail Processing Clerk Name Role Phone Unknown, Provider Primary Care Provider Unava ilable Encounter Details Date Type Department Care Team (Late st Contact Info) Description 05/22/2002 Results Only [facility] - [facility] [address] [place] [address] Joan Aguirre MD [address] [place] [phone] Social History Tobacco Use Types Packs/Day Years [...] Priority Date/Time Associated Diagnosis Comments CYTOPATHOLOGY Routine 05/22/2002 0:00 EDT documented in this encounter Results * CYTOPATHOLOGY (05/22/2002 0:00 EDT) Pathology Report: CYTOPATHOLOGY REPORT Reports generated via electronic interface contain original data; however they are lacking the format of the original report. Caution should be taken when reading/interpreti ng unformatted reports. Name: ? LAMAR KOCH ? Accession #: ? [id number] : ? 1950 (Age: 51) ??F ?Collect Date: ? 05/22/2002 Location: ? [facility] ? Receive Date: ? 05/24/2002 Provider: ?JOAN AGUIRRE MD Copy to: ? Specimen/Source: ?ThinPrep Pap Test, Cervix/Endocervix Last Menstrual Period: ? 8 years ago Hormonal/Contracep tive Status: ? Premarin: Cream ? SPECIMEN ADEQUACY ? Satisfactory for Evaluation - transformation zone component present GENERAL CATEGORIZATION ? Negative for Intraepithelial Lesion or Malignancy ? Document reviewed and electronically signed by: ? GEOVANNY James(ASCP) ? Report Date: ??05/29/2002 12:01 End of Report [facility] 05/22/2002 05/24/2002 us Joan Aguirre MD PATHOLOGY ORDERABLES Final Resul t [facility] [address] [place] [address] documented in this encounter Visit Diagnoses Not on filedocumented in this encounter Care Teams Mail Processing Clerk Relationship Specialty Start Date End Date Unknown, Provider, PCP - General 01/27/10 05/12/12 documented as of this encounter
--- OUTSIDE RECORDS SUMMARY | 2024-11-27 14:16 | XMS_ITS | Encounter Summary ---
Author Organization [facility] Address [address] [place] [address] Care Team Providers Care Ice Skating Coach Name Role Phone Unknown, Provider Primary Care Provider Unava ilable Encounter Details Date Type Department Care Team (Late st Contact Info) Description 02/15/2001 Results Only [facility] - [place] [facility] [address] [place] [address] Joan Aguirre MD [address] [place] [phone] Social History Tobacco Use Types Packs/Day Years [...] Priority Date/Time Associated Diagnosis Comments CYTOPATHOLOGY Routine 02/15/2001 0:00 EDT documented in this encounter Results * CYTOPATHOLOGY (02/15/2001 0:00 EDT) Pathology Report: CYTOPATHOLOGY REPORT Reports generated via electronic interface contain original data; however they are lacking the format of the original report. Caution should be taken when reading/interpreti ng unformatted reports. Name: ? LAMAR KOCH ? Accession #: ? [id number] : ? 1950 (Age: 50) ??F ?Collect Date: ? 02/15/2001 Location: ? [facility] ? Receive Date: ? 02/17/2001 Provider: ?JOAN AGUIRRE MD Copy to: ? Specimen/Source: ?Conventional Pap Test, Vagina/Cervix Last Menstrual Period: ? 1993 ? SPECIMEN ADEQUACY ? Satisfactory for evaluation but limited by air drying artifact/cellular degeneration. GENERAL CATEGORIZATION ? Within Normal Limits ? Document reviewed and electronically signed by: ? GEOVANNY Jacinto(ASCP) ? Report Date: ??02/22/2001 07:57 End of Report [facility] 02/15/2001 02/17/2001 us Joan Aguirre MD PATHOLOGY ORDERABLES Final Resul t [facility] [address] [place] [address] documented in this encounter Visit Diagnoses Not on filedocumented in this encounter Care Teams Ice Skating Coach Relationship Specialty Start Date End Date Unknown, Provider, PCP - General 01/27/10 05/12/12 documented as of this encounter
--- OUTSIDE RECORDS SUMMARY | 2024-11-27 14:16 | XMS_ITS | Encounter Summary ---
Author Organization [facility] Address [address] [place] [address] Care Team Providers Care Mobile Therapist Name Role Phone Melissa Sandoval SARAH Primary Care Provider [phone] Encounter Details Date Type Department Care Team (Late st Contact Info) Description 09/24/2016 Results Only [facility] [phone] Jose Manuel Flowers MD [address] [place] [phone] Social History Tobacco Use Types Packs/Day Years [...] Date/Time Associated Diagnosis Comments SURGICAL PATHOLOGY Routine 09/24/2016 11 :15 EST documented in this encounter Results * SURGICAL PATHOLOGY (09/24/2016 11:15 EST) Pathology Report: SURGICAL PATHOLOGY REPORT Reports generated via electronic interface contain original data; however they are lacking the format of the original report. Caution should be taken when reading/interpret ing unformatted reports. Name: ? LAMAR KOCH ? Accession #: ? [id number] ? : ? 1950 (Age: 66) ??F ? Collect Date: ? 09/24/2016 ? Location: ? [facility] ? Receive Date: ? 09/26/2016 ? Provider: JOSE MANUEL FLOWERS MD Copy to: INDERJIT GRACIA MD ? Final Pathologic Diagnosis: UTERUS AND CERVIX, SIMPLE HYSTERECTOMY: - Endometrium: ? - Inactive. - Myometrium: ? - Adenomyosis. ? - Intramural leiomyomata (up to 0.5 cm). - Cervix: ? - Parakeratosis. ? - Mild chronic cervicitis. - Serosa: ? - Dense fibrous adhesions. Document reviewed and electronically signed by: LASHON SIMEON MD Report ??Date: 09/29/2016 13:50 By the signature above, the attending physician certifies that he/she has personally conducted a gross and/or microscopic examination of the described specimens and rendered or confirmed the above diagnosis. Specimen(s) Received: Uterus Clinical History: Uterine prolapse Gross Description: ? Received in formalin labelled with proper patient identification (initials G, D) and uterus is a 46.5 g uterus having the following dimensions: cervix to fundus 8.0 cm, cornu to cornu, 4.0 cm, and up to 2.5 cm in anterior to posterior dimension. The serosa is dusky balkely to cervantes-brown. Orientation is not obvious. The 3.0 cm in diameter cervix displays a patent os. The endocervical canal is slightly reticulated cervantes-blakely. The internal os is stenosed. The endometrium is slightly granular blakely-brown and averages 0.1 cm in thickness. The myometrium contains two intramural leiomyomata, 0.3 cm in diameter and 0.5 cm in diameter. Areas of hemorrhage or necrosis are not identified within the nodules. Instructor Substitute Cosmetology sections are submitted as follows: BLOCK FUCHS 1- ??opacified serosa 2-3- ??cervix/lower uterine segment 4-5- ??endomyometrium 6-7- ??cervix/lower uterine segment, opposing side 8-9- ??endomyometrium, opposing side JUAN Palomino (ASCP) 09/28/2016 12:07 PM End of Report [facility] 09/24/2016 11:1 5 EST 09/26/2016 11:15 EST us Jose Manuel Flowers MD PATHOLOGY ORDERABLES Final Resu lt [facility] [address] [place] [address] documented in this encounter Visit Diagnoses Not on filedocumented in this encounter Care Teams Mobile Therapist Relationship Specialty Start Date End Date Melissa Sandoval NP [address] [place] [phone] PCP - General 05/13/12 08/02/22 documented as of this encounter
--- OUTSIDE RECORDS SUMMARY | 2024-11-27 14:16 | XMS_ITS | Encounter Summary ---
Author Organization [facility] Address [address] [place] [address] Care Team Providers Care Acquisition Cost Estimator Name Role Phone Unavailable Primary Care Provider Unavailabl e Encounter Details Date Type Department Care Team (Late st Contact Info) Description 01/22/2010 Results Only [facility] - [facility] [place] [place] [address] [place], [place] [phone] Galdino Hammond, DO [address] [facility] [address] [place], [place] [phone] Social History Tobacco Use Types Packs/Day Years [...] Date/Time Associated Diagnosis Comments SURGICAL PATHOLOGY Routine 01/22/2010 0:00 EDT documented in this encounter Results * SURGICAL PATHOLOGY (01/22/2010 0:00 EDT) Pathology Report: SURGICAL PATHOLOGY REPORT ? Reports generated via electronic interface contain original data; ? however they are lacking the format of the original report. ? Caution should be taken when reading/interpreti ng unformatted reports. ? Name: ? AUGUST, LAMAR L ? Accession #: ? [id number] ? : ? 1950 (Age: 59) ??F ? Collect Date: ? 01/22/2010 ? Location: ? [facility] ? Receive Date: ? 01/23/2010 ? Provider: GALDINO HAMMOND DO ? Copy to: JOAN AGUIRRE MD ? Final Pathologic Diagnosis: ? A. ?Stomach, antrum, biopsies: ? 1. ?Gastric antral mucosa with mild reactive changes ? 2. ?No Helicobacter pylori-like microorganisms identified on ? H&E-stained sections. ? 3. ? Negative for acute ulceration/erosion . ? B. ?Stomach, body, biopsy: ? 1. ?Gastric body mucosa with mild gastritis, mild. ? 2. ?No Helicobacter pylori-like microorganisms identified on ? H&E-stained sections. ? 3. ? Negative for acute ulceration/erosion . ? Document reviewed and electronically signed by: ? Perez Parker MD ? Report ??Date: 01/27/2010 17:15 ? By the signature above, the attending physician certifies that he/she has ? personally conducted a gross and/or microscopic examination of the described ? specimens and rendered or confirmed the above diagnosis. ? Specimen(s) Received: ? A. ?Antrum ? B. ? Body of stomach ? Clinical History: ? Hx of GI bleed 2 months ago. She was on NSAIDs at that time. ??She is now on Zantac. ??No visualized ulcer. ? Gross Description: ? Received in Hollsanae's fixative labelled August, Lamar and antrum ?? bx are two cervantes-pink soft tissues measuring 0.2 x 0.2 x 0.2 cm and 0.3 x 0.2 x ?? 0.2 cm. ??The specimen is entirely submitted as (A). ? Received in Hollande's fixative labelled August, Lamar and body of ? stomach is a cervantes-pink 0.5 x 0.2 x 0.2 cm soft tissue fragment. ??The specimen is entirely submitted as (B). ??(Cuate Pereira)/mpl ? End of Report ? [facility] 01/22/2010 01/23/2010 16: 28 EDT us Galdino Hammond DO PATHOLOGY ORDERABLES Fi nal Result [facility] [address] [place] [address] documented in this encounter Visit Diagnoses Not on filedocumented in this encounter
[2024-11-27 15:38] LABS: HCT 33.1 % (36.0-46.0); HGB 10.7 g/dL (11.2-15.7); MCH 28.7 pg (27.0-33.0); MCHC 32.3 % (32.0-36.0); MCV 89 fL (80-95); MPV 10.3 fL (8.0-11.0); Platelet Count 248 10^3/uL (130-400); RBC 3.73 10^6/uL (3.93-5.22); RDW 14.5 % (11.7-14.6); RDW-SD 45.9 fL; WBC 7.34 10^3/uL (4.4-10.8)
[2024-11-27 16:28] LABS: Hemoglobin A1C 6.2 % (<5.7)
[2024-11-27 17:07] LABS: ALT 17 U/L (14-59); AST 13 U/L (15-37); Albumin 4.1 g/dL (3.4-5.0); Alkaline Phosphatase 95 U/L (46-116); Anion Gap 12.2 mmol/L (3-11); BUN 55 mg/dL (7-18); Bilirubin, Total 0.33 mg/dL (0.2-1.0); CO2 21.8 mmol/L (21.0-32.0); CREATININE 2.5 mg/dL (0.55-1.02); Calcium 9.9 mg/dL (8.5-10.1); Calculated LDL 76 mg/dL (<100); Chloride 108 mmol/L (98-107); Cholesterol 146 mg/dL (<200); Estimated GFR 19.81 (mL/min/1.73m2); Glucose 122 mg/dL (74-106); HDL Cholesterol 58 mg/dL (40-60); Potassium 5.5 mmol/L (3.5-5.1); Sodium 142 mmol/L (136-145); Total Protein 7.5 g/dL (6.4-8.2); Triglyceride 60 mg/dL (<150)
[2024-11-27 22:35] LABS: Parathyroid Hormone,Intact 52.3 pg/mL (19.0-88.0)
== END 2024-11-27 14:10 | disposition home or self-care (01) ==
LOC: NCHCN 14:09
PROVIDERS: PCP Physician Assistant; Visit Provider Physician Assistant
DX: E11.9 Type 2 diabetes mellitus without complications (principal); N18.4 Chronic kidney disease, stage 4 (severe)
CPT/HCPCS: 80053; 80061; 85027; 83036; 83970

== ENCOUNTER 2025-01-10 02:01 | Outpatient (CLI) | payer MEDICARE, MEDICAID, SELFPAY ==
--- NOTE | 2025-01-10 11:57 | DI.MAMMO_ITS ---
Exam(s) MAMMO SCREENING EXAM: MAMMO SCREENING CLINICAL HISTORY: Screening, Z12.31 TECHNIQUE: Mammograms were interpreted according to the usual protocol including computer analysis w [employer] CAD system, tomosynthesis and C-view imaging. COMPARISON: 2015 through 2023 FINDINGS: The breasts are composed of scattered fibroglandular densities, Breast Density category B. No suspicious masses or suspicious microcalcifications are seen. No skin thickening or abnormal axillary lymph nodes are seen. There has been no significant change from prior exams. IMPRESSION: BI-RADS Category 1, Negative mammogram Yearly screening mammography is recommended. Breast Density - Category B, scattered fibroglandular densities. A negative radiographic report should not delay biopsy if a dominant or clinically suspicious mass is present. Up to ten percent of cancers are not identified on mammography. A negative report may reinforce clinical impression. Adenosis and dense breasts may obscure an underlying neoplasm. False positive reports average 6 to 10%. Patient will receive a letter notifying them of these results.
== END 2025-01-10 02:21 ==
PROVIDERS: PCP Physician Assistant; Visit Provider Physician Assistant
DX: Z12.31 Encounter for screening mammogram for malignant neoplasm of breast (principal); R92.323 Mammographic fibroglandular density, bilateral breasts
CPT/HCPCS: 77063; 77067

== ENCOUNTER 2025-02-20 12:23 | Outpatient (REF) | payer MEDICARE, MEDICAID, SELFPAY | END 2025-02-20 12:24 | disposition home or self-care (01) | LOC: NCHCN 12:23 | PROVIDERS: PCP Physician Assistant; Visit Provider Physician Assistant | DX: R30.0 Dysuria (principal) | CPT/HCPCS: 87077; 87086; 87186 ==

== ENCOUNTER 2025-05-02 02:38 | Outpatient (CLI) | payer MEDICARE, MEDICAID, SELFPAY ==
--- NOTE | 2025-05-02 08:30 | DI.US_ITS ---
Exam(s) US RENAL EXAM: US RENAL CLINICAL HISTORY: monitoring right renal mass, MIXED INCONTINENCE,. TECHNIQUE: Waller scale imaging and color doppler were used. COMPARISON: CT ABD PELVIS WO CONTRAST from 03/03/2017 MR MR ABDOMEN WO/W from 02/01/[address] ABDOMEN WO from 04/07/2019 US US RENAL from 05/07/2022 US US RENAL from 05/01/2024 FINDINGS: Right kidney: 11.3cm Echogenicity: Mildly increased in echogenicity which could indicate medical renal disease. Cortical thinning. Hydronephrosis: No Cyst or mass: No significant change in size previously noted complex cystic mass at the upper pole of the right kidney, measured at 4.2 cm in greatest dimension. Nephrolithiasis: No Left kidney: 9.7cm Echogenicity: Mildly increased echogenicity which could indicate medical renal disease. Cortical thinning. Hydronephrosis: No Cyst or mass: No Nephrolithiasis: No Bladder:Not well evaluated due to under distension. Prevoid vol:44 cc Postvoid vol: Cc IMPRESSION: Stable size of complex cystic lesion at the upper pole of the right kidney. DATA REPOSITORY:
== END 2025-05-02 02:58 ==
PROVIDERS: PCP Physician Assistant; Visit Provider Nurse Practitioner Gerontology
DX: N39.46 Mixed incontinence (principal); N28.89 Other specified disorders of kidney and ureter
CPT/HCPCS: 76770

== ENCOUNTER → 2025-06-06 13:59 | Outpatient (BNVA) | payer MEDICARE, MEDICAID, SELFPAY | PROVIDERS: PCP Physician Assistant; Visit Provider Nurse Practitioner Gerontology | DX: N39.46 Mixed incontinence (principal); N28.89 Other specified disorders of kidney and ureter | CPT/HCPCS: 99213 ==

== ENCOUNTER 2025-06-11 16:02 | Outpatient (REF) | payer MEDICARE, MEDICAID, SELFPAY ==
[2025-06-11 17:39] LABS: Hemoglobin A1C 6.5 % (<5.7)
[2025-06-11 17:55] LABS: Anion Gap 14.2 mmol/L (3-11); BUN 43 mg/dL (7-18); CO2 21.8 mmol/L (21.0-32.0); Calcium 9.4 mg/dL (8.5-10.1); Chloride 105 mmol/L (98-107); Estimated GFR 25.89 (mL/min/1.73m2); Ferritin 420 ng/mL (8-252); Glucose 192 mg/dL (74-106); Potassium 4.6 mmol/L (3.5-5.1); Sodium 141 mmol/L (136-145)
[2025-06-11 18:31] LABS: Iron 52 ug/dL (50-170); Total Iron Binding Capacity 306 ug/dL (250-450); Transferrin Sat 17 % (15-50)
== END 2025-06-11 16:03 | disposition home or self-care (01) ==
LOC: NCHCN 16:02
PROVIDERS: PCP Physician Assistant; Visit Provider Physician Assistant
DX: E11.9 Type 2 diabetes mellitus without complications (principal); I10 Essential (primary) hypertension; D63.8 Anemia in other chronic diseases classified elsewhere
CPT/HCPCS: 80048; 82728; 83036; 83540; 83550

== ENCOUNTER 2025-08-15 12:31 | Outpatient (CLI) | payer MEDICARE, MEDICAID, SELFPAY ==
[2025-08-15 11:38] LABS: Abs Immature Grans 0.02 10^3/uL (0.0-0.06); HCT 32.5 % (36.0-46.0); HGB 10.8 g/dL (11.2-15.7); Immature Grans % 0.2 %; MCH 29.3 pg (27.0-33.0); MCHC 33.2 % (32.0-36.0); MCV 88 fL (80-95); MPV 9.5 fL (8.0-11.0); Platelet Count 239 10^3/uL (130-400); RBC 3.68 10^6/uL (3.93-5.22); RDW 14.0 % (11.7-14.6); RDW-SD 45.1 fL; WBC 8.23 10^3/uL (4.4-10.8)
[2025-08-15 12:45] LABS: Iron 49 ug/dL (50-170); Total Iron Binding Capacity 288 ug/dL (250-450); Transferrin Sat 17 % (15-50)
[2025-08-15 12:58] LABS: ALT 23 U/L (14-59); AST 12 U/L (15-37); Albumin 3.8 g/dL (3.4-5.0); Alkaline Phosphatase 100 U/L (46-116); Anion Gap 10.2 mmol/L (3-11); BUN 34 mg/dL (7-18); Bilirubin, Total 0.4 mg/dL (0.2-1.0); CO2 26.8 mmol/L (21.0-32.0); Calcium 9.7 mg/dL (8.5-10.1); Chloride 102 mmol/L (98-107); Estimated GFR 25.89 (mL/min/1.73m2); Ferritin 414 ng/mL (8-252); Glucose 139 mg/dL (74-106); Potassium 4.0 mmol/L (3.5-5.1); Sodium 139 mmol/L (136-145); Total Protein 7.6 g/dL (6.4-8.2)
== END 2025-08-15 12:32 | disposition home or self-care (01) ==
PROVIDERS: PCP Physician Assistant; Visit Provider Internal Medicine Hematology & Oncology
DX: N18.9 Chronic kidney disease, unspecified (principal); D63.8 Anemia in other chronic diseases classified elsewhere
CPT/HCPCS: 36415; 80053; 82728; 83540; 83550; 85025